=== PATIENT | female | born 1965 | race Caucasian/White ===

== ENCOUNTER 2025-06-08 09:28 | Outpatient (CLI) | payer OTHER, SELFPAY ==
--- OUTSIDE RECORDS SUMMARY | 2025-06-08 10:32 | XMS_ITS | Encounter Summary ---
Author Organization [facility] Address [address] [place] [address] Phone Care Team Providers [employer] Name Role Phone Ga Liang MD Primary Care Provider [phone] Logan Acuna MD Unavailable Mars Marti APRN, CNP Unavailable [phone] Onelia Lagunas DO Primary Care Provider [phone] Jones Christy MD Unavailable [phone] Eliezer Ndiaye MD Unavailable Shamar Rosales MD Unavailable Reason for Visit * Reason Comments Medication Refill Encounter Details Date Type Department Care Team (Late st Contact Info) Description 01/03/2024 Refill [facility] - Family Medicine [facility] [address] [place] [address] Ga Liang MD [address] [place] [address] Medication Refill Social History Tobacco Use Types Packs/Day Years Used Date Smoking Tobacco: Never Smokeless Tobacco: Never Alcohol Use Standard Drinks/Week Comments No 0 (1 standard drink = 0.6 oz pur e alcohol) [facility] Utilities Answer Date Recorded In the past 12 months has [employer], gas, oil, or water company threatened to shut off services in your home? No 12/02/2023 Social Connection and Isolation Panel Answer Date Recorded In a typical week, how many times do you talk on the phone with family, friends, or neighbors? Twice a week 12/02/2023 How often do you get togethe r with friends or relatives? Once a week 12/02/2023 How often do you attend chur ch or baptism services? More than 4 times per year 12/02/2023 Do you belong to any clubs o r organizations such as confucianism groups, unions, fraternal or athletic groups, or school groups? No 12/02/2023 How often do you attend meet ings of the clubs or organizations you belong to? 1 to 4 times per year 12/02/2023 Are you , , di vorced, , never , or living with a partner? 12/02/2023 AUDIT-C Answer Date Recorded Q1: How often do you have a drink containing alcohol? Never 12/02/2023 Q2: How many drinks containi ng alcohol do you have on a typical day when you are drinking? Patient does not drink Q3: How often do you have si x or more drinks on one occasion? Never 12/02/2023 Overall Financial Resource Strain (CARDIA) Answe r Date Recorded How hard is it for you to pa y for the very basics like food, housing, medical care, and heating? Not very hard 12/02/2023 [facility] - Occupational Stress Questionnaire Answer Date Recorded Do you feel stress - tense, restless, nervous, or anxious, or unable to sleep at night because your mind is troubled all the time - these days? Only a little 12/02/2023 Exercise Vital Sign Answer Date Recorde d On average, how many days pe r week do you engage in moderate to strenuous exercise (like a brisk walk)? 4 days 12/02/2023 On average, how many minutes do you engage in exercise at this level? 20 min 12/02/2023 Hunger Vital Sign Answer Date Recorded Within the past 12 months, y ou worried that your food would run out before you got the money to buy more. Never true 12/02/19 24 Within the past 12 months, t he food you bought just didn't last and you didn't have money to get more. Never true 12/02/2023 PRAPARE - Transportation Answer Date Re corded In the past 12 months, has l ack of transportation kept you from medical appointments or from getting medications? No 11/10 In the past 12 months, has l ack of transportation kept you from meetings, work, or from getting things needed for daily living? No 12/02/2023 Housing Stability Vital Sign Answer Jose Martin e Recorded In the last 12 months, was t here a time when you were not able to pay the mortgage or rent on time? No 12/02/2023 In the last 12 months, how many places have you lived? 1 12/02/2023 In the last 12 months, was t here a time when you did not have a steady place to sleep or slept in a senior living (including now)? No 12/02/2023 Sexually Active Control Partners Comments Yes Male Comments No Sex and Gender Information Value Date Recorded Sex Assigned at Female 08/07/2023 10:22 AM FLOOR HELPER Legal Sex Female 12:40 AM CDT Gender Identity Female 08/07/2023 10:22 AM FLOOR HELPER Sexual Orientation Straight 08/07/2023 10 :22 AM FLOOR HELPER documented as of this encounter Miscellaneous Notes * Telephone Encounter - Mily Quiros RN - 01/07/2024 7:36 AM CDT PDMP 10/18/23, 11/14/23, 12/12/23 Medication failed the protocol, provider to review and approve the medication order if appropriate. Requested Prescriptions Pending Prescriptions Disp Refills zolpidem (AMBIEN) 10 MG Tablet [Pharmacy Med Name: Zolpidem Tartrate 10 MG Oral Tablet] 30 Tablet 0 Sig: Take 1 Tablet by mouth nightly as needed for Sleep. Not Delegated - Off Protocol Failed - 01/03/2024 1:30 PM Failed - This refill cannot be delegated Passed - Visit with relevant provider in past 12 months or upcoming 90 days Recent Visits Date Type Provider Dept 12/04/23 Office Visit Ga Liang MD [facility] 11/13/23 Office Visit Ga Liang MD [facility] 09/19/23 Office Visit Ninoska Borden, LICENSED LOAN OFFICER, HEADLIGHT ASSEMBLER [facility] 09/05/23 Office Visit Ninoska Borden, LICENSED LOAN OFFICER, HEADLIGHT ASSEMBLER [facility] 08/06/23 Office Visit Jennifer Chowdary, PAC [facility] 07/18/23 Office Visit Ga Liang MD [facility] Showing recent visits within past 365 days and meeting all other requirements Today's Visits Date Type Provider Dept 01/07/24 Appointment Jennifer Chowdary, PAC [facility] [place] Showing today's visits and meeting all other requirements Future Appointments Date Type Provider Dept 03/09/24 Appointment Onelia Lagunas DO [facility] Showing future appointments within next 90 days and meeting all other requirements * Telephone Encounter - Clarissa Brooks RN - 01/04/2024 3:16 PM CDT PDMP 12-12-23, 30 days Due 01-11-24 documented in this encounter Plan of Treatment Upcoming Encounters Date Type Department Care Team (Late st Contact Info) Description 06/09/2025 9:30 AM CDT Office Visit [facility] - Gastroenterology - [place] [address] [place] [id number] Blaise Dill MD [address] [address] 06/13/2025 10:45 AM FLOOR HELPER Office Visit [facility] - Neurology - [place] [address] [place] [id number] Onelia Lagunas DO [address] [address] Jones Christy MD [address] [place] [address] 07/20/2025 8:15 AM FLOOR HELPER [facility] [place] [address] [place] [address] Onelia Lagunas, DO [address] [address] Henry Bernabe MD [address] [address] 09/05/2025 8:00 AM FLOOR HELPER [facility] [place] [address] [place] [address] Onelia Lagunas, DO [address] [address] 09/28/2025 8:30 AM FLOOR HELPER [facility] [place] [address] [place] [address] Shamar Rosales MD [address] [address] documented as of this encounter Visit Diagnoses Diagnosis Insomnia, unspecified type documented in this encounter Additional Health Concerns Infection Onset Date Last Indicated Resolved Time COVID - 19 04/30/2024 04/30/2024 04/30/2024 11:2 5 AM CDT documented as of this encounter Care Teams [employer] Relationship Specialty Start Date End Date Ga Liang MD [address] [place] [address] PCP - General Family Medicine 07/18/23 03/08/24 Onelia Lagunas DO [address] [facility] [address] [place] [address] PCP - General Family Medicine 03/09/24 Logan Acuna MD [address] [facility] [address] [place] [address] Consulting Physician Colon and Rectal Surgery 10/15/23 Mars Marti, LICENSED LOAN OFFICER, HEADLIGHT ASSEMBLER [address] [place] [address] Nurse Practitioner Advanced Practice Nurse 02/10/24 Jones Christy MD [address] [place] [id number] Consulting Physician Neurology 04/30/24 Eliezer Ndiaye MD [address] [address] Consulting Physician Clinical Cardiac Electrophysiology 09/17/24 03/23/25 Shamar Rosales MD [address] [facility] [address] [address] Consulting Physician Cardiovascular Disease - Cardiology 03/24/25 documented as of this encounter
--- OUTSIDE RECORDS SUMMARY | 2025-06-08 10:32 | XMS_ITS | Clinical Summary ---
Author Organization [facility] Address [address] [place] [address] Phone Care Team Providers Care Brickmason Helper Name Role Phone Logan Acuna MD Unavailable Mars Marti APRN, CNP Unavailable [phone] Onelia Lagunas DO Primary Care Provider [phone] Jones Christy MD Unavailable [phone] Shamar Rosales MD Unavailable Allergies Active Allergy Reactions Criticality Noted Date Comments Levofloxacin Rash 11/05/2007 Lorazepam Hallucinations 04/19/2025 Medications albuterol 108 (90 Base) MCG/ACT Aerosol Solution take 1-2 Puffs by inhalation every 4 hours as needed for Wheezing or Cough. 9 g 4 Active naloxone HCl (Narcan) 4 MG/0.1ML Liquid 1 [place] by Nasal route as needed for Opioid Reversal. Administer in one nostril for symptoms of overdose (severe sleepiness, breathing problems, not responsive). Call 911. May repeat 1 spray in alternate nostril in 2-3 minutes if needed. 2 Each 5 Active butalbital-aceta minophen-caffein e (FIORICET, ESGIC) 50-325-40 MG TabletIndication s:Concussion without loss of consciousness, initial encounter Take 1 Tablet by mouth every 4 hours as needed for Headaches. 10 Tablet 5 Active ondansetron (ZOFRAN) 8 MG Tablet Take 1 Tablet by mouth every 8 hours as needed for Nausea - 1st line for up to 24 doses. 24 Tablet 5 Active baclofen (LIORESAL) 20 MG Tablet Take 1 Tablet by mouth 3 times daily. 90 Tablet 5 Active eszopiclone (LUNESTA) 3 MG TabletIndication s:Insomnia, unspecified type Take 1 Tablet by mouth nightly as needed for Sleep. 30 Tablet 5 Active amitriptyline (ELAVIL) 25 MG Tablet Take 2 Tablets by mouth nightly. 180 Tablet 5 Active NIFEdipine (PROCARDIA-XL) 30 MG TABLET SR 24 HR Take 1 Tablet by mouth daily. 90 Tablet 3 5 Active losartan potassium-hydroc hlorothiazide (HYZAAR) 100-25 MG TabletIndication s:Hypertension, unspecified type Take 1 Tablet by mouth daily. 30 Tablet 5 5 Active Active Problems Problem Noted Date Diagnosed Date Status post lumbar spinal fusion 05/30/2025 Wound infection after surgery 05/30/2025 Lumbar spondylosis 05/30/2025 Cauda equina compression 05/30/2025 Referred otalgia of left ear 05/18/2025 Traumatic complete tear of left rotator cuff Bilateral carotid artery stenosis 01/13/2025 Atrial fibrillation 11/11/2024 Insomnia 07/23/2023 Vitamin B 12 deficiency 07/23/2023 Prediabetes 09/23/2019 07/18/2023 Other sleep apnea 02/12/2018 07/18/2023 Chronic tension headache 05/28/2017 023 Generalized anxiety disorder 05/28/201703/2023 Epidural lipomatosis 08/23/2016 Overview (11/13/2023): Epidural lipomatosis Incontinence 08/16/2016 Personal history of colonic polyps 05/16/2016 07/18/2023 Overview (07/18/2023): Overview: 5 mm left colon polyp removed 05/16/16. Repeat 5 y if adenoma as suspected. 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 07/18/2023 Essential hypertension, benign 10/19/2007 1 09/18/2022 Hyperlipidemia 10/19/2007 07/18/2023 Carpal tunnel syndrome 09/15/2007 Rheumatoid arthritis 09/15/2007 07/18/2023 Osteoarthrosis 11/29/2003 07/18/2023 Hypertension Encounters Date Type Department Care Team Description 06/07/2025 Travel 06/02/2025 Results Follow-Up [facility] [address] [place] [address] Eloisa Beaulieu APRN, QUALITY SYSTEMS MANAGER LIPID PANEL 06/02/2025 Results Follow-Up [facility] [address] [place] [address] Eloisa Beaulieu APRN, QUALITY SYSTEMS MANAGER MRI LEFT SHOULDER WO CONTRAST 05/31/2025 8:00 AM CDT - 05/31/2025 11:59 PM CDT Hospital Encounter [facility] MRI 1 [place] [address] Eloisa Beaulieu APRN, QUALITY SYSTEMS MANAGER Discharge Disposition: Discharged to home or Selfcare 05/30/2025 8:40 AM CDT Office Visit [facility] [address] [place] [address] Eloisa Beaulieu APRN, QUALITY SYSTEMS MANAGER Spinal stenosis of lumbar region with neurogenic claudication (Primary Dx); Hyperlipidemia, unspecified hyperlipidemia type; Rheumatoid arthritis, involving unspecified site, unspecified whether rheumatoid factor present Discharge Disposition: Discharged to home or Selfcare 05/29/[address] [facility] Medical [facility] [address] [place] [address] Onelia Lagunas, DO 05/29/2025 Travel 05/28/2025 Travel 05/26/2025 9:15 AM CDT Physical Therapy [facility] [address], [address] [place] [address] Guanakito Echeverria, Lexus Lemon, PT Discharge Disposition: Discharged to home or Selfcare 05/26/2025 8:30 AM CDT Occupational Therapy [facility] [address], [address] [place] [address] Oe, November N, DIE STORAGE CLERK, [place] Leyva, OT Discharge Disposition: Discharged to home or Selfcare 05/25/2025 Travel 05/24/2025 11:15 AM CDT Occupational Therapy [facility] [address], [address] [place] [address] Oe, November N, DIE STORAGE CLERK, [place] Leyva, OT Discharge Disposition: Discharged to home or Selfcare 05/24/2025 9:30 AM CDT Physical Therapy [facility] [address], [address] [place] [address] Guanakito Echeverria, Lexus Lemon, PT Left shoulder pain, unspecified chronicity (Primary Dx); Chronic bilateral low back pain with right-sided sciatica Discharge Disposition: Discharged to home or Selfcare 05/24/2025 Travel 05/22/2025 Travel 05/20/2025 12:26 PM CDT - 05/20/2025 11:59 PM CDT Hospital Encounter [facility] Ultrasound 1 [facility] [place] [address] Onelia Lagunas, DO Discharge Disposition: Discharged to home or Selfcare 05/20/2025 8:45 AM CDT Occupational Therapy [facility] [address] [place] [address] Oekillian, Radha N, DIE STORAGE CLERK, [place] Leyva, OT Discharge Disposition: Discharged to home or Selfcare 05/20/2025 Results Follow-Up [facility] Medical [facility] [address] [place] [address] Eloisa Beaulieu, NICOLAS, QUALITY SYSTEMS MANAGER US LEFT DUPLEX UPPER EXTREMITY VEINS, US ANKLE/BRACHIAL INDICES 05/19/2025 9:15 AM CDT Physical Therapy [facility] at [address] [place] [address] Guanakito Echeverria MD Middleton, Trisha M, PT Left shoulder pain, unspecified chronicity (Primary Dx); Chronic bilateral low back pain with right-sided sciatica Discharge Disposition: Discharged to home or Selfcare 05/18/2025 12:41 PM CDT - 05/18/2025 11:59 PM CDT Hospital Encounter [facility] Ultrasound 1 [place] [address] Onelia Lagunas, DO Discharge Disposition: Discharged to home or Selfcare 05/18/2025 Travel 05/17/2025 1:00 PM CDT Occupational Therapy [facility] [address] [place] [address] Pita, Radha N, DIE STORAGE CLERK, [place] Leyva, OT Discharge Disposition: Discharged to home or Selfcare 05/17/2025 9:30 AM CDT Physical Therapy [facility] at [place] [address], [address] [place] [address] Guanakito Echeverria, Lexus Lemon, PT Left shoulder pain, unspecified chronicity (Primary Dx); Chronic bilateral low back pain with right-sided sciatica Discharge Disposition: Discharged to home or Selfcare 05/17/2025 Travel 05/16/2025 Travel 05/15/2025 Travel 05/13/2025 9:30 AM CDT Physical Therapy [facility] at [address] [place] [address] Guanakito Echeverria, Lexus Lemon, PT Left shoulder pain, unspecified chronicity (Primary Dx); Chronic bilateral low back pain with right-sided sciatica Discharge Disposition: Discharged to home or Selfcare 05/12/2025 9:15 AM CDT Physical Therapy [facility] at [address] [place] [address] Guanakito Echeverria, Lexus Lemon, PT Left shoulder pain, unspecified chronicity (Primary Dx); Chronic bilateral low back pain with right-sided sciatica Discharge Disposition: Discharged to home or Selfcare 05/12/2025 8:30 AM CDT Occupational Therapy [facility] at [address] [place] [address] Radha Lema N, DIE STORAGE CLERK, QUALITY SYSTEMS MANAGER Embmoisés, Jamaica, OT Discharge Disposition: Discharged to home or Selfcare 05/12/2025 Travel 05/10/2025 10:30 AM CDT Speech Therapy [facility] at [address] [place] [address] Jones Christy, Alivia Sharma, [facility] SPECIALIST Cognitive change (Primary Dx); Cognitive decline Discharge Disposition: Discharged to home or Selfcare 05/10/2025 9:30 AM CDT Physical Therapy [facility] [address], [address] [place] [address] Guanakito Echeverria, Lexus Lemon, PT Left shoulder pain, unspecified chronicity (Primary Dx); Chronic bilateral low back pain with right-sided sciatica Discharge Disposition: Discharged to home or Selfcare 05/10/2025 Travel 05/09/2025 Travel 05/06/2025 8:45 AM CDT Physical Therapy [facility] [address] [place] [address] Guanakito Echeverria, Lexus Lemon, PT Left shoulder pain, unspecified chronicity (Primary Dx); Chronic bilateral low back pain with right-sided sciatica Discharge Disposition: Discharged to home or Selfcare 05/05/2025 9:15 AM CDT Physical Therapy [facility] [address] [place] [address] Guanakito Echeverria, Lexus Lemon, PT Left shoulder pain, unspecified chronicity (Primary Dx) Discharge Disposition: Discharged to home or Selfcare 05/05/2025 Travel 05/03/2025 10:30 AM CDT Speech Therapy [facility] [address] [place] [address] Jones Christy MD Brim, Ashley E, [facility] [employer] [employer] SPECIALIST Cognitive change (Primary Dx); Cognitive decline Discharge Disposition: Discharged to home or Selfcare 05/03/2025 9:30 AM CDT Physical Therapy [facility] [address] [place] [address] Guanakito Echeverria, Lexus Lemon, PT Left shoulder pain, unspecified chronicity (Primary Dx) Discharge Disposition: Discharged to home or Selfcare 05/03/2025 Travel 05/02/2025 8:40 AM CDT Office Visit [facility] [address] [place] [address] Onelia Lagunas, DO Mass of upper inner quadrant of left breast (Primary Dx); Insomnia, unspecified type; Spinal stenosis of lumbar region with neurogenic claudication; Arm paresthesia, left; Nausea and vomiting, unspecified vomiting type; Adrenal insufficiency (HCC) Discharge Disposition: Discharged to home or Selfcare 05/02/2025 MyChart RX Renewal [facility] [address] [place] [address] Onelia Lagunas, DO Medication Renewal Reviewed 05/02/2025 Documentation Only [facility] [place] [address] Onelia Lagunas, DO 05/02/2025 Transcribe Orders [facility] [place] [address] Onelia Lagunas, DO Mass of left breast, unspecified quadrant (Primary Dx) 05/02/2025 Travel 04/30/2025 Travel 04/28/2025 10:45 AM CDT Occupational Therapy [facility] [address] [place] [address] Radha Lema N, DIE STORAGE CLERK, [place] Leyva, BRANDO Discharge Disposition: Discharged to home or Selfcare 04/28/2025 9:15 AM CDT Physical Therapy [facility] [address], [address] [place] [address] Guanakito Echeverria MD Middleton, Trisha M, PT Left shoulder pain, unspecified chronicity (Primary Dx); Chronic bilateral low back pain with right-sided sciatica Discharge Disposition: Discharged to home or Selfcare 04/28/2025 Travel 04/26/2025 9:30 AM CDT Physical Therapy [facility] [address] [place] [address] Guanakito Echeverria, Lexus Lemon, PT Left shoulder pain, unspecified chronicity (Primary Dx); Chronic bilateral low back pain with right-sided sciatica Discharge Disposition: Discharged to home or Selfcare 04/26/2025 Travel 04/21/2025 9:15 AM CDT Physical Therapy [facility] [address] [place] [address] Guanakito Echeverria, Lexus Lemon, PT Left shoulder pain, unspecified chronicity (Primary Dx) Discharge Disposition: Discharged to home or Selfcare 04/19/2025 2:30 PM CDT Physical Therapy [facility] at [place] [address] [place] [address] Guanakito Echeverria, Lexus Lemon, PT Left shoulder pain, unspecified chronicity (Primary Dx) Discharge Disposition: Discharged to home or Selfcare 04/19/2025 Travel 04/18/2025 Travel 04/15/2025 MyChart RX Renewal [facility] [address] [place] [address] Onelia Lagunas, Medication Renewal Reviewed 04/15/2025 MyChart RX Renewal [facility] [address] [place] [address] Onelia Lagunas, Medication Renewal Reviewed 04/15/2025 Results Follow-Up [facility] [address] [place] [address] Radha Lema, DIE STORAGE CLERK, QUALITY SYSTEMS MANAGER US ABDOMEN LIMITED, LEVEL 1 - SINGLE ORGAN OR SOFT TISSUE 04/14/2025 11:15 AM CDT Speech Therapy [facility] at [place] [address], [address] [place] [address] Vern Wilkinson MD Brim, Ashley E, [facility] [employer] SPECIALIST Cognitive change (Primary Dx); Cognitive decline Discharge Disposition: Discharged to home or Selfcare 04/14/2025 9:15 AM CDT Physical Therapy [facility] [address] [place] [address] Guanakito Echeverria MD Middleton, Trisha M, PT Left shoulder pain, unspecified chronicity (Primary Dx); Chronic bilateral low back pain with right-sided sciatica Discharge Disposition: Discharged to home or Selfcare 04/14/2025 6:54 AM CDT - 04/14/2025 11:59 PM CDT Hospital Encounter [facility] [place] [address] Radha Lema, DIE STORAGE CLERK, QUALITY SYSTEMS MANAGER Discharge Disposition: Discharged to home or Selfcare 04/13/2025 Travel 04/13/2025 Plan of Care Documentation [facility] [address] [place] [address] 04/12/2025 3:15 PM CDT Occupational Therapy [facility] [address] [place] [address] Vern Wilkinson MD Embick, Alyssa, OT Concussion without loss of consciousness, initial encounter Discharge Disposition: Discharged to home or Selfcare 04/12/2025 2:30 PM CDT Physical Therapy [facility] [address] [place] [address] Guanakito Echeverria MD Middleton, Trisha M, PT Left shoulder pain, unspecified chronicity (Primary Dx) Discharge Disposition: Discharged to home or Selfcare 04/10/2025 Travel 03/24/2025 1:00 PM CDT Office Visit [facility] [address] [place] [address] Eloisa Beaulieu APRN, CNP Abrasion of left ear canal, subsequent encounter (Primary Dx); Left ear pain; Jaw pain; Acute post-traumatic headache, not intractable Discharge Disposition: Discharged to home or Selfcare 03/23/2025 11:00 AM CDT Office Visit [facility] [address] [place] [address] Shamar Rosales MD Paroxysmal atrial fibrillation (HCC) (Primary Dx) Discharge Disposition: Discharged to home or Selfcare 03/23/2025 Travel 03/23/2025 Results Follow-Up [facility] [address] [place] [address] Onelia Lagunas DO CMP (COMPREHENSIVE METABOLIC PANEL), THYROXINE (T4) FREE, TRIIODOTHYRININE (T3) FREE, Additional followed-up results: 6 03/22/2025 6:50 PM CDT - 03/22/2025 11:59 PM CDT Hospital Encounter [facility] [place] [address] Vern Wilkinson MD Discharge Disposition: Discharged to home or Selfcare 03/22/2025 Travel 03/21/2025 11:42 PM CDT - 03/22/2025 1:55 AM CDT Emergency [facility] [place] [address] Bryson Callaway MD Abrasion of left ear canal Discharge Disposition: Discharged to home or Selfcare 03/21/2025 1:20 PM CDT Office Visit [facility] [address] [place] [address] Onelia Lagunas DO Insomnia, unspecified type (Primary Dx); Hypertension, unspecified type; Hyperlipidemia, unspecified hyperlipidemia type; Prediabetes; Concussion without loss of consciousness, sequela (HCC); Low creatine kinase (CK); Low blood sugar; Left ear pain; Nausea and vomiting, unspecified vomiting type Discharge Disposition: Discharged to home or Selfcare 03/21/2025 9:15 AM CDT Office Visit [facility] [address] [place] [address] Jones Christy MD Concussion without loss of consciousness, initial encounter (Primary Dx); Polyneuropathy; Meralgia paresthetica of left side Discharge Disposition: Discharged to home or Selfcare 03/21/2025 Travel 03/19/2025 Travel 03/18/2025 Transcribe Orders [facility] [place] [address] Vern Wilkinson MD Arthrodesis status (Primary Dx); Spinal stenosis of lumbar region, unspecified whether neurogenic claudication present 03/14/2025 Telephone [facility] [address] [place] [address] Onelia Lagunas DO Prior Authorization 03/11/2025 Transcribe Orders [facility] [place] [address] Vern Wilkinson MD Arthrodesis status (Primary Dx); Spondylosis of lumbar region without myelopathy or radiculopathy 03/09/2025 2:30 PM CDT Physical Therapy [facility] [address], [address] [address] Vern Wilkinson MD Middleton, Trisha M, PT Discharge Disposition: Discharged to home or Selfcare 03/08/2025 Travel from Last 3 Months Immunizations Immunization Administration Dates Next Due Influenza Vaccine 05/29/2019, 8,06/19/2017,2015,06/13/2016,06/30/2015,06/29/2015,1 09/05/2013,04/11/2013 Influenza, Seasonal, Injecta ble, Undefined 06/23/2017,06/20/2014 MMR Vaccine 03/25/2003 Novel [id number], Injectable 07/06/2016 Pneumococcal Vaccine - 13 Valent 12/04/2014 Pneumococcal Vaccine Adult - 23 Valent 09/23/2019,04/08/2014 TDAP Vaccine 11/19/2022,07/14/2012 Tuberculin Skin Test; Purifi ed Protein Derivative Solutiol 08/15/2005 Family History Medical History Relation Name Comments Heart Attack Brother 1 Syed Alcohol Abuse Brother 2 Felipe Huangta alarcon Sudden Cardiac Brother 2 Felipe Huangta alarcon Alcohol Abuse Father Nestor Cancer Father Nestor Hypertension Father Nestor Prostate Cancer Father Nestor No Known Problems Maternal Grandfather No Known Problems Maternal Grandmother Depression Mother Vanessa Diabetes Mother Vanessa Type 1 diabetic diagnosed age 60 High Cholesterol Mother Vanessa Hypertension Mother Vanessa Other-comment Mother Vanessa Carotid artery disease No Known Problems Paternal Grandfather No Known Problems Paternal Grandmother Depression Sister 1 Alejandra Diabetes Sister 1 Alejandra Diagnosed age 6 0. Heart Attack Sister 1 Alejandra Kidney Stones Sister 1 Alejandra No Known Problems Sister 2 Cancer Son 1 testicular canc er Cancer Son 2 testicular canc er Autoimmune Disease Son 3 autoimmun e sensorineural hearing loss Relation Name Status Comments Brother 1 Syed Brother 2 Felipe Zacarias jr Alive Father Nestor Maternal Grandfather Maternal Grandmother Mother Vanessa Alive Paternal Grandfather Paternal Grandmother Sister 1 Alejandra Alive Sister 2 Alive Son 1 Alive Son 2 Alive Son 3 Alive Social History Tobacco Use Types Packs/Day Years Used Date Smoking Tobacco: Never Smokeless Tobacco: Never Tobacco Cessation:Counseling Given: No Alcohol Use Standard Drinks/Week Comments No 0 (1 standard drink = 0.6 oz pur e alcohol) [facility] Utilities Answer Date Recorded In the past 12 months has e electric, gas, oil, or water company threatened to shut off services in your home? No 09/14/2024 Social Connection and Isolation Panel Answer Date Recorded In a typical week, how many times do you talk on the phone with family, friends, or neighbors? Twice a week 09/14/2024 How often do you get togethe r with friends or relatives? Once a week 09/14/2024 How often do you attend chur ch or muslim services? More than 4 times per year 09/14/2024 Do you belong to any clubs o r organizations such as judaism groups, unions, fraternal or athletic groups, or school groups? Yes 09/14/2024 How often do you attend meet ings of the clubs or organizations you belong to? More than 4 times per year 09/14/2024 Are you , , di vorced, , never , or living with a partner? 09/14/2024 AUDIT-C Answer Date Recorded Q1: How often do you have a drink containing alcohol? Never 09/14/2024 Q2: How many drinks containi ng alcohol do you have on a typical day when you are drinking? Patient does not drink Q3: How often do you have si x or more drinks on one occasion? Never 09/14/2024 Overall Financial Resource Strain (CARDIA) Answe r Date Recorded How hard is it for you to pa y for the very basics like food, housing, medical care, and heating? Not hard at all 09/14/2024 PHQ-2 Answer Date Recorded Total Score - Questions 1-9 0 04/12 [facility] - Occupational Stress Questionnaire Answer Date Recorded Do you feel stress - tense, restless, nervous, or anxious, or unable to sleep at night because your mind is troubled all the time - these days? To some extent 09/14/2024 Exercise Vital Sign Answer Date Recorde d On average, how many days pe r week do you engage in moderate to strenuous exercise (like a brisk walk)? 5 days 09/14/2024 On average, how many minutes do you engage in exercise at this level? 60 min 09/14/2024 Hunger Vital Sign Answer Date Recorded Within the past 12 months, y ou worried that your food would run out before you got the money to buy more. Never true 09/14/19 25 Within the past 12 months, t he food you bought just didn't last and you didn't have money to get more. Never true 09/14/2024 PRAPARE - Transportation Answer Date Re corded In the past 12 months, has l ack of transportation kept you from medical appointments or from getting medications? No 11/2024 In the past 12 months, has l ack of transportation kept you from meetings, work, or from getting things needed for daily living? No 09/14/2024 Housing Stability Vital Sign Answer Jose Martin [...] place to sleep or slept in a alf (including now)? No 12/02/2023 Housing Stability Vital Sign Answer Jose Martin e Recorded In the last 12 months, was t here a time when you were not able to pay the mortgage or rent on time? No 09/14/2024 In the past 12 months, how m any times have you moved where you were living? 0 09/14/2024 At any time in the past 12 m [facility], were you homeless or living in a alf (including now)? No 09/14/2024 Sexually Active Control Partners Comments Yes Post-menopausal, Surgical Male Comments No Sex and Gender Information Value Date Recorded Sex Assigned at Female 08/07/2023 10:22 AM CONTENT EDITOR Legal Sex Female 12:40 AM CDT Gender Identity Female 08/07/2023 10:22 AM CONTENT EDITOR Sexual Orientation Straight 08/07/2023 10 :22 AM CONTENT EDITOR Last Filed Vital Signs Vital Sign Reading Time Taken Comments Blood Pressure 128/62 05/30/2025 8:30 AM CDT Pulse 63 05/30/2025 8:30 AM CDT Temperature 36.4 C (97.5 F) 05/30/2025 8:30 AM CDT Respiratory Rate 16 05/30/2025 8:30 AM CDT Oxygen Saturation 97% 05/30/2025 8:30 AM CDT Inhaled Oxygen Concentration - - Weight 80.3 kg (177 lb) 05/30/2025 8:30 AM CDT Height 170.2 cm (5' 7) 05/30/2025 8:30 AM CDT Body Mass Index 27.72 05/30/2025 8:30 AM CDT Plan of Treatment Upcoming Encounters Date Type Department Care Team (Late st Contact Info) Description 06/09/2025 9:30 AM CDT Office Visit [facility] - Gastroenterology - [place] [address] [place] [address] Blaise Dill MD [address] [address] 06/13/2025 10:45 AM CONTENT EDITOR Office Visit [facility] - Neurology - [place] [address] [place] [address] Onelia Lagunas, DO [address] [address] Jones Christy MD #2 [place] [address] 07/20/2025 8:15 AM CONTENT EDITOR Office Visit [facility] - Endocrinology - [place] [address] [place] [address] Onelia Lagunas, DO [address] [address] Henry Bernabe MD #[address] [place] [address] 09/05/2025 8:00 AM CONTENT EDITOR Office Visit [facility] - Family Medicine - [place] [address] [place] [address] Onelia Lagunas, DO 2 [facility] [address] [place] [address] 09/28/2025 8:30 AM CONTENT EDITOR Office Visit [facility] - Cardiology - [place] [address] [place] [address] Shamar Rosales MD [address], [address] [address] Health Maintenance Due Date Last Done Comments Cologuard 01/13/2009 Respiratory Syncytial Virus (RSV) Immunization (Adult) (1 - Risk 50-74 years 1-dose series) 01/13/2014 Immunochemical Fecal Occult Blood 05/13/2017 05/13/2016 Pneumococcal Immunization (50+ years) (3 of 3 - PCV20 or PCV21) 09/23/2024 09/23/2019, 12/04/2014, 04/08/2014 Mammogram 12/16/2025 12/16/2024, 0508/2023, 01/28/2022, Additional history exists Td Immunization Every 10 Years (Adults With 1 Tdap) 11/19/2032 11/19/2022, 07/14/2012 Colonoscopy 12/04/2033 12/05/2023, 12/05/2023 Colorectal Cancer Screening 12/04/2033 Influenza Immunization Discontinued , 06/04/2018, 06/23/2017, Additional history exists Pneumococcal Immunization Combined Discontinued 09/23/2019, 12/04/2014, 04/08/2014 SARS-COV-2 Immunization Discontinued 03/01/2021, 02/08 DTaP/Tdap/Td Immunization Discontinued 11/19/2022, 11/2011 Hepatitis C Virus (HCV) Screening Completed 11/13/2023 Hepatitis B Immunization Discontinued Human Papillomavirus (HPV) Immunization Aged Out No longer eligible based on patient's age to complete this topic Meningococcal Immunization (ACWY) Aged Out No longer eligible based on patient's age to complete this topic Rotavirus Immunization Aged Out No lo nger eligible based on patient's age to complete this topic Zoster Immunization Discontinued Medical Devices Implanted Type Area Environmental Studies Faculty Member Device Identifier Shelf Expiration Date Model / Serial / Lot System Fix 19.1mm 4.75mm [employer] Swivelock [employer]ocomposite Geronimo Preload Strl - [id number] Implanted:Qty: 1 on 02/02/2025 by Guanakito Echeverria MD at [facility] IMPLANT Left: Shoulder [employer] 08/10/2028 [id number] S-4 / [id number] S-4 / [id number] Procedures Procedure Name Priority Date/Time Associated Diagnosis Comments MRI LEFT SHOULDER WO CONTRAST Routine 05/31/2025 8:40 AM CDT Arm paresthesia, left Abnormal ultrasound LIPID PANEL Routine 05/31/2025 7:46 AM CDT Hyperlipidemia, unspecified hyperlipidemia type ORTHOPEDIC SURGERY CONSULT 05/23/2025 12:00 AM CDT US ANKLE/BRACHIAL INDICES Routine 05/20/2025 1:28 PM CDT Spinal stenosis of lumbar region with neurogenic claudication Arm paresthesia, left US LEFT DUPLEX UPPER EXTREMITY VEINS Routine 05/18/2025 2:19 PM CDT Arm paresthesia, left US ABDOMEN LIMITED, LEVEL 1 - SINGLE ORGAN Routine 04/14/2025 7:13 AM CDT Epigastric mass CT LUMBAR SPINE WO CONTRAST Routine 03/22/2025 7:06 PM CDT Arthrodesis status Spondylosis of lumbar region without myelopathy or radiculopathy THYROID SCREEN WITH REFLEX Routine 03/22/2025 7:06 AM CDT Insomnia, unspecified type Hypertension, unspecified type Hyperlipidemia, unspecified hyperlipidemia type Prediabetes CBC WITH AUTO DIFFERENTIAL Routine 03/22/2025 7:06 AM CDT Insomnia, unspecified type Hypertension, unspecified type Hyperlipidemia, unspecified hyperlipidemia type Prediabetes CORTISOL Routine 03/22/2025 7:06 AM CDT Insomnia, unspecified type Prediabetes Low blood sugar CREATINE KINASE (CK) TOTAL Routine 03/22/2025 7:06 AM CDT Low creatine kinase (CK) C-REACTIVE PROTEIN (CRP) QUANT Routine 03/22/2025 7:06 AM CDT Insomnia, unspecified type Hypertension, unspecified type Hyperlipidemia, unspecified hyperlipidemia type Prediabetes Concussion without loss of consciousness, sequela (HCC) ERYTHROCYTE SEDIMENTATION RATE (ESR) Routine 03/22/2025 7:06 AM CDT Insomnia, unspecified type Hypertension, unspecified type Hyperlipidemia, unspecified hyperlipidemia type Prediabetes Concussion without loss of consciousness, sequela (HCC) TRIIODOTHYRININE (T3) FREE Routine 03/22/2025 7:06 AM CDT Insomnia, unspecified type Hypertension, unspecified type Hyperlipidemia, unspecified hyperlipidemia type Prediabetes THYROXINE (T4) FREE Routine 03/22/2025 7 :06 AM CDT Insomnia, unspecified type Hypertension, unspecified type Hyperlipidemia, unspecified hyperlipidemia type Prediabetes THYROID SCREEN WITH REFLEX Routine 03/22/2025 7:06 AM CDT Insomnia, unspecified type Hypertension, unspecified type Hyperlipidemia, unspecified hyperlipidemia type Prediabetes CMP (COMPREHENSIVE METABOLIC PANEL) Routine 03/22/2025 7:06 AM CDT Insomnia, unspecified type Hypertension, unspecified type Hyperlipidemia, unspecified hyperlipidemia type Prediabetes COMPLETE BLOOD COUNT (CBC) WITH DIFF Routine 03/22/2025 7:06 AM CDT Insomnia, unspecified type Hypertension, unspecified type Hyperlipidemia, unspecified hyperlipidemia type Prediabetes NEUROSURGY CONSULT 03/08/2025 12 :00 AM CDT TIANNA SCREENING BILATERAL DIGITAL W CAD W JAKUB Routine 12/16/2024 2:43 PM CDT Encounter for screening mammogram for breast cancer HEPATITIS C ANTIBODY Routine 11/13/2023 10:44 AM CDT Need for hepatitis C screening test from Last 3 Months or Most Recently Relevant to Health Maintenance Results * MRI LEFT SHOULDER WO CONTRAST (05/31/2025 8:40 AM CDT) Anatomical Region Laterality Modality UPPER EXTREMITY, shoulder Left Magnet ic Resonance 05/31/2025 8:07 AM CDT Impressions 05/31/2025 3:45 PM CDT IMPRESSION: 1. Findings of prior rotator cuff repair. There is moderate tendinopathy of the supraspinatus particularly involving the anterior to mid footprint with mild thinning of the anterior footprint suggestive of low-grade retearing. There is severe tendinosis of the subscapularis superior bundle with low to moderate grade intrasubstance re tearing. No full-thickness rotator cuff tear or tendon retraction. Mild fatty infiltration and volume loss of the supraspinatus. 2. Moderate tendinosis and partial tearing of the long head of the biceps. 3. Moderate subacromial/subdeltoid bursitis. 4. Bone loss in the distal clavicle could be postsurgical or distal clavicular osteolysis. Narrative 05/31/2025 3:45 PM CDT MRI LEFT SHOULDER WO CONTRAST EXAM DATE: 05/31/2025 8:15 AM HISTORY: 60 years year old Female. Paresthesia of skin Abnormal findings on diagnostic imaging of other specified body structures TECHNIQUE: Multiplanar, multisequence MR images of the left shoulder were acquired without contrast. COMPARISON: Comparison made with previous examination(s) dated (DX) 07-Mar-2025. FINDINGS: Rotator cuff and long head of the biceps: There are findings of prior rotator cuff repair. There is moderate tendinopathy of the supraspinatus particularly involving the anterior to mid footprint with additional mild thinning of the anterior footprint suggestive of low-grade sprain as well as bursal and articular surface fraying. There is mild to moderate tendinosis of the infraspinatus without infraspinatus tendon tear. The teres minor is intact. There is severe tendinosis of the subscapularis superior bundle at the site of the previous repair with intrasubstance low to moderate grade partial-thickness tearing near its humeral attachment. There is no full-thickness rotator cuff tear, or tendon retraction. There is mild fatty infiltration of the supraspinatus and mild volume loss. The subscapularis and infraspinatus muscle bulk are grossly preserved with grade 1 strain of the deep fibers of the infraspinatus. 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 The long head of the biceps appears thinned, and demonstrates increased signal suggestive of partial tearing and moderate tendinosis. The arm was imaged in internal rotation without evidence of malalignment of the biceps. Glenohumeral joint, fluid and labrum: There is no significant joint effusion. There is no glenohumeral osteoarthritis with areas of low-grade partial-thickness cartilage loss at the central glenoid, and the superior humeral head particularly. Evaluation of the labrum demonstrates degenerative fraying of the superior labrum. There is also degenerative signal within the posterior labrum. Acromioclavicular joint and bursa: There is widening of the acromioclavicular joint with bone loss in the distal clavicle which could be related to postsurgical changes or distal clavicular osteolysis. There is type II acromion with small subacromial spurring. There is scarring at the coracoacromial ligament, likely postsurgical. There is no lateral acromial downsloping. There is moderate subacromial/subdeltoid bursitis. Bones: No acute fracture or dislocation. No worrisome marrow signal abnormality is seen. Other findings: No evidence of acute denervation edema. There is no axillary lymph node enlargement. There is no MRI evidence of adhesive capsulitis. Procedure Note Jaswant Bellamy MD - 05/31/2025 MRI LEFT SHOULDER WO CONTRAST EXAM DATE: 05/31/2025 8:15 AM HISTORY: 60 years year old Female. Paresthesia of skin Abnormal findingson diagnostic imaging of other specified body structures TECHNIQUE: Multiplanar, multisequence MR images of the left shoulder wereacquired without contrast. COMPARISON: Comparison made with previous examination(s) dated (DX)07-Mar-2025. FINDINGS: Rotator cuff and long head of the biceps: There are findings of priorrotator cuff repair. There is moderate tendinopathy of the supraspinatusparticularly involving the anterior to mid footprint with additional mildthinning of the anterior footprint suggestive of low-grade sprain as wellas bursal and articular surface fraying. There is mild to moderatetendinosis of the infraspinatus without infraspinatus tendon tear. Theteres minor is intact. There is severe tendinosis of the subscapularissuperior bundle at the site of the previous repair with intrasubstance lowto moderate grade partial-thickness tearing near its humeral attachment.There is no full-thickness rotator cuff tear, or tendon retraction. Thereis mild fatty infiltration of the supraspinatus and mild volume loss. Thesubscapularis and infraspinatus muscle bulk are grossly preserved withgrade 1 strain of the deep fibers of the infraspinatus. There is moderatefatty infiltration of the teres minor, most likely sequelae ofquadrilateral space syndrome without space-occupying lesion identifiedalong the visualized axillary nerve course. The long head of the bicepsappears thinned, and demonstrates increased signal suggestive of partialtearing and moderate tendinosis. The arm was imaged in internal rotationwithout evidence of malalignment of the biceps. Glenohumeral joint, fluid and labrum: There is no significant jointeffusion. There is no glenohumeral osteoarthritis with areas of xbg-pkbkkkwvvbrs-rfvmcriue cartilage loss at the central glenoid, and the superiorhumeral head particularly. Evaluation of the labrum demonstratesdegenerative fraying of the superior labrum. There is also degenerativesignal within the posterior labrum. Acromioclavicular joint and bursa: There is widening of theacromioclavicular joint with bone loss in the distal clavicle which couldbe related to postsurgical changes or distal clavicular osteolysis. Thereis type II acromion with small subacromial spurring. There is scarring atthe coracoacromial ligament, likely postsurgical. There is no lateralacromial downsloping. There is moderate subacromial/subdeltoid bursitis. Bones: No acute fracture or dislocation. No worrisome marrow signalabnormality is seen. Other findings: No evidence of acute denervation edema. There is noaxillary lymph node enlargement. There is no MRI evidence of adhesivecapsulitis. IMPRESSION: 1. Findings of prior rotator cuff repair. There is moderate tendinopathyof the supraspinatus particularly involving the anterior to mid footprintwith mild thinning of the anterior footprint suggestive of low-graderetearing. There is severe tendinosis of the subscapularis superior bundlewith low to moderate grade intrasubstance re tearing. No full-thicknessrotator cuff tear or tendon retraction. Mild fatty infiltration and volumeloss of the supraspinatus. 2. Moderate tendinosis and partial tearing of the long head of thebiceps. 3. Moderate subacromial/subdeltoid bursitis. 4. Bone loss in the distal clavicle could be postsurgical or distalclavicular osteolysis. Eloisa Beaulieu APRN, QUALITY SYSTEMS MANAGER [facility] MR ORDERABLES Fin al Result * (ABNORMAL) LIPID PANEL (05/31/2025 7:46 AM CDT) CHOLESTEROL 218(H) <200 mg/dL 05/31/2025 8:47 AM CDT [facility] TRIGLYCERIDES 75 <150 mg/dL 05/31/2025 8:47 AM CDT [facility] HDL CHOLESTEROL 52 >40 mg/dL 8:47 AM CDT [facility] LDL 151(H) <130 mg/dL 05/31/2025 8:47 AM CDT [facility] VLDL 15 10 - 50 mg/dL 05/31/2025 8:47 AM CDT [facility] CHOL/HDL RATIO 4.2 0.0 - 4.4 05/31/2025 8:47 AM CDT [facility] NON-HDL CHOLESTEROL 166(H) <130 mg/dL 05/31/2025 8:47 AM CDT [facility] IS THE PATIENT REQUIRED TO BE FASTING? No 05/31/2025 8:47 AM CDT [facility] Blood Venipuncture / Unknown 05/31/2025 7:46 AM CDT 05/31/2025 7:54 AM CDT Narrative [facility] - 05/31/2025 8:47 AM CDT NCEP GUIDELINES FOR LIPID INTERPRETATION TOTAL CHOLESTEROL DESIRABLE <200 BORDERLINE 200-239 HIGH >=240 LDL CHOLESTEROL OPTIMAL <100 NEAR OPTIMAL 100-129 BORDERLINE 130-159 HIGH 160-189 VERY HIGH >=190 Calculated using the Friedewald equation. HDL CHOLESTEROL LOW <40 *HIGH >=60 TRIGLYCERIDES NORMAL <150 BORDERLINE 150-199 HIGH 200-499 VERY HIGH >=500 VLDL calculated using Triglycerides/5. *HDL CHOLESTEROL >=60 mg/dL counts as a negative risk factor; its presence removes one risk factor from the total. Based on guidelines from the National Cholesterol Education Program, desirable levels for non HDL cholesterol are 30 mg/dL above target levels for LDL cholesterol. Eloisa Beaulieu DIE STORAGE CLERK, QUALITY SYSTEMS MANAGER CHEMISTRY ORDERABLES Final Result Performing Organization Address [facility] Co de Phone Number [facility] [address] [place] [address] * ORTHOPEDIC SURGERY CONSULT (05/23/2025 12:00 AM CDT) 05/23/2025 us Provider Scan GENERIC SCAN ORDERS CONSULT Mendy l Result Performing Organization Address [facility] Co de Phone Number SCAN * US ANKLE/BRACHIAL INDICES (05/20/2025 1:28 PM CDT) Anatomical Region Laterality Modality vascular N/A Ultrasound Narrative 05/29/2025 7:29 PM CDT Vascular Lower Arterial Plethysmography Procedure Patient name RADHA PIERCE [place] 1965 Indications for Study:Claudication and Numbness and tingling feet. Type of Study: Extremities Arteries:Lower Arterial Plethysmography, Ankle/Brachial Indices. Conclusions Summary - No hemodynamically significant large vessel peripheral arterial disease of right lower extremity with GARRET of 1.25. - No hemodynamically significant large vessel peripheral arterial disease of left lower extremity with GARRET of 1.29. - Bilateral toe pressures are non occlusive concern for significant bilateral small vessel Peripheral arterial disease. Signature Velocities are measured in cm/s ; Diameters are measured in cm Pressures Right Left + + + + + + + + + + !Location ! !> !Pressure !Ratio ! !> !Pressure !Ratio ! + + + + + + + + + + !Ankle PT ! ! !201 !1.25 ! ! !207 !1.29 ! + + + + + + + + + + !Ankle AT ! ! !194 !1.2 ! ! !189 !1.17 ! + + + + + + + + + + - Brachial Pressure:Right: 160.Left:161. - GARRET:Right: 1.25.Left: 1.29. Right Plethysmographic Results + +------+ +---------+---------+ + !Location !> !Pressure !Ratio !Notch !Amplitude ! + +------+ +---------+---------+ + !Ankle PT ! !201 !1.25 ! ! ! + +------+ +---------+---------+ + !Ankle AT ! !194 !1.2 ! ! ! + +------+ +---------+---------+ + - Right Brachial Pressure:160. - Right GARRET:1.25. Left Plethysmographic Results + +------+ +---------+---------+ + !Location !> !Pressure !Ratio !Notch !Amplitude ! + +------+ +---------+---------+ + !Ankle PT ! !207 !1.29 ! ! ! + +------+ +---------+---------+ + !Ankle AT ! !189 !1.17 ! ! ! + +------+ +---------+---------+ + - Left Brachial Pressure:161. - Left GARRET:1.29. Demographics Age 60 Gender Female Race Height 160.01 lbs. Weight BMI Director Surface Transportation Shira Haney Interpreting Nacho Referring Physician Jaqueline Physician Ordering Physician Procedure Note Jaqueline Griffith MD - 05/29/2025 Vascular Lower Arterial Plethysmography Procedure Patient name RADHA PIERCE [place] 1965 Indications for Study:Claudication and Numbness and tingling feet. Type of Study: Extremities Arteries:Lower Arterial Plethysmography, Ankle/Brachial Indices. Conclusions Summary - No hemodynamically significant large vessel peripheral arterial disease of right lower extremity with GARRET of 1.25. - No hemodynamically significant large vessel peripheral arterial disease of left lower extremity with GARRET of 1.29. - Bilateral toe pressures are non occlusive concern for significant bilateral small vessel Peripheral arterial disease. Signature Velocities are measured in cm/s ; Diameters are measured in cm Pressures RightLeft + ++ +---- ----- + ++ + +-------- ----- ------+ !Location ! !>!Pressure !Ratio ! !> !Pressure!Ratio ! + ++ +---- ----- + ++ + +-------- ----- ------+ !Ankle PT ! !!201 !1.25 ! ! !207!1.29 ! + ++ +---- ----- + ++ + +-------- ----- ------+ !Ankle AT ! !!194 !1.2 ! ! !189!1.17 ! + ++ +---- ----- + ++ + +-------- ----- ------+ - Brachial Pressure:Right: 160.Left:161. - GARRET:Right: 1.25.Left: 1.29. Right Plethysmographic Results + +------+ +---------+---------+ + !Location !> !Pressure !Ratio !Notch !Amplitude ! + +------+ +---------+---------+ + !Ankle PT ! !201 !1.25 ! ! ! + +------+ +---------+---------+ + !Ankle AT ! !194 !1.2 ! ! ! + +------+ +---------+---------+ + - Right Brachial Pressure:160. - Right GARRET:1.25. Left Plethysmographic Results + +------+ +---------+---------+ + !Location !> !Pressure !Ratio !Notch !Amplitude ! + +------+ +---------+---------+ + !Ankle PT ! !207 !1.29 ! ! ! + +------+ +---------+---------+ + !Ankle AT ! !189 !1.17 ! ! ! + +------+ +---------+---------+ + - Left Brachial Pressure:161. - Left GARRET:1.29. Demographics Age 60 Gender Female Race Height 160.01 lbs. Weight BMI Director Surface Transportation Shira Haney Interpreting Griffith Referring Physician Jaqueline Physician Ordering Physician us Onelia Suzette Lagunas DO IMG US ORDERABLES Final Resul t * US LEFT DUPLEX UPPER EXTREMITY VEINS (05/18/2025 2:19 PM CDT) Anatomical Region Laterality Modality vascular Left Ultrasound 05/18/2025 2:19 PM CDT Impressions 05/19/2025 5:11 PM CDT IMPRESSION: 1. No acute DVT in the left upper extremity. 2. Along the anterior margin of the shoulder, there is a multilobulated fluid collection which appears thick walled measuring approximately 3 x 1.7 cm. No peripheral hyperemia. This lesion is otherwise not well evaluated on this study. Differential includes joint effusion versus ganglion cyst or bursitis, amongst others. Abscess is less likely. Recommend MRI shoulder for further evaluation. Narrative 05/19/2025 5:11 PM CDT DICTATING PHYSICIAN: Luca Woodward MD EXAMINATION: US LEFT DUPLEX UPPER EXTREMITY VEINS DATE: 05/18/2025 2:19 PM CLINICAL INDICATION: Paresthesia of skin. Bilateral arm pain for 2 weeks. COMPARISON: No relevant priors are available for comparison. TECHNIQUE: Color and spectral doppler images were obtained. The left upper extremity veins were examined for compressibility where applicable, augmentation, waveforms and echogenic intraluminal material. FINDINGS: Internal Jugular: Unremarkable. Brachiocephalic: Unremarkable. Normal waveform. Subclavian: Unremarkable. Normal waveform. Axillary: Unremarkable. Brachial: Unremarkable. Cephalic and Basilic: Unremarkable. Other: Along the anterior margin of the shoulder, there is a multilobulated fluid collection which appears thick walled measuring approximately 3 x 1.7 cm. Procedure Note Sunil Woodward MD - 05/19/2025 DICTATING PHYSICIAN: Luca Woodward MD EXAMINATION: US LEFT DUPLEX UPPER EXTREMITY VEINS DATE: 05/18/2025 2:19 PM CLINICAL INDICATION: Paresthesia of skin. Bilateral arm pain for 2weeks. COMPARISON: No relevant priors are available for comparison. TECHNIQUE: Color and spectral doppler images were obtained. The left upperextremity veins were examined for compressibility where applicable,augmentation, waveforms and echogenic intraluminal material. FINDINGS: Internal Jugular: Unremarkable. Brachiocephalic: Unremarkable. Normal waveform. Subclavian: Unremarkable. Normal waveform. Axillary: Unremarkable. Brachial: Unremarkable. Cephalic and Basilic: Unremarkable. Other: Along the anterior margin of the shoulder, there is amultilobulated fluid collection which appears thick walled measuringapproximately 3 x 1.7 cm. IMPRESSION: 1. No acute DVT in the left upper extremity. 2. Along the anterior margin of the shoulder, there is a multilobulatedfluid collection which appears thick walled measuring approximately 3 x1.7 cm. No peripheral hyperemia. This lesion is otherwise not wellevaluated on this study. Differential includes joint effusion versusganglion cyst or bursitis, amongst others. Abscess is less likely.Recommend MRI shoulder for further evaluation. us Onelia Lagunas DO IM US ORDERABLES Final Resul t * US ABDOMEN LIMITED, LEVEL 1 - SINGLE ORGAN OR SOFT TISSUE (04/14/2025 7:13 AM CDT) Anatomical Region Laterality Modality Abdomen N/A Ultrasound 04/14/2025 7:13 AM CDT Impressions 04/14/2025 11:41 AM CDT Impression: 1. The palpable epigastric abnormality appears to correspond to the xiphoid process. No mass or hernia is identified. Narrative 04/14/2025 11:41 AM CDT DICTATING PHYSICIAN: Mila Mcrae M.D. - [facility] US ABDOMEN LIMITED, LEVEL 1 - SINGLE ORGAN OR SOFT TISSUE 04/14/2025 7:13 AM Exam: Targeted Ultrasound of epigastric region Indication: 60 year old female with a palpable epigastric lump for several months. Comparison: CT abdomen and pelvis 09/19/2023 Technique: Multiple longitudinal and transverse sonographic images of the midline epigastric region were obtained as directed by the patient. Doppler was applied as indicated. Findings: Targeted sonographic evaluation of epigastric region demonstrates that the palpable lump corresponds to the patient's xiphoid process. No mass or hernia identified. Procedure Note Mila Mcrae MD - 04/14/2025 DICTATING PHYSICIAN: Mila Mcrae M.D. - [facility] US ABDOMEN LIMITED, LEVEL 1 - SINGLE ORGAN OR SOFT TISSUE 04/14/2025 7:13AM Exam: Targeted Ultrasound of epigastric region Indication: 60 year old female with a palpable epigastric lump for severalmonths. Comparison: CT abdomen and pelvis 09/19/2023 Technique: Multiple longitudinal and transverse sonographic images of themidline epigastric region were obtained as directed by the patient.Doppler was applied as indicated. Findings: Targeted sonographic evaluation of epigastric regiondemonstrates that the palpable lump corresponds to the patient's xiphoidprocess. No mass or hernia identified. Impression: 1. The palpable epigastric abnormality appears to correspond to thexiphoid process. No mass or hernia is identified. us Radha N Daytonhl DIE STORAGE CLERK, QUALITY SYSTEMS MANAGER IMG US ORDERABLES Final R esult * CT LUMBAR SPINE WO CONTRAST (03/22/2025 7:06 PM CDT) Anatomical Region Laterality Modality Spine N/A Computed Tomogra phy 03/28/2025 8:22 AM CDT Impressions 03/28/2025 8:24 AM CDT IMPRESSION: CT re-evaluation of the postsurgical lumbar spine as above. Narrative 03/28/2025 8:24 AM CDT EXAM DESCRIPTION: CT LUMBAR SPINE WO CONTRAST REASON FOR STUDY: Chronic low back pain for 8 years. No provided history of radiculopathy. No provided history of trauma or inciting and/or aggravating events. No provided past medical history. History of unspecified multiple surgeries to area. TECHNIQUE: Axial images acquired through the lumbar spine without intravenous contrast. Reconstructed coronal and sagittal MPR images reviewed. All images stored on PACS. Automated exposure control was used as a dose optimization technique for this examination. COMPARISON: Lumbar spine radiograph 03/07/2025 and 08/25/2024.; DEXA scan 11/19/2024: Reported as normal bone mass; MRI lumbar spine without contrast 09/30/2024; relevant portions of CT abdomen pelvis with contrast 09/19/2023. FINDINGS: SEGMENTATION: No lumbosacral transitional anatomy. The lowest fully formed intervertebral disc level is labeled L5-S1. ALIGNMENT: Alignment and curvature unchanged. VERTEBRAE: Diffuse demineralization of the osseous architecture. No acute fracture. Vertebral body heights unchanged. Spondylosis. DISC HEIGHT: The non fused intervertebral disc levels, multilevel variable loss of intervertebral disc height of the lower thoracic through lumbar spine. HARDWARE: Stable appearance of posterior instrumented spinal fusion spanning L2-L5 with multilevel posterior decompressions. Correlate with operative details. INDIVIDUAL DISC LEVELS: No osseous spinal canal stenosis. Multilevel variable osseous neural foraminal stenosis. Please reference September 2024 MRI of the lumbar spine for further evaluation. VISUALIZED RIBS: No acute abnormality. SOFT TISSUES: No acute abnormality. OTHER: No other significant finding. THIS IS AN ELECTRONICALLY VERIFIED FINAL REPORT 03/28/2025 8:22 AM - Electronically signed by Elder Leo M.D. ERICK: ERICK Report ID: [id number] Reading Location: [place] [address] Procedure Note Elder Leo MD - 03/28/2025 EXAM DESCRIPTION: CT LUMBAR SPINE WO CONTRAST REASON FOR STUDY: Chronic low back pain for 8 years. No provided history of radiculopathy. No provided history of trauma or inciting and/or aggravating events. No provided past medical history. History of unspecified multiple surgeries to area. TECHNIQUE: Axial images acquired through the lumbar spine without intravenous contrast. Reconstructed coronal and sagittal MPR images reviewed. All images stored on PACS. Automated exposure control was used as a dose optimization technique for this examination. COMPARISON: Lumbar spine radiograph 03/07/2025 and 08/25/2024.; DEXA scan 11/19/2024: Reported as normal bone mass; MRI lumbar spine without contrast 09/30/2024; relevant portions of CT abdomen pelvis with contrast 09/19/2023. FINDINGS: SEGMENTATION: No lumbosacral transitional anatomy. The lowest fully formed intervertebral disc level is labeled L5-S1. ALIGNMENT: Alignment and curvature unchanged. VERTEBRAE: Diffuse demineralization of the osseous architecture. No acute fracture. Vertebral body heights unchanged. Spondylosis. DISC HEIGHT: The non fused intervertebral disc levels, multilevel variable loss of intervertebral disc height of the lower thoracic through lumbar spine. HARDWARE: Stable appearance of posterior instrumented spinal fusion spanning L2-L5 with multilevel posterior decompressions. Correlate with operative details. INDIVIDUAL DISC LEVELS: No osseous spinal canal stenosis. Multilevel variable osseous neural foraminal stenosis. Please reference September 2024 MRI of the lumbar spine for further evaluation. VISUALIZED RIBS: No acute abnormality. SOFT TISSUES: No acute abnormality. OTHER: No other significant finding. THIS IS AN ELECTRONICALLY VERIFIED FINAL REPORT 03/28/2025 8:22 AM - Electronically signed by Elder Leo M.D. ERICK: ERICK Report ID: [id number] Reading Location: [place] [address] IMPRESSION: CT re-evaluation of the postsurgical lumbar spine as above. Vern Wilkinson MD IMG CT ORDERABLES Final Result * THYROID SCREEN WITH REFLEX (03/22/2025 7:06 AM CDT) TSH 1.973 0.300 - 5.000 mIU/L 03/22/2025 8:19 AM CDT [facility] Blood Venipuncture / Unknown 03/22/2025 7:06 AM CDT 03/22/2025 7:37 AM CDT Onelia Lagunas DO CHEMISTRY ORDERABLES Final Re sult [facility] [address] [place] [address] * (ABNORMAL) CBC WITH AUTO DIFFERENTIAL (03/22/2025 7:06 AM CDT) WBC 4.88 4.00 - 12.00 10(3)/mcL 03/22/2025 7:40 AM CDT [facility] RBC 4.01 3.80 - 5.30 10(6)/mcL 03/22/2025 7:40 AM CDT [facility] HEMOGLOBIN (HGB) 12.3 12.0 - 15.8 g/dL 03/22/2025 7:40 AM CDT [facility] HEMATOCRIT (HCT) 37.5 36.0 - 47.0 % 03/22/2025 7:40 AM CDT [facility] MCV 93.5 82.0 - 96.0 fL 03/22/2025 7:40 AM CDT [facility] MCH 30.7 26.0 - 34.0 pg 03/22/2025 7:40 AM CDT [facility] MCHC 32.8 31.0 - 36.0 g/dL 03/22/2025 7:40 AM CDT [facility] PLATELET COUNT 326 140 - 440 10(3)/mcL 03/22/2025 7:40 AM CDT [facility] RDW 13.3 11.8 - 15.5 % 03/22/2025 7:40 AM CDT [facility] MPV 9.3(L) 9.7 - 12.4 fL 03/22/2025 7:40 AM CDT [facility] NEUTROPHILS 49.7 47.0 - 73.0 % 03/22/2025 7:40 AM CDT [facility] LYMPHOCYTES 37.1 18.0 - 42.0 % 03/22/2025 7:40 AM CDT [facility] MONOCYTES 10.2 4.0 - 12.0 % 03/22/2025 7:40 AM CDT [facility] EOSINOPHILS 2.0 0.0 - 5.0 % 03/22/2025 7:40 AM CDT [facility] BASOPHILS 0.6 0.0 - 1.0 % 03/22/2025 7:40 AM CDT [facility] IMMATURE GRANULOCYTE 0.4 0.0 - 0.4 % 03/22/2025 7:40 AM CDT [facility] Comment:Immature Granulocyte s includes Metamyelocytes, Myelocytes, and Promyelocytes. ABSOLUTE NEUTROPHILS 2.42 1.60 - 7.70 10(3)/mcL 03/22/2025 7:40 AM CDT [facility] ABSOLUTE LYMPHOCYTES 1.81 1.30 - 3.20 10(3)/[facility] 03/22/2025 7:40 AM CDT [facility] ABSOLUTE MONOCYTES 0.50 0.20 - 1.00 10(3)/[facility] 03/22/2025 7:40 AM CDT [facility] ABSOLUTE EOSINOPHIL 0.10 0.00 - 0.40 10(3)/[facility] 03/22/2025 7:40 AM CDT [facility] ABSOLUTE BASOPHILS 0.03 0.00 - 0.10 10(3)/[facility] 03/22/2025 7:40 AM CDT [facility] ABSOLUTE IMMATURE GRANULOCYTE 0.02 0.00 - 0.03 10 (3) mcL. 03/22/2025 7:40 AM CDT [facility] NRBC PER 100 WBC 0 03/22/20 25 7:40 AM CDT [facility] Blood Venipuncture / Unknown 03/22/2025 7:06 AM CDT 03/22/2025 7:37 AM CDT us Onelia Lagunas DO HEMATOLOGY ORDERABLES Final R esult [facility] [address] [place] [address] * THYROXINE (T4) FREE (03/22/2025 7:06 AM CDT) [facility] T4 FREE 1.1 0.7 - 1.9 ng/dL 03/22/2025 8:18 AM CDT [facility] Blood Venipuncture / Unknown 03/22/2025 7:06 AM CDT 03/22/2025 7:37 AM CDT us Onelia L Bebo DO CHEMISTRY ORDERABLES Final Re sult Performing Organization Address City/[facility]/ZIP Co de Phone Number [facility] [address] [place] [address] * TRIIODOTHYRININE (T3) FREE (03/22/2025 7:06 AM CDT) FREE T3 3.0 1.6 - 3.9 pg/mL 03/22/2025 3:21 PM CDT [facility] Blood Venipuncture / Unknown 03/22/2025 7:06 AM CDT 03/22/2025 7:37 AM CDT us Onelia L Bebo DO CHEMISTRY ORDERABLES Final Re sult Performing Organization Address [facility] Co de Phone Number [facility] [address] [place] [address], * (ABNORMAL) ERYTHROCYTE SEDIMENTATION RATE (ESR) (03/22/2025 7:06 AM CDT) ESR (SED RATE, ERYTHROCYTE SEDIMENTATION RATE) 30(H) <30 mm/h 03/22/2025 7:46 AM CDT [facility] Comment: Patients presenting with increased level of fibrinogen, gamma globulins, or abnormally shaped RBCs could affect the results for the erythrocyte sedimentation rate (ESR). Results should be clinically correlated. Blood Venipuncture / Unknown 03/22/2025 7:06 AM CDT 03/22/2025 7:37 AM CDT us Onelia L Bebo DO HEMATOLOGY ORDERABLES Final R esult Performing Organization Address City/[facility]/ZIP Co de Phone Number [facility] [address] [place] [address] * CREATINE KINASE (CK) TOTAL (03/22/2025 7:06 AM CDT) CK (CPK) 30 29 - 168 U/L 03/22/2025 8:02 AM CDT [facility] Blood Venipuncture / Unknown 03/22/2025 7:06 AM CDT 03/22/2025 7:37 AM CDT us Onelia L Bebo DO CHEMISTRY ORDERABLES Final Re sult Performing Organization Address City/[facility]/ZIP Co de Phone Number [facility] [address] [place] [address] * CORTISOL (03/22/2025 7:06 AM CDT) Pathologist [facility] CORTISOL 21.9 mcg/dL 03/22/2025 10:37 AM CDT [facility] Blood Venipuncture / Unknown 03/22/2025 7:06 AM CDT 03/22/2025 7:37 AM CDT Narrative [facility] - 03/22/2025 10:37 AM CDT AM: 4 TO 19 mcg/dL PM: Approx. Half of AM Value us Onelia L Bebo DO CHEMISTRY ORDERABLES Final Re sult [facility] [address] [place] [address] * (ABNORMAL) CMP (COMPREHENSIVE METABOLIC PANEL) (03/22/2025 7:06 AM CDT) SODIUM 137 136 - 145 mmol/L 03/22/2025 8:02 AM CDT [facility] POTASSIUM 4.0 3.5 - 5.1 mmol/L 03/22/2025 8:02 AM CDT [facility] CHLORIDE 101 98 - 107 mmol/L 03/22/2025 8:02 AM [facility] CO2, VENOUS 26 22 - 30 mmol/L 03/22/2025 8:02 AM [facility] ANION GAP 14.0 <18.0 mmol/L 03/22/2025 8:02 AM [facility] GLUCOSE 97 70 - 99 mg/dL 03/22/2025 8:02 AM [facility] BUN 23(H) 10 - 20 mg/dL 03/22/2025 8:02 AM [facility] CREATININE, BLOOD 0.72 0.60 - 1.00 mg/dL 03/22/2025 8:02 AM [facility] BUN/CREATININE RATIO 32(H) 12 - 20 ratio 03/22/2025 8:02 AM [facility] TOTAL PROTEIN 6.9 6.0 - 8.0 g/dL 03/22/2025 8:02 AM [facility] ALBUMIN 4.4 3.5 - 5.0 g/dL 03/22/2025 8:02 AM [facility] A/G RATIO 1.8 1.0 - 2.2 03/22/2025 8:02 AM [facility] CALCIUM 9.8 8.7 - 10.5 mg/dL 03/22/2025 8:02 AM [facility] T BILI 0.4 0.2 - 1.2 mg/dL 03/22/2025 8:02 AM [facility] SGOT (AST) 20 <43 U/L 03/22/2025 8:02 AM [facility] SGPT (ALT) 11 <56 U/L 03/22/2025 8:02 AM [facility] ALKALINE PHOSPHATASE 72 40 - 150 U/L 03/22/2025 8:02 AM [facility] IS THE PATIENT REQUIRED TO BE FASTING? No 03/22/2025 8:02 AM [facility] GFR, ESTIMATED >60 >=60 03/22/2025 8:02 AM CDT [facility] Comment: Creatinine Clearance is the preferred criteria for selecting drug dose adjustments in renally impaired patients. The GFR is provided as additional pertinent clinical information. GFR is reported in mL/min/1.73 sq m. Calculation based on the Chronic Kidney Disease Epidemiology Collaboration (CKD- EPI) equation refit without adjustment for race. GFR, EST. >60 >=60 025 8:02 AM CDT [facility] GFR, EST. NONAFRICAN >60 >=60 03/22/2025 8:02 AM CDT [facility] Blood Venipuncture / Unknown 03/22/2025 7:06 AM CDT 03/22/2025 7:37 AM CDT us Onelia L Bebo DO CHEMISTRY ORDERABLES Final Re sult Performing Organization Address City/[facility]/ZIP Co de Phone Number [facility] [address] [place] [address] * C-REACTIVE PROTEIN (CRP) QUANT (03/22/2025 7:06 AM CDT) C-REACTIVE PROTEIN 0.15 <0.50 mg/dL 03/22/2025 10:26 AM CDT [facility] Blood Venipuncture / Unknown 03/22/2025 7:06 AM CDT 03/22/2025 7:37 AM CDT us Onelia L Bebo DO CHEMISTRY ORDERABLES Final Re sult [facility] [address] [place] [address] * NEUROSURGY CONSULT (03/08/2025 12:00 AM CDT) 03/08/2025 us Provider Scan GENERIC SCAN ORDERS CONSULT Mendy l Result SCAN * TIANNA SCREENING BILATERAL DIGITAL W CAD W JAKUB (12/16/2024 2:43 PM CDT) Anatomical Region Laterality Modality breast Bilateral Mammography 12/16/2024 2:40 PM CDT Narrative 12/17/2024 1:09 PM CDT - TIANNA SCREENING BILATERAL DIGITAL W CAD W JAKUB BILATERAL DIGITAL SCREENING MAMMOGRAM 3D/2D WITH CAD WITH MEDIOLATERAL OBLIQUE CRANIOCAUDAL: 12/16/2024 The study was acquired using digital technology and interpreted from soft copy. Current study was also evaluated with uSampD version 7.2. 2D digital mammographic views, as well as 3D digital tomosynthesis were performed in the CC and MLO projections. CLINICAL: Routine screening. Patient has no complaints. Patient reports 80 pounnd weight loss since last mammogram. No personal history of cancer. No family history of breast cancer. COMPARISONS: Comparison is made to exams dated: 01/26/2022, 10/11/2020 [facility], and [facility]20[facility]. BREAST TISSUE:There are scattered areas of fibroglandular density. FINDINGS: No significant masses, calcifications, or other findings are seen in either breast. There has been no significant interval change. IMPRESSION: NEGATIVE There is no mammographic evidence of malignancy. A 1 year screening mammogram is recommended. A letter will be sent to the patient with these results. The patient will be entered into a reminder system with a target due date of 1 year for her next screening exam. Electronically signed by: Alfonzo timmons/toño:12/17/2024 12:51:32 Automotive Light Mechanic(s): RT Tomasa(R)(M), [facility] letter sent: Normal Exam Reading location: [place] Mammogram BI-RADS: Category 1: Negative Procedure Note Alfonzo Jules MD - 12/17/2024 - TIANNA SCREENING BILATERAL DIGITAL W CAD W JAKUB BILATERAL DIGITAL SCREENING MAMMOGRAM 3D/2D WITH CAD WITH MEDIOLATERAL OBLIQUE CRANIOCAUDAL: 12/16/2024 The study was acquired using digital technology and interpreted from soft copy. Current study was also evaluated with ICAD version 7.2. 2D digital mammographic views, as well as 3D digital tomosynthesis were performed in the CC and MLO projections. CLINICAL: Routine screening. Patient has no complaints. Patient reports 80 pounnd weight loss since last mammogram. No personal history of cancer. No family history of breast cancer. COMPARISONS: Comparison is made to exams dated: 01/26/2022, 10/11/2020 [facility], and 12/10/2023 [facility]. BREAST TISSUE:There are scattered areas of fibroglandular density. FINDINGS: No significant masses, calcifications, or other findings are seen in either breast. There has been no significant interval change. IMPRESSION: NEGATIVE There is no mammographic evidence of malignancy. A 1 year screening mammogram is recommended. A letter will be sent to the patient with these results. The patient will be entered into a reminder system with a target due date of 1 year for her next screening exam. Electronically signed by: Alfonzo timmons/toño:12/17/2024 12:51:32 Automotive Light Mechanic(s): RT Tomasa(R)(M), [facility] letter sent: Normal Exam Reading location: [place] Mammogram BI-RADS: Category 1: Negative us Oneila Lagunas DO IMG MAMMO ORDERABLES Final Re sult * HEPATITIS C ANTIBODY (11/13/2023 10:44 AM CDT) hepatitis C antibody 0.09 <1 S/CO 11/14/2023 12:26 AM CDT [facility] Comment: Signal/Cutoff ratio < 0.79 is Nondetected Signal/Cutoff ratio 0.80-0.99 is Grayzone Signal/Cutoff ratio > 0.99 is Detected Supplemental assays are recommended if signal/cutoff ratio is >/=1.00. Signal/cutoff ratio result >/= 5.00 is 97% predictive of positivity for recombinant immunoblot assay (RIBA) and will be reported to the [place] Department of Public Health as required. Blood Venipuncture / Unknown 11/13/2023 10:44 AM CDT 11/13/2023 11:13 AM CDT us Ga Liang MD CHEMISTRY ORDERABLES Final Resul t [facility] [address] [place] [address], [place] from Last 3 Months or Most Recently Relevant to Health Maintenance Insurance MEDICAID [facility] Advance Directives Documents on File Type Date Recorded Patient Poke In Expl anation Power of Hand Tool Lapper for Health Care 07/14/2024 10:12 AM * Full Code (Latest Code Status on File) Date Activated Date Inactivated Comments 07/28/2024 11:31 AM * Full Code Date Activated Date Inactivated Comments 07/28/2024 9:57 AM 07/28/2024 11:31 AM Care Teams Brickmason Helper Relationship Specialty Start Date End Date Onelia Lagunas DO 2 [facility] [address] [place] [address] PCP - General Family Medicine 03/09/24 Logan Acuna MD [address] [address] [place] [address] Consulting Physician Colon and Rectal Surgery 10/15/23 Mars Marti APRN, QUALITY SYSTEMS MANAGER [address] [place] [address] Nurse Practitioner Advanced Practice Nurse 02/10/24 Jones Christy MD [address] [place] [phone] Consulting Physician Neurology 04/30/24 Shamar Rosales MD [address] [address] Consulting Physician Cardiovascular Disease - Cardiology 03/24/25
--- OUTSIDE RECORDS SUMMARY | 2025-06-08 10:32 | XMS_ITS | Encounter Summary ---
Author Organization [facility] Address [address] [place] [address] Phone Care Team Providers Care Banquet Bartender Name Role Phone Ga Liang MD Primary Care Provider [phone] Logan Acuna MD Unavailable Mars Marti APRN, WATER ATTENDANT Unavailable Oneila Lagunas DO Primary Care Provider Jones Christy MD Unavailable Eliezer Ndiaye MD Unavailable Shamar Rosales MD Unavailable Reason for Visit * Reason Comments Medication Refill Encounter Details Date Type Department Care Team (Late st Contact Info) Description 10/12/2023 Refill [facility] - Family Medicine [facility] [address] [place] [address] Ninoska Borden, RESPIRATORY MEDICINE PHYSICIAN, WATER ATTENDANT [address] [place] [address] Medication Refill Social History Tobacco Use Types Packs/Day Years Used Date Smoking Tobacco: Never Smokeless Tobacco: Never Alcohol Use Standard Drinks/Week Comments No 0 (1 standard drink = 0.6 oz pur e alcohol) Sexually Active Control Partners Comments Yes Male Comments No Sex and Gender Information Value Date Recorded Sex Assigned at Female 08/07/2023 10:22 AM FRONT LINE LEADER Legal Sex Female 12:40 AM CDT Gender Identity Female 08/07/2023 10:22 AM FRONT LINE LEADER Sexual Orientation Straight 08/07/2023 10 :22 AM FRONT LINE LEADER documented as of this encounter Miscellaneous Notes * Telephone Encounter - Mily Quiros RN - 10/13/2023 1:49 PM CST Medication failed the protocol, provider to review and approve the medication order if appropriate. Requested Prescriptions Pending Prescriptions Disp Refills PARoxetine (PAXIL) 10 MG Tablet [Pharmacy Med Name: PARoxetine HCl 10 MG Oral Tablet] 90 Tablet 0 Sig: Take 1 tablet by mouth once daily SSRI (6 Month Refill Only) Protocol Failed - 10/12/2023 9:29 PM Failed - Patient has established therapy with SSRI for at least 6 months Failed - Has an encounter in the past 6 months with a depression, anxiety, adjustment disorder, OCD, or PTSD visit diagnosis Passed - Visit with relevant provider in past 6 months or upcoming 90 days Recent Visits Date Type Provider Dept 09/19/23 Office Visit Ninoska Borden APRN, WATER ATTENDANT [facility] 09/05/23 Office Visit Ninoska Borden RESPIRATORY MEDICINE PHYSICIAN, WATER ATTENDANT [facility] 08/06/23 Office Visit Jennifer Chowdary, [facility] 07/18/23 Office Visit Ga Liang MD [facility] Showing recent visits within past 182 days and meeting all other requirements Future Appointments Date Type Provider Dept 11/13/23 Appointment Ga Liang MD [facility] 12/04/23 Appointment Ga Liang MD [facility] Showing future appointments within next 90 days and meeting all other requirements Refused Prescriptions Disp Refills sulfamethoxazole-trimethoprim DS (BACTRIM DS, SEPTRA DS) 800-160 MG Tablet [Pharmacy Med Name: Sulfamethoxazole-Trimethoprim 800-160 MG Oral Tablet] 10 Tablet 0 Sig: Take 1 tablet by mouth twice daily for 5 days Not Delegated - Off Protocol Failed - 10/12/2023 9:28 PM Failed - This refill cannot be delegated Failed - Active on medication list Passed - Visit with relevant provider in past 12 months or upcoming 90 days Recent Visits Date Type Provider Dept 09/19/23 Office Visit Ninoska Borden, RESPIRATORY MEDICINE PHYSICIAN, WATER ATTENDANT [facility] 09/05/23 Office Visit Ninoska Borden, RESPIRATORY MEDICINE PHYSICIAN, WATER ATTENDANT [facility] 08/06/23 Office Visit Epi Jennifer Dubon, PAC [facility] 07/18/23 Office Visit Ga Liang MD [facility] Showing recent visits within past 365 days and meeting all other requirements Future Appointments Date Type Provider Dept 11/13/23 Appointment Ga Liang MD [facility] 12/04/23 Appointment Ga Liang MD [facility] Showing future appointments within next 90 days and meeting all other requirements T LINE LEADER documented in this encounter Plan of Treatment Upcoming Encounters Date Type Department Care Team (Late st Contact Info) Description 06/09/2025 9:30 AM CDT Office Visit [facility] - Gastroenterology - [place] [address] [place] [address] Blaise Dill MD 2 [facility] [address] [place] [address] 06/13/2025 10:45 AM FRONT LINE LEADER Office Visit [facility] - Neurology - [place] [address] [place] [phone] Onelia Lagunas, DO 2 [facility] [address] [place] [address] Jones Christy MD [address] [place] [address] 07/20/2025 8:15 AM FRONT LINE LEADER Office Visit [facility] - Endocrinology - [place] [address] [place] [address] Onelia Lagunas, DO [address] [address] Henry Bernabe MD #[address] [address] 09/05/2025 8:00 AM FRONT LINE LEADER Office Visit [facility] - Family Medicine [facility] [address] [place] [address] Onelia Lagunas, DO [address] [address] 09/28/2025 8:30 AM FRONT LINE LEADER [facility] [address] [place] [address] Shamar Rosales MD [address] [address] documented as of this encounter Visit Diagnoses Diagnosis Cystitis Cystitis, unspecified Hot flashes Symptomatic menopausal or female climacteric states documented in this encounter Additional Health Concerns Infection Onset Date Last Indicated Resolved Time COVID - 19 04/30/2024 04/30/2024 04/30/2024 11:2 5 AM CDT documented as of this encounter Care Teams Banquet Bartender Relationship Specialty Start Date End Date Ga Liang MD [address] [place] [address] PCP - General Family Medicine 07/18/23 03/08/24 Onelia Lagunas DO [address] [address] PCP - General Family Medicine 03/09/24 Logan Acuna MD [address] [address] Consulting Physician Colon and Rectal Surgery 10/15/23 Mars Marti APRN, WATER ATTENDANT #[address] [facility] [place] [address] Nurse Practitioner Advanced Practice Nurse 02/10/24 Jones Christy MD [address] [place] [address] Consulting Physician Neurology 04/30/24 Eliezer Ndiaye MD #[address] [address] Consulting Physician Clinical Cardiac Electrophysiology 09/17/24 03/23/25 Shamar Rosales MD 2 [facility] [address] [address] Consulting Physician Cardiovascular Disease - Cardiology 03/24/25 documented as of this encounter
--- OUTSIDE RECORDS SUMMARY | 2025-06-08 10:32 | XMS_ITS | Encounter Summary ---
Author Organization [facility] Address [address] [place] [address] Care Team Providers Care Mortar Man Name Role Phone Delroy Aragon MD Primary Care Provider Encounter Details Date Type Department Care Team (Late st Contact Info) Description 01/30/2005 Outpatient Historical [facility] Internal Medicine [address] [phone] Delroy Aragon MD [address] [place] [phone] Social History Tobacco Use Types Packs/Day Years Used Date Smoking Tobacco: Never Assessed Comments Unknown Sex and Gender Information Value Date Recorded Sex Assigned at Not on file Legal Sex Female 5:10 AM AMBULANCE DRIVER Gender Identity Not on file Sexual Orientation Not on file documented as of this encounter Last Filed Vital Signs Vital Sign Reading Time Taken Comments Blood Pressure 130/80 01/30/2005 11:45 AM CDT Pulse - - Temperature - - Respiratory Rate - - Oxygen Saturation - - Inhaled Oxygen Concentration - - Weight - - Height - - Body Mass Index - - documented in this encounter Plan of Treatment Not on file documented as of this encounter Visit Diagnoses Not on filedocumented in this encounter Care Teams Mortar Man Relationship Specialty Start Date End Date Delroy Aragon MD [address] [place] [phone] PCP - General 03/14/05 documented as of this encounter
--- OUTSIDE RECORDS SUMMARY | 2025-06-08 10:32 | XMS_ITS | Encounter Summary ---
Author Organization [facility] Address [address] [place] [address] Care Team Providers Care Account Executive Sales Representative Name Role Phone Delroy Aragon MD Primary Care Provider [phone] Reason for Visit * Reason Onset Date Comments prior auth CT 04/18/2022 Encounter Details Date Type Department Care Team (Late st Contact Info) Description 04/18/2022 Telephone [facility] Primary Care [address] [place] [address] Delroy Aragon MD [address] [place] [address] [address] [place] [address] Social History Tobacco Use Types Packs/Day Years Used Date Smoking Tobacco: Never Smokeless Tobacco: Never Alcohol Use Standard Drinks/Week Comments No 0 (1 standard drink = 0.6 oz pur e alcohol) Comments No Sex and Gender Information Value Date Recorded Sex Assigned at Not on file Legal Sex Female 5:10 AM CLOTH WEAVER Gender Identity Not on file Sexual Orientation Not on file documented as of this encounter Miscellaneous Notes * Telephone Encounter - Mily Franklin - 04/18/2022 4:30 PM CDT Name of PCP Provider or Prescribing Provider: Delroy Aragon MD Next office visit: 05/29/2022 Caller: Amada pre-arrival Message: Patient is scheduled for a CT of the chest abdomen and pelvis and prior auth is needed forC. Please advise. Call back Number: [phone] EX3 documented in this encounter Plan of Treatment Not on file documented as of this encounter Visit Diagnoses Not on filedocumented in this encounter Care Teams Account Executive Sales Representative Relationship Specialty Start Date End Date Delroy Aragon MD [address] [place] [phone] PCP - General 03/14/05 documented as of this encounter
--- OUTSIDE RECORDS SUMMARY | 2025-06-08 10:32 | XMS_ITS | Encounter Summary ---
Author Organization [facility] Address [address] [place] [address] Phone Care Team Providers Care Clamp Operator Name Role Phone Logan Acuna MD Unavailable Mars Marti APRN, PATROL INSPECTOR Unavailable [phone] Onelia Lagunas DO Primary Care Provider [phone] Jones Christy MD Unavailable [phone] Eliezer Ndiaye MD Unavailable Shamar Rosales MD Unavailable Reason for Visit * Reason Comments Medication Refill Encounter Details Date Type Department Care Team (Late st Contact Info) Description 12/18/2024 Refill [facility] - Family [facility] #2 [place] [address] Emma Stiles, NICOLAS, PATROL INSPECTOR #[address] [address] Medication Refill Social History Tobacco Use Types Packs/Day Years Used Date Smoking Tobacco: Never Smokeless Tobacco: Never Alcohol Use Standard Drinks/Week Comments No 0 (1 standard drink = 0.6 oz pur e alcohol) [facility] Utilities Answer Date Recorded In the past [...] often do you attend chur ch or holiness services? More than 4 times per year 09/14/2024 Do you belong to any clubs o r organizations such as zoroastrian groups, unions, fraternal or athletic groups, or [...] Date Recorded Total Score - Questions 1-9 12 02/2025 [facility] - Occupational Stress Questionnaire Answer Date [...] place to sleep or slept in a retirement (including now)? No 12/02/2023 Housing Stability Vital [...] any time in the past 12 m [facility], were you homeless or living in a retirement (including now)? No 09/14/2024 Sexually Active Control Partners Comments Yes Male Comments No Sex and Gender Information Value Date Recorded Sex Assigned at Female 08/07/2023 10:22 AM ACOUSTICAL TILE CARPENTERS SUPERVISOR Legal Sex Female 12:40 AM CDT Gender Identity Female 08/07/2023 10:22 AM ACOUSTICAL TILE CARPENTERS SUPERVISOR Sexual Orientation Straight 08/07/2023 10 :22 AM ACOUSTICAL TILE CARPENTERS SUPERVISOR documented as of this encounter Miscellaneous Notes * Telephone Encounter - Mily Quiros RN - 12/20/2024 12:25 PM CDT duplicate documented in this encounter Plan of Treatment Upcoming Encounters Date Type Department Care Team (Late st Contact Info) Description 06/09/2025 9:30 AM CDT [facility] - [place] #2 [place] [address] Blaise Dill MD [address] [place] [address] 06/13/2025 10:45 AM ACOUSTICAL TILE CARPENTERS SUPERVISOR [facility] [place] [address]2 [place] [phone] Onelia Lagunas, DO 2 [facility] [address] [place] [address] Jones Christy MD #[address] [facility] [address] 07/20/2025 8:15 AM ACOUSTICAL TILE CARPENTERS SUPERVISOR Office Visit [facility] - Endocrinology - [place] [address]2 [place] [phone] Onelia Lagunas, DO 2 [facility] [address] [place] [address] Henry Bernabe MD #[address] [phone] 09/05/2025 8:00 AM ACOUSTICAL TILE CARPENTERS SUPERVISOR Office Visit [facility] - Family Medicine - [place] [address]2 [place] [address] Onelia Lagunas, DO 2 [facility] [address] [place] [address] 09/28/2025 8:30 AM ACOUSTICAL TILE CARPENTERS SUPERVISOR [facility] Visit [facility] - Cardiology - [place] [address]2 [place] [phone] Shamar Ros[address] MD [address] [facility] [facility] [address] [address] documented as of this encounter Visit Diagnoses Diagnosis Insomnia, unspecified type documented in this encounter Additional Health Concerns Assessment Noted Time PHQ-9 Depression Total Score: 12 025 10:06 AM ACOUSTICAL TILE CARPENTERS SUPERVISOR documented as of this encounter Care Teams Clamp Operator Relationship Specialty Start Date End Date Onelia Lagunas DO [address] [facility] [facility] [address] [address] PCP - General Family Medicine 03/09/24 Logan Acuna MD #[address] [address] Consulting Physician Colon and Rectal Surgery 10/15/23 Mars Marti APRN, PATROL INSPECTOR #2 [place] [address] Nurse Practitioner Advanced Practice Nurse 02/10/24 Jones Christy MD #2 [place] [address] Consulting Physician Neurology 04/30/24 Eliezer Ndiaye MD #[address] [address] Consulting Physician Clinical Cardiac Electrophysiology 09/17/24 03/23/25 Shamar Rosales MD [address] [facility] [address] [address] Consulting Physician Cardiovascular Disease - Cardiology 03/24/25 documented as of this encounter
--- OUTSIDE RECORDS SUMMARY | 2025-06-08 10:32 | XMS_ITS | Encounter Summary ---
Author Organization [facility] Address [address] [place] [address] Care Team Providers Care Gyroscope Repairer Name Role Phone Delroy Aragon MD Primary Care Provider [phone] Encounter Details Date Type Department Care Team (Latest Contact Info) Description 03/14/2005 Outpatient Historical [facility] Delroy Aragon MD [address] [place] [address] CHOLELITHIASIS NOS (Primary Dx) Social History Tobacco Use Types Packs/Day Years Used Date Smoking Tobacco: Never Assessed Comments Unknown Sex and Gender Information Value Date Recorded Sex Assigned at Not on file Legal Sex Female 5:10 AM LOCKSTITCH COAT JOINER Gender Identity Not on file Sexual Orientation Not on file documented as of this encounter Plan of Treatment Not on file documented as of this encounter Visit Diagnoses Diagnosis Calculus of gallbladder without mention of cholecystitis or obstruction- Primary documented in this encounter Care Teams Gyroscope Repairer Relationship Specialty Start Date End Date Delroy Aragon MD [address] [address] PCP - General 03/14/05 documented as of this encounter
--- OUTSIDE RECORDS SUMMARY | 2025-06-08 10:32 | XMS_ITS | Encounter Summary ---
Author Organization [facility] Address [address] [place] [address] Phone Care Team Providers Care Sheet Combining Operator Name Role Phone Ga Liang MD Primary Care Provider [phone] Logan Acuna MD Unavailable Mars Marti APRN, CNP Unavailable [phone] Onelia Lagunas DO Primary Care Provider [phone] Jones Christy MD Unavailable [phone] Eliezer Ndiaye MD Unavailable Shamar Rosales MD Unavailable Reason for Visit * Reason Comments Medication Refill Encounter Details Date Type Department Care Team (Late st Contact Info) Description 10/07/2023 Refill [facility] [address]2 [place] [phone] Ga Liang MD [address] [place] [address] Medication Refill Social History Tobacco Use Types Packs/Day Years Used Date Smoking Tobacco: Never Smokeless Tobacco: Never Alcohol Use Standard Drinks/Week Comments No 0 (1 standard drink = 0.6 oz pur e alcohol) Sexually Active Control Partners Comments Yes Male Comments No Sex and Gender Information Value Date Recorded Sex Assigned at Female 08/07/2023 10:22 AM CLINICAL PATHOLOGIST Legal Sex Female 12:40 AM CDT Gender Identity Female 08/07/2023 10:22 AM CLINICAL PATHOLOGIST Sexual Orientation Straight 08/07/2023 10 :22 AM CLINICAL PATHOLOGIST documented as of this encounter Miscellaneous Notes * Telephone Encounter - Mily Quiros RN - 10/07/2023 4:52 PM CST Earliest fill date 10/18/23 ICAL PATHOLOGIST * Telephone Encounter - Mily Quiros RN - 10/07/2023 4:51 PM CST Images from the original note were not included. olpidem Tartrate Dispensed Days Supply Quantity Provider Pharmacy ZOLPIDEM 10MG TAB 09/18/2023 30 30 Each Ga Liang MD [facility] 4695 ... ZOLPIDEM 10MG TAB 08/21/2023 30 30 Each Ga Liang MD [facility] 4695 ... ZOLPIDEM 10MG TAB 07/18/2023 30 30 Each Ga Liang MD [facility] 4695 ... ICAL PATHOLOGIST documented in this encounter Plan of Treatment Upcoming Encounters Date Type Department Care Team (Late st Contact Info) Description 06/09/2025 9:30 AM CDT Office Visit [facility] - Gastroenterology - [place] [address] [place] [phone] Blaise Dill MD 2 [facility] [address] [place] [address] 06/13/2025 10:45 AM CLINICAL PATHOLOGIST Office Visit [facility] - Neurology - [place] [address]2 [place] [phone] Onelia Lagunas, 2 [facility] [address] [place] [address] Jones Christy MD #2 [place] [address] 07/20/2025 8:15 AM CLINICAL PATHOLOGIST [facility] [place] [facility]2 [place] [address] Onelia Lagunas, DO [address] [address] Henry Bernabe MD #[address] [address] 09/05/2025 8:00 AM CLINICAL PATHOLOGIST Office Visit [facility] - Family Medicine - [place] #2 [place] [address] Onelia Lagunas, DO [address] [address] 09/28/2025 8:30 AM CLINICAL PATHOLOGIST [facility] - [place] #2 [place] [address] Shamar Rosales MD [address] [address] documented as of this encounter Visit Diagnoses Diagnosis Insomnia, unspecified type documented in this encounter Additional Health Concerns Infection Onset Date Last Indicated Resolved Time COVID - 19 04/30/2024 04/30/2024 04/30/2024 11:2 5 AM CDT documented as of this encounter Care Teams Sheet Combining Operator Relationship Specialty Start Date End Date Ga Liang MD #1 [place] [address] PCP - General Family Medicine 07/18/23 03/08/24 Onelia Lagunas DO [address] [address] PCP - General Family Medicine 03/09/24 Logan Acuna MD #[address] [address] Consulting Physician Colon and Rectal Surgery 10/15/23 Mars Marti APRN, CERTIFIED PHLEBOTOMIST #2 [place] [address] Nurse Practitioner Advanced Practice Nurse 02/10/24 Jones Christy MD #2 [place] [address] Consulting Physician Neurology 04/30/24 Eliezer Ndiaye MD #[address] [address] Consulting Physician Clinical Cardiac Electrophysiology 09/17/24 03/23/25 Shamar Rosales MD [address] [address] Consulting Physician Cardiovascular Disease - Cardiology 03/24/25 documented as of this encounter
--- OUTSIDE RECORDS SUMMARY | 2025-06-08 10:32 | XMS_ITS | Encounter Summary ---
Author Organization [facility] Address [address] [place] [address] Phone Care Team Providers Care Silk Snapper Name Role Phone Logan Acuna MD Unavailable Mars Marti APRN, MANAGER SKILLED Unavailable [phone] Onelia Lagunas DO Primary Care Provider [phone] Jones Christy MD Unavailable [phone] Shamar Rosales MD Unavailable Reason for Referral * Radiology Services (Routine) - Authorized Specialty Diagnoses / Procedures Referred By Nancy aguirre Referred To Contact Radiology Diagnoses Mass of left breast, unspecified quadrant Procedures TIANNA DIAG LEFT UNILATERAL DIGITAL W CAD W Onelia Byrne DO [address] [address] Phone: tel: fax: Referral ID Status Reason Start Date Expiration Date V isits Requested Visits Authorized [id number] Authorized 05/02/2025 1 1 Encounter Details Date Type Department Care Team (Latest Contact Info) Description 05/02/2025 [facility]cribe [facility] 1 [place] [address] Onelia Lagunas DO 2 [facility] [address] [place] [address] Mass of left breast, unspecified quadrant (Primary Dx) Social History Tobacco Use Types Packs/Day Years Used Date Smoking Tobacco: Never Smokeless Tobacco: Never Alcohol Use Standard Drinks/Week Comments No 0 (1 standard drink = 0.6 oz pur e alcohol) [facility] Utilities Answer Date Recorded In the past 12 months has e [employer], gas, oil, or water [employer] threatened to shut off services in your home? No 09/14/2024 Social Connection and Isolation Panel Answer Date Recorded In a typical week, how many times do you talk on the phone with family, friends, or neighbors? Twice a week 09/14/2024 How often do you get togethe r with friends or relatives? Once a week 09/14/2024 How often do you attend chur ch or presybeterian services? More than 4 times per year 09/14/2024 Do you belong to any clubs o r organizations such as yarsanism groups, unions, fraternal or athletic groups, or [...] Total Score - Questions 1-9 0 04/12 [facility] - Occupational Stress Questionnaire Answer Date Recorded [...] place to sleep or slept in a half-way (including now)? No 12/02/2023 Housing Stability Vital [...] any time in the past 12 m [facility], were you homeless or living in a half-way (including now)? No 09/14/2024 Sexually Active Control Partners Comments Yes Post-menopausal, Surgical Male Comments No Sex and Gender Information Value Date Recorded Sex Assigned at Female 08/07/2023 10:22 AM CNC MAINTENANCE TECHNICIAN Legal Sex Female 12:40 AM CDT Gender Identity Female 08/07/2023 10:22 AM CNC MAINTENANCE TECHNICIAN Sexual Orientation Straight 08/07/2023 10 :22 AM CNC MAINTENANCE TECHNICIAN documented as of this encounter Functional Status * Question Answer Date of Assessment Author Little interest or pleasure in doing things Not at all 05/02/2025 8:56 AM CDT Soumya Lewis CMA Feeling down, depressed, or hopeless Not at all 05/02/2025 8:56 AM CDT Soumya Lewis CMA * Over the past 2 weeks, how often have you been bothered by any of the following problems? Question Answer Date of Assessment Author Patient Health Questionnaire -2 Score 0 05/02/2025 8:56 AM CDT Soumya Lewis CMA documented as of this encounter Plan of Treatment Upcoming Encounters Date Type Department Care Team (Late st Contact Info) Description 06/09/2025 9:30 AM CDT Office [facility] Medical [facility] - Gastroenterology - [place] #2 [place] [address] Blaise Dill MD [address] [address] 06/13/2025 10:45 AM CNC MAINTENANCE TECHNICIAN Office Visit [facility] - Neurology - [place] #2 [facility] [place] [address] Onelia Lagunas, DO [address] [address] Jones Christy MD #2 [place] [address] 07/20/2025 8:15 AM CNC MAINTENANCE TECHNICIAN Office Visit [facility] Endocrinology [facility] #2 [facility] [place] [address] Onelia Lagunas, DO 2 [facility] [address] [place] [address] Henry Bernabe MD #[address] [phone] 09/05/2025 8:00 AM CNC MAINTENANCE TECHNICIAN Office Visit [facility] Family Medicine [facility] #2 [place] [address] Onelia Lagunas DO [address] [address] 09/28/2025 8:30 AM CNC MAINTENANCE TECHNICIAN Office Visit [facility] Cardiology [facility] #2 [place] [phone] Shamar Rosales MD [address] [address] Scheduled Orders Name Type Priority Associated Diagnoses Orde r Schedule TIANNA DIAG LEFT UNILATERAL DIGITAL W CAD W JAKUB Imaging Routine Mass of left breast, unspecified quadrant Expected: 05/16/2025, Expires: 10/30/2025 documented as of this encounter Visit Diagnoses Diagnosis Mass of left breast, unspecified quadrant- Primary documented in this encounter Additional Health Concerns Assessment Noted Time PHQ-9 Depression Total Score: 0 05/02/20 25 8:56 AM CDT documented as of this encounter Care Teams Silk Snapper Relationship Specialty Start Date End Date Onelia Lagunas DO [address] [address] PCP - General Family Medicine 03/09/24 Logan Acuna MD #[address] [address] Consulting Physician Colon and Rectal Surgery 10/15/23 Mars Marti, SLAB OFF MILL TENDER, MANAGER SKILLED #2 [place] [address] Nurse Practitioner Advanced Practice Nurse 02/10/24 Jones Christy MD #2 [place] [address] Consulting Physician Neurology 04/30/24 Shamar Rosales MD [address] [address] Consulting Physician Cardiovascular Disease - Cardiology 03/24/25 documented as of this encounter
--- OUTSIDE RECORDS SUMMARY | 2025-06-08 10:32 | XMS_ITS | Encounter Summary ---
Author Organization [facility] Address [address] [place] [address] Phone Care Team Providers Care Machine Candle Molder Name Role Phone Logan Acuna MD Unavailable Mars Marti APRN, MELISSA Unavailable [phone] Onelia Lagunas DO Primary Care Provider [phone] Jones Christy MD Unavailable [phone] Eliezer Ndiaye MD Unavailable Shamar Rosales MD Unavailable Encounter Details Date Type Department Care Team (Latest Contact Info) Description 08/10/2024 Lab Requisition [facility] [address] [place] [phone] Brenda Mccann MD Severe sepsis with septic shock (CODE) (HCC); Sepsis due to methicillin susceptible Staphylococcus aureus (HCC) Social History Tobacco Use Types Packs/Day Years Used Date Smoking Tobacco: Never Smokeless Tobacco: Never Alcohol Use Standard Drinks/Week Comments No 0 (1 standard drink = 0.6 oz pur e alcohol) [facility] Utilities Answer Date Recorded In the past 12 months has e electric, gas, oil, or water company threatened to shut off services in your home? No 02/14/2024 Social Connection and Isolation Panel Answer Date Recorded In a typical week, how many times do you talk on the phone with family, friends, or neighbors? Twice a week 02/14/2024 How often do you get togethe r with friends or relatives? Once a week 02/14/2024 How often do you attend chur ch or rastafarian services? More than 4 times per year 02/14/2024 Do you belong to any clubs o r organizations such as presybeterian groups, unions, fraternal or athletic groups, or school groups? No 02/14/2024 How often do you attend meet ings of the clubs or organizations you belong to? Never 02/14/2024 Are you , , di vorced, , never , or living with a partner? 02/14/2024 AUDIT-C Answer Date Recorded Q1: How often do you have a drink containing alcohol? Never 02/14/2024 Q2: How many drinks containi ng alcohol do you have on a typical day when you are drinking? Patient does not drink Q3: How often do you have si x or more drinks on one occasion? Never 02/14/2024 Overall Financial Resource Strain (CARDIA) Answe r Date Recorded How hard is it for you to pa y for the very basics like food, housing, medical care, and heating? Not very hard 02/14/2024 PHQ-2 Answer Date Recorded Total Score - Questions 1-9 0 07/12 [facility] - Occupational Stress Questionnaire Answer Date Recorded Do you feel stress - tense, restless, nervous, or anxious, or unable to sleep at night because your mind is troubled all the time - these days? Not at all 02/14/2024 Exercise Vital Sign Answer Date Recorde d On average, how many days pe r week do you engage in moderate to strenuous exercise (like a brisk walk)? 5 days 02/14/2024 On average, how many minutes do you engage in exercise at this level? 60 min 02/14/2024 Hunger Vital Sign Answer Date Recorded Within the past 12 months, y ou worried that your food would run out before you got the money to buy more. Never true 02/14/20 24 Within the past 12 months, t he food you bought just didn't last and you didn't have money to get more. Never true 02/14/2024 PRAPARE - Transportation Answer Date Re corded In the past 12 months, has l ack of transportation kept you from medical appointments or from getting medications? No 01/2024 In the past 12 months, has l ack of transportation kept you from meetings, work, or from getting things needed for daily living? No 02/14/2024 Housing Stability Vital Sign Answer Jose Martin [...] place to sleep or slept in a fci (including now)? No 12/02/2023 Housing Stability Vital Sign Answer Jose Martin e Recorded In the last 12 months, was t here a time when you were not able to pay the mortgage or rent on time? No 02/14/2024 In the past 12 months, how m any times have you moved where you were living? 0 02/14/2024 At any time in the past 12 m [facility], were you homeless or living in a fci (including now)? No 02/14/2024 Sexually Active Control Partners Comments Yes Male Comments No Sex and Gender Information Value Date Recorded Sex Assigned at Female 08/07/2023 10:22 AM DIRECTOR TELEHEALTH Legal Sex Female 12:40 AM CDT Gender Identity Female 08/07/2023 10:22 AM DIRECTOR TELEHEALTH Sexual Orientation Straight 08/07/2023 10 :22 AM DIRECTOR TELEHEALTH documented as of this encounter Plan of Treatment Upcoming Encounters Date Type Department Care Team (Late st Contact Info) Description 06/09/2025 9:30 AM CDT Office Visit [facility] - [facility] - [place] [address] [facility] [place] [phone] Blaise Dill MD [address] [address] 06/13/2025 10:45 AM DIRECTOR TELEHEALTH [facility] [place] [address] [place] [address] Onelia Lagunas, DO 2 [facility] [address] [place] [address] Jones Christy MD #2 [facility] [place] [place] [address] 07/20/2025 8:15 AM DIRECTOR TELEHEALTH [facility] [place] [address]2 [facility] [place] [address] Onelia Lagunas, DO 2 [facility] [address] [place] [address] Henry Bernabe MD #[address] [place] [phone] 09/05/2025 8:00 AM DIRECTOR TELEHEALTH [facility] - Family Medicine - [place] #2 [facility] [place] [address] Onelia Lagunas, DO 2 [facility] [address] [place] [address] 09/28/2025 8:30 AM DIRECTOR TELEHEALTH [facility] Cardiology - [place] #2 [facility] [place] [address] Shamar Rosales MD [address] [id number] documented as of this encounter Procedures Procedure Name Priority Date/Time Associated Diagnosis Comments CBC WITH AUTO DIFFERENTIAL Routine 08/10/2024 10:45 AM DIRECTOR TELEHEALTH Severe sepsis with septic shock (CODE) (HCC) Sepsis due to methicillin susceptible Staphylococcus aureus (HCC) COMPLETE BLOOD COUNT (CBC) WITH DIFF Routine 08/10/2024 10:45 AM DIRECTOR TELEHEALTH Severe sepsis with septic shock (CODE) (HCC) Sepsis due to methicillin susceptible Staphylococcus aureus (HCC) C-REACTIVE PROTEIN (CRP) HIGH SENSITIVE Routine 08/10/2024 10:45 AM DIRECTOR TELEHEALTH Severe sepsis with septic shock (CODE) (HCC) Sepsis due to methicillin susceptible Staphylococcus aureus (HCC) documented in this encounter Results * (ABNORMAL) C-REACTIVE PROTEIN (CRP) HIGH SENSITIVE (08/10/2024 10:45 AM DIRECTOR TELEHEALTH) [facility] CRP ULTRAQUANT 6.40(H) <5.00 mg/L 08/10/2024 10:19 PM DIRECTOR TELEHEALTH [facility] Blood No Phlebotomy Charged / Unknown 08/10/2024 10:45 AM DIRECTOR TELEHEALTH 08/10/2024 11:46 AM DIRECTOR TELEHEALTH us Brenda Anand MD CHEMISTRY ORDERABLE S Final Result [facility] [address] [place] [address], * (ABNORMAL) CBC WITH AUTO DIFFERENTIAL (08/10/2024 10:45 AM DIRECTOR TELEHEALTH) [facility] WBC 4.83 4.00 - 12.00 10(3)/mcL 08/10/2024 11:49 AM DIRECTOR TELEHEALTH [facility] RBC 3.63(L) 3.80 - 5.30 10(6)/mcL 08/10/2024 11:49 AM DIRECTOR TELEHEALTH [facility] HEMOGLOBIN (HGB) 11.0(L) 12.0 - 15.8 g/dL 08/10/2024 11:49 AM DIRECTOR TELEHEALTH [facility] HEMATOCRIT (HCT) 34.4(L) 36.0 - 47.0 % 08/10/2024 11:49 AM DIRECTOR TELEHEALTH [facility] MCV 94.8 82.0 - 96.0 fL 08/10/2024 11:49 AM DIRECTOR TELEHEALTH [facility] MCH 30.3 26.0 - 34.0 pg 08/10/2024 11:49 AM [facility] MCHC 32.0 31.0 - 36.0 g/dL 08/10/2024 11:49 AM [facility] PLATELET COUNT 213 140 - 440 10(3)/[facility] 08/10/2024 11:49 AM [facility] RDW 13.2 11.8 - 15.5 % 08/10/2024 11:49 AM [facility] MPV 10.5 9.7 - 12.4 fL 08/10/2024 11:49 AM [facility] NEUTROPHILS 55.9 47.0 - 73.0 % 08/10/2024 11:49 AM [facility] LYMPHOCYTES 29.6 18.0 - 42.0 % 08/10/2024 11:49 AM [facility] MONOCYTES 11.0 4.0 - 12.0 % 08/10/2024 11:49 AM [facility] EOSINOPHILS 2.7 0.0 - 5.0 % 08/10/2024 11:49 AM [facility] BASOPHILS 0.8 0.0 - 1.0 % 08/10/2024 11:49 AM [facility] ABSOLUTE NEUTROPHILS 2.70 1.60 - 7.70 10(3)/[facility] 08/10/2024 11:49 AM [facility] ABSOLUTE LYMPHOCYTES 1.43 1.30 - 3.20 10(3)/[facility] 08/10/2024 11:49 AM [facility] ABSOLUTE MONOCYTES 0.53 0.20 - 1.00 10(3)/[facility] 08/10/2024 11:49 AM [facility] ABSOLUTE EOSINOPHIL 0.13 0.00 - 0.40 10(3)/[facility] 08/10/2024 11:49 AM [facility] ABSOLUTE BASOPHILS 0.04 0.00 - 0.10 10(3)/[facility] 08/10/2024 11:49 AM [facility] NRBC PER 100 WBC 0 08/10/20 11:49 AM DIRECTOR TELEHEALTH [facility] Blood No Phlebotomy Charged / Unknown 08/10/2024 10:45 AM DIRECTOR TELEHEALTH 08/10/2024 11:46 AM DIRECTOR TELEHEALTH us Brenda Anand MD HEMATOLOGY ORDERABL ES Final Result [facility] [address] [place] [address] documented in this encounter Visit Diagnoses Diagnosis Severe sepsis with septic shock (CODE) Sepsis due to methicillin susceptible Staphylococcus aureus Methicillin susceptible staphylococcus aureus septicemia documented in this encounter Additional Health Concerns Assessment Noted Time PHQ-9 Depression Total Score: 0 07/30/20 9:30 AM DIRECTOR TELEHEALTH documented as of this encounter Care Teams Machine Candle Molder Relationship Specialty Start Date End Date Onelia Lagunas DO [address] [address] PCP - General Family Medicine 03/09/24 Logan Acuna MD #[address] [address] Consulting Physician Colon and Rectal Surgery 10/15/23 Mars Marti, PAVING CONTRACTOR, RECTIFYING ATTENDANT #2 [place] [address] Nurse Practitioner Advanced Practice Nurse 02/10/24 Jones Christy MD #2 [place] [phone] Consulting Physician Neurology 04/30/24 Eliezer Ndiaye MD #[address] [address] Consulting Physician Clinical Cardiac Electrophysiology 09/17/24 03/23/25 Shamar Rosales MD [address] [address] Consulting Physician Cardiovascular Disease - Cardiology 03/24/25 documented as of this encounter
--- OUTSIDE RECORDS SUMMARY | 2025-06-08 10:32 | XMS_ITS | Encounter Summary ---
Author Organization [facility] Address [address] [place] [address] Phone Care Team Providers Care Sound Truck Operator Name Role Phone Ga Liang MD Primary Care Provider [phone] Logan Acuna MD Unavailable Mars Marti APRN, CNP Unavailable [phone] Onelia Lagunas DO Primary Care Provider [phone] Jones Christy MD Unavailable [phone] Eliezer Ndiaye MD Unavailable Shamar Rosales MD Unavailable Reason for Visit * Reason Comments Medication Refill Encounter Details Date Type Department Care Team (Late st Contact Info) Description 01/12/2024 Refill [facility] - Family Medicine [facility] #2 [place] [address] Ga Liang MD #1 [place] [address] Medication Refill Social History Tobacco Use Types Packs/Day Years Used Date Smoking Tobacco: Never Smokeless Tobacco: Never Alcohol Use Standard Drinks/Week Comments No 0 (1 standard drink = 0.6 oz pur e alcohol) [facility] Utilities Answer Date Recorded In the past 12 months has [employer], gas, oil, or water company threatened to [...] often do you attend chur ch or pentecostalism services? More than 4 times per year 12/02/2023 Do you belong to any clubs o r organizations such as gnosticist groups, unions, fraternal or athletic groups, or [...] care, and heating? Not very hard 12/02/2023 [facility] - Occupational Stress Questionnaire Answer Date [...] Sex Assigned at Female 08/07/2023 10:22 AM SPORTS MARKETING SPECIALIST Legal Sex Female 12:40 AM CDT Gender Identity Female 08/07/2023 10:22 AM SPORTS MARKETING SPECIALIST Sexual Orientation Straight 08/07/2023 10 :22 AM SPORTS MARKETING SPECIALIST documented as of this encounter Miscellaneous Notes * Telephone Encounter - Mily Quiros RN - 01/12/2024 2:07 PM CDT Signed 5 days ago (01/07/2024): zolpidem (AMBIEN) 10 MG Tablet Sig: Take 1 Tablet by mouth nightly as needed for Sleep. Disp: 30 Tablet Refills: 0 Signed by: Robert Gray MD [facility] [place] documented in this encounter Plan of Treatment Upcoming Encounters Date Type Department Care Team (Late st Contact Info) Description 06/09/2025 9:30 AM CDT Office Visit [facility] - Gastroenterology - [place] [address] [place] [address] Blaise Dill MD [address] [address] 06/13/2025 10:45 AM SPORTS MARKETING SPECIALIST [facility] - [place] #2 [facility] [phone] Onelia Lagunas, DO [address] [address] Jones Christy MD #2 [facility] [place] [phone] 07/20/2025 8:15 AM SPORTS MARKETING SPECIALIST [facility] [place] #2 [facility] [phone] Onelia Lagunas, DO [address] [address] Henry Bernabe MD #[address] [address] 09/05/2025 8:00 AM SPORTS MARKETING SPECIALIST [facility] [place] #[address] [facility] [place] [address] Onelia Lagunas, DO [address] [address] 09/28/2025 8:30 AM SPORTS MARKETING SPECIALIST [facility] [place] #2 [facility] [phone] Shamar Rosales MD [address] [address] documented as of this encounter Visit Diagnoses Diagnosis Insomnia, unspecified type documented in this encounter Additional Health Concerns Infection Onset Date Last Indicated Resolved Time COVID - 19 04/30/2024 04/30/2024 04/30/2024 11:2 5 AM CDT documented as of this encounter Care Teams Sound Truck Operator Relationship Specialty Start Date End Date Ga Liang MD #1 [place] [address] PCP - General Family Medicine 07/18/23 03/08/24 Onelia Lagunas DO 2 [facility] [address] [place] [address] PCP - General Family Medicine 03/09/24 Logan Acuna MD #[address] [address] Consulting Physician Colon and Rectal Surgery 10/15/23 Mars Marti, PROCESSES CHEMICAL DESIGN ENGINEER, TRUCK DOCK MATERIAL MOVER #2 [place] [address] Nurse Practitioner Advanced Practice Nurse 02/10/24 Jones Christy MD #2 [place] [phone] Consulting Physician Neurology 04/30/24 Eliezer Ndiaye MD #[address] [address] Consulting Physician Clinical Cardiac Electrophysiology 09/17/24 03/23/25 Shamar Rosales MD [address] [address] Consulting Physician Cardiovascular Disease - Cardiology 03/24/25 documented as of this encounter
--- OUTSIDE RECORDS SUMMARY | 2025-06-08 10:32 | XMS_ITS | Encounter Summary ---
Author Organization [facility] Address [address] [place] [address] Phone Care Team Providers Care Sharepoint Solutions Developer Name Role Phone Ga Liang MD Primary Care Provider [phone] Logan Acuna MD Unavailable Mars Marti APRN, SUPERVISOR VARNISH Unavailable [phone] Onelia Lagunas DO Primary Care Provider [phone] Jones Christy MD Unavailable [phone] Eliezer Ndiaye MD Unavailable Shamar Rosales MD Unavailable Reason for Visit * Reason Comments Medication Refill Encounter Details Date Type Department Care Team (Late st Contact Info) Description 11/09/2023 [facility]ill [facility] [address]2 [place] [address] Ninoska Borden, MANAGER RELOCATION, SUPERVISOR VARNISH [address] [place] [address] Medication Refill Social History Tobacco Use Types Packs/Day Years Used Date Smoking Tobacco: Never Smokeless Tobacco: Never Alcohol Use Standard Drinks/Week Comments No 0 (1 standard drink = 0.6 oz pur e alcohol) [facility] Utilities Answer Date Recorded In the past 12 months has [employer], [employer], or [employer] threatened to shut off services in your home? No 11/11/2023 Social Connection and Isolation Panel Answer Date Recorded In a typical week, how many times do you talk on the phone with family, friends, or neighbors? Once a week 11/11/2023 How often do you get togethe r with friends or relatives? Once a week 11/11/2023 How often do you attend chur ch or amish services? More than 4 times per year 11/11/2023 Do you belong to any clubs o r organizations such as yazdanism groups, unions, fraternal or athletic groups, or school groups? No 11/11/2023 How often do you attend meet ings of the clubs or organizations you belong to? Never 11/11/2023 Are you , , di vorced, , never , or living with a partner? 11/11/2023 AUDIT-C Answer Date Recorded Q1: How often do you have a drink containing alcohol? Never 11/11/2023 Q2: How many drinks containi ng alcohol do you have on a typical day when you are drinking? Patient does not drink Q3: How often do you have si x or more drinks on one occasion? Never 11/11/2023 Overall Financial Resource Strain (CARDIA) Answe r Date Recorded How hard is it for you to pa y for the very basics like food, housing, medical care, and heating? Patient declined 11/11/2023 [facility] - Occupational Stress Questionnaire Answer Date Recorded Do you feel stress - tense, restless, nervous, or anxious, or unable to sleep at night because your mind is troubled all the time - these days? Only a little 11/11/2023 Exercise Vital Sign Answer Date Recorde d On average, how many days pe r week do you engage in moderate to strenuous exercise (like a brisk walk)? 4 days 11/11/2023 On average, how many minutes do you engage in exercise at this level? 20 min 11/11/2023 Hunger Vital Sign Answer Date Recorded Within the past 12 months, y ou worried that your food would run out before you got the money to buy more. Never true 11/11/19 24 Within the past 12 months, t he food you bought just didn't last and you didn't have money to get more. Never true 11/11/2023 PRAPARE - Transportation Answer Date Re corded In the past 12 months, has l ack of transportation kept you from medical appointments or from getting medications? No 09/2023 In the past 12 months, has l ack of transportation kept you from meetings, work, or from getting things needed for daily living? No 11/11/2023 Housing Stability Vital Sign Answer Jose Martin e Recorded In the last 12 months, was t here a time when you were not able to pay the mortgage or rent on time? No 11/11/2023 Number of Places Lived in the Last Year Not on f ile 11/11/2023 In the last 12 months, was t here a time when you did not have a steady place to sleep or slept in a fdc (including now)? No 11/11/2023 Sexually Active Control Partners Comments Yes Male Comments No Sex and Gender Information Value Date Recorded Sex Assigned at Female 08/07/2023 10:22 AM QA SOFTWARE TEST ENGINEER Legal Sex Female 12:40 AM CDT Gender Identity Female 08/07/2023 10:22 AM QA SOFTWARE TEST ENGINEER Sexual Orientation Straight 08/07/2023 10 :22 AM QA SOFTWARE TEST ENGINEER documented as of this encounter Functional Status * AUDIT-C Score Answer Date of Assessment Author 0 11/11/2023 11:27 AM CDT [employer] Background * Q1: How often do you have a drink containing alcohol? Answer Date of Assessment Author Never 11/11/2023 11:27 AM CDT [employer] Background * Q2: How many drinks containing alcohol do you have on a typical day when you are drinking? Answer Date of Assessment Author Patient does not drink 11/11/2023 11:27 AM CDT [employer], [employer] Background * Q3: How often do you have six or more drinks on one occasion? Answer Date of Assessment Author Never 11/11/2023 11:27 AM CDT [employer] Background documented as of this encounter Miscellaneous Notes * Telephone Encounter - Samanta Mcrae, RN - 11/10/2023 9:49 AM CDT Medication failed the protocol, provider to review and approve the medication order if appropriate.No refill on file, last filled on 10/15/23 Samanta SANCHEZ Requested Prescriptions Pending Prescriptions Disp Refills polyethylene glycol (GLYCOLAX) 17 GM/SCOOP Powder [Pharmacy Med Name: Polyethylene Glycol 3350 17 GM/SCOOP Oral Powder] 119 g 0 Sig: DISSOLVE 17 GRAMS (1 SCOOP) IN 4-8 OZ OF WATER OR OTHER LIQUID AND DRINK DAILY Laxatives Protocol Failed - 11/09/2023 2:29 PM Failed - Up to date with colon cancer screening Health Maintenance Passed - Visit with relevant provider in past 12 months or upcoming 90 days Recent Visits Date Type Provider Dept 09/19/23 Office Visit Ninoska Borden APRN, SUPERVISOR VARNISH [facility] 09/05/23 Office Visit Ninoska Borden APRN, SUPERVISOR VARNISH [facility] 08/06/23 Office Visit Jennifer Chowdary, [facility] [place] 07/18/23 [facility] Show[facility] recent visits within past 365 days and meeting all other requirements Future Appointments Date Type Provider Dept 11/13/23 Appointment Ga Liang MD [facility] 12/04/23 Appointment [facility] Showing future appointments within next 90 days and meeting all other requirements documented in this encounter Plan of Treatment Upcoming Encounters Date Type Department Care Team (Late st Contact Info) Description 06/09/2025 9:30 AM CDT Office Visit [facility] Medical [facility] - Gastroenterology - Section [address] [place] [phone] Blaise Dill MD 2 [facility] [address] [place] [address] 06/13/2025 10:45 AM QA SOFTWARE TEST ENGINEER Office Visit [facility] Medical [facility] - Neurology - Section [address] [place] [phone] Onelia Lagunas, 2 [facility] [address] [place] [address] Jones Christy MD [address] [place] [address] 07/20/2025 8:15 AM QA SOFTWARE TEST ENGINEER [facility] - Section [address] [place] [address] Onelia Lagunas, DO [address] [address] Henry Bernabe MD #[address] [address] 09/05/2025 8:00 AM QA SOFTWARE TEST ENGINEER [facility] - Section [address] [place] [address] Onelia Lagunas, DO [address] [address] 09/28/2025 8:30 AM QA SOFTWARE TEST ENGINEER Office Visit [facility] Cardiology - Section [address] [place] [address] Shamar Rosales MD [address] [address] documented as of this encounter Visit Diagnoses Diagnosis Constipation, unspecified constipation type documented in this encounter Additional Health Concerns Infection Onset Date Last Indicated Resolved Time COVID - 19 04/30/2024 04/30/2024 04/30/2024 11:2 5 AM CDT documented as of this encounter Care Teams Sharepoint Solutions Developer Relationship Specialty Start Date End Date Ga Liang MD [address] [place] [address] PCP - General Family Medicine 07/18/23 03/08/24 Onelia Lagunas DO 2 [facility] [place] [address] [address] PCP - General Family Medicine 03/09/24 Logan Acuna MD #[address] [address] Consulting Physician Colon and Rectal Surgery 10/15/23 Mars Marti APRN, SUPERVISOR VARNISH [address] [place] [address] Nurse Practitioner Advanced Practice Nurse 02/10/24 Jones Christy MD #[address] [place] [address] Consulting Physician Neurology 04/30/24 Eliezer Ndiaye MD [address] [address] Consulting Physician Clinical Cardiac Electrophysiology 09/17/24 03/23/25 Shamar Rosales MD 2 [facility] [place] [address] [address] Consulting Physician Cardiovascular Disease - Cardiology 03/24/25 documented as of this encounter
--- OUTSIDE RECORDS SUMMARY | 2025-06-08 10:32 | XMS_ITS | Encounter Summary ---
Author Organization [facility] Address [address] [place] [address] Phone Care Team Providers Care Shipwright Helper Name Role Phone Ga Liang MD Primary Care Provider [phone] Logan Acuna MD Unavailable Mars Marti APRN, CNP Unavailable [phone] Onelia Lagunas DO Primary Care Provider [phone] Jones Christy MD Unavailable [phone] Eliezer Ndiaye MD Unavailable Shamar Rosales MD Unavailable Reason for Visit * Reason Comments Medication Refill Encounter Details Date Type Department Care Team (Late st Contact Info) Description 12/09/2023 Refill [facility] Medical Group - Family Medicine [facility] [address] [place] [address] Ga Liang MD [address] [place] [address] Medication Refill Social History Tobacco Use Types Packs/Day Years Used Date Smoking Tobacco: Never Smokeless Tobacco: Never Alcohol Use Standard Drinks/Week Comments No 0 (1 standard drink = 0.6 oz pur e alcohol) [facility] Utilities Answer Date Recorded In the past 12 months has [employer], gas, oil, or water company threatened to [...] often do you attend chur ch or jewish services? More than 4 times per year 12/02/2023 Do you belong to any clubs o r organizations such as cheondoism groups, unions, fraternal or athletic groups, or [...] care, and heating? Not very hard 12/02/2023 [facility]at [facility] - Occupational Stress Questionnaire Answer Date Recorded [...] place to sleep or slept in a care home (including now)? No 12/02/2023 Sexually Active Control Partners Comments Yes Male Comments No Sex and Gender Information Value Date Recorded Sex Assigned at Female 08/07/2023 10:22 AM FILES SUPERVISOR Legal Sex Female 12:40 AM CDT Gender Identity Female 08/07/2023 10:22 AM FILES SUPERVISOR Sexual Orientation Straight 08/07/2023 10 :22 AM FILES SUPERVISOR documented as of this encounter Plan of Treatment Upcoming Encounters Date Type Department Care Team (Late st Contact Info) Description 06/09/2025 9:30 AM CDT Office Visit [facility] Medical Group - Gastroenterology [facility] [address] [place] [address] Blaise Dill MD 2 [facility] [address] [place] [address] 06/13/2025 10:45 AM FILES SUPERVISOR Office Visit [facility] Medical [facility] - Neurology [facility] [address] [place] [phone] Onelia Lagunas, 2 [facility] [address] [place] [address] Jones Christy MD [address] [place] [address] 07/20/2025 8:15 AM FILES SUPERVISOR [facility] - [place] [address] [place] [address] Onelia Lagunas, DO 2 [facility] [place] [address] [address] Henry Bernabe MD #[address] [address] 09/05/2025 8:00 AM FILES SUPERVISOR [facility] Family [facility] - [place] [address] [place] [address] Onelia Lagunas, DO 2 [facility] [address] [address] 09/28/2025 8:30 AM FILES SUPERVISOR [facility] - [place] [address] [place] [address] Shamar Rosales MD [address] [address] documented as of this encounter Visit Diagnoses Diagnosis Vaginal irritation Unspecified noninflammatory disorder of vagina Urinary hesitancy documented in this encounter Additional Health Concerns Infection Onset Date Last Indicated Resolved Time COVID - 19 04/30/2024 04/30/2024 04/30/2024 11:2 5 AM CDT documented as of this encounter Care Teams Shipwright Helper Relationship Specialty Start Date End Date Ga Liang MD #1 [place] [address] PCP - General Family Medicine 07/18/23 03/08/24 Onelia Lagunas DO 2 [facility] [address] [place] [address] PCP - General Family Medicine 03/09/24 Logan Acuna MD #2 [facility] [address] [place] [address] Consulting Physician Colon and Rectal Surgery 10/15/23 Mars Marti, OUTREACH ANALYST, SYRUP BLENDER [address] [place] [address] Nurse Practitioner Advanced Practice Nurse 02/10/24 Jones Christy MD [address] [place] [address] Consulting Physician Neurology 04/30/24 Eliezer Ndiaye MD #[address] [address] Consulting Physician Clinical Cardiac Electrophysiology 09/17/24 03/23/25 Shamar Rosales MD [address] [facility] [address] Consulting Physician Cardiovascular Disease - Cardiology 03/24/25 documented as of this encounter
--- OUTSIDE RECORDS SUMMARY | 2025-06-08 10:32 | XMS_ITS | Encounter Summary ---
Author Organization [facility] Address [address] [place] [address] Care Team Providers Care Hot Air Furnace Installer And Repairer Name Role Phone Delroy Aragon MD Primary Care Provider Encounter Details Date Type Department Care Team (Late st Contact Info) Description 09/12/2004 Outpatient Historical [facility] Internal Medicine [address] [phone] Delroy Aragon MD [address] [place] [address] Social History Tobacco Use Types Packs/Day Years Used Date Smoking Tobacco: Never Assessed Comments Unknown Sex and Gender Information Value Date Recorded Sex Assigned at Not on file Legal Sex Female 5:10 AM CAUSTIC LIQUOR MAKER Gender Identity Not on file Sexual Orientation Not on file documented as of this encounter Last Filed Vital Signs Vital Sign Reading Time Taken Comments Blood Pressure 120/70 09/12/2004 2:15 PM CAUSTIC LIQUOR MAKER Pulse - - Temperature - - Respiratory Rate - - Oxygen Saturation - - Inhaled Oxygen Concentration - - Weight - - Height - - Body Mass Index - - documented in this encounter Plan of Treatment Not on file documented as of this encounter Visit Diagnoses Not on filedocumented in this encounter Care Teams Hot Air Furnace Installer And Repairer Relationship Specialty Start Date End Date Delroy Aragon MD [address] [place] [phone] PCP - General 03/14/05 documented as of this encounter
--- OUTSIDE RECORDS SUMMARY | 2025-06-08 10:32 | XMS_ITS | Encounter Summary ---
Author Organization [facility] Address [address] [place] [address] Phone Care Team Providers Care Judicial Registrar Name Role Phone Ga Liang MD Primary Care Provider [phone] Logan Acuna MD Unavailable Mars Marti APRN, DAIRY HUSBANDRY TEACHER Unavailable [phone] Onelia Lagunas DO Primary Care Provider [phone] Jones Christy MD Unavailable [phone] Eliezer Ndiaye MD Unavailable Shamar Rosales MD Unavailable Reason for Visit * Reason Comments Medication Refill Encounter Details Date Type Department Care Team (Late st Contact Info) Description 12/06/2023 Refill [facility] - Family Medicine [facility] [address] [place] [address] Ninoska Borden, AGRICULTURAL PILOT, DAIRY HUSBANDRY TEACHER [address] [place] [address] Medication Refill Social History Tobacco Use Types Packs/Day Years Used Date Smoking Tobacco: Never Smokeless Tobacco: Never Alcohol Use Standard Drinks/Week Comments No 0 (1 standard drink = 0.6 oz pur e alcohol) [facility] Utilities Answer Date Recorded In the past 12 months has [employer], [employer], or [employer] threatened to shut off services in your home? No 12/02/2023 Social Connection and Isolation Panel Answer Date Recorded In a typical week, how many times do you talk on the phone with family, friends, or neighbors? Twice a week 12/02/2023 How often do you get togethe r with friends or relatives? Once a week 12/02/2023 How often do you attend chur ch or advent services? More than 4 times per year 12/02/2023 Do you belong to any clubs o r organizations such as latter-day groups, unions, fraternal or athletic groups, or [...] and heating? Not very hard 12/02/2023 [facility] of Occupat ional Health - Occupational Stress [...] in a fci (including now)? No 12/02/2023 Sexually Active Control Partners Comments Yes Male Comments No Sex and Gender Information Value Date Recorded Sex Assigned at Female 08/07/2023 10:22 AM BLADDER TIER Legal Sex Female 12:40 AM CDT Gender Identity Female 08/07/2023 10:22 AM BLADDER TIER Sexual Orientation Straight 08/07/2023 10 :22 AM BLADDER TIER documented as of this encounter Miscellaneous Notes * Telephone Encounter - Mily Quiros RN - 12/08/2023 8:26 AM CDT Medication(s) refilled and signed per [facility] Chronic Medication Refill Standing Order for Pediatricand Adult Patients. Requested Prescriptions Pending Prescriptions Disp Refills polyethylene glycol (GLYCOLAX) 17 GM/SCOOP Powder [Pharmacy Med Name: Polyethylene Glycol 3350 17 GM/SCOOP Oral Powder] 119 g 2 Sig: DISSOLVE 17 GRAMS IN 4-8 OZ OF WATER OR OTHER LIQUID AND DRINK DAILY Laxatives Protocol Passed - 12/06/2023 12:01 AM Passed - Visit with relevant provider in past 12 months or upcoming 90 days Recent Visits Date Type Provider Dept 12/04/23 Office Visit Ga Liang MD [facility] 11/13/23 Office Visit Ga Liang MD [facility] 09/19/23 Office Visit Ninoska Borden, AGRICULTURAL PILOT, DAIRY HUSBANDRY TEACHER [facility] 09/05/23 Office Visit Michi Ninoska M, AGRICULTURAL PILOT, DAIRY HUSBANDRY TEACHER [facility] Office Visit Jennifer Chowdary PAC [facility] 07/18/23 Office Visit Ga Liang MD [facility] Showing recent visits within past 365 days and meeting all other requirements Future Appointments No visits were found meeting these conditions. Showing future appointments within next 90 days and meeting all other requirements Passed - Up to date with colon cancer screening Health Maintenance documented in this encounter Plan of Treatment Upcoming Encounters Date Type Department Care Team (Late st Contact Info) Description 06/09/2025 9:30 AM CDT Office Visit [facility] - Gastroenterology - [place] [address]2 [place] [address] Blaise Dill MD [address] [address] 06/13/2025 10:45 AM BLADDER TIER Office Visit [facility] - Neurology - [place] [address]2 [place] [phone] Onelia Lagunas, DO [address] [address] Jones Christy MD #2 [place] [address] 07/20/2025 8:15 AM BLADDER TIER Office Visit [facility] - Endocrinology - [place] [address] [place] [address] Onelia Lagunas, DO [address] [address] Henry Bernabe MD #[address] [address] 09/05/2025 8:00 AM BLADDER TIER [facility] - [place] #[address] [place] [address] Onelia Lagunas DO [address] [address] 09/28/2025 8:30 AM BLADDER TIER [facility] [place] [address] [place] [address] Shamar Rosales MD [address] [address] documented as of this encounter Visit Diagnoses Diagnosis Constipation, unspecified constipation type documented in this encounter Additional Health Concerns Infection Onset Date Last Indicated Resolved Time COVID - 19 04/30/2024 04/30/2024 04/30/2024 11:2 5 AM CDT documented as of this encounter Care Teams Judicial Registrar Relationship Specialty Start Date End Date Ga Liang MD #1 [place] [address] PCP - General Family Medicine 07/18/23 03/08/24 Onelia Lagnuas DO [address] [address] PCP - General Family Medicine 03/09/24 Logan Acuna MD #[address] [address] Consulting Physician Colon and Rectal Surgery 10/15/23 Mars Marti, AGRICULTURAL PILOT, DAIRY HUSBANDRY TEACHER #2 [place] [address] Nurse Practitioner Advanced Practice Nurse 02/10/24 Jones Christy MD #2 [place] [address] Consulting Physician Neurology 04/30/24 Eliezer Ndiaye MD #[address] [address] Consulting Physician Clinical Cardiac Electrophysiology 09/17/24 03/23/25 Shamar Rosales MD [address] [address] Consulting Physician Cardiovascular Disease - Cardiology 03/24/25 documented as of this encounter
--- OUTSIDE RECORDS SUMMARY | 2025-06-08 10:32 | XMS_ITS | Encounter Summary ---
Author Organization [facility] Address [address] [place] [address] Phone Care Team Providers Care Natural Resources Manager Name Role Phone Ga Liang MD Primary Care Provider [phone] Logan Acuna MD Unavailable Mars Marti APRN, HARDWARE TECHNICIAN Unavailable [phone] Onelia Lagunas DO Primary Care Provider [phone] Jones Christy MD Unavailable [phone] Eliezer Ndiaye MD Unavailable Shamar Rosales MD Unavailable Reason for Visit * Reason Comments Medication Refill Encounter Details Date Type Department Care Team (Late st Contact Info) Description 10/12/2023 Refill [facility] - Family Medicine [facility] [address] [place] [address] Jennifer Chowdary PAC [address] [place] [address] Medication Refill Social History Tobacco Use Types Packs/Day Years Used Date Smoking Tobacco: Never Smokeless Tobacco: Never Alcohol Use Standard Drinks/Week Comments No 0 (1 standard drink = 0.6 oz pur e alcohol) Sexually Active Control Partners Comments Yes Male Comments No Sex and Gender Information Value Date Recorded Sex Assigned at Female 08/07/2023 10:22 AM STACK CLERK Legal Sex Female 12:40 AM CDT Gender Identity Female 08/07/2023 10:22 AM STACK CLERK Sexual Orientation Straight 08/07/2023 10 :22 AM STACK CLERK documented as of this encounter Miscellaneous Notes * Telephone Encounter - Mily Quiros RN - 10/13/2023 1:50 PM CST PRN medication requires review from provider Per nursing clinical judgement, provider to review and approve the medication(s) order(s) if appropriate. Requested Prescriptions Pending Prescriptions Disp Refills albuterol 108 (90 Base) MCG/ACT Aerosol Solution [Pharmacy Med Name: Albuterol Sulfate HFA 108 (90 Base) MCG/ACT Inhalation Aerosol Solution] 9 g 0 Sig: INHALE 2 PUFFS BY MOUTH EVERY 4 TO 6 HOURS NEEDED FOR SHORTNESS OF BREATH OR COUGH Short Acting Inhaled Beta-Agonists Protocol Passed - 10/12/2023 9:29 PM Passed - Visit with relevant provider in past 12 months or upcoming 90 days Recent Visits Date Type Provider Dept 09/19/23 Office Visit Ninoska Borden APRN, HARDWARE TECHNICIAN [facility] [place] 09/05/23 Office Visit Ninoska Borden APRN, HARDWARE TECHNICIAN [facility] [place] 08[facility]06/23 Office Visit Jennifer Chowdary, [facility] [place] 07/18/23 Office Visit Ga Liang MD [facility] [place] Showing recent visits within past 365 days and meeting all other requirements Future Appointments Date Type Provider Dept 11/13/23 Appointment Ga Liang MD [facility] 12/04/23 Appointment Ga Liang MD [facility] [place] Showing future appointments within next 90 days and meeting all other requirements K CLERK documented in this encounter Plan of Treatment Upcoming Encounters Date Type Department Care Team (Late st Contact Info) Description 06/09/2025 9:30 AM CDT Office Visit [facility] - Gastroenterology - [place] [address] [place] [address] Blaise Dill MD 2 [facility] [address] [place] [address] 06/13/2025 10:45 AM STACK CLERK Office Visit [facility]rology - [place] [address]2 [facility] [place] [phone] Onelia Lagunas, DO 2 [facility] [address] [place] [address] Jones Christy MD #2 [facility] [phone] 07/20/2025 8:15 AM STACK CLERK Office Visit [facility] - Endocrinology - [place] [address] [facility] [place] [phone] Onelia Lagunas, DO [address] [address] Henry Bernabe MD #[address] [phone] 09/05/2025 8:00 AM STACK CLERK Office Visit [facility] - Family Medicine - [place] #[address] [place] [phone] Onelia Lagunas, DO 2 [facility] [address] [place] [address] 09/28/2025 8:30 AM STACK CLERK Office Visit [facility] - Cardiology - [place] [address] [facility] [place] [phone] Shamar Rosales MD [address] [id number] documented as of this encounter Visit Diagnoses Not on filedocumented in this encounter Additional Health Concerns Infection Onset Date Last Indicated Resolved Time COVID - 19 04/30/2024 04/30/2024 04/30/2024 11:2 5 AM CDT documented as of this encounter Care Teams Natural Resources Manager Relationship Specialty Start Date End Date Ga Liang MD [address] [place] [address] PCP - General Family Medicine 07/18/23 03/08/24 Onelia Lagunas DO [address] [address] PCP - General Family Medicine 03/09/24 Logan Acuna MD #[address] [address] Consulting Physician Colon and Rectal Surgery 10/15/23 Mars Marti APRN, HARDWARE TECHNICIAN [address] [place] [address] Nurse Practitioner Advanced Practice Nurse 02/10/24 Jones Christy MD [address] [place] [phone] Consulting Physician Neurology 04/30/24 Eliezer Ndiaye MD #[address] [address] Consulting Physician Clinical Cardiac Electrophysiology 09/17/24 03/23/25 Shamar Rosales MD [address] [address] Consulting Physician Cardiovascular Disease - Cardiology 03/24/25 documented as of this encounter
--- OUTSIDE RECORDS SUMMARY | 2025-06-08 10:32 | XMS_ITS | Clinical Summary ---
Author Organization [facility] Address [address] [place] [address] Care Team Providers Care Supervisor Pastry Name Role Phone Delroy Aragon MD Primary Care Provider Source Comments [facility],non-owned Affiliates and Associated Physician Practices is amultiple site organization consisting of ambulatory clinics and hospital sitesin [place], [place], [place] and [place]. This disclosure is being madepursuant to the Care Everywhere program and may not contain all information available regarding this patient. Last updated 18.[facility] Allergies No known active allergies Medications * Be aware that medications may not be up to date on this document. Alwaysverify current medications with the patient. zolpidem (Ambien) 10 MG tablet Take 1 (one) tablet by mouth nightly as needed for Insomnia Active baclofen (Lioresal) 10 MG tablet Take 1 (one) tablet by mouth 3 times daily May cause drowsiness. Active losartan (Cozaar) 25 MG tablet Take 1 (one) tablet by mouth once daily Active losartan-hydroC HLOROthiazide (Hyzaar) 100-25 MG tablet Take 1 (one) tablet by mouth once daily 05/25/2024 Active Active Problems Problem Noted Date Diagnosed Date Atrial fibrillation 11/11/2024 Social History Tobacco Use Types Packs/Day Years Used Date Smoking Tobacco: Never Assessed AUDIT-C Answer Date Recorded Q1: How often do you have a drink containing alcohol? Never 01/18/2025 Q2: How many drinks containi ng alcohol do you have on a typical day when you are drinking? Patient does not drink Q3: How often do you have si x or more drinks on one occasion? Never 01/18/2025 Comments No Sex and Gender Information Value Date Recorded Sex Assigned at Not on file Legal Sex Female 10:00 AM CDT Gender Identity Not on file Sexual Orientation Not on file Last Filed Vital Signs Vital Sign Reading Time Taken Comments Blood Pressure 139/70 01/18/2025 8:50 AM CDT Pulse 90 01/18/2025 8:50 AM CDT Temperature 36.9 C (98.4 F) 01/18/2025 8:39 AM CDT Respiratory Rate 14 01/18/2025 8:50 AM CDT Oxygen Saturation 90% 01/18/2025 8:50 AM CDT Inhaled Oxygen Concentration - - Weight 89.2 kg (196 lb 11.2 oz) 01/18/2025 6:51 AM CDT Height 170.2 cm (5' 7) 01/18/2025 6:51 AM CDT Body Mass Index 30.81 01/18/2025 6:51 AM CDT Plan of Treatment Upcoming Encounters Date Type Department Care Team (Late st Contact Info) Description 06/16/2025 1:00 AM DRAWING OPERATOR Clinical Support [facility] - Cardiology [address] [phone] 07/21/2025 1:00 AM DRAWING OPERATOR Clinical Support [facility] - Cardiology [address] [facility], [address] [address] Health Maintenance Due Date Last Done Comments COLOGUARD (AGES 45-75) - COLON CA SCREENING 1964 COLON MONITORING 1964 COLONOSCOPY - COLON CA SCREENING 1964 CT COLONOGRAPHY - COLON CA SCREENING 1964 Colorectal Cancer Screening 1964 FIT - COLON CA SCREENING 1964 FLEX SIG - COLON CA SCREENING 1964 LIPID TESTING 1964 HIV SCREENING 01/13/1979 DTAP/TDAP/TD VACCINES (1 - Tdap) 01/13/1983 PNEUMOCOCCAL VACCINE 50+ (1 of 2 - PCV) 01/13/1983 ZOSTER VACCINE (1 of 2) 01/13/2014 DEPRESSION SCREENING 08/11/2024 SCREENING FOR DIABETES 03/15/2025 COVID-19 VACCINE (3 - season) 2025 03/01/2021, 02/08/2021 INFLUENZA VACCINE (#1) 2025 , 06/04/2018, 06/23/2017, Additional history exists PAP SMEAR 11/12/2026 11/13/2023, 0 04/2018, 11/17/2017 MAMMOGRAM 12/16/2026 12/16/2024, 03/2025, 12/10/2023, Additional history exists Respiratory Syncytial Virus (RSV) Vaccine Pt: or over 60 yrs (1 - 1-dose 75+ series) 01/13/2039 HEPATITIS C SCREENING Completed 11/13/2023 HEPATITIS B VACCINE Aged Out No longe r eligible based on patient's age to complete this topic HIB VACCINE Aged Out No longer eligi ble based on patient's age to complete this topic HPV VACCINE Aged Out No longer eligi ble based on patient's age to complete this topic MENINGOCOCCAL (Group B) VACCINE SHARED DECISION-MAKING Aged Out No longer eligible based on patient's age to complete this topic MENINGOCOCCAL GROUPS A/C/Y/W VACCINE Aged Out No longer eligible based on patient's age to complete this topic Medical Devices Implanted Type Area Hiv Cts Specialist Device Identifier Shelf Expiration Date Model / Serial / Lot Lux- Dx Ii + Tm Implanted:Qty: 1 on 01/18/2025 by Eliezer Ndiaye MD at [facility] Loop Recorder [employer] 06/11/2026 [id number] / [id number] / [id number] Procedures Procedure Name Priority Date/Time Associated Diagnosis Comments CARDIAC PROCEDURE ORDER 05/20/2025 [place] ILR DEVICE INTERROGAT REMOTE Routine 03/28/2025 10:27 PM CDT Atrial fibrillation, unspecified type (HCC) Status post placement of implantable loop recorder CARDIAC PROCEDURE ORDER 03/15/2025 from Last 3 Months Results * CARDIAC PROCEDURE ORDER (05/20/2025) Only the most recent of2 resultswithin the time period is included. Narrative 05/20/2025 Ordered by an unspecified provider. us Scanned Document CARDIAC SERVICES ORDERABLES Fin al Result * IA ILR DEVICE INTERROGAT REMOTE (03/28/2025 10:27 PM CDT) Narrative Shamar Rosales MD - 03/28/2025 10:27 PM CDT Shamar Rosales MD 03/28/2025 10:29 PM Remote Interrogation: Pertinent Findings: Device function within normal limits. No significant events. Shamar Rosales MD Cardiac Electrophysiology us Shamar Rosales MD PROCEDURE/MINOR SURGICAL ORDERAB LES Final Result from Last 3 Months Insurance [facility] Care Teams Supervisor Pastry Relationship Specialty Start Date End Date Delroy Aragon MD PCP - General 11/24/17
--- OUTSIDE RECORDS SUMMARY | 2025-06-08 10:32 | XMS_ITS | Clinical Summary ---
Author Organization [facility] Address [address] [place] [address] Care Team Providers Care Community Advocate Name Role Phone Delroy Aragon MD Primary Care Provider [phone] Allergies Active Allergy Reactions Criticality Noted Date Comments Levofloxacin Rash Low 11/05/2007 Medications cholecalciferol , vitamin D3, 1,000 unit Take 1,000 Units by mouth daily. Active omeprazole (PriLOSEC) 40 mg Capsule, Delayed Release(E.C.) Take 1 Capsule (40 mg) by mouth daily. Ok 90 day 90 Capsule 3 2 Active Additional Information Patient not taking.Reported on 09/07/2024 tirzepatide (Mounjaro) 2.5 mg/0.5 mL Pen Injector Lot: [id number] Ex: 05/14/23 Qty: 1 BOX 0.5 mL 2 Active Additional Information Patient not taking.Reported on 09/07/2024 sucralfate (CARAFATE) 1 gram tablet Take 1 Tablet (1 Gram) by mouth 3 times daily before meals. 90 Tablet 1 2 Active Additional Information Patient not taking.Reported on 09/07/2024 benzonatate (TESSALON) 200 mg capsule Take 1 Capsule (200 mg) by mouth 3 times daily. 30 Capsule 2 2 Active methylPREDNISol one (MEDROL DOSPACK) 4 mg Tablets, Dose Pack As directed 21 Tablet 2 Active metFORMIN (GLUCOPHAGE) 500 mg tablet Take 1 Tablet (500 mg) by mouth daily. 90 Tablet 3 3 Active Additional Information Patient not taking.Reported on 09/07/2024 zolpidem (Ambien) 10 mg tabletIndicatio ns:Other insomnia Take 1 Tablet (10 mg) by mouth nightly as needed for Insomnia. 90 Tablet 3 3 Active baclofen (LIORESAL) 10 mg tablet Take 1 Tablet (10 mg) by mouth 2 times daily. 180 Tablet 3 3 Active rosuvastatin (Crestor) 5 mg tablet Take 1 Tablet (5 mg) by mouth daily. 90 Tablet 3 3 Active zolpidem (AMBIEN) 5 mg tabletIndicatio ns:Other insomnia TAKE 1 TABLET BY MOUTH NIGHTLY NEEDED FOR INSOMNIA. 30 Tablet 3 3 Active Additional Information Patient not taking.Reported on 09/07/2024 losartan-hydroC HLOROthiazide (HYZAAR) 50-12.5 mg tablet Take 1 Tablet by mouth daily. 90 Tablet 2 3 Active Additional Information Patient not taking.Reported on 09/07/2024 losartan-hydroC HLOROthiazide (HYZAAR) 100-12.5 mg tablet Take 1 Tablet by mouth daily. 90 Tablet 3 3 Active nebivoloL (BYSTOLIC) 10 mg Tablet Take 1 Tablet (10 mg) by mouth daily. 30 Tablet 3 3 Active oxyCODONE (ROXICODONE) 5 mg tablet Take 5 mg by mouth every 4 hours as needed for Pain. Active Active Problems Patient Care Coordination No te Formatting of this note migh t be different from the original. Prev visit 02/26/22 Problem Noted Date Diagnosed Date Prediabetes 09/23/2019 Tachycardia 02/13/2018 Other sleep apnea 02/12/2018 Tension headache 11/27/2017 Memory loss 11/27/2017 Post concussive syndrome 05/28/2017 Generalized anxiety disorder 05/28/2017 Chronic tension headache 05/28/2017 Constipation 03/12/2017 Panic disorder without agoraphobia 01/13/2017 Overview (07/31/2017): R/o PTSD Personal history of colonic polyp 05/16/2016 Overview (05/16/2016): 5 mm left colon polyp removed 05/16/16. Repeat 5 y if adenoma as suspected. 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 Essential hypertension, benign 10/19/2007 Hyperlipidemia 10/19/2007 Carpal tunnel syndrome 09/15/2007 Osteoarthritis 11/29/2003 Myalgia and myositis, unspecified 11/29/2003 Resolved Problems Problem Noted Date Diagnosed Date Resolved Date Hepatic steatosis 05/30/2014 05/30/2014 Unspecified urinary incontinence 10/19/2007 08/31/2009 Other symptoms involving res piratory system and chest 10/19/2007 08/31/2009 Rheumatoid arthritis 09/15/2007 025 Elevated blood pressure read ing without diagnosis of hypertension 09/15/2007 08/31/2009 Acute sinusitis, unspecified 09/15/2007 08/31/2009 Hemorrhage of rectum and anus 03/31/2006 08/31/2009 Blood in stool 03/31/2006 08/31/2009 Diarrhea 12/24/2005 08/31/2009 Routine general medical exam ination at a health care facility 08/15/2005 08/31/2009 Screening examination for pu lmonary tuberculosis 08/15/2005 08/31/2009 OBESITY NOS 05/20/2005 04/19/2015 Abdominal pain, generalized 03/13/2005 08/31/2009 Chest pain, unspecified 01/30/200508/12 Breast screening, unspecified 01/30/2005 08/31/2009 Acute bronchitis 12/10/2004 08/31/2009 Palpitations 05/10/2004 08/31/2009 Symptomatic states associate d with artificial menopause 03/30/2004 08/31/2009 Insomnia, unspecified 03/30/20042009 Respiratory abnormality, unspecified 03/30/2004 08/31/2009 Depressive disorder, not elsewhere classified 11/29/19 04 08/31/2009 Undiagnosed cardiac murmurs 11/29/2003 08/31/2009 Encounters Date Type Department Care Team Description 04/19/2025 External Device Data [facility] ABSTRACTION Provider, Abstract 03/15/2025 External Device Data [facility] ABSTRACTION Provider, Abstract from Last 3 Months Immunizations Immunization Administration Dates Next Due (ADACEL/BOOSTRIX)(10 YR UP) TDAP VACCINE, 0.5ML, IM 11/19/2022,07/14/2012 (PFIZER)(12 YR UP) COVID-19 VACCINE - EMERGENCY USE AUTHORIZATION, MRNA, [id number](PF) 30 MCG/0.3 ML IM SUSP 03/01/2021,02/08/2021 (PNEUMOVAX 23)(50 YRS UP) PN EUMOCOCCAL POLYSACCHARIDE (PPV23) 0.5 ML, IM 09/23/2019,04/08/2014 (PREVNAR 13)(6 WKS UP) PNEUM OCOCCAL CONJUGATE (PCV13) 0.5 ML, IM 12/04/2014 Influenza A (H1N1) Vaccine IM 07/06/2016 Influenza Seasonal Unspecifi ed Formulation IM 05/29/2019,06/04/2018,06/23/2017,06/14,06/30/2015,07/06/2014,04/11/2013 Skin Test TB 08/15/2005 Family History Medical History Relation Name Comments Healthy Father Felipe Zacarias Lung Cancer Father Felipe Zacarias Diabetes Mother Vanessa zacarias Type 1 diabeti c diagnosed age 60 Diabetes Sister Alejandra tsang Type 1 diab etic diagnosed age 60 High Cholesterol Son Asthma Neg Hx Breast Cancer Neg Hx Bronchitis Neg Hx Colon Cancer Neg Hx Emphysema Neg Hx Heart Failure Neg Hx Hypertension Neg Hx Mesothelioma Neg Hx Ovarian Cancer Neg Hx Relation Name Status Comments Father Felipe Zacarias Alive Mother Vanessa zacarias Alive Sister Alejandra tsang Son Social History Tobacco Use Types Packs/Day Years Used Date Smoking Tobacco: Never Passive Smoke Exposure: Never Smokeless Tobacco: Never Tobacco Cessation:Counseling Given: No Alcohol Use Standard Drinks/Week Comments Never 0 (1 standard drink = 0.6 oz pur e alcohol) Comments No Sex and Gender Information Value Date Recorded Sex Assigned at Not on file Legal Sex Female 5:10 AM WAREHOUSE SHIPPING ASSOCIATE Gender Identity Not on file Sexual Orientation Not on file Last Filed Vital Signs Vital Sign Reading Time Taken Comments Blood Pressure 134/70 09/07/2024 3:41 PM WAREHOUSE SHIPPING ASSOCIATE Pulse 73 09/07/2024 3:41 PM WAREHOUSE SHIPPING ASSOCIATE Temperature 35.8 C (96.4 F) 09/17/2023 2:40 PM WAREHOUSE SHIPPING ASSOCIATE Respiratory Rate 18 11/19/2022 10:16 AM CDT Oxygen Saturation 96% 09/07/2024 3:41 PM WAREHOUSE SHIPPING ASSOCIATE Inhaled Oxygen Concentration - - Weight 94.8 kg (209 lb) 09/07/2024 3:41 PM WAREHOUSE SHIPPING ASSOCIATE Height 167.6 cm (5' 6) 09/07/2024 3:41 PM WAREHOUSE SHIPPING ASSOCIATE Body Mass Index 33.73 09/07/2024 3:41 PM WAREHOUSE SHIPPING ASSOCIATE Plan of Treatment Health Maintenance Due Date Last Done Comments FIT-DNA Q 3 years 01/13/2009 Flex Sig/CT Colonography Q 5 years 01/13/2009 RSV VACCINE (60+ or ) (1 - Risk 50-74 years 1-dose series) 01/13/2014 ZOSTER VACCINE (1 of 2) 01/13/2014 FIT/FOBT Q 1 year 05/13/2017 05/13/2016 COLORECTAL SCREENING 05/16/2021 05/16/2016, 05/16/20 16 Colorectal Cancer Screening 05/16/2021 HPV/Cotest (21-29) 11/17/2022 11/17/2017 HPV/Cotest (30-65) 11/17/2022 11/17/2017 CERVICAL CANCER SCREENING 11/12/2024 PAP SMEAR 11/12/2024 11/13/2023, 04/0 04/2018, 11/17/2017 BREAST CANCER SCREENING 12/09/2024 12/10/19 24, 12/10/2023, 01/28/2022, Additional history exists INFLUENZA VACCINE (#1) 2025 9, 06/04/2018, 06/23/2017, Additional history exists COVID-19 Vaccine (3 - 2024-2 6 season) 2025 03/01/2021, 02/08/2021 Pre-Diabetes and Diabetes Screening 11/15/2025 11/15/2022, 05/18/2022, 02/28/2022, Additional history exists DTAP/TDAP/TD VACCINES (3 - T d or Tdap) 11/19/2032 11/19/2022, 07/14/2012 Procedures Procedure Name Priority Date/Time Associated Diagnosis Comments HEMOGLOBIN A1C Routine 11/15/2022 10:35 AM CDT Prediabetes MAMMO SCREEN BILAT W OR WO CAD Routine 01/28/2022 HPV W/REFLEX GENOTYPES 16, 18/45 Routine 11/17/2017 7:57 AM CDT Pap smear for cervical cancer screening Screening for HPV (human papillomavirus) CERV/VAG CYTO SCREEN PAP W/O HPV Routine 11/17/2017 7:57 AM CDT Pap smear for cervical cancer screening Screening for HPV (human papillomavirus) POC OCCULT BLOOD 1 CARD Routine 05/13/2016 11:00 AM CDT BRBPR (bright red blood per rectum) from Last 3 Months or Most Recently Relevant to Health Maintenance Results * (ABNORMAL) HEMOGLOBIN A1C (11/15/2022 10:35 AM CDT) HEMOGLOBIN A1C 5.7(H) <5.7 % of total Hgb [facility] Comment: For someone without known diabetes, a hemoglobin A1c value between 5.7% and 6.4% is consistent with prediabetes and should be confirmed with a follow-up test. For someone with known diabetes, a value <7% indicates that their diabetes is well controlled. A1c targets should be individualized based on duration of diabetes, age, comorbid conditions, and other considerations. This assay result is consistent with an increased risk of diabetes. Currently, no consensus exists regarding use of hemoglobin A1c for diagnosis of diabetes for children. ESTIMATED AVERAGE GLUCOSE (MG/DL) 117 mg/dL [facility] ESTIMATED AVERAGE GLUCOSE (MMOL/L) 6.5 mmol/L [facility] Comment: FASTING:YES FASTING: YES Test Performed at: [facility] [address] [place] [address] Oscar Casillas Blood 11/15/2022 10:3 5 AM CDT 11/15/2022 10:36 AM CDT us Delroy Aragon MD CHEMISTRY ORDERABLES Final Re sult [facility] [phone] [facility] [address] [place] [address] * MAMMO SCREEN BILAT W OR WO CAD (01/28/2022) Anatomical Region Laterality Modality Breast Bilateral Mammography Delroy Aragon MD MAMMO ORDERABLES Final Result * CERV/VAG CYTOPATH, THIN PREP SIGN MAINTENANCE (11/17/2017 7:57 AM CDT) CLINICAL INFORMATION SEE COMMENT 11/22/2017 7:03 PM CDT [facility] Comment:Hysterectomy, total LAST MENSTRUAL PERIOD HYST 11/22/2017 7:03 PM CDT [facility] PREV PAP: SEE COMMENT 11/22/2017 7:03 PM CDT [facility] Comment:Information not prov ided PREV BX: SEE COMMENT 11/22/2017 7:03 PM CDT [facility] Comment:Information not prov ided SOURCE Vagina 11/22/2017 7:03 PM CDT [facility] ADEQUACY: SEE COMMENT 11/22/2017 7:03 PM CDT [facility] Comment:SATISFACTORY FOR JAVIER LUATION PAP INTERP SEE COMMENT 11/22/2017 7:03 PM CDT [facility] Comment:Negative for intraep ithelial lesion or malignancy. COMMENT SEE COMMENT 11/22/2017 7:03 PM CDT [facility] Comment: This Pap test has been evaluated with computer assisted technology. TERMITE HELPER: SEE COMMENT 2017 7:03 PM CDT [facility] Comment: AMW, CT(ASCP) CT screening location: [place] [address] [address] [address] EXPLANATORY NOTE SEE COMMENT 018 7:03 PM CDT [facility] Comment: EXPLANATORY NOTE: The Pap is a screening test for cervical cancer. It is not a diagnostic test and is subject to false negative and false positive results. It is most reliable when a satisfactory sample, regularly obtained, is submitted with relevant clinical findings and history, and when the Pap result is evaluated along with historic and current clinical information. Genital SPECIMEN FROM VAGINA / Unknown Collection / Unknown 11/17/2017 7:57 AM CDT 11/17/2017 1:02 PM CDT Narrative [facility] - 11/22/2017 7:03 PM CDT Performing Organization Information: Site ID: Name: [facility] Address: [facility] [address] [address] Director: Oscar Casillas MD Nahomi Garcia MD PATHOLOGY/CYTOLOGY ORDLeigh Ann ESPINOSA Final Result Performing Organization Address City/[facility]/ZIP Co de Phone Number [facility] * HPV W/REFLEX GENOTYPES 16, 18/45 (11/17/2017 7:57 AM CDT) HPV HIGH RISK DNA DETECTION NOT DETECTED 11/22/2017 7:03 PM CDT [facility] Comment: Tested for High Risk types 16, 18, 31, 33, 35, 39, 45, 51, 52, 56, 58, 59, 68. REFERENCE RANGE: HPV DNA HIGH RISK: NOT DETECTED Methodology: aWhere Hybrid Capture II The analytical performance characteristics of this assay have been determined by [facility]. The modifications have not been cleared or approved by the FDA. This assay has been validated pursuant to the CLIA regulations and is used for clinical purposes. Genital SPECIMEN FROM VAGINA / Unknown Collection / Unknown 11/17/2017 7:57 AM CDT 11/17/2017 1:02 PM CDT Narrative [facility] - 11/22/2017 7:03 PM CDT Performing Organization Information: Site ID: [id number] Name: [facility] Address: [address] [place] [address] Director: Jeff Meredith MD Nahomi Garcia MD PATHOLOGY/CYTOLOGY CELY ESPINOSA Final Result Performing Organization Address [facility] Co de Phone Number [facility] * POC OCCULT BLOOD 1 CARD (05/13/2016 11:00 AM CDT) OCCULT BLOOD 1 CARD POC Negative Negative [facility] INTERNAL KIT QC Pass Pass [facility] CARD LOT NUMBER POC [id number] [facility] CARD EXPIRATION DATE POC 03/10/2018 [facility] DEVELOPER LOT NUMBER POC [id number] [facility] DEVELOPER EXPIRATION DATE POC 03/10/2018 [facility] Stool specimen (specimen) STOOL SPECIMEN / Unknown 05/13/2016 11:00 AM CDT Treva Bradford [place] IT SECURITY CONSULTING DIRECTOR POINT OF CARE TESTING Final Res ult [facility] [id number] [facility], [address] [address] from Last 3 Months or Most Recently Relevant to Health Maintenance Advance Directives For more information, please contact: [phone] * Full Code (Latest Code Status on File) Date Activated Date Inactivated Comments 12/23/2017 6:42 AM 12/23/2017 10:12 AM * Full Code Date Activated Date Inactivated Comments 05/16/2016 7:31 AM 05/16/2016 4:25 PM Care Teams Community Advocate Relationship Specialty Start Date End Date Delroy Aragon MD [address] [place] [id number] PCP - General 03/14/05
--- OUTSIDE RECORDS SUMMARY | 2025-06-08 10:32 | XMS_ITS | Encounter Summary ---
Author Organization [facility] Address [address] [address] Phone Care Team Providers Care Admissions Director Name Role Phone Logan Acuna MD Unavailable Mars Marti APRN, TAX DIRECTOR Unavailable [phone] Onelia Lagunas DO Primary Care Provider [phone] Jones Christy MD Unavailable [phone] Eliezer Ndiaye MD Unavailable Shamar Rosales MD Unavailable Reason for Visit * Reason Comments Medication Refill Encounter Details Date Type Department Care Team (Late st Contact Info) Description 06/05/2024 Refill [facility] - Family Medicine [facility] [address] [place] [address] Jennifer Chowdary, [facility] [address] [place] [address] Medication Refill Social History Tobacco Use Types Packs/Day Years Used Date Smoking Tobacco: Never Smokeless Tobacco: Never Alcohol Use Standard Drinks/Week Comments No 0 (1 standard drink = 0.6 oz pur e alcohol) [facility] Utilities Answer Date Recorded In the past 12 months has [employer] electric, gas, oil, or water company threatened [...] 02/14/2024 How often do you attend chur or buddhist services? More than 4 times per year 02/14/2024 Do you belong to any clubs o r organizations such as islam groups, unions, fraternal or athletic groups, or [...] Recorded Total Score - Questions 1-9 0 03/2024 [facility] - Occupational [...] place to sleep or slept in a usp (including now)? No 12/02/2023 Housing Stability Vital [...] any time in the past 12 [facility], were you homeless or living in a usp (including now)? No 02/14/2024 Sexually Active Control Partners Comments Yes Male Comments No Sex and Gender Information Value Date Recorded Sex Assigned at Female 08/07/2023 10:22 AM LITHOGRAPHER APPRENTICE Legal Sex Female 12:40 AM CDT Gender Identity Female 08/07/2023 10:22 AM LITHOGRAPHER APPRENTICE Sexual Orientation Straight 08/07/2023 10 :22 AM LITHOGRAPHER APPRENTICE documented as of this encounter Miscellaneous Notes * Telephone Encounter - Clarissa Brooks RN - 06/06/2024 12:36 PM CDT Name from pharmacy: Metoprolol Succinate ER 50 MG Oral Tablet Extended Release 24 Hour Will file in chart as: metoprolol Succinate (TOPROL-XL) 50 MG TABLET SR 24 HR The original prescription was discontinued on 08/26/2023 by Ga Liang MD for the following reason: Med List Clean Up documented in this encounter Plan of Treatment Upcoming Encounters Date Type Department Care Team (Late st Contact Info) Description 06/09/2025 9:30 AM CDT Office Visit [facility] - Gastroenterology - [place] [address] [facility] [place] [phone] Blaise Dill MD 2 [facility] [address] [place] [address] 06/13/2025 10:45 AM LITHOGRAPHER APPRENTICE Office Visit [facility] - Neurology - [place] [address] [facility] [place] [phone] Onelia Lagunas, DO 2 [facility] [address] [place] [address] Jones Christy MD [address] [facility] [place] [address] 07/20/2025 8:15 AM LITHOGRAPHER APPRENTICE Office Visit [facility] - Endocrinology - [place] [address] [facility] [place] [phone] Onelia Lagunas, DO 2 [facility] [address] [place] [address] Henry Bernabe MD [address] [place] [phone] 09/05/2025 8:00 AM LITHOGRAPHER APPRENTICE Office Visit [facility] Family Medicine - [place] [address] [facility] [place] [phone] Onelia Lagunas, DO 2 [facility] [address] [place] [address] 09/28/2025 8:30 AM LITHOGRAPHER APPRENTICE Office Visit [facility] - Cardiology [facility] [address] [place] [address] Shamar Rosales MD 2 [facility] [address] [address] documented as of this encounter Visit Diagnoses Diagnosis Hypertension, unspecified type documented in this encounter Additional Health Concerns Assessment Noted Time PHQ-9 Depression Total Score: 0 02/16/20 9:00 AM CDT documented as of this encounter Care Teams Admissions Director Relationship Specialty Start Date End Date Onelia Lagunas DO [address] [address] PCP - General Family Medicine 03/09/24 Logan Acuna MD [address] [address] Consulting Physician Colon and Rectal Surgery 10/15/23 Mars Marti APRN, TAX DIRECTOR [address] [place] [address] Nurse Practitioner Advanced Practice Nurse 02/10/24 Jones Christy MD [address] [place] [id number] Consulting Physician Neurology 04/30/24 Eliezer Ndiaye MD #[address] [address] Consulting Physician Clinical Cardiac Electrophysiology 09/17/24 03/23/25 Shamar Rosales MD [address] [address] Consulting Physician Cardiovascular Disease - Cardiology 03/24/25 documented as of this encounter
--- OUTSIDE RECORDS SUMMARY | 2025-06-08 10:32 | XMS_ITS | Encounter Summary ---
Author Organization [facility] Address [address] [place] [address] Phone Care Team Providers Care Policyholder Information Clerk Name Role Phone Ga Liang MD Primary Care Provider [phone] Logan Acuna MD Unavailable Mars Marti APRN, CNP Unavailable [phone] Onelia Lagunas DO Primary Care Provider [phone] Jones Christy MD Unavailable [phone] Eliezer Ndiaye MD Unavailable Shamar Rosales MD Unavailable Reason for Visit * Reason Comments Medication Refill Encounter Details Date Type Department Care Team (Late st Contact Info) Description 02/08/2024 Refill [facility] - Family Medicine [facility] #[address] [place] [phone] Robert Gray MD #[address] [address] Medication Refill Social History Tobacco Use Types Packs/Day Years Used Date Smoking Tobacco: Never Smokeless Tobacco: Never Alcohol Use Standard Drinks/Week Comments No 0 (1 standard drink = 0.6 oz pur e alcohol) [facility] Utilities Answer Date Recorded In the past 12 months has [employer], gas, oil, or water [employer] threatened to shut off services in your home? No 12/02/2023 Social Connection and Isolation Panel Answer Date Recorded In a typical week, how many times do you talk on the phone with family, friends, or neighbors? Twice a week 12/02/2023 How often do you get togethe r with friends or relatives? Once a week 12/02/2023 How often do you attend chur ch or congregation services? More than 4 times per year 12/02/2023 Do you belong to any clubs o r organizations such as sabianist groups, unions, fraternal or athletic groups, or [...] care, and heating? Not very hard 12/02/2023 [facility] - [...] place to sleep or slept in a skilled nursing (including now)? No 12/02/2023 Sexually Active Control Partners Comments Yes Male Comments No Sex and Gender Information Value Date Recorded Sex Assigned at Female 08/07/2023 10:22 AM CIRCUIT MANAGER Legal Sex Female 12:40 AM CDT Gender Identity Female 08/07/2023 10:22 AM CIRCUIT MANAGER Sexual Orientation Straight 08/07/2023 10 :22 AM CIRCUIT MANAGER documented as of this encounter Miscellaneous Notes * Telephone Encounter - Estrellita Verma RN - 02/11/2024 9:42 AM CDT The original prescription was reordered on 02/10/2024 by Ga Liang MD. Renewing this prescriptionmay not be appropriate. * Telephone Encounter - Clarissa Brooks RN - 02/09/2024 9:28 AM CDT duplicate documented in this encounter Plan of Treatment Upcoming Encounters Date Type Department Care Team (Late st Contact Info) Description 06/09/2025 9:30 AM CDT [facility] - [facility] #2 [place] [phone] Blaise Dill MD 2 [facility] [address] [place] [address] 06/13/2025 10:45 AM CIRCUIT MANAGER Office [facility] - Neurology - [place] #2 [place] [address] Onelia Lagunas, DO 2 [facility] [address] [place] [address] Jones Christy MD #2 [place] [address] 07/20/2025 8:15 AM CIRCUIT MANAGER Office Visit [facility] - Endocrinology - [place] #2 [place] [address] Onelia Lagunas, DO 2 [facility] [address] [place] [address] Henry Bernabe MD #[address] [phone] 09/05/2025 8:00 AM CIRCUIT MANAGER Office Visit [facility] Medical [facility] - Family Medicine - [place] #2 [place] [address] Onelia Lagunas, DO 2 [facility] [address] [place] [address] 09/28/2025 8:30 AM CIRCUIT MANAGER Office Visit [facility] - Cardiology - [place] #2 [place] [address] Shamar Rosales MD [address] [address] documented as of this encounter Visit Diagnoses Diagnosis Insomnia, unspecified type documented in this encounter Additional Health Concerns Infection Onset Date Last Indicated Resolved Time COVID - 19 04/30/2024 04/30/2024 04/30/2024 11:2 5 AM CDT documented as of this encounter Care Teams Policyholder Information Clerk Relationship Specialty Start Date End Date Ga Liang MD #1 [place] [address] PCP - General Family Medicine 07/18/23 03/08/24 Onelia Lagunas DO [address] [address] PCP - General Family Medicine 03/09/24 Logan Acuna MD #[address] [address] Consulting Physician Colon and Rectal Surgery 10/15/23 Mars Marti APRN, MELISSA #2 [place] [address] Nurse Practitioner Advanced Practice Nurse 02/10/24 Jones Christy MD #2 [place] [address] Consulting Physician Neurology 04/30/24 Eliezer Ndiaye MD #[address] [address] Consulting Physician Clinical Cardiac Electrophysiology 09/17/24 03/23/25 [address] [facility], [address] [address] Consulting Physician Cardiovascular Disease - Cardiology 03/24/25 documented as of this encounter
--- OUTSIDE RECORDS SUMMARY | 2025-06-08 10:32 | XMS_ITS | Encounter Summary ---
Author Organization [facility] Address [address] [place] [address] Phone Care Team Providers Care Slitting Machine Feeder Name Role Phone Ga Liang MD Primary Care Provider [phone] Logan Acuna MD Unavailable Mars Marti APRN, CNP Unavailable [phone] Onelia Lagunas DO Primary Care Provider [phone] Jones Christy MD Unavailable [phone] Eliezer Ndiaye MD Unavailable Shamar Rosales MD Unavailable Reason for Visit * Reason Comments Medication Refill Encounter Details Date Type Department Care Team (Late st Contact Info) Description 01/29/2024 Refill [facility] - Family Medicine [facility] #2 [place] [address] Jennifer Chowdary PAC #2 [place] [address] Medication Refill Social History Tobacco Use Types Packs/Day Years Used Date Smoking Tobacco: Never Smokeless Tobacco: Never Alcohol Use Standard Drinks/Week Comments No 0 (1 standard drink = 0.6 oz pur e alcohol) [facility] Utilities Answer Date Recorded In the past 12 months has [employer], [employer], or [employer] threatened to shut off services in your home? No 12/02/2023 Social Connection and Isolation Panel Answer Date Recorded In a typical week, how many times do you talk on the phone with family, friends, or neighbors? Twice a week 12/02/2023 How often do you get togethe r with friends or relatives? Once a week 12/02/2023 How often do you attend chur ch or jew services? More than 4 times per year 12/02/2023 Do you belong to any clubs o r organizations such as holiness groups, unions, fraternal or athletic groups, or [...] care, and heating? Not very hard 12/02/2023 [facility] - Occupational Stress [...] place to sleep or slept in a detention (including now)? No 12/02/2023 Sexually Active Control Partners Comments Yes Male Comments No Sex and Gender Information Value Date Recorded Sex Assigned at Female 08/07/2023 10:22 AM HOG HANDLER Legal Sex Female 12:40 AM CDT Gender Identity Female 08/07/2023 10:22 AM HOG HANDLER Sexual Orientation Straight 08/07/2023 10 :22 AM HOG HANDLER documented as of this encounter Plan of Treatment Upcoming Encounters Date Type Department Care Team (Late st Contact Info) Description 06/09/2025 9:30 AM CDT Office Visit [facility] - Gastroenterology [facility] #2 [place] [phone] Blaise Dill MD 2 [facility] [address] [place] [address] 06/13/2025 10:45 AM HOG HANDLER Office Visit [facility] Medical [facility] - Neurology [facility] #2 [place] [phone] Onelia Lagunas, 2 [facility] [address] [place] [address] Jones Christy MD #2 [place] [address] 07/20/2025 8:15 AM HOG HANDLER [facility] #2 [place] [address] Onelia Lagunas, DO 2 [facility] [address] [address] Henry Bernabe MD #[address] [address] 09/05/2025 8:00 AM HOG HANDLER [facility] #2 [facility] [place] [address] Onelia Lagunas, DO 2 [facility] [address] [address] 09/28/2025 8:30 AM HOG HANDLER [facility] #2 [place] [address] Shamar Rosales MD [address] [address] documented as of this encounter Visit Diagnoses Not on filedocumented in this encounter Additional Health Concerns Infection Onset Date Last Indicated Resolved Time COVID - 19 04/30/2024 04/30/2024 04/30/2024 11:2 5 AM CDT documented as of this encounter Care Teams Slitting Machine Feeder Relationship Specialty Start Date End Date Ga Liang MD #1 [facility] [place] [address] PCP - General Family Medicine 07/18/23 03/08/24 Onelia Lagunas DO [address] [facility] [address] [place] [address] PCP - General Family Medicine 03/09/24 Logan Acuna MD #2 [facility] [address] [place] [address] Consulting Physician Colon and Rectal Surgery 10/15/23 Mars Marti, SENIOR PHARMACY TECHNICIAN, PATIENT SERVICE REPRESENTATIVE #2 [place] [address] Nurse Practitioner Advanced Practice Nurse 02/10/24 Jones Christy MD #2 [place] [place] [phone] Consulting Physician Neurology 04/30/24 Eliezer Ndiaye MD #[address] [address] [address] Consulting Physician Clinical Cardiac Electrophysiology 09/17/24 03/23/25 Shamar Rosales MD [address] [address] Consulting Physician Cardiovascular Disease - Cardiology 03/24/25 documented as of this encounter
--- OUTSIDE RECORDS SUMMARY | 2025-06-08 10:32 | XMS_ITS | Encounter Summary ---
Author Organization [facility] Address [address] [place] [address] Phone Care Team Providers Care Epic Director Name Role Phone Ga Liang MD Primary Care Provider [phone] Logan Acuna MD Unavailable Mars Marti APRN, CNP Unavailable [phone] Onelia Lagunas DO Primary Care Provider [phone] oJnes Christy MD Unavailable [phone] Eliezer Ndiaye MD Unavailable Shamar Rosales MD Unavailable Reason for Visit * Reason Comments Medication Refill Encounter Details Date Type Department Care Team (Late st Contact Info) Description 10/12/2023 [facility]ill [facility] #2 [place] [phone] Ga Liang MD #1 [place] [address] Medication Refill Social History Tobacco Use Types Packs/Day Years Used Date Smoking Tobacco: Never Smokeless Tobacco: Never Alcohol Use Standard Drinks/Week Comments No 0 (1 standard drink = 0.6 oz pur e alcohol) Sexually Active Control Partners Comments Yes Male Comments No Sex and Gender Information Value Date Recorded Sex Assigned at Female 08/07/2023 10:22 AM NANOTECHNOLOGY ENGINEERING TECHNICIAN Legal Sex Female 12:40 AM CDT Gender Identity Female 08/07/2023 10:22 AM NANOTECHNOLOGY ENGINEERING TECHNICIAN Sexual Orientation Straight 08/07/2023 10 :22 AM NANOTECHNOLOGY ENGINEERING TECHNICIAN documented as of this encounter Miscellaneous Notes * Telephone Encounter - Mily Quiros RN - 10/16/2023 7:55 AM CST Name from pharmacy: Zolpidem Tartrate 10 MG Oral Tablet Will file in chart as: zolpidem (AMBIEN) 10 MG Tablet The original prescription was reordered on 10/15/2023 by Ga Liang MD. TECHNOLOGY ENGINEERING TECHNICIAN * Telephone Encounter - Mily Quiros RN - 10/13/2023 1:49 PM CST duplicate TECHNOLOGY ENGINEERING TECHNICIAN documented in this encounter Plan of Treatment Upcoming Encounters Date Type Department Care Team (Late st Contact Info) Description 06/09/2025 9:30 AM CDT Office Visit [facility] Medical [facility] - Gastroenterology - [place] #2 [place] [address] Blaise Dill MD 2 [facility] [address] [place] [address] 06/13/2025 10:45 AM NANOTECHNOLOGY ENGINEERING TECHNICIAN [facility] - [place] #2 [place] [address] Onelia Lagunas, 2 [facility] [address] [place] [address] Jones Christy MD #2 [place] [address] 07/20/2025 8:15 AM NANOTECHNOLOGY ENGINEERING TECHNICIAN [facility] [place] [facility]2 [place] [address] Onelia Lagunas, 2 [address] [address] Henry Bernabe MD #[address] [address] 09/05/2025 8:00 AM NANOTECHNOLOGY ENGINEERING TECHNICIAN [facility] [place] #2 [place] [address] Onelia Lagunas, DO 2 [facility] [address] [address] 09/28/2025 8:30 AM NANOTECHNOLOGY ENGINEERING TECHNICIAN Office Visit [facility] Cardiology - [place] #2 [place] [address] Shamar Rosales MD [address] [address] documented as of this encounter Visit Diagnoses Diagnosis Insomnia, unspecified type documented in this encounter Additional Health Concerns Infection Onset Date Last Indicated Resolved Time COVID - 19 04/30/2024 04/30/2024 04/30/2024 11:2 5 AM CDT documented as of this encounter Care Teams Epic Director Relationship Specialty Start Date End Date Ga Liang MD #1 [facility] [place] [address] PCP - General Family Medicine 07/18/23 03/08/24 Onelia Lagunas DO 2 [facility] [address] [address] PCP - General Family Medicine 03/09/24 Logan Acuna MD #2 [facility] [address] [address] Consulting Physician Colon and Rectal Surgery 10/15/23 Mars Marti APRN, HISTOLOGIC AIDE #2 [place] [address] Nurse Practitioner Advanced Practice Nurse 02/10/24 Jones Christy MD #2 [place] [address] Consulting Physician Neurology 04/30/24 Eliezer Ndiaye MD #2 [facility] [address] Consulting Physician Clinical Cardiac Electrophysiology 09/17/24 03/23/25 Shamar Rosales MD [address] [address] Consulting Physician Cardiovascular Disease - Cardiology 03/24/25 documented as of this encounter
--- OUTSIDE RECORDS SUMMARY | 2025-06-08 10:32 | XMS_ITS | Encounter Summary ---
Author Organization [facility] Address [address] [address] Phone Care Team Providers Care Powder Guard Name Role Phone Logan Acuna MD Unavailable Mars Marti APRN, MELISSA Unavailable [phone] Onelia Lagunas DO Primary Care Provider [phone] Jones Christy MD Unavailable [phone] Eliezer Ndiaye MD Unavailable Shamar Rosales MD Unavailable Encounter Details Date Type Department Care Team (Latest Contact Info) Description 08/03/2024 Lab Requisition [facility] [address] [place] [phone] Brenda Mccann MD Severe sepsis with septic shock (CODE) (HCC); Sepsis due to methicillin susceptible Staphylococcus aureus (HCC) Social History Tobacco Use Types Packs/Day Years Used Date Smoking Tobacco: Never Smokeless Tobacco: Never Alcohol Use Standard Drinks/Week Comments No 0 (1 standard drink = 0.6 oz pur e alcohol) [facility] Utilities Answer Date Recorded In the past [...] often do you attend chur ch or zoroastrian services? More than 4 times per year 02/14/2024 Do you belong to any clubs o r organizations such as restorationist groups, unions, fraternal or athletic groups, or [...] Total Score - Questions 1-9 0 07/12 [facility] - [...] place to sleep or slept in a residential (including now)? No 12/02/2023 Housing Stability Vital [...] any time in the past 12 m [facility], were you homeless or living in a residential (including now)? No 02/14/2024 Sexually Active Control Partners Comments Yes Male Comments No Sex and Gender Information Value Date Recorded Sex Assigned at Female 08/07/2023 10:22 AM COMPUTER ENGINEER Legal Sex Female 12:40 AM CDT Gender Identity Female 08/07/2023 10:22 AM COMPUTER ENGINEER Sexual Orientation Straight 08/07/2023 10 :22 AM COMPUTER ENGINEER documented as of this encounter Plan of Treatment Upcoming Encounters Date Type Department Care Team (Late st Contact Info) Description 06/09/2025 9:30 AM CDT Office Visit [facility] - [facility]astroenterology - [place] [address] [facility] [place] [phone] Blaise Dill MD 2 [address] [address] 06/13/2025 10:45 AM COMPUTER ENGINEER [facility] - [place] [address] [place] [address] Onelia Lagunas, DO 2 [facility] [address] [place] [address] Jones Christy MD #2 [place] [address] 07/20/2025 8:15 AM COMPUTER ENGINEER [facility] [place] [address]2 [facility] [place] [address] Onelia Lagunas, DO 2 [facility] [address] [place] [address] Henry Bernabe MD #[address] [place] [phone] 09/05/2025 8:00 AM COMPUTER ENGINEER [facility] - [place] [address]2 [facility] [address] Onelia Lagunas, DO 2 [facility] [address] [place] [address] 09/28/2025 8:30 AM COMPUTER ENGINEER [facility] [place] [address]2 [facility] [place] [phone] Shamar Rosales MD [address], [place] [phone] documented as of this encounter Procedures Procedure Name Priority Date/Time Associated Diagnosis Comments CBC WITH AUTO DIFFERENTIAL Routine 08/03/2024 10:00 AM COMPUTER ENGINEER Severe sepsis with septic shock (CODE) (HCC) Sepsis due to methicillin susceptible Staphylococcus aureus (HCC) CMP (COMPREHENSIVE METABOLIC PANEL) Routine 08/03/2024 10:00 AM COMPUTER ENGINEER Severe sepsis with septic shock (CODE) (HCC) Sepsis due to methicillin susceptible Staphylococcus aureus (HCC) COMPLETE BLOOD COUNT (CBC) WITH DIFF Routine 08/03/2024 10:00 AM COMPUTER ENGINEER Severe sepsis with septic shock (CODE) (HCC) Sepsis due to methicillin susceptible Staphylococcus aureus (HCC) C-REACTIVE PROTEIN (CRP) QUANT Routine 08/03/2024 10:00 AM COMPUTER ENGINEER Severe sepsis with septic shock (CODE) (HCC) Sepsis due to methicillin susceptible Staphylococcus aureus (HCC) documented in this encounter Results * (ABNORMAL) CBC WITH AUTO DIFFERENTIAL (08/03/2024 10:00 AM [facility]) WBC 4.21 4.00 - 12.00 10(3)/mcL 08/03/2024 10:52 AM [facility] RBC 3.30(L) 3.80 - 5.30 10(6)/mcL 08/03/2024 10:52 AM [facility] HEMOGLOBIN (HGB) 10.0(L) 12.0 - 15.8 g/dL 08/03/2024 10:52 AM [facility] HEMATOCRIT (HCT) 31.5(L) 36.0 - 47.0 % 08/03/2024 10:52 AM [facility] MCV 95.5 82.0 - 96.0 fL 08/03/2024 10:52 AM [facility] MCH 30.3 26.0 - 34.0 pg 08/03/2024 10:52 AM [facility] MCHC 31.7 31.0 - 36.0 g/dL 08/03/2024 10:52 AM [facility] PLATELET COUNT 261 140 - 440 10(3)/mcL 08/03/2024 10:52 AM [facility] RDW 13.0 11.8 - 15.5 % 08/03/2024 10:52 AM [facility] MPV 10.4 9.7 - 12.4 fL 08/03/2024 10:52 AM [facility] NEUTROPHILS 46.3(L) 47.0 - 73.0 % 08/03/2024 10:52 AM [facility] LYMPHOCYTES 38.7 18.0 - 42.0 % 08/03/2024 10:52 AM [facility] MONOCYTES 11.9 4.0 - 12.0 % 08/03/2024 10:52 AM COMPUTER ENGINEER [facility] EOSINOPHILS 2.4 0.0 - 5.0 % 08/03/2024 10:52 AM [facility] BASOPHILS 0.7 0.0 - 1.0 % 08/03/2024 10:52 AM [facility] ABSOLUTE NEUTROPHILS 1.95 1.60 - 7.70 10(3)/[facility] 08/03/2024 10:52 AM [facility] ABSOLUTE LYMPHOCYTES 1.63 1.30 - 3.20 10(3)/[facility] 08/03/2024 10:52 AM [facility] ABSOLUTE MONOCYTES 0.50 0.20 - 1.00 10(3)/[facility] 08/03/2024 10:52 AM [facility] ABSOLUTE EOSINOPHIL 0.10 0.00 - 0.40 10(3)/[facility] 08/03/2024 10:52 AM [facility] ABSOLUTE BASOPHILS 0.03 0.00 - 0.10 10(3)/[facility] 08/03/2024 10:52 AM [facility] NRBC PER 100 WBC 0 08/03/20 10:52 AM [facility] Blood No Phlebotomy Charged / Unknown 08/03/2024 10:00 AM [facility] 08/03/2024 10:49 AM [facility] us Brenda Anand MD HEMATOLOGY ORDERABL ES Final Result [facility] #1 [place] [address] * (ABNORMAL) CMP (COMPREHENSIVE METABOLIC PANEL) (08/03/2024 10:00 AM [facility]) SODIUM 141 136 - 145 mmol/L 08/03/2024 11:10 AM [facility] POTASSIUM 4.0 3.5 - 5.1 mmol/L 08/03/2024 11:10 AM [facility] CHLORIDE 106 98 - 107 mmol/L 08/03/2024 11:10 AM [facility] CO2, VENOUS 27 22 - 30 mmol/L 08/03/2024 11:10 AM [facility] ANION GAP 12.0 <18.0 mmol/L 08/03/2024 11:10 AM [facility] GLUCOSE 99 70 - 99 mg/dL 08/03/2024 11:10 AM [facility] BUN 23(H) 10 - 20 mg/dL 08/03/2024 11:10 AM [facility] CREATININE, BLOOD 0.69 0.60 - 1.00 mg/dL 08/03/2024 11:10 AM [facility] BUN/CREATININE RATIO 33(H) 12 - 20 ratio 08/03/2024 11:10 AM [facility] TOTAL PROTEIN 6.1(L) 6.3 - 8.2 g/dL 08/03/2024 11:10 AM [facility] ALBUMIN 3.3(L) 3.5 - 5.0 g/dL 08/03/2024 11:10 AM [facility] A/G RATIO 1.2 1.0 - 2.2 08/03/2024 11:10 AM [facility] CALCIUM 9.3 8.7 - 10.5 mg/dL 08/03/2024 11:10 AM [facility] T BILI 0.2 0.2 - 1.2 mg/dL 08/03/2024 11:10 AM [facility] SGOT (AST) 14 5 - 34 U/L 08/03/2024 11:10 AM COMPUTER ENGINEER [facility] SGPT (ALT) <5 0 - 55 U/L 08/03/2024 11:10 AM COMPUTER ENGINEER [facility] ALKALINE PHOSPHATASE 90 40 - 150 U/L 08/03/2024 11:10 AM COMPUTER ENGINEER [facility] GFR, ESTIMATED >60 >=60 08/03/2024 11:10 AM COMPUTER ENGINEER [facility] Comment: Creatinine Clearance is the preferred criteria for selecting drug dose adjustments in renally impaired patients. The GFR is provided as additional pertinent clinical information. GFR is reported in mL/min/1.73 sq m. Calculation based on the Chronic Kidney Disease Epidemiology Collaboration (CKD- EPI) equation refit without adjustment for race. GFR, EST. >60 >=60 024 11:10 AM COMPUTER ENGINEER [facility] GFR, EST. NONAFRICAN >60 >=60 08/03/2024 11:10 AM COMPUTER ENGINEER [facility] Blood No Phlebotomy Charged / Unknown 08/03/2024 10:00 AM COMPUTER ENGINEER 08/03/2024 10:49 AM COMPUTER ENGINEER us Brenda Anand MD CHEMISTRY ORDERABLE S Final Result Performing Organization Address City/[facility]/ZIP Co de Phone Number [facility] [address] [place] [address] * (ABNORMAL) C-REACTIVE PROTEIN (CRP) QUANT (08/03/2024 10:00 AM COMPUTER ENGINEER) C-REACTIVE PROTEIN 0.95(H) <0.50 mg/dL 08/03/2024 11:10 AM COMPUTER ENGINEER [facility] Blood No Phlebotomy Charged / Unknown 08/03/2024 10:00 AM COMPUTER ENGINEER 08/03/2024 10:49 AM COMPUTER ENGINEER us Brenda Anand MD CHEMISTRY ORDERABLE S Final Result [facility] [address] [place] [address] documented in this encounter Visit Diagnoses Diagnosis Severe sepsis with septic shock (CODE) Sepsis due to methicillin susceptible Staphylococcus aureus Methicillin susceptible staphylococcus aureus septicemia documented in this encounter Additional Health Concerns Assessment Noted Time PHQ-9 Depression Total Score: 0 07/30/20 9:30 AM COMPUTER ENGINEER documented as of this encounter Care Teams Powder Guard Relationship Specialty Start Date End Date Onelia Lagunas DO 2 [facility] [address] [address] PCP - General Family Medicine 03/09/24 Logan Acuna MD #[address] [address] Consulting Physician Colon and Rectal Surgery 10/15/23 Mars Marti, ARMATURE WINDER REPAIR HELPER, SUPERVISOR SANDBLASTER [address]2 [place] [address] Nurse Practitioner Advanced Practice Nurse 02/10/24 Jones Christy MD #2 [place] [phone] Consulting Physician Neurology 04/30/24 Eliezer Ndiaye MD #[address] [address] Consulting Physician Clinical Cardiac Electrophysiology 09/17/24 03/23/25 hSamar Rosales MD [address] [address] Consulting Physician Cardiovascular Disease - Cardiology 03/24/25 documented as of this encounter
--- OUTSIDE RECORDS SUMMARY | 2025-06-08 10:32 | XMS_ITS | Encounter Summary ---
Author Organization [facility] Address [address] [place] [address] Phone Care Team Providers Care Tombstone Setter Name Role Phone Ga Liang MD Primary Care Provider [phone] Logan Acuna MD Unavailable Mars Marti APRN, CNP Unavailable [phone] Onelia Lagunas DO Primary Care Provider [phone] Jones Christy MD Unavailable [phone] Eliezer Ndiaye MD Unavailable Shamar Rosales MD Unavailable Reason for Visit * Reason Comments Medication Refill Encounter Details Date Type Department Care Team (Late st Contact Info) Description 11/09/2023 Refill [facility] - Family Medicine [facility] #2 [place] [address] Ga Liang MD [address]1 [place] [address] Medication Refill Social History Tobacco Use Types Packs/Day Years Used Date Smoking Tobacco: Never Smokeless Tobacco: Never Alcohol Use Standard Drinks/Week Comments No 0 (1 standard drink = 0.6 oz pur e alcohol) [facility] Utilities Answer Date Recorded In the past 12 months has [employer], gas, oil, or water company threatened to [...] often do you attend chur ch or scientology services? More than 4 times per year 11/11/2023 Do you belong to any clubs o r organizations such as mandaen groups, unions, fraternal or athletic groups, or [...] medical care, and heating? Patient declined 11/11/2023 [facility] Occupat ional Health - Occupational Stress [...] slept in a usp (including now)? No 11/11/2023 Sexually Active Control Partners Comments Yes Male Comments No Sex and Gender Information Value Date Recorded Sex Assigned at Female 08/07/2023 10:22 AM OUTSIDE RESIDENTIAL SALES PROFESSIONAL Legal Sex Female 12:40 AM CDT Gender Identity Female 08/07/2023 10:22 AM OUTSIDE RESIDENTIAL SALES PROFESSIONAL Sexual Orientation Straight 08/07/2023 10 :22 AM OUTSIDE RESIDENTIAL SALES PROFESSIONAL documented as of this encounter Functional Status * AUDIT-C Score Answer Date of Assessment Author 0 11/11/2023 11:27 AM CDT [employer], System Background * Q1: How often do you have a drink containing alcohol? Answer Date of Assessment Author Never 11/11/2023 11:27 AM CDT [employer] [employer] Background * Q2: How many drinks containing alcohol do you have on a typical day when you are drinking? Answer Date of Assessment Author Patient does not drink 11/11/2023 11:27 AM CDT [employer], [employer] Background * Q3: How often do you have six or more drinks on one occasion? Answer Date of Assessment Author Never 11/11/2023 11:27 AM CDT [employer] [employer] Background documented as of this encounter Miscellaneous Notes * Telephone Encounter - Mily Quiros RN - 11/11/2023 10:10 AM CDT PRN medication requires review from provider Per [...] Short Acting Inhaled Beta-Agonists Protocol Passed - 11/09/2023 2:40 PM Passed - Visit with relevant provider in past 12 months or upcoming 90 days Recent Visits Date Type Provider Dept 09/19/23 Office Visit Ninoska Borden APRN, RECRUITMENT AND OUTREACH ASSISTANT [facility] 09/05/23 Office Visit Ninoska Borden APRN, RECRUITMENT AND OUTREACH ASSISTANT [facility] 08/06/23 Office Visit Jennifer Chowdary, [facility] [place] 07/18/23 Office Visit Ga Liang MD [facility] Showing recent visits within past 365 days and meeting all other requirements Future Appointments Date Type Provider Dept 11/13/23 Appointment Ga Liang MD [facility] 12/04/23 Appointment Ga Liang MD [facility] Showing future appointments within next 90 days and meeting all other requirements ergocalciferol (VITAMIN D) 82330 UNIT Capsule [Pharmacy Med Name: Vitamin D (Ergocalciferol) 1.25 MG (84379 UT) Oral Capsule] 4 Capsule 3 Sig: Take 1 capsule by mouth once a week Vitamin Supplements (Adult) Protocol Passed - 11/09/2023 2:40 PM Passed - Visit with relevant provider in past 12 months or upcoming 90 days Recent Visits Date Type Provider Dept 09/19/23 Office Visit Ninoska Borden APRN, RECRUITMENT AND OUTREACH ASSISTANT [facility] 09/05/23 Office Visit Ninoska Borden APRN, RECRUITMENT AND OUTREACH ASSISTANT [facility] 08/06/23 Office Visit Jennifer Chowdary, [facility] [place] 07/18/23 Office Visit Ga Liang MD [facility] Showing recent visits within past 365 days and meeting all other requirements Future Appointments Date Type Provider Dept 11/13/23 Appointment Ga Liang MD [facility] 12/04/23 Appointment Ga Liang MD [facility] Showing future appointments within next 90 days and meeting all other requirements Passed - Vitamin D dose not greater than 1.25mg documented in this encounter Plan of Treatment Upcoming Encounters Date Type Department Care Team (Late st Contact Info) Description 06/09/2025 9:30 AM CDT Office Visit [facility] - Gastroenterology - [place] #2 [facility] [place] [address] Blaise Dill MD [address] [address] 06/13/2025 10:45 AM OUTSIDE RESIDENTIAL SALES PROFESSIONAL Office Visit [facility] - Neurology - [place] #2 [facility] [place] [phone] Onelia Lagunas, DO 2 [facility] [address] [place] [address] Jones Christy MD #2 [facility] [place] [phone] 07/20/2025 8:15 AM OUTSIDE RESIDENTIAL SALES PROFESSIONAL Office Visit [facility] - Endocrinology - [place] #2 [facility] [place] [phone] Onelia Lagunas, DO 2 [facility] [address] [place] [address] Henry Bernabe MD #[address] [place] [phone] 09/05/2025 8:00 AM OUTSIDE RESIDENTIAL SALES PROFESSIONAL Office Visit [facility] Family Medicine - [place] #2 [place] [phone] Onelia Lagunas DO 2 [address] [address] 09/28/2025 8:30 AM OUTSIDE RESIDENTIAL SALES PROFESSIONAL Office Visit [facility] - Cardiology [facility] #2 [place] [address] Shamar Rosales MD 2 [facility] [address] [address] documented as of this encounter Visit Diagnoses Diagnosis Vitamin D deficiency Unspecified vitamin D deficiency documented in this encounter Additional Health Concerns Infection Onset Date Last Indicated Resolved Time COVID - 19 04/30/2024 04/30/2024 04/30/2024 11:2 5 AM CDT documented as of this encounter Care Teams Tombstone Setter Relationship Specialty Start Date End Date Ga Liang MD #1 [place] [address] PCP - General Family Medicine 07/18/23 03/08/24 Onelia Lagunas DO [address] [address] PCP - General Family Medicine 03/09/24 Logan Acuna MD #[address] [address] Consulting Physician Colon and Rectal Surgery 10/15/23 Mars Marti, POSTAL INSPECTOR, RECRUITMENT AND OUTREACH ASSISTANT #2 [place] [address] Nurse Practitioner Advanced Practice Nurse 02/10/24 Jones Christy MD #2 [place] [address] Consulting Physician Neurology 04/30/24 Eliezer Ndiaye MD #[address] [address] Consulting Physician Clinical Cardiac Electrophysiology 09/17/24 03/23/25 Shamar Rosales MD [address] [address] Consulting Physician Cardiovascular Disease - Cardiology 03/24/25 documented as of this encounter
--- OUTSIDE RECORDS SUMMARY | 2025-06-08 10:32 | XMS_ITS | Encounter Summary ---
Author Organization [facility] Address [address] [place] [address] Care Team Providers Care Apparel Manager Name Role Phone Delroy Aragon MD Primary Care Provider [phone] Encounter Details Date Type Department Care Team (Late Contact Info) Description 11/23/2024 Telephone [facility] - Centralized Scheduling [address] [place] [phone] Eliezer Ndiaye MD [address] [address] Social History Tobacco Use Types Packs/Day Years Used Date Smoking Tobacco: Never Assessed Comments Unknown Sex and Gender Information Value Date Recorded Sex Assigned at Not on file Legal Sex Female 10:00 AM CDT Gender Identity Not on file Sexual Orientation Not on file documented as of this encounter Plan of Treatment Upcoming Encounters Date Type Department Care Team (Late Contact Info) Description 06/16/2025 1:00 AM CEMENT AND CONCRETE PLANT WORKER Clinical Support [facility] - Cardiology [address] [facility], [address] [address] 07/21/2025 1:00 AM CEMENT AND CONCRETE PLANT WORKER Clinical Support [facility] - Cardiology [address] [facility], [address] [address] documented as of this encounter Visit Diagnoses Not on filedocumented in this encounter Care Teams Apparel Manager Relationship Specialty Start Date End Date Delroy Aragon MD PCP - General 11/24/17 documented as of this encounter
--- OUTSIDE RECORDS SUMMARY | 2025-06-08 10:32 | XMS_ITS | Encounter Summary ---
Author Organization [facility] Address [address] [place] [address] Phone Care Team Providers Care Fish Hatchery Manager Name Role Phone Logan Acuna MD Unavailable Mars Marti APRN, MELISSA Unavailable [phone] Onelia Lagunas DO Primary Care Provider [phone] Jones Christy MD Unavailable [phone] Eliezer Ndiaye MD Unavailable Shamar Rosales MD Unavailable Encounter Details Date Type Department Care Team (Latest Contact Info) Description 07/19/[address] [facility] Laboratory Services [address] [place] [phone] Brenda Mccann MD Provider, Unknown UNKNOWN Severe sepsis with septic shock (CODE) (HCC); Sepsis due to methicillin susceptible Staphylococcus aureus (HCC) Social History Tobacco Use Types Packs/Day Years Used Date Smoking Tobacco: Never Smokeless Tobacco: Never Alcohol Use Standard Drinks/Week Comments No 0 (1 standard drink = 0.6 oz pur e alcohol) [facility] Utilities Answer Date Recorded In the [...] often do you attend chur ch or sikh services? More than 4 times per year 02/14/2024 Do you belong to any clubs o r organizations such as anabaptist groups, unions, fraternal or athletic groups, or [...] Total Score - Questions 1-9 0 03/2024 [facility] - Occupational [...] any time in the past 12 m [facility], were you homeless or living in a residential (including now)? No 02/14/2024 Sexually Active Control Partners Comments Yes Male Comments No Sex and Gender Information Value Date Recorded Sex Assigned at Female 08/07/2023 10:22 AM ARTERIAL EMBALMER Legal Sex Female 12:40 AM CDT Gender Identity Female 08/07/2023 10:22 AM ARTERIAL EMBALMER Sexual Orientation Straight 08/07/2023 10 :22 AM ARTERIAL EMBALMER documented as of this encounter Plan of Treatment Upcoming Encounters Date Type Department Care Team (Late st Contact Info) Description 06/09/2025 9:30 AM CDT Office Visit [facility] - Gastroenterology - [place] [address] [place] [phone] Blaise Dill MD 2 [address] [address] 06/13/2025 10:45 AM ARTERIAL EMBALMER [facility] [place] [address] [place] [address] Onelia Lagunas, DO 2 [facility] [address] [place] [address] Jones Christy MD #2 [place] [address] 07/20/2025 8:15 AM ARTERIAL EMBALMER [facility] [place] [facility]2 [facility] [place] [address] Onelia Lagunas, DO 2 [facility] [address] [place] [address] Henry Bernabe MD #[address] [place] [phone] 09/05/2025 8:00 AM ARTERIAL EMBALMER [facility] [place] #2 [facility] [place] [address] Onelia Lagunas, DO 2 [facility] [address] [place] [address] 09/28/2025 8:30 AM ARTERIAL EMBALMER [facility] [place] #2 [facility] [place] [phone] Shamar Rosales MD [address] [id number] documented as of this encounter Procedures Procedure Name Priority Date/Time Associated Diagnosis Comments CBC WITH AUTO DIFFERENTIAL Routine 07/19/2024 12:00 PM ARTERIAL EMBALMER Severe sepsis with septic shock (CODE) (HCC) Sepsis due to methicillin susceptible Staphylococcus aureus (HCC) CMP (COMPREHENSIVE METABOLIC PANEL) Routine 07/19/2024 12:00 PM ARTERIAL EMBALMER Severe sepsis with septic shock (CODE) (HCC) Sepsis due to methicillin susceptible Staphylococcus aureus (HCC) COMPLETE BLOOD COUNT (CBC) WITH DIFF Routine 07/19/2024 12:00 PM ARTERIAL EMBALMER Severe sepsis with septic shock (CODE) (HCC) Sepsis due to methicillin susceptible Staphylococcus aureus (HCC) C-REACTIVE PROTEIN (CRP) QUANT Routine 07/19/2024 12:00 PM ARTERIAL EMBALMER Severe sepsis with septic shock (CODE) (HCC) Sepsis due to methicillin susceptible Staphylococcus aureus (HCC) documented in this encounter Results * (ABNORMAL) CBC WITH AUTO DIFFERENTIAL (07/19/2024 12:00 PM ARTERIAL EMBALMER) WBC 6.07 4.00 - 12.00 10(3)/mcL 07/19/2024 1:30 PM [facility] RBC 3.19(L) 3.80 - 5.30 10(6)/mcL 07/19/2024 1:30 PM [facility] HEMOGLOBIN (HGB) 10.0(L) 12.0 - 15.8 g/dL 07/19/2024 1:30 PM [facility] HEMATOCRIT (HCT) 31.1(L) 36.0 - 47.0 % 07/19/2024 1:30 PM [facility] MCV 97.5(H) 82.0 - 96.0 fL 07/19/2024 1:30 PM ARTERIAL EMBALMER [facility] MCH 31.3 26.0 - 34.0 pg 07/19/2024 1:30 PM [facility] MCHC 32.2 31.0 - 36.0 g/dL 07/19/2024 1:30 PM [facility] PLATELET COUNT 349 140 - 440 10(3)/mcL 07/19/2024 1:30 PM [facility] RDW 13.0 11.8 - 15.5 % 07/19/2024 1:30 PM ARTERIAL EMBALMER [facility] MPV 10.3 9.7 - 12.4 fL 07/19/2024 1:30 PM ARTERIAL EMBALMER [facility] NEUTROPHILS 64.1 47.0 - 73.0 % 07/19/2024 1:30 PM ARTERIAL EMBALMER [facility] LYMPHOCYTES 23.7 18.0 - 42.0 % 07/19/2024 1:30 PM ARTERIAL EMBALMER [facility] MONOCYTES 8.2 4.0 - 12.0 % 07/19/2024 1:30 PM ARTERIAL EMBALMER [facility] EOSINOPHILS 3.5 0.0 - 5.0 % 07/19/2024 1:30 PM ARTERIAL EMBALMER [facility] BASOPHILS 0.5 0.0 - 1.0 % 07/19/2024 1:30 PM ARTERIAL EMBALMER [facility] ABSOLUTE NEUTROPHILS 3.89 1.60 - 7.70 10(3)/mcL 07/19/2024 1:30 PM [facility] ABSOLUTE LYMPHOCYTES 1.44 1.30 - 3.20 10(3)/[facility] 07/19/2024 1:30 PM ARTERIAL EMBALMER [facility] ABSOLUTE MONOCYTES 0.50 0.20 - 1.00 10(3)/[facility] 07/19/2024 1:30 PM ARTERIAL EMBALMER [facility] ABSOLUTE EOSINOPHIL 0.21 0.00 - 0.40 10(3)/[facility] 07/19/2024 1:30 PM [facility] ABSOLUTE BASOPHILS 0.03 0.00 - 0.10 10(3)/[facility] 07/19/2024 1:30 PM [facility] NRBC PER 100 WBC 0 07/19/20 24 1:30 PM [facility] Blood No Phlebotomy Charged / Unknown 07/19/2024 12:00 PM ARTERIAL EMBALMER 07/19/2024 1:20 PM ARTERIAL EMBALMER us Unknown Provider HEMATOLOGY ORDERABLES Final Res ult [facility] [address] [place] [address] * (ABNORMAL) C-REACTIVE PROTEIN (CRP) QUANT (07/19/2024 12:00 PM ARTERIAL EMBALMER) Pathologist [facility] C-REACTIVE PROTEIN 2.84(H) <0.50 mg/dL 07/19/2024 1:54 PM ARTERIAL EMBALMER [facility] Blood No Phlebotomy Charged / Unknown 07/19/2024 12:00 PM ARTERIAL EMBALMER 07/19/2024 1:20 PM ARTERIAL EMBALMER us Unknown Provider CHEMISTRY ORDERABLES Final Resu lt [facility] [address] [place] [address] * (ABNORMAL) CMP (COMPREHENSIVE METABOLIC PANEL) (07/19/2024 12:00 PM ARTERIAL EMBALMER) [facility] SODIUM 141 136 - 145 mmol/L 07/19/2024 1:54 PM [facility] POTASSIUM 3.8 3.5 - 5.1 mmol/L 07/19/2024 1:54 PM [facility] CHLORIDE 107 98 - 107 mmol/L 07/19/2024 1:54 PM [facility] CO2, VENOUS 28 22 - 30 mmol/L 07/19/2024 1:54 PM [facility] ANION GAP 9.8 <18.0 mmol/L 07/19/2024 1:54 PM [facility] GLUCOSE 108(H) 70 - 99 mg/dL 07/19/2024 1:54 PM [facility] BUN 15 10 - 20 mg/dL 07/19/2024 1:54 PM [facility] CREATININE, BLOOD 0.76 0.60 - 1.00 mg/dL 07/19/2024 1:54 PM [facility] BUN/CREATININE RATIO 20 12 - 20 ratio 07/19/2024 1:54 PM [facility] TOTAL PROTEIN 6.0(L) 6.3 - 8.2 g/dL 07/19/2024 1:54 PM ARTERIAL EMBALMER [facility] ALBUMIN 3.1(L) 3.5 - 5.0 g/dL 07/19/2024 1:54 PM [facility] A/G RATIO 1.1 1.0 - 2.2 07/19/2024 1:54 PM [facility] CALCIUM 9.0 8.7 - 10.5 mg/dL 07/19/2024 1:54 PM ARTERIAL EMBALMER [facility] T BILI 0.2 0.2 - 1.2 mg/dL 07/19/2024 1:54 PM ARTERIAL EMBALMER [facility] SGOT (AST) 20 5 - 34 U/L 07/19/2024 1:54 PM ARTERIAL EMBALMER [facility] SGPT (ALT) 8 0 - 55 U/L 07/19/2024 1:54 PM [facility] ALKALINE PHOSPHATASE 299(H) 40 - 150 U/L 07/19/2024 1:54 PM ARTERIAL EMBALMER [facility] GFR, ESTIMATED >60 >=60 07/19/2024 1:54 PM ARTERIAL EMBALMER [facility] Comment: Creatinine Clearance is the preferred criteria for selecting drug dose adjustments in renally impaired patients. The GFR is provided as additional pertinent clinical information. GFR is reported in mL/min/1.73 sq m. Calculation based on the Chronic Kidney Disease Epidemiology Collaboration (CKD- EPI) equation refit without adjustment for race. GFR, EST. >60 >=60 024 1:54 PM ARTERIAL EMBALMER [facility] GFR, EST. NONAFRICAN >60 >=60 07/19/2024 1:54 PM [facility] Blood No Phlebotomy Charged / Unknown 07/19/2024 12:00 PM ARTERIAL EMBALMER 07/19/2024 1:20 PM ARTERIAL EMBALMER us Unknown Provider CHEMISTRY ORDERABLES Final Resu lt [facility] #[address] [place] [address] documented in this encounter Visit Diagnoses Diagnosis Severe sepsis with septic shock (CODE) Sepsis due to methicillin susceptible Staphylococcus aureus Methicillin susceptible staphylococcus aureus septicemia documented in this encounter Additional Health Concerns Assessment Noted Time PHQ-9 Depression Total Score: 0 02/16/20 9:00 AM CDT documented as of this encounter Care Teams Fish Hatchery Manager Relationship Specialty Start Date End Date Onelia Lagunas DO 2 [address] [facility] [address] [place] [address] PCP - General Family Medicine 03/09/24 Logan Acuna MD #[address] [address] Consulting Physician Colon and Rectal Surgery 10/15/23 Mars Marti APRN, BARIATRIC COORDINATOR #2 [place] [address] Nurse Practitioner Advanced Practice Nurse 02/10/24 Jones Christy MD #2 [place] [address] Consulting Physician Neurology 04/30/24 Eliezer Ndiaye MD #[address] [address] Consulting Physician Clinical Cardiac Electrophysiology 09/17/24 03/23/25 Shamar Rosales MD [address] [address] Consulting Physician Cardiovascular Disease - Cardiology 03/24/25 documented as of this encounter
--- OUTSIDE RECORDS SUMMARY | 2025-06-08 10:32 | XMS_ITS | Encounter Summary ---
Author Organization [facility] Address [address] [place] [address] Phone Care Team Providers Care Wolf Hunter Name Role Phone Logan Acuna MD Unavailable Mars Marti APRN, CNP Unavailable [phone] Onelia Lagunas DO Primary Care Provider [phone] Jones Christy MD Unavailable [phone] Eliezer Ndiaye MD Unavailable Shamar Rosales MD Unavailable Reason for Visit * Reason Comments Medication Refill Encounter Details Date Type Department Care Team (Late st Contact Info) Description 05/14/2024 Refill [facility] - Family [facility] #2 [place] [phone] Ga Liang MD #1 [place] [address] Medication Refill Social History Tobacco Use Types Packs/Day Years Used Date Smoking Tobacco: Never Smokeless Tobacco: Never Alcohol Use Standard Drinks/Week Comments No 0 (1 standard drink = 0.6 oz pur e alcohol) [facility] Utilities Answer Date Recorded In the past 12 months has emids electric, gas, oil, or water company threatened [...] often do you attend chur ch or caodaism services? More than 4 times per year 02/14/2024 Do you belong to any clubs o r organizations such as bahai groups, unions, fraternal or athletic groups, or [...] Total Score - Questions 1-9 0 03/2024 [facility] Occupat ional Health - [...] place to sleep or slept in a prison (including now)? No 12/02/2023 Housing Stability Vital [...] any time in the past 12 m [facility], were you homeless or living in a prison (including now)? No 02/14/2024 Sexually Active Control Partners Comments Yes Male Comments No Sex and Gender Information Value Date Recorded Sex Assigned at Female 08/07/2023 10:22 AM WATER AND SEWER SYSTEMS SUPERVISOR Legal Sex Female 12:40 AM CDT Gender Identity Female 08/07/2023 10:22 AM WATER AND SEWER SYSTEMS SUPERVISOR Sexual Orientation Straight 08/07/2023 10 :22 AM WATER AND SEWER SYSTEMS SUPERVISOR documented as of this encounter Miscellaneous Notes * Telephone Encounter - Mily Quiros RN - 05/14/2024 2:25 PM CDT Name from pharmacy: VITAMIN D2 (ERGO) 1.25MG CAP Will file in chart as: ergocalciferol (VITAMIN D) 21771 UNIT Capsule The original prescription was discontinued on 11/12/2023 by Ga Liang MD documented in this encounter Plan of Treatment Upcoming Encounters Date Type Department Care Team (Late st Contact Info) Description 06/09/2025 9:30 AM CDT Office Visit [facility] - Gastroenterology - [place] #2 [place] [phone] Blaise Dill MD [address] [address] 06/13/2025 10:45 AM WATER AND SEWER SYSTEMS SUPERVISOR [facility] [place] [facility]2 [place] [address] Onelia Lagunas, DO 2 [facility] [address] [place] [address] Jones Christy MD #2 [place] [address] 07/20/2025 8:15 AM WATER AND SEWER SYSTEMS SUPERVISOR Office Visit [facility] - Endocrinology - [place] #2 [place] [phone] Onelia Lagunas, DO 2 [facility] [address] [place] [address] Henry Bernabe MD #[address] [phone] 09/05/2025 8:00 AM WATER AND SEWER SYSTEMS SUPERVISOR Office Visit [facility] Family Medicine - [place] #2 [place] [phone] Onelia Lagunas, DO 2 [facility] [address] [place] [address] 09/28/2025 8:30 AM WATER AND SEWER SYSTEMS SUPERVISOR Office Visit [facility] - Cardiology [facility] #2 [place] [address] Shamar Rosales MD [address] [address] [address] documented as of this encounter Visit Diagnoses Diagnosis Vitamin D deficiency Unspecified vitamin D deficiency documented in this encounter Additional Health Concerns Assessment Noted Time PHQ-9 Depression Total Score: 0 02/16/20 24 9:00 AM CDT documented as of this encounter Care Teams Wolf Hunter Relationship Specialty Start Date End Date Onelia Lagunas DO 2 [facility] [place] [address] [address] PCP - General Family Medicine 03/09/24 Logan Acuna MD #[address] [address] Consulting Physician Colon and Rectal Surgery 10/15/23 Mars Marti APRN, LPN RN HOSPICE #2 [place] [address] Nurse Practitioner Advanced Practice Nurse 02/10/24 Jones Christy MD #2 [place] [phone] Consulting Physician Neurology 04/30/24 Eliezer Ndiaye MD #[address] [address] Consulting Physician Clinical Cardiac Electrophysiology 09/17/24 03/23/25 Shamar Rosales MD 2 [facility] [address] [address] Consulting Physician Cardiovascular Disease - Cardiology 03/24/25 documented as of this encounter
--- OUTSIDE RECORDS SUMMARY | 2025-06-08 10:32 | XMS_ITS | Encounter Summary ---
Author Organization [facility] Address [address] [place] [address] Care Team Providers Care Coating Machine Helper Name Role Phone Delroy Aragon MD Primary Care Provider [phone] Encounter Details Date Type Department Care Team (Late st Contact Info) Description 12/10/2004 Outpatient Historical [facility] Internal Medicine [address] [address] Delroy Aragon MD [address] [place] [phone] Social History Tobacco Use Types Packs/Day Years Used Date Smoking Tobacco: Never Assessed Comments Unknown Sex and Gender Information Value Date Recorded Sex Assigned at Not on file Legal Sex Female 5:10 AM SUPERVISOR TUBING Gender Identity Not on file Sexual Orientation Not on file documented as of this encounter Last Filed Vital Signs Vital Sign Reading Time Taken Comments Blood Pressure 120/70 12/10/2004 4:00 PM CDT Pulse - - Temperature 36.4 C (97.5 F) 12/10/2004 4:00 PM CDT Respiratory Rate - - Oxygen Saturation - - Inhaled Oxygen Concentration - - Weight - - Height - - Body Mass Index - - documented in this encounter Plan of Treatment Not on file documented as of this encounter Visit Diagnoses Not on filedocumented in this encounter Care Teams Coating Machine Helper Relationship Specialty Start Date End Date Delroy Aragon MD [address] [place] [phone] PCP - General 03/14/05 documented as of this encounter
--- OUTSIDE RECORDS SUMMARY | 2025-06-08 10:32 | XMS_ITS | Encounter Summary ---
Author Organization [facility] Address [address] [place] [address] Phone Care Team Providers Care School Manager Name Role Phone Logan Acuna MD Unavailable Mars Marti APRN, MELISSA Unavailable [phone] Onelia Lagunas DO Primary Care Provider [phone] Jones Christy MD Unavailable [phone] Eliezer Ndiaye MD Unavailable Shamar Rosales MD Unavailable Encounter Details Date Type Department Care Team (Latest Contact Info) Description 08/17/2024 Lab Requisition [facility] Laboratory Services [address] [place] [phone] Brenda Mccann MD Severe sepsis with septic shock (CODE) (HCC); Sepsis due to methicillin susceptible Staphylococcus aureus (HCC) Social History Tobacco Use Types Packs/Day Years Used Date Smoking Tobacco: Never Smokeless Tobacco: Never Alcohol Use Standard Drinks/Week Comments No 0 (1 standard drink = 0.6 oz pur e alcohol) [facility] Utilities Answer Date Recorded In [...] often do you attend chur ch or catholic services? More than 4 times per year 02/14/2024 Do you belong to any clubs o r organizations such as nondenominational groups, unions, fraternal or athletic groups, or [...] Total Score - Questions 1-9 0 07/12 [facility] Occupat ional Health - Occupational [...] any time in the past 12 m [facility], were you homeless or living in a half-way (including now)? No 02/14/2024 Sexually Active Control Partners Comments Yes Male Comments No Sex and Gender Information Value Date Recorded Sex Assigned at Female 08/07/2023 10:22 AM INVESTIGATION LIEUTENANT Legal Sex Female 12:40 AM CDT Gender Identity Female 08/07/2023 10:22 AM INVESTIGATION LIEUTENANT Sexual Orientation Straight 08/07/2023 10 :22 AM INVESTIGATION LIEUTENANT documented as of this encounter Plan of Treatment Upcoming Encounters Date Type Department Care Team (Late st Contact Info) Description 06/09/2025 9:30 AM CDT [facility] - [facility] - [place] #[address] [facility] [place] [phone] Blaise Dill MD [address] [address] 06/13/2025 10:45 AM INVESTIGATION LIEUTENANT [facility] [place] #[address] [place] [address] Onelia Lagunas, DO 2 [facility] [address] [place] [address] Jones Christy MD #2 [place] [address] 07/20/2025 8:15 AM INVESTIGATION LIEUTENANT [facility] [place] #2 [facility] [address] Onelia Lagunas, DO 2 [facility] [address] [place] [address] Henry Bernabe MD #[address] [place] [phone] 09/05/2025 8:00 AM INVESTIGATION LIEUTENANT [facility] [place] #2 [facility] [place] [address] Onleia Lagunas, DO 2 [facility] [address] [place] [address] 09/28/2025 8:30 AM INVESTIGATION LIEUTENANT [facility] [place] [facility]2 [facility] [phone] Shamar Rosales MD [address], [place] [phone] documented as of this encounter Procedures Procedure Name Priority Date/Time Associated Diagnosis Comments CBC WITH AUTO DIFFERENTIAL Routine 08/17/2024 11:00 AM INVESTIGATION LIEUTENANT Severe sepsis with septic shock (CODE) (HCC) Sepsis due to methicillin susceptible Staphylococcus aureus (HCC) CMP (COMPREHENSIVE METABOLIC PANEL) Routine 08/17/2024 11:00 AM INVESTIGATION LIEUTENANT Severe sepsis with septic shock (CODE) (HCC) Sepsis due to methicillin susceptible Staphylococcus aureus (HCC) COMPLETE BLOOD COUNT (CBC) WITH DIFF Routine 08/17/2024 11:00 AM INVESTIGATION LIEUTENANT Severe sepsis with septic shock (CODE) (HCC) Sepsis due to methicillin susceptible Staphylococcus aureus (HCC) C-REACTIVE PROTEIN (CRP) QUANT Routine 08/17/2024 11:00 AM INVESTIGATION LIEUTENANT Severe sepsis with septic shock (CODE) (HCC) Sepsis due to methicillin susceptible Staphylococcus aureus (HCC) documented in this encounter Results * (ABNORMAL) CBC WITH AUTO DIFFERENTIAL (08/17/2024 11:00 AM INVESTIGATION LIEUTENANT) WBC 4.68 4.00 - 12.00 10(3)/mcL 08/17/2024 11:55 AM [facility] RBC 3.76(L) 3.80 - 5.30 10(6)/mcL 08/17/2024 11:55 AM [facility] HEMOGLOBIN (HGB) 11.3(L) 12.0 - 15.8 g/dL 08/17/2024 11:55 AM [facility] HEMATOCRIT (HCT) 35.5(L) 36.0 - 47.0 % 08/17/2024 11:55 AM [facility] MCV 94.4 82.0 - 96.0 fL 08/17/2024 11:55 AM [facility] MCH 30.1 26.0 - 34.0 pg 08/17/2024 11:55 AM [facility] MCHC 31.8 31.0 - 36.0 g/dL 08/17/2024 11:55 AM [facility] PLATELET COUNT 260 140 - 440 10(3)/mcL 08/17/2024 11:55 AM [facility] RDW 13.2 11.8 - 15.5 % 08/17/2024 11:55 AM [facility] MPV 10.4 9.7 - 12.4 fL 08/17/2024 11:55 AM INVESTIGATION LIEUTENANT [facility] NEUTROPHILS 49.3 47.0 - 73.0 % 08/17/2024 11:55 AM INVESTIGATION LIEUTENANT [facility] LYMPHOCYTES 38.0 18.0 - 42.0 % 08/17/2024 11:55 AM INVESTIGATION LIEUTENANT [facility] MONOCYTES 8.8 4.0 - 12.0 % 08/17/2024 11:55 AM INVESTIGATION LIEUTENANT [facility] EOSINOPHILS 3.0 0.0 - 5.0 % 08/17/2024 11:55 AM [facility] BASOPHILS 0.9 0.0 - 1.0 % 08/17/2024 11:55 AM [facility] ABSOLUTE NEUTROPHILS 2.31 1.60 - 7.70 10(3)/[facility] 08/17/2024 11:55 AM [facility] ABSOLUTE LYMPHOCYTES 1.78 1.30 - 3.20 10(3)/[facility] 08/17/2024 11:55 AM INVESTIGATION LIEUTENANT [facility] ABSOLUTE MONOCYTES 0.41 0.20 - 1.00 10(3)/[facility] 08/17/2024 11:55 AM INVESTIGATION LIEUTENANT [facility] ABSOLUTE EOSINOPHIL 0.14 0.00 - 0.40 10(3)/[facility] 08/17/2024 11:55 AM [facility] ABSOLUTE BASOPHILS 0.04 0.00 - 0.10 10(3)/[facility] 08/17/2024 11:55 AM [facility] NRBC PER 100 WBC 0 08/17/19 11:55 AM [facility] Blood Venipuncture / Unknown 08/17/2024 11:00 AM [facility] 08/17/2024 11:43 AM INVESTIGATION LIEUTENANT us Brenda Anand MD HEMATOLOGY ORDERABL ES Final Result [facility] #1 [place] [address] * (ABNORMAL) C-REACTIVE PROTEIN (CRP) QUANT (08/17/2024 11:00 AM INVESTIGATION LIEUTENANT) [facility] C-REACTIVE PROTEIN 0.57(H) <0.50 mg/dL 08/17/2024 12:15 PM INVESTIGATION LIEUTENANT [facility] Blood Venipuncture / Unknown 08/17/2024 11:00 AM INVESTIGATION [employer]ENANT 08/17/2024 11:43 AM INVESTIGATION LIEUTENANT us Brenda Anand MD CHEMISTRY ORDERABLE S Final Result [facility] #1 [place] [address] * (ABNORMAL) CMP (COMPREHENSIVE METABOLIC PANEL) (08/17/2024 11:00 AM INVESTIGATION LIEUTENANT) [facility] SODIUM 137 136 - 145 mmol/L 08/17/2024 12:15 PM [facility] POTASSIUM 4.2 3.5 - 5.1 mmol/L 08/17/2024 12:15 PM [facility] CHLORIDE 104 98 - 107 mmol/L 08/17/2024 12:15 PM [facility] CO2, VENOUS 25 22 - 30 mmol/L 08/17/2024 12:15 PM [facility] ANION GAP 12.2 <18.0 mmol/L 08/17/2024 12:15 PM [facility] GLUCOSE 84 70 - 99 mg/dL 08/17/2024 12:15 PM [facility] BUN 20 10 - 20 mg/dL 08/17/2024 12:15 PM [facility] CREATININE, BLOOD 0.71 0.60 - 1.00 mg/dL 08/17/2024 12:15 PM [facility] BUN/CREATININE RATIO 28(H) 12 - 20 ratio 08/17/2024 12:15 PM [facility] TOTAL PROTEIN 6.8 6.3 - 8.2 g/dL 08/17/2024 12:15 PM [facility] ALBUMIN 3.9 3.5 - 5.0 g/dL 08/17/2024 12:15 PM [facility] A/G RATIO 1.3 1.0 - 2.2 08/17/2024 12:15 PM [facility] CALCIUM 9.3 8.7 - 10.5 mg/dL 08/17/2024 12:15 PM [facility] T BILI 0.3 0.2 - 1.2 mg/dL 08/17/2024 12:15 PM [facility] SGOT (AST) 16 5 - 34 U/L 08/17/2024 12:15 PM [facility] SGPT (ALT) <5 0 - 55 U/L 08/17/2024 12:15 PM [facility] ALKALINE PHOSPHATASE 78 40 - 150 U/L 08/17/2024 12:15 PM [facility] GFR, ESTIMATED >60 >=60 08/17/2024 12:15 PM [facility] Comment: Creatinine Clearance is the preferred criteria for selecting drug dose adjustments in renally impaired patients. The GFR is provided as additional pertinent clinical information. GFR is reported in mL/min/1.73 sq m. Calculation based on the Chronic Kidney Disease Epidemiology Collaboration (CKD- EPI) equation refit without adjustment for race. GFR, EST. >60 >=60 025 12:15 PM [facility] GFR, EST. NONAFRICAN >60 >=60 08/17/2024 12:15 PM [facility] Blood Venipuncture / Unknown 08/17/2024 11:00 AM INVESTIGATION [employer]ENANT 08/17/2024 11:43 AM INVESTIGATION LIEUTENANT us Brenda Anand MD CHEMISTRY ORDERABLE S Final Result [facility] #1 [facility] [place] [address] documented in this encounter Visit Diagnoses Diagnosis Severe sepsis with septic shock (CODE) Sepsis due to methicillin susceptible Staphylococcus aureus Methicillin susceptible staphylococcus aureus septicemia documented in this encounter Additional Health Concerns Assessment Noted Time PHQ-9 Depression Total Score: 0 07/30/20 9:30 AM INVESTIGATION LIEUTENANT documented as of this encounter Care Teams School Manager Relationship Specialty Start Date End Date Onelia Lagunas DO [address] [address] PCP - General Family Medicine 03/09/24 Logan Acuna MD #[address] [address] Consulting Physician Colon and Rectal Surgery 10/15/23 Mars Marti APRN, SALES PROJECT ENGINEER #2 [place] [address] Nurse Practitioner Advanced Practice Nurse 02/10/24 Jones Christy MD #2 [place] [phone] Consulting Physician Neurology 04/30/24 Eliezer Ndiaye MD #[address] [address] Consulting Physician Clinical Cardiac Electrophysiology 09/17/24 03/23/25 Shamar Rosales MD [address] [address] Consulting Physician Cardiovascular Disease - Cardiology 03/24/25 documented as of this encounter
--- OUTSIDE RECORDS SUMMARY | 2025-06-08 10:32 | XMS_ITS | Encounter Summary ---
Author Organization [facility] Address [address] [place] [address] Phone Care Team Providers Care Eligibility Consultant Name Role Phone Logan Acuna MD Unavailable Mars Marti APRN, MELISSA Unavailable [phone] Onelia Lagunas DO Primary Care Provider [phone] Jones Christy MD Unavailable [phone] Eliezer Ndiaye MD Unavailable Shamar Rosales MD Unavailable Encounter Details Date Type Department Care Team (Latest Contact Info) Description 07/26/2024 Lab Requisition [facility] Laboratory Services [address] [place] [phone] Brenda Mccann MD Severe sepsis with septic shock (CODE) (HCC); Sepsis due to methicillin susceptible Staphylococcus aureus (HCC) Social History Tobacco Use Types Packs/Day Years Used Date Smoking Tobacco: Never Smokeless Tobacco: Never Alcohol Use Standard Drinks/Week Comments No 0 (1 standard drink = 0.6 oz pur e alcohol) [facility] Utilities Answer Date Recorded In the [...] often do you attend chur ch or congregational services? More than 4 times per year [...] Total Score - Questions 1-9 0 07/12 [facility] of Occupat ional Health - Occupational Stress [...] place to sleep or slept in a fpc (including now)? No 12/02/2023 Housing Stability Vital [...] any time in the past 12 m [facility], were you homeless or living in a fpc (including now)? No 02/14/2024 Sexually Active Control Partners Comments Yes Male Comments No Sex and Gender Information Value Date Recorded Sex Assigned at Female 08/07/2023 10:22 AM MEDICAL BILLING MANAGER Legal Sex Female 12:40 AM CDT Gender Identity Female 08/07/2023 10:22 AM MEDICAL BILLING MANAGER Sexual Orientation Straight 08/07/2023 10 :22 AM MEDICAL BILLING MANAGER documented as of this encounter Plan of Treatment Upcoming Encounters Date Type Department Care Team (Late st Contact Info) Description 06/09/2025 9:30 AM CDT Office Visit [facility] - [place] #2 [facility] [place] [phone] Blaise Dill MD [address] [address] 06/13/2025 10:45 AM MEDICAL BILLING MANAGER [facility] [place] #2 [address] [place] [address] Onelia Lagunas, DO 2 [facility] [address] [place] [address] Jones Christy MD #2 [place] [address] 07/20/2025 8:15 AM MEDICAL BILLING MANAGER [facility] [place] #2 [facility] [place] [place] [address] Onelia Lagunas, DO 2 [facility] [address] [place] [address] Henry Bernabe MD #[address] [place] [phone] 09/05/2025 8:00 AM MEDICAL BILLING MANAGER [facility] [place] #2 [facility] [place] [address] Onelia Lagunas, DO 2 [facility] [address] [place] [address] 09/28/2025 8:30 AM MEDICAL BILLING MANAGER [facility] [place] #2 [facility] [place] [place] [address] Shamar Rosales MD [address] [id number] documented as of this encounter Procedures Procedure Name Priority Date/Time Associated Diagnosis Comments CBC WITH AUTO DIFFERENTIAL Routine 07/26/2024 12:20 PM MEDICAL BILLING MANAGER Severe sepsis with septic shock (CODE) (HCC) Sepsis due to methicillin susceptible Staphylococcus aureus (HCC) CREATINE KINASE (CK) TOTAL Routine 07/26/2024 12:20 PM MEDICAL BILLING MANAGER Severe sepsis with septic shock (CODE) (HCC) Sepsis due to methicillin susceptible Staphylococcus aureus (HCC) CMP (COMPREHENSIVE METABOLIC PANEL) Routine 07/26/2024 12:20 PM MEDICAL BILLING MANAGER Severe sepsis with septic shock (CODE) (HCC) Sepsis due to methicillin susceptible Staphylococcus aureus (HCC) COMPLETE BLOOD COUNT (CBC) WITH DIFF Routine 07/26/2024 12:20 PM MEDICAL BILLING MANAGER Severe sepsis with septic shock (CODE) (HCC) Sepsis due to methicillin susceptible Staphylococcus aureus (HCC) documented in this encounter Results * (ABNORMAL) CBC WITH AUTO DIFFERENTIAL (07/26/2024 12:20 PM MEDICAL BILLING MANAGER) WBC 6.22 4.00 - 12.00 10(3)/mcL 07/26/2024 1:04 PM [facility] RBC 3.41(L) 3.80 - 5.30 10(6)/mcL 07/26/2024 1:04 PM [facility] HEMOGLOBIN (HGB) 10.4(L) 12.0 - 15.8 g/dL 07/26/2024 1:04 PM [facility] HEMATOCRIT (HCT) 32.9(L) 36.0 - 47.0 % 07/26/2024 1:04 PM [facility] MCV 96.5(H) 82.0 - 96.0 fL 07/26/2024 1:04 PM [facility] MCH 30.5 26.0 - 34.0 pg 07/26/2024 1:04 PM [facility] MCHC 31.6 31.0 - 36.0 g/dL 07/26/2024 1:04 PM [facility] PLATELET COUNT 546(H) 140 - 440 10(3)/mcL 07/26/2024 1:04 PM [facility] RDW 13.4 11.8 - 15.5 % 07/26/2024 1:04 PM [facility] MPV 10.3 9.7 - 12.4 fL 07/26/2024 1:04 PM [facility] NEUTROPHILS 55.9 47.0 - 73.0 % 07/26/2024 1:04 PM [facility] LYMPHOCYTES 31.4 18.0 - 42.0 % 07/26/2024 1:04 PM [facility] MONOCYTES 10.0 4.0 - 12.0 % 07/26/2024 1:04 PM [facility] EOSINOPHILS 2.1 0.0 - 5.0 % 07/26/2024 1:04 PM [facility] BASOPHILS 0.6 0.0 - 1.0 % 07/26/2024 1:04 PM [facility] ABSOLUTE NEUTROPHILS 3.48 1.60 - 7.70 10(3)/[facility] 07/26/2024 1:04 PM [facility] ABSOLUTE LYMPHOCYTES 1.95 1.30 - 3.20 10(3)/[facility] 07/26/2024 1:04 PM [facility] ABSOLUTE MONOCYTES 0.62 0.20 - 1.00 10(3)/[facility] 07/26/2024 1:04 PM [facility] ABSOLUTE EOSINOPHIL 0.13 0.00 - 0.40 10(3)/[facility] 07/26/2024 1:04 PM [facility] ABSOLUTE BASOPHILS 0.04 0.00 - 0.10 10(3)/[facility] 07/26/2024 1:04 PM [facility] NRBC PER 100 WBC 0 07/26/20 24 1:04 PM [facility] Blood No Phlebotomy Charged / Unknown 07/26/2024 12:20 PM [facility] 07/26/2024 12:58 PM MEDICAL BILLING MANAGER us Brenda Anand MD HEMATOLOGY ORDERABL ES Final Result [facility] #1 [place] [address] * (ABNORMAL) CREATINE KINASE (CK) TOTAL (07/26/2024 12:20 PM MEDICAL BILLING MANAGER) Pathologist [facility] CK (CPK) 16(L) 29 - 168 U/L 07/26/2024 3:02 PM MEDICAL BILLING MANAGER [facility] Blood No Phlebotomy Charged / Unknown 07/26/2024 12:20 PM MEDICAL BILLING MANAGER 07/26/2024 12:58 PM MEDICAL BILLING MANAGER us Brenda Anand MD CHEMISTRY ORDERABLE S Final Result [facility] #1 [place] [address] * (ABNORMAL) CMP (COMPREHENSIVE METABOLIC PANEL) (07/26/2024 12:20 PM MEDICAL BILLING MANAGER) [facility] SODIUM 141 136 - 145 mmol/L 07/26/2024 1:35 PM MEDICAL BILLING MANAGER [facility] POTASSIUM 4.5 3.5 - 5.1 mmol/L 07/26/2024 1:35 PM [facility] CHLORIDE 106 98 - 107 mmol/L 07/26/2024 1:35 PM [facility] CO2, VENOUS 25 22 - 30 mmol/L 07/26/2024 1:35 PM MEDICAL BILLING MANAGER [facility] ANION GAP 14.5 <18.0 mmol/L 07/26/2024 1:35 PM MEDICAL BILLING MANAGER [facility] GLUCOSE 101(H) 70 - 99 mg/dL 07/26/2024 1:35 PM MEDICAL BILLING MANAGER [facility] BUN 21(H) 10 - 20 mg/dL 07/26/2024 1:35 PM [facility] CREATININE, BLOOD 0.79 0.60 - 1.00 mg/dL 07/26/2024 1:35 PM [facility] BUN/CREATININE RATIO 27(H) 12 - 20 ratio 07/26/2024 1:35 PM MEDICAL BILLING MANAGER [facility] TOTAL PROTEIN 6.2(L) 6.3 - 8.2 g/dL 07/26/2024 1:35 PM MEDICAL BILLING MANAGER [facility] ALBUMIN 3.7 3.5 - 5.0 g/dL 07/26/2024 1:35 PM MEDICAL BILLING MANAGER [facility] A/G RATIO 1.5 1.0 - 2.2 07/26/2024 1:35 PM MEDICAL BILLING MANAGER [facility] CALCIUM 9.7 8.7 - 10.5 mg/dL 07/26/2024 1:35 PM MEDICAL BILLING MANAGER [facility] T BILI 0.2 0.2 - 1.2 mg/dL 07/26/2024 1:35 PM MEDICAL BILLING MANAGER [facility] SGOT (AST) 16 5 - 34 U/L 07/26/2024 1:35 PM MEDICAL BILLING MANAGER [facility] SGPT (ALT) <5 0 - 55 U/L 07/26/2024 1:35 PM [facility] ALKALINE PHOSPHATASE 159(H) 40 - 150 U/L 07/26/2024 1:35 PM MEDICAL BILLING MANAGER [facility] GFR, ESTIMATED >60 >=60 07/26/2024 1:35 PM [facility] Comment: Creatinine Clearance is the preferred criteria for selecting drug dose adjustments in renally impaired patients. The GFR is provided as additional pertinent clinical information. GFR is reported in mL/min/1.73 sq m. Calculation based on the Chronic Kidney Disease Epidemiology Collaboration (CKD- EPI) equation refit without adjustment for race. GFR, EST. >60 >=60 024 1:35 PM MEDICAL BILLING MANAGER [facility] GFR, EST. NONAFRICAN >60 >=60 07/26/2024 1:35 PM [facility] Blood No Phlebotomy Charged / Unknown 07/26/2024 12:20 PM MEDICAL BILLING MANAGER 07/26/2024 12:58 PM MEDICAL BILLING MANAGER us Brenda Anand MD CHEMISTRY ORDERABLE S Final Result [facility] #1 [place] [address] documented in this encounter Visit Diagnoses Diagnosis Severe sepsis with septic shock (CODE) Sepsis due to methicillin susceptible Staphylococcus aureus Methicillin susceptible staphylococcus aureus septicemia documented in this encounter Additional Health Concerns Assessment Noted Time PHQ-9 Depression Total Score: 0 02/16/20 24 9:00 AM CDT documented as of this encounter Care Teams Eligibility Consultant Relationship Specialty Start Date End Date Onelia Lagunas DO 2 [facility] [address] [address] PCP - General Family Medicine 03/09/24 Logan Acuna MD #[address] [address] Consulting Physician Colon and Rectal Surgery 10/15/23 Mars Marti, GENERAL PRACTICE, WHEEL MILL OPERATOR #[address] [place] [address] Nurse Practitioner Advanced Practice Nurse 02/10/24 Jones Christy MD #2 [place] [phone] Consulting Physician Neurology 04/30/24 Eliezer Ndiaye MD #[address] [address] Consulting Physician Clinical Cardiac Electrophysiology 09/17/24 03/23/25 Shamar Rosales MD [address] [address] Consulting Physician Cardiovascular Disease - Cardiology 03/24/25 documented as of this encounter
--- OUTSIDE RECORDS SUMMARY | 2025-06-08 10:32 | XMS_ITS | Encounter Summary ---
Author Organization [facility] Address [address] [place] [address] Phone Care Team Providers Care Cordwainer Name Role Phone Ga Liang MD Primary Care Provider [phone] Logan Acuna MD Unavailable Mars Marti APRN, CNP Unavailable [phone] Onelia Lagunas DO Primary Care Provider [phone] Jones Christy MD Unavailable [phone] Eliezer Ndiaye MD Unavailable Shamar Rosales MD Unavailable Reason for Visit * Reason Comments Medication Refill Encounter Details Date Type Department Care Team (Late st Contact Info) Description 12/06/2023 Refill [facility] Medical Group - Family [facility] #2 [place] [address] Ga Liang MD #1 [place] [address] Medication Refill Social History Tobacco Use Types Packs/Day Years Used Date Smoking Tobacco: Never Smokeless Tobacco: Never Alcohol Use Standard Drinks/Week Comments No 0 (1 standard drink = 0.6 oz pur e alcohol) [facility] Utilities Answer Date Recorded In the past 12 months has [employer], gas, oil, or water company threatened to [...] care, and heating? Not very hard 12/02/2023 [facility] of Occupat ional [facility] - Occupational Stress Questionnaire Answer Date [...] in a residential (including now)? No 12/02/2023 Sexually Active Control Partners Comments Yes Male Comments No Sex and Gender Information Value Date Recorded Sex Assigned at Female 08/07/2023 10:22 AM ASSISTANT AUDITOR Legal Sex Female 12:40 AM CDT Gender Identity Female 08/07/2023 10:22 AM ASSISTANT AUDITOR Sexual Orientation Straight 08/07/2023 10 :22 AM ASSISTANT AUDITOR documented as of this encounter Miscellaneous Notes * Telephone Encounter - Mily Quiros RN - 12/08/2023 8:26 AM CDT PRN medication requires review from provider Per nursing clinical judgement, provider to review and approve the medication(s) order(s) if appropriate. Requested Prescriptions Pending Prescriptions Disp Refills albuterol 108 (90 Base) MCG/ACT Aerosol Solution [Pharmacy Med Name: Albuterol Sulfate HFA 108 (90 Base) MCG/ACT Inhalation Aerosol Solution] 9 g 2 Sig: INHALE 2 PUFFS BY MOUTH EVERY 4 TO 6 HOURS NEEDED FOR SHORTNESS OF BREATH OR COUGH Short Acting Inhaled Beta-Agonists Protocol Passed - 12/06/2023 12:01 AM Passed - Visit with relevant provider in past 12 months or upcoming 90 days Recent Visits Date Type Provider Dept 12/04/23 Office Visit Ga Liang MD [facility] 11/13/23 Office Visit Ga Liang MD [facility] 09/19/23 Office Visit Ninoska Borden APRN, CLAIMS COORDINATOR [facility] 09/05/23 Office Visit Ninoska Borden APRN, CLAIMS COORDINATOR [facility] 08/06/23 Office Visit Jennifer Chowdary, ROSE [facility] 07/18/23 Office Visit Ga Liang MD [facility] Showing recent visits within past 365 days and meeting all other requirements Future Appointments No visits were found meeting these conditions. Showing future appointments within next 90 days and meeting all other requirements documented in this encounter Plan of Treatment Upcoming Encounters Date Type Department Care Team (Late st Contact Info) Description 06/09/2025 9:30 AM CDT Office Visit [facility] Medical [facility] - Gastroenterology - [place] [address]2 [place] [address] Blaise Dill MD [address] [address] 06/13/2025 10:45 AM ASSISTANT AUDITOR Office Visit [facility] Medical [facility] - Neurology - [place] [address]2 [place] [address] Onelia Lagunas, DO [address] [address] Jones Christy MD #2 [place] [address] 07/20/2025 8:15 AM ASSISTANT AUDITOR Office Visit [facility] Endocrinology - [place] [address]2 [place] [address] Onelia Lagunas, DO [address] [address] Henry Bernabe MD #[address] [address] 09/05/2025 8:00 AM ASSISTANT AUDITOR Office Visit [facility] Medical [facility] - Family Medicine [facility] #2 [place] [address] Onelia Lagunas DO [address] [address] 09/28/2025 8:30 AM ASSISTANT AUDITOR [facility] - [place] [address]2 [place] [address] Shamar Rosales MD [address] [address] documented as of this encounter Visit Diagnoses Not on filedocumented in this encounter Additional Health Concerns Infection Onset Date Last Indicated Resolved Time COVID - 19 04/30/2024 04/30/2024 04/30/2024 11:2 5 AM CDT documented as of this encounter Care Teams Cordwainer Relationship Specialty Start Date End Date Ga Liang MD #1 [place] [address] PCP - General Family Medicine 07/18/23 03/08/24 Onelia Lagunas DO [address] [address] PCP - General Family Medicine 03/09/24 Logan Acuna MD #[address] [address] Consulting Physician Colon and Rectal Surgery 10/15/23 MartiMars archibald APRN, CLAIMS COORDINATOR #2 [place] [address] Nurse Practitioner Advanced Practice Nurse 02/10/24 Jones Christy MD #2 [place] [address] Consulting Physician Neurology 04/30/24 Eliezer Ndiaye MD #[address] [address] [address] Consulting Physician Clinical Cardiac Electrophysiology 09/17/24 03/23/25 Shamar Rosales MD 2 [facility] [address] [address] Consulting Physician Cardiovascular Disease - Cardiology 03/24/25 documented as of this encounter
--- OUTSIDE RECORDS SUMMARY | 2025-06-08 10:32 | XMS_ITS | Encounter Summary ---
Author Organization [facility] Address [address] [place] [address] Phone Care Team Providers Care Factory Manager Name Role Phone Ga Liang MD Primary Care Provider [phone] Logan Acuna MD Unavailable Mars Marti APRN, CNP Unavailable [phone] Onelia Lagunas DO Primary Care Provider [phone] Jones Christy MD Unavailable [phone] Eliezer Ndiaye MD Unavailable Shamar Rosales MD Unavailable Reason for Visit * Reason Comments Medication Refill Encounter Details Date Type Department Care Team (Late st Contact Info) Description 10/06/2023 [facility]ill [facility] [address]2 [place] [phone] Ga Liang MD [address] [place] [address] Medication Refill Social History Tobacco Use Types Packs/Day Years Used Date Smoking Tobacco: Never Smokeless Tobacco: Never Alcohol Use Standard Drinks/Week Comments No 0 (1 standard drink = 0.6 oz pur e alcohol) Sexually Active Control Partners Comments Yes Male Comments No Sex and Gender Information Value Date Recorded Sex Assigned at Female 08/07/2023 10:22 AM [employer] Legal Sex Female 12:40 AM CDT Gender Identity Female 08/07/2023 10:22 AM [employer] Sexual Orientation Straight 08/07/2023 10 :22 AM [employer] documented as of this encounter Miscellaneous Notes * Telephone Encounter - Mily Quiros RN - 10/07/2023 9:02 AM CST Medication(s) [facility] and [facility] Chronic Medication Refill Standing Order for Pediatricand Adult Patients. Requested Prescriptions Pending Prescriptions Disp Refills atenolol (TENORMIN) 50 MG Tablet [Pharmacy Med Name: Atenolol 50 MG Oral Tablet] 30 Tablet 5 Sig: Take 1 tablet by mouth once daily Atenolol Protocol Passed - 10/06/2023 11:54 AM Passed - BP on record in the past year Clinician-entered: BP Readings from Last 3 Encounters: 09/19/23 130/70 09/05/23 128/68 08/06/23 (!) 182/102 Patient-entered: No data recorded Passed - Visit with relevant provider in past 12 months or upcoming 90 days Recent Visits Date Type Provider Dept 09/19/23 Office Visit Ninoska Borden APRN, RN TELEPHONE TRIAGE [facility] [place] 09/05/23 Office Visit Ninoska Borden APRN, RN TELEPHONE TRIAGE [facility] [place] 08/06/23 Office Visit Jennifer Chowdary, [facility] [place] 07/18/23 Office Visit Ga Liang MD [facility] [place] Showing recent visits within past 365 days and meeting all other requirements Future Appointments Date Type Provider Dept 11/13/23 Appointment Ga Liang MD [facility] 12/04/23 Appointment Ga Liang MD [facility] [place] Showing future appointments within next 90 days and meeting all other requirements [employer] documented in this encounter Plan of Treatment Upcoming Encounters Date Type Department Care Team (Late st Contact Info) Description 06/09/2025 9:30 AM CDT Office Visit [facility] Medical Group - Gastroenterology - [place] [address]2 [place] [address] Blaise Dill MD 2 [facility] [address] [place] [address] 06/13/2025 10:45 AM [employer] Office Visit [facility] - Neurology - [place] [address]2 [place] [address] Onelia Lagunas, DO 2 [facility] [address] [place] [address] Jones Christy MD #2 [place] [address] 07/20/2025 8:15 AM [employer] Office Visit [facility] - Endocrinology - [place] [address]2 [place] [address] Onelia Lagunas, DO 2 [facility] [address] [place] [address] Henry Bernabe MD #2 [facility] [address] [place] [address] 09/05/2025 8:00 AM [employer] Office Visit [facility] - Family Medicine - [place] #2 [facility] [place] [address] Onelia Lagunas, DO 2 [facility] [address] [place] [address] 09/28/2025 8:30 AM [employer] Office Visit [facility] Cardiology - [place] [address]2 [place] [address] Shamar Rosales MD 2 [facility] [address] [place] [address] documented as of this encounter Visit Diagnoses Not on filedocumented in this encounter Additional Health Concerns Infection Onset Date Last Indicated Resolved Time COVID - 19 04/30/2024 04/30/2024 04/30/2024 11:2 5 AM CDT documented as of this encounter Care Teams Factory Manager Relationship Specialty Start Date End Date Ga Liang MD #1 [place] [address] PCP - General Family Medicine 07/18/23 03/08/24 Onelia Lagunas DO [address] [address] PCP - General Family Medicine 03/09/24 Logan Acuna MD #[address] [address] Consulting Physician Colon and Rectal Surgery 10/15/23 Mars Marti APRN, MELISSA #2 [place] [address] Nurse Practitioner Advanced Practice Nurse 02/10/24 Jones Christy MD #2 [place] [address] Consulting Physician Neurology 04/30/24 Eliezer Ndiaye MD #[address] [address] Consulting Physician Clinical Cardiac Electrophysiology 09/17/24 03/23/25 Shamar Rosales MD [address] [place] [address] Consulting Physician Cardiovascular Disease - Cardiology 03/24/25 documented as of this encounter
--- OUTSIDE RECORDS SUMMARY | 2025-06-08 10:32 | XMS_ITS | Encounter Summary ---
Author Organization [facility] Address [address] [place] [address] Phone Care Team Providers Care Curber Name Role Phone Ga Liang MD Primary Care Provider [phone] Logan Acuna MD Unavailable Mars Marti APRN, CNP Unavailable [phone] Onelia Lagunas DO Primary Care Provider [phone] Jones Christy MD Unavailable [phone] Eliezer Ndiaye MD Unavailable Shamar Rosales MD Unavailable Reason for Visit * Reason Comments Medication Refill Encounter Details Date Type Department Care Team (Late st Contact Info) Description 03/05/2024 Refill [facility] Medical Group - Family Medicine [facility] #2 [place] [address] Ga Liang MD [address]1 [place] [address] Medication Refill Social History Tobacco Use Types Packs/Day Years Used Date Smoking Tobacco: Never Smokeless Tobacco: Never Alcohol Use Standard Drinks/Week Comments No 0 (1 standard drink = 0.6 oz pur e alcohol) [facility] Utilities Answer Date Recorded In the past 12 months has [employer], gas, oil, or water company threatened to [...] Recorded Total Score - Questions 1-9 0 07/0 03/2024 [facility] - Occupational Stress Questionnaire Answer Date [...] place to sleep or slept in a mcfp (including now)? No 12/02/2023 Housing Stability Vital [...] were you homeless or living in a mcfp (including now)? No 02/14/2024 Sexually Active Control Partners Comments Yes Male Comments No Sex and Gender Information Value Date Recorded Sex Assigned at Female 08/07/2023 10:22 AM ENTERTAINMENT & MEDIA CORRESPONDENT Legal Sex Female 12:40 AM CDT Gender Identity Female 08/07/2023 10:22 AM ENTERTAINMENT & MEDIA CORRESPONDENT Sexual Orientation Straight 08/07/2023 10 :22 AM ENTERTAINMENT & MEDIA CORRESPONDENT documented as of this encounter Miscellaneous Notes * Telephone Encounter - Mily Quiros RN - 03/05/2024 2:26 PM CDT Images from the original note were not included. PARoxetine HCl Dispensed Days Supply Quantity Provider Pharmacy PAROXETINE 10MG TAB 02/26/2024 90 90 Each Ga Liang MD [facility] 4695 ... PAROXETINE 10MG TAB 12/02/2023 90 90 Each Ga Liang MD [facility]695 ... documented in this encounter Plan of Treatment Upcoming Encounters Date Type Department Care Team (Late st Contact Info) Description 06/09/2025 9:30 AM CDT Office Visit [facility] - Gastroenterology - [place] #2 [place] [address] Blaise Dill MD 2 [facility] [address] [place] [address] 06/13/2025 10:45 AM ENTERTAINMENT & MEDIA CORRESPONDENT Office Visit [facility] - Neurology - [place] [address]2 [place] [address] Onelia Lagunas, DO 2 [facility] [address] [place] [address] Jones Christy MD #2 [facility] [address] 07/20/2025 8:15 AM ENTERTAINMENT & MEDIA CORRESPONDENT Office Visit [facility] - Endocrinology - [place] #2 [place] [address] Onelia Lagunas, DO 2 [facility] [address] [place] [address] Henry Bernabe MD #[address] [place] [address] 09/05/2025 8:00 AM ENTERTAINMENT & MEDIA CORRESPONDENT Office Visit [facility] Family Medicine - [place] #2 [place] [address] Onelia Lagunas, DO [address] [facility] [address] [address] 09/28/2025 8:30 AM ENTERTAINMENT & MEDIA CORRESPONDENT Office Visit [facility] - Cardiology [facility] #2 [place] [address] Shamar Rosales MD [address] [address] documented as of this encounter Visit Diagnoses Diagnosis Hot flashes Symptomatic menopausal or female climacteric states documented in this encounter Additional Health Concerns Infection Onset Date Last Indicated Resolved Time COVID - 19 04/30/2024 04/30/2024 04/30/2024 11:2 5 AM CDT Assessment Noted Time PHQ-9 Depression Total Score: 0 02/16/20 9:00 AM CDT documented as of this encounter Care Teams Curber Relationship Specialty Start Date End Date Ga Liang MD #1 [place] [address] PCP - General Family Medicine 07/18/23 03/08/24 Onelia Lagunas DO 2 [facility] [address] [address] PCP - General Family Medicine 03/09/24 Logan Acuna MD #[address] [address] Consulting Physician Colon and Rectal Surgery 10/15/23 Mars Marti APRN, LABORATORY MACHINIST #2 [place] [address] Nurse Practitioner Advanced Practice Nurse 02/10/24 Jones Christy MD #2 [facility] [place] [address] Consulting Physician Neurology 04/30/24 Eliezer Ndiaye MD #2 [facility] [address] [address] Consulting Physician Clinical Cardiac Electrophysiology 09/17/24 03/23/25 Shamar Rosales MD 2 [facility] [address] [address] [address] Consulting Physician Cardiovascular Disease - Cardiology 03/24/25 documented as of this encounter
--- OUTSIDE RECORDS SUMMARY | 2025-06-08 10:33 | XMS_ITS | Encounter Summary ---
Author Organization [facility] Care Team Providers Care Mat Cutter Name Role Phone Logan Acuna MD Unavailable Mars Marti APRN, CNP Unavailable [phone] Onelia Lagunas DO Primary Care Provider [phone] Jones Christy MD Unavailable [phone] Shamar Rosales MD Unavailable Encounter Details Date Type Department Care Team (Latest Contact Info) Description 06/07/2025 Travel Social History Tobacco Use Types Packs/Day Years Used Date Smoking Tobacco: Never Smokeless Tobacco: Never Alcohol Use Standard Drinks/Week Comments No 0 (1 standard drink = 0.6 oz pur e alcohol) [facility] Utilities Answer Date Recorded In the past 12 months has [employer], gas, oil, or water company threatened [...] any clubs o r organizations such as orthodoxy groups, unions, fraternal or athletic groups, or [...] Total Score - Questions 1-9 0 04/12 [facility] of Occupat ional [facility] - Occupational Stress Questionnaire Answer Date [...] place to sleep or slept in a halfway (including now)? No 12/02/2023 Housing Stability Vital [...] any time in the past 12 m ont, were you homeless or living in a halfway (including now)? No 09/14/2024 Sexually Active Control Partners Comments Yes Post-menopausal, Surgical Male Comments No Sex and Gender Information Value Date Recorded Sex Assigned at Female 08/07/2023 10:22 AM SOCIAL SERVICE AGENCY DIRECTOR Legal Sex Female 12:40 AM CDT Gender Identity Female 08/07/2023 10:22 AM SOCIAL SERVICE AGENCY DIRECTOR Sexual Orientation Straight 08/07/2023 10 :22 AM SOCIAL SERVICE AGENCY DIRECTOR documented as of this encounter Plan of Treatment Upcoming Encounters Date Type Department Care Team (Late st Contact Info) Description 06/09/2025 9:30 AM CDT Office Visit [facility] Medical Group - Gastroenterology [facility] #2 [place] [address] Blaise Dill MD 2 [facility] [address] [place] [address] 06/13/2025 10:45 AM SOCIAL SERVICE AGENCY DIRECTOR Office Visit [facility] Medical [facility] - Neurology [facility] #2 [place] [address] Onelia Lagunas, 2 [facility] [address] [place] [address] Jones Christy MD #2 [place] [address] 07/20/2025 8:15 AM SOCIAL SERVICE AGENCY DIRECTOR [facility] [place] #2 [place] [address] Onelia Lagunas DO [address] [address] Henry Bernabe MD #[address] [address] 09/05/2025 8:00 AM SOCIAL SERVICE AGENCY DIRECTOR [facility] [place] #2 [place] [address] Onelia Lagunas DO [address] [address] 09/28/2025 8:30 AM SOCIAL SERVICE AGENCY DIRECTOR [facility] - [place] #2 [place] [address] Shamar Rosales MD [address] [address] documented as of this encounter Visit Diagnoses Not on filedocumented in this encounter Additional Health Concerns Assessment Noted Time PHQ-9 Depression Total Score: 0 05/02/20 25 8:56 AM CDT documented as of this encounter Care Teams Mat Cutter Relationship Specialty Start Date End Date Onelia Lagunas DO [address] [address] PCP - General Family Medicine 03/09/24 Logan Acuna MD #[address] [address] Consulting Physician Colon and Rectal Surgery 10/15/23 Mars Marti APRN, NEWS VIDEOGRAPHER #2 [place] [address] Nurse Practitioner Advanced Practice Nurse 02/10/24 Jones Christy MD #2 [place] [address] Consulting Physician Neurology 04/30/24 Shamar Rosales MD [address] [address] Consulting Physician Cardiovascular Disease - Cardiology 03/24/25 documented as of this encounter
--- OUTSIDE RECORDS SUMMARY | 2025-06-08 10:33 | XMS_ITS | Encounter Summary ---
Author Organization [facility] Address [address] [place] [address] Care Team Providers Care Market Analysis Director Name Role Phone Delroy Aragon MD Primary Care Provider [phone] Encounter Details Date Type Department Care Team (Late st Contact Info) Description 11/29/2003 Outpatient Historical [facility] Internal Medicine [address] [phone] Delroy Aragon MD [address] [place] [phone] Social History Tobacco Use Types Packs/Day Years Used Date Smoking Tobacco: Never Assessed Comments Unknown Sex and Gender Information Value Date Recorded Sex Assigned at Not on file 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 Gender Identity Not on file Sexual Orientation Not on file documented as of this encounter Last Filed Vital Signs Vital Sign Reading Time Taken Comments Blood Pressure 114/80 11/29/2003 10:15 AM CDT Pulse - - Temperature - - Respiratory Rate - - Oxygen Saturation - - Inhaled Oxygen Concentration - - Weight - - Height - - Body Mass Index - - documented in this encounter Plan of Treatment Not on file documented as of this encounter Visit Diagnoses Not on filedocumented in this encounter Care Teams Market Analysis Director Relationship Specialty Start Date End Date Delroy Aragon MD [address] [place] [phone] PCP - General 03/14/05 documented as of this encounter
--- OUTSIDE RECORDS SUMMARY | 2025-06-08 10:33 | XMS_ITS | Encounter Summary ---
Author Organization [facility] Address [address] [place] [address] Care Team Providers Care Supervisor Blasting Name Role Phone Delroy Aragon MD Primary Care Provider [phone] Encounter Details Date Type Department Care Team (Late st Contact Info) Description 03/31/2006 Outpatient Historical [facility] Internal Medicine [address] [phone] Delroy Aragon MD [address] [place] [phone] Social History Tobacco Use Types Packs/Day Years Used Date Smoking Tobacco: Never Assessed Comments Unknown Sex and Gender Information Value Date Recorded Sex Assigned at Not on file 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 Gender Identity Not on file Sexual Orientation Not on file documented as of this encounter Last Filed Vital Signs Vital Sign Reading Time Taken Comments Blood Pressure 130/80 03/31/2006 10:45 AM CDT Pulse - - Temperature - - Respiratory Rate - - Oxygen Saturation - - Inhaled Oxygen Concentration - - Weight - - Height - - Body Mass Index - - documented in this encounter Plan of Treatment Not on file documented as of this encounter Visit Diagnoses Not on filedocumented in this encounter Care Teams Supervisor Blasting Relationship Specialty Start Date End Date Delroy Aragon MD [address] [place] [phone] PCP - General 03/14/05 documented as of this encounter
--- OUTSIDE RECORDS SUMMARY | 2025-06-08 10:33 | XMS_ITS | Encounter Summary ---
Author Organization [facility] Address [address] [place] [address] Care Team Providers Care Malted Milk Mixer Name Role Phone Delroy Aragon MD Primary Care Provider [phone] Encounter Details Date Type Department Care Team (Late st Contact Info) Description 08/15/2005 Outpatient Historical [facility] Internal Medicine [address] [phone] Delroy Aragon MD 7 [facility] [address] [place] [phone] Social History Tobacco Use Types Packs/Day Years Used Date Smoking Tobacco: Never Assessed Comments Unknown Sex and Gender Information Value Date Recorded Sex Assigned at Not on file 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
--- OUTSIDE RECORDS SUMMARY | 2025-06-08 10:33 | XMS_ITS | Encounter Summary ---
Author Organization [facility] Address 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 Gender Identity Not on file Sexual Orientation Not on file documented as of this encounter Last Filed Vital Signs Vital Sign Reading Time Taken Comments Blood Pressure 130/80 01/03/2004 10:45 AM CDT Pulse - - Temperature - - Respiratory Rate - - Oxygen Saturation - - Inhaled Oxygen Concentration - - Weight - - Height - - Body Mass Index - - documented in this encounter Plan of Treatment Not on file documented as of this encounter Visit Diagnoses Not on filedocumented in this encounter Care Teams Sales And Marketing Agent Relationship Specialty Start Date End Date Delroy Aragon MD [address] [place] [phone] PCP - General 03/14/05 documented as of this encounter
--- OUTSIDE RECORDS SUMMARY | 2025-06-08 10:33 | XMS_ITS | Encounter Summary ---
Author Organization [facility] Address 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
--- OUTSIDE RECORDS SUMMARY | 2025-06-08 10:33 | XMS_ITS | Clinical Summary ---
Author Organization [facility] Address [address] [place] [address] Care Team Providers Care Congressional District Aide Name Role Phone Vern Wilkinson MD Unavailable [phone] Brenda Anand MD Unavailable Onelia Lagunas DO Primary Care Provider [phone] Allergies No known active allergies Medications albuterol HFA (PROVENTIL HFA,VENTOLIN HFA,PROAIR HFA) 90 mcg/actuation inhaler Inhale 2 puffs every 6 (six) hours as needed for wheezing Active atenoloL (TENORMIN) 50 mg tablet Take 1 tablet (50 mg total) by mouth daily Active baclofen (LIORESAL) 10 mg tablet Take 1 tablet (10 mg total) by mouth 2 (two) times a day Active docusate sodium (COLACE) 100 mg capsuleIndications :constipation Take 1 capsule (100 mg total) by mouth 2 (two) times a day as needed for constipation Active losartan-hydrochlo rothiazide (HYZAAR) 100-25 mg per tablet Take 1 tablet by mouth daily Active PARoxetine (PAXIL) 10 mg tablet Take 1 tablet (10 mg total) by mouth every morning Active zolpidem (AMBIEN) 10 mg tabletIndications: Sleep-Onset Insomnia Take 1 tablet (10 mg total) by mouth nightly as needed for sleep Active ondansetron ODT (ZOFRAN-ODT) 4 mg disintegrating tabletIndications: Nausea Take 1 tablet (4 mg total) by mouth every 8 (eight) hours as needed for nausea or vomiting 30 tablet 1 07/15/20 24 Active polyethylene glycol (MIRALAX) 17 gram/dose bulk powderIndications: constipation Take 17 g by mouth daily 07/16/20 24 Active miconazole 2 % powder Apply topically 2 (two) times a day 07/16/20 24 Active lactulose solution 10 gram/15mL Take 30 mL (20 g total) by mouth daily 473 mL 07/17/20 24 Active ALPRAZolam (XANAX) 0.25 mg tablet Take 1 tablet (0.25 mg total) by mouth 3 (three) times a day as needed for anxiety 30 tablet 07/16/20 24 Active oxyCODONE (ROXICODONE) 20 mg tabletIndications: Pain Take 1 tablet (20 mg total) by mouth every 4 (four) hours as needed for pain 40 tablet 07/15/20 24 025 Discontin ued(Patie nt Reported) oxyCODONE ER (OxyCONTIN) 20 mg 12 hr abuse-deterrent tablet Take 1 tablet (20 mg total) by mouth 2 (two) times a day 30 tablet 07/15/20 24 025 Discontin ued(Patie nt Reported) Active Problems Problem Noted Date Diagnosed Date Epistaxis 05/18/2025 Assessment & Plan (05/18/2025 9:52 AM CDT): Nasal saline spray (Simply saline, Little Remedies, [place], [place]) 2 second sprays or 2 squeezes into each nostril while looking down over the sink, do not need to sniff in 3 times daily for one month Followed Aquaphor apply pea-size amount into each nostril with a cotton tipped applicator, being carefully just to tuck it into each nostril, then massage soft portion of the outer nose to massage the ointment around inside the nose three times daily for at least one month, then if nose bleeds improved, decrease to twice daily and so forth Have Dental evaluation Referred otalgia of left ear 05/18/2025 Assessment & Plan (05/18/2025 9:52 AM CDT): Nasal saline spray (Simply saline, [employer] Remedies, [place], [place]) 2 second sprays or 2 squeezes into each nostril while looking down over the sink, do not need to sniff in 3 times daily for one month Followed Aquaphor apply pea-size amount into each nostril with a cotton tipped applicator, being carefully just to tuck it into each nostril, then massage soft portion of the outer nose to massage the ointment around inside the nose three times daily for at least one month, then if nose bleeds improved, decrease to twice daily and so forth Have Dental evaluation Impacted cerumen of left ear 05/18/2025 Assessment & Plan (05/18/2025 9:53 AM CDT): Avoid ear cleaning techniques Primary hypertension 01/13/2025 Assessment & Plan (01/13/2025 12:26 PM CDT): Stable continue losartan hydrochlorothiazide Bilateral carotid artery stenosis 01/13/2025 Assessment & Plan (01/13/2025 12:26 PM CDT): Asymptomatic bilateral moderate ICA stenosis. Discussed findings with the patient and her friend, we discussed management of carotid stenosis with recommendation for maximal medical management including 81 mg ASA statin therapy and good blood pressure control, we discussed surgical intervention if this progresses to 80% stenosis or if she becomes symptomatic. We will repeat her carotid duplex in 1 year. Septic shock 07/11/2024 Observation after surgery 06/18/2024 Spinal stenosis of lumbar re gion, unspecified whether neurogenic claudication present 06/15/2024 Epidural lipomatosis 08/23/2016 Overview (11/14/2016): Epidural lipomatosis Spinal stenosis of lumbar region 04/18/2016 Overview (11/14/2016): Spinal stenosis of lumbar region Arthropathy of spinal facet joint 04/18/2016 Overview (11/14/2016): Arthropathy of spinal facet joint Encounters Date Type Department Care Team Description 05/18/2025 9:15 AM CDT Office Visit [facility] [address] [facility] [address] [place] [address] Cindy Ann, DO Epistaxis (Primary Dx); Referred otalgia of left ear; Impacted cerumen of left ear from Last 3 Months Surgical History Surgery Date Site/Laterality Comments LUMBAR SPINE SURGERY Surgery, lumbar spine AUGMENTATION MAMMAPLASTY Left implant has been removed at age 24 TOTAL ABDOMINAL HYSTERECTOMY 08/11/2003 - 08/10/2004 Hysterectomy, total OOPHORECTOMY 08/11/2003 - 08/10/2004 Medical History Medical History Date Comments Hx Other Medical Gall bladder; C omments: [facility] 04/07/2014 - Hx Other Medical Knee repair; Co mments: [facility] 04/07/2014 - PONV (postoperative nausea and vomiting) Anxiety Insomnia Family History Medical History Relation Name Comments Other Other Family history of Diabetes mellitus type 1; Relation Name Status Comments Other Social History Tobacco Use Types Packs/Day Years Used Date Smoking Tobacco: Never Smokeless Tobacco: Never Tobacco Cessation:Counseling Given: Not Answered Alcohol Use Standard Drinks/Week Comments No 0 (1 standard drink = 0.6 oz pur e alcohol) [facility] Utilities Answer Date Recorded In the past 12 months has [employer] electric, gas, oil, or water company threatened to shut off services in your home? No 07/12/2024 Social Connection and Isolation Panel Answer Date Recorded In a typical week, how many times do you talk on the phone with family, friends, or neighbors? More than three times a week 07/12/2024 How often do you get togethe r with friends or relatives? More than three times a week 07/12/2024 How often do you attend [facility] or sabianism services? 1 to 4 times per year 07/12/2024 Do you belong to any clubs o r organizations such as baptist groups, unions, fraternal or athletic groups, or school groups? Yes 07/12/2024 How often do you attend meet ings of the clubs or organizations you belong to? Never 07/12/2024 Are you , , di vorced, , never , or living with a partner? 07/12/2024 AUDIT-C Answer Date Recorded Q1: How often do you have a drink containing alcohol? Never 07/12/2024 Q2: How many drinks containi ng alcohol do you have on a typical day when you are drinking? Patient does not drink Q3: How often do you have si x or more drinks on one occasion? Never 07/12/2024 Overall Financial Resource Strain (CARDIA) Answe r Date Recorded How hard is it for you to pa y for the very basics like food, housing, medical care, and heating? Not hard at all 07/12/2024 Hunger Vital Sign Answer Date Recorded Within the past 12 months, y ou worried that your food would run out before you got the money to buy more. Never true 07/12/20 24 Within the past 12 months, t he food you bought just didn't last and you didn't have money to get more. Never true 07/12/2024 PRAPARE - Transportation Answer Date Re corded In the past 12 months, has l ack of transportation kept you from medical appointments or from getting medications? No 09/2023 In the past 12 months, has l ack of transportation kept you from meetings, work, or from getting things needed for daily living? No 07/12/2024 Housing Stability Vital Sign Answer Jose Martin e Recorded In the last 12 months, was t here a time when you were not able to pay the mortgage or rent on time? No 07/12/2024 In the past 12 months, how m any times have you moved where you were living? 1 07/12/2024 At any time in the past 12 m [facility], were you homeless or living in a senior living (including now)? No 07/12/2024 Personal Safety Answer Date Recorded Have you ever been in or are you currently in a harmful physical or emotional relationship or is someone making you feel afraid or unsafe? 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 Gender Identity Not on file Sexual Orientation Not on file Obstetrics History Para Term AB IAB SAB Ectopic Multiple Livin g Live Births 3 3 3 Date Outcome GA Total Labor Labor/2nd/3rd Weight Sex Type Anes PTL Brabara A1 A5 Name Clin Term Term Term Last Filed Vital Signs Vital Sign Reading Time Taken Comments Blood Pressure 119/79 01/12/2025 9:03 AM CDT Pulse 92 01/12/2025 9:03 AM CDT Temperature 36.6 C (97.9 F) 07/16/2024 9:22 AM GAS ENGINE MECHANIC Respiratory Rate 18 07/16/2024 9:22 AM GAS ENGINE MECHANIC Oxygen Saturation 98% 01/12/2025 9:03 AM CDT Inhaled Oxygen Concentration - - Weight 82.1 kg (181 lb) 01/12/2025 9:03 AM CDT Height 170.2 cm (5' 7) 01/12/2025 9:03 AM CDT Body Mass Index 28.35 01/12/2025 9:03 AM CDT Plan of Treatment Health Maintenance Due Date Last Done Comments Colon Cancer Screening-Colonoscopy 1965 Depression Screening 1965 Hepatitis C Screening 1965 Hepatitis B Screening 01/13/1982 Regular Well Visit/Exam 18-64 01/13/1982 Zoster Vaccine (1 of 2) 01/13/2014 Influenza Vaccine (#1) 2025 9, 06/04/2018, 06/23/2017, Additional history exists Breast Cancer Screening-Mammogram 12/16/2025 12/16/2024, 12/16/2024, 12/10/2023, Additional history exists DTaP/Tdap/Td Vaccine (3 - Td or Tdap) 11/19/2032 11/19/2022, 07/14/2012 Pneumococcal vaccine <65 Aged Out 020, 12/04/2014, 04/08/2014 No longer eligible based on patient's age to complete this topic Medical Devices Implanted Type Area Process Expert Device Identifier Shelf Expiration Date Model / Serial / Lot Integra Lifesciences Jeanmarie Duragen Plus 3x1in Patch Resorbable Suturable Cranial Dura Graft Dp-1013 - [id number] Implanted:Qty: 1 on 06/18/2024 by Vern Wilkinson MD at [facility] N/A: Spine Lumbar Integra Lifesciences Jeanmarie 01/08/2027 [id number] / / [id number] Orthofix Spinal Implants Cage Spinal Lumbar 0 Degree Plif Forza [id number] Titanium 38-2111sp - [id number] Implanted:Qty: 1 on 06/18/2024 by Vern Wilkinson MD at [facility] N/A: Spine Lumbar Orthofix Spinal Implants [id number] 03/22/2026 [id number] / / [id number] Surgalign Spine Technologies Screw Spinal Pedicle Cannulated Streamline Titanium -Setscrew - [id number] Implanted:Qty: 8 on 06/18/2024 by Vern Wiklinson MD at [facility] N/A: Spine Lumbar SURGALIGN SPINE TECHNOLOGIES -SETSCR EW / / Surgalign Spine Technologies Screw Spinal Pedicle Polyaxial Self Tapping Full Thread Solid Streamline 6.5x50mm Titanium -50 - [id number] Implanted:Qty: 2 on 06/18/2024 by Vern Wilkinson MD at [facility] N/A: Spine Lumbar SURGALIGN SPINE TECHNOLOGIES 50 / / Surgalign Spine Technologies Dayo Spinal Thoracolumbar Prebent Quantum [id number] Titanium 97-77-Sr-110 - [id number] Implanted:Qty: 1 on 06/18/2024 by Vern Wilkinson MD at [facility] N/A: Spine Lumbar SURGALIGN SPINE TECHNOLOGIES -DE- 110 / / Surgalign Spine Technologies Dayo Spinal Thoracolumbar Prebent Quantum 5.2s209vk Titanium 91-37-Rc-100 - [id number] Implanted:Qty: 1 on 06/18/2024 by Vern Wilkinson MD at [facility] N/A: Spine Lumbar SURGALIGN SPINE TECHNOLOGIES DE- 100 / / Biocomposites Stimulan Rapid Cure Kit Paste Cosmetic Manager 5cc 12.5cc Bone Void 620-005 - [id number] Implanted:Qty: 1 on 06/18/2024 by Vern Wilkinson MD at [facility] N/A: Spine Lumbar Biocomposites [id number] 03/10/2026 620-005 / / [id number] DDS Jeanmarie Duragen Plus 3x1in Patch Resorbable Suturable Cranial Dura Graft Dp-1013 - [id number] Implanted:Qty: 1 on 06/28/2024 by Robert Ervin MD at [facility] Planet DDS Jeanmarie 12/08/2026 [id number] / / [id number] Procedures Procedure Name Priority Date/Time Associated Diagnosis Comments DE REMOVAL IMPACTED CERUMEN INSTRUMENTATION UNILAT Routine 05/18/2025 9:15 AM CDT Impacted cerumen of left ear SCREENING MAMMOGRAM BILATERAL W DARNELL Schedule Routine, Read Routine (OP Routine) 01/26/2022 12:56 PM CDT Screening mammogram, encounter for from Last 3 Months or Most Recently Relevant to Health Maintenance Results * DE REMOVAL IMPACTED CERUMEN INSTRUMENTATION UNILAT (05/18/2025 9:15 AM CDT) Narrative Cindy Ann DO - 05/18/2025 9:15 AM CDT Cindy Ann DO 05/18/2025 4:12 PM Ear Cerumen Removal Performed by: Cindy Ann DO Authorized by: Cindy Ann DO Consent Given by: Patient Timeout: prior to procedure the correct patient, procedure, and site was verified Verbal consent obtained: Yes Written consent obtained: No Risks, alternatives, and patient questions discussed: Yes Preparation: Patient was prepped using a clean technique Location: L ear L ear cerumen impacted?: Yes L ear method of removal: Instrumentation and magnification L ear instrumentation: Curette L ear magnification: Operating microscope Inspection: TM intact Hearing quality: Improved Patient tolerance: Patient tolerated the procedure well with no immediate complications Cindy Ann DO IN CLINIC/BEDSIDE ORDERABLES Final Result * Screening Mammogram Bilateral W Darnell (01/26/2022 12:56 PM CDT) Anatomical Region Laterality Modality Breast Bilateral Mammography 01/28/2022 10:4 0 AM CDT Impressions 01/28/2022 10:40 AM CDT There is no mammographic evidence of malignancy. A 1 year screening mammogram is recommended. BI-RADS: 1 - Negative. The patient has been or will be contacted. The patient will be entered into a reminder system with a target due date of 1 year for her next mammogram. Electronically signed by: Jese Borden M.D. Narrative 01/28/2022 10:40 AM CDT EXAMINATION: SCREENING MAMMOGRAM BILATERAL W DARNELL ORDERING HEALTHCARE PROVIDER: SELF SCREENING MAMMOGRAM HISTORY: Routine screening mammography. COMPARISON: 10/11/2020, 02/19/2019, 09/01/2017, 03/26/2016 TECHNIQUE: Cleavage, CC and MLO views of the bilateral breasts were obtained with digital technique using breast tomosynthesis with C view. Computer aided detection was utilized. FINDINGS: DENSITY: The tissue of the bilateral breasts is almost entirely fatty. BREASTS: There are no suspicious masses, suspicious calcifications, or other suspicious findings in either breast. There has been no suspicious interval change. us Self Screening Mammogram IMG MAMMO PROCEDURES Fi nal Result from Last 3 Months or Most Recently Relevant to Health Maintenance Insurance [facility] Advance Directives For more information, please contact: [phone] Documents on File Type Date Recorded Patient Digital Marketing Consultant Expl anation ADVANCE DIRECTIVE 07/19/2024 12:49 PM GISELL R OF [employer] ADVANCE DIRECTIVE 07/15/2024 2:04 PM POWER OF [employer] * LIMITED - No CPR (Latest Code Status on File) Date Activated Date Inactivated Comments 07/14/2024 2:43 PM 07/16/2024 8:11 PM Question Answer Comments Provide aggressive medical m anagement before a full cardiopulmonary arrest occurs. Use antibiotics, IV Fluids, and medical treatment unless specifically selected below: No intubation * Full Code Date Activated Date Inactivated Comments 07/12/2024 1:48 AM 07/14/2024 2:43 PM * Full Code Date Activated Date Inactivated Comments 06/28/2024 6:02 PM 07/03/2024 9:03 PM * Full Code Date Activated Date Inactivated Comments 06/18/2024 2:29 PM 06/28/2024 6:02 PM Care Teams Congressional District Aide Relationship Specialty Start Date End Date Onelia Lagunas DO [address] [address] PCP - General Family Medicine 05/18/25 Vern Wilkinson MD Consulting Physician Neurosurgery 07/03/24 [place] [address] [address] [place] [address] [address] Consulting Physician Infectious Diseases 07/16/24
--- OUTSIDE RECORDS SUMMARY | 2025-06-08 10:33 | XMS_ITS | Encounter Summary ---
Author Organization [facility] Address [address] [place] [address] Care Team Providers Care Web Application Tester Name Role Phone Delroy Aragon MD Primary Care Provider [phone] Encounter Details Date Type Department Care Team (Late st Contact Info) Description 05/10/2004 Outpatient Historical [facility] Internal Medicine [address] [phone] Delroy Aragon MD [address] [place] [phone] Social History Tobacco Use Types Packs/Day Years Used Date Smoking Tobacco: Never Assessed Comments Unknown Sex and Gender Information Value Date Recorded Sex Assigned at Not on file 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 Gender Identity Not on file Sexual Orientation Not on file documented as of this encounter Last Filed Vital Signs Vital Sign Reading Time Taken Comments Blood Pressure 150/80 05/10/2004 1:00 PM CDT Pulse - - Temperature - - Respiratory Rate - - Oxygen Saturation - - Inhaled Oxygen Concentration - - Weight - - Height - - Body Mass Index - - documented in this encounter Plan of Treatment Not on file documented as of this encounter Visit Diagnoses Not on filedocumented in this encounter Care Teams Web Application Tester Relationship Specialty Start Date End Date Delroy Aragon MD [address] [place] [phone] PCP - General 03/14/05 documented as of this encounter
--- OUTSIDE RECORDS SUMMARY | 2025-06-08 10:33 | XMS_ITS | Encounter Summary ---
Author Organization [facility] Address [address] [place] [address] Care Team Providers Care Efficiency Miner Blasting Name Role Phone Delroy Aragon MD Primary Care Provider [phone] Encounter Details Date Type Department Care Team (Late st Contact Info) Description 03/30/2004 Outpatient Historical [facility] Internal Medicine [address] [phone] Delroy Aragon MD [address] [place] [phone] Social History Tobacco Use Types Packs/Day Years Used Date Smoking Tobacco: Never Assessed Comments Unknown Sex and Gender Information Value Date Recorded Sex Assigned at Not on file 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 Gender Identity Not on file Sexual Orientation Not on file documented as of this encounter Last Filed Vital Signs Vital Sign Reading Time Taken Comments Blood Pressure 124/70 03/30/2004 9:00 AM CDT Pulse - - Temperature - - Respiratory Rate - - Oxygen Saturation - - Inhaled Oxygen Concentration - - Weight - - Height - - Body Mass Index - - documented in this encounter Plan of Treatment Not on file documented as of this encounter Visit Diagnoses Not on filedocumented in this encounter Care Teams Efficiency Miner Blasting Relationship Specialty Start Date End Date Delroy Aragon MD [address] [place] [phone] PCP - General 03/14/05 documented as of this encounter
--- OUTSIDE RECORDS SUMMARY | 2025-06-08 10:33 | XMS_ITS | Encounter Summary ---
Author Organization [employer] Address [address] [place] [address] Care Team Providers Care Alternative Financing Specialist Name Role Phone Delroy Aragon MD Primary Care Provider [phone] Encounter Details Date Type Department Care Team (Late st Contact Info) Description 03/29/2005 Outpatient Historical [facility] Bessie Claire MD 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 Gender Identity Not on file Sexual Orientation Not on file documented as of this encounter Plan of Treatment Not on file documented as of this encounter Procedures Procedure Name Priority Date/Time Associated Diagnosis Comments HEMOGLOBIN AND HEMATOCRIT Routine 03/29/2005 9:48 AM CDT COMPREHENSIVE METABOLIC PANEL Routine 03/29/2005 9:48 AM CDT documented in this encounter Results * (ABNORMAL) COMPREHENSIVE METABOLIC PANEL (03/29/2005 9:48 AM CDT) GLUCOSE 97 65 - 109 mg/dL INTERFACE SYSTEM CREATININE 0.7 0.4 - 1.2 mg/dL INTERFACE SYSTEM CALCIUM 9.3 8.6 - 10.2 mg/dL INTERFACE SYSTEM AST 23 12 - 32 U/L INTERFACE SYSTEM ALKALINE PHOSPHATASE 85 35 - 104 U/L INTERFACE SYSTEM BUN 15 6 - 20 mg/dL INTERFACE SYSTEM BILIRUBIN TOTAL 0.4 0.2 - 1.0 mg/dL INTERFACE SYSTEM ALBUMIN 4.2 3.4 - 4.8 g/dL INTERFACE SYSTEM TOTAL PROTEIN 7.1 6.3 - 8.6 g/dL INTERFACE SYSTEM ALT 36(H) 0 - 31 U/L INTERFACE SYSTEM SODIUM 143 135 - 145 mmol/L INTERFACE SYSTEM POTASSIUM 4.6 3.5 - 4.9 mmol/L INTERFACE SYSTEM CHLORIDE 106 96 - 108 mmol/L INTERFACE SYSTEM CO2 31(H) 22 - 30 mmol/L INTERFACE SYSTEM 03/29/2005 9:48 AM CDT us Bessie Claire MD CHEMISTRY ORDERABLES Final R esult Performing Organization Address City/[facility] Co de Phone Number INTERFACE SYSTEM Refer to clinic/hospital department * HEMOGLOBIN AND HEMATOCRIT (03/29/2005 9:48 AM CDT) HEMOGLOBIN 14.5 11.8 - 14.8 g/dL INTERFACE SYSTEM HEMATOCRIT 42.7 35.5 - 44.0 % INTERFACE SYSTEM 03/29/2005 9:48 AM CDT us Bessie Claire MD HEMATOLOGY ORDERABLES Final Result Performing Organization Address City/[facility] Co de Phone Number INTERFACE SYSTEM Refer to clinic/hospital department documented in this encounter Visit Diagnoses Diagnosis Calculus of gallbladder with other cholecystitis, without mention of obstruction- Primary documented in this encounter Care Teams Alternative Financing Specialist Relationship Specialty Start Date End Date Delroy Aragon MD [address] [place] [address] PCP - General 03/14/05 documented as of this encounter
--- OUTSIDE RECORDS SUMMARY | 2025-06-08 10:33 | XMS_ITS | Encounter Summary ---
Author Organization [facility] Address [address] [place] [address] Care Team Providers Care Supervisor Assembly Department Name Role Phone Delroy Aragon MD Primary Care Provider [phone] Encounter Details Date Type Department Care Team (Late st Contact Info) Description 04/02/2006 Outpatient Historical [facility] Izaiah Doss MD [address] [facility] [address] [place] [address] Unspecified Hemorrhoids without Mention of Complication (Primary Dx) Social History Tobacco Use Types Packs/Day Years Used Date Smoking Tobacco: Never Assessed Comments Unknown Sex and Gender Information Value Date Recorded Sex Assigned at Not on file 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
--- OUTSIDE RECORDS SUMMARY | 2025-06-08 10:33 | XMS_ITS | Encounter Summary ---
Author Organization [facility] Address [address] [place] [address] Care Team Providers Care Fisher Line Name Role Phone Delroy Aragon MD Primary Care Provider Encounter Details Date Type Department Care Team (Late st Contact Info) Description 12/24/2005 Orders Only [facility] Internal Medicine [address] [address] Delroy Aragon MD [address] [place] [address] Social History Tobacco Use Types Packs/Day Years Used Date Smoking Tobacco: Never Assessed Comments Unknown Sex and Gender Information Value Date Recorded Sex Assigned at Not on file Legal Sex Female 5:10 AM HIDE TANNER Gender Identity Not on file Sexual Orientation Not on file documented as of this encounter Progress Notes * Delroy Aragon MD - 05/20/2008 4:34 AM CDT BLOOD PRESSURE: 120/70 Right Arm Sitting NURSE NAME: Candace Saloni, R CHIEF COMPLAINT c/o diarrhea HISTORY: diarrhea since gb out HISTORY: 729.1-FIBROMYALGIA The patient's myalgia remains stable. PHYSICAL EXAMINATION: CONSTITUTIONAL: GENERAL APPEARANCE: Healthy appearing patient in no distress. NECK/THYROID: Trachea midline. No thyroid enlargement, tenderness, or mass. No supraclavicular or cervical adenopathy. RESPIRATORY: Clear to auscultation and percussion. Normal respiratory effort. CARDIOVASCULAR: CARDIAC: Regular rhythm. No murmurs, rubs, or gallops. ARTERIAL: Aortic pulses of normal amplitude with no bruits. EDEMA/VARICOSITIES OF EXTREMITIES: No edema or varicosities. GASTROINTESTINAL: ABDOMEN: Soft, non-tender, without masses. Bowel sounds active. LIVER/SPLEEN/KIDNEY: No hepatosplenomegaly, tenderness or nodularity. Kidneys not palpable. ASSESSMENT/PLAN: 729.1-FIBROMYALGIA stable 787.91-DIARRHEA try rx, reassess MEDICATIONS: AMITRIPTYLINE HCL ORAL TABLET 10 MG, 1 Every Day At Bedtime, 30 Dispensed, status: NEW PRESCRIPTION, 12/24/2005. LEVSIN/SL SUBLINGUAL TABLET SUBLINGUAL 0.125 MG, 1 Every Six Hours, As Needed, 40 Dispensed, 2 Fills, status: NEW PRESCRIPTION, 12/24/2005. RETURN VISIT : Instructed to call if not improving. Electronically Signed by: Delroy Aragon MD on Saturday, December 24, 2005 documented in this encounter Plan of Treatment Not on file documented as of this encounter Visit Diagnoses Not on filedocumented in this encounter Care Teams Fisher Line Relationship Specialty Start Date End Date Delroy Aragon MD [address] [place] [address] PCP - General 03/14/05 documented as of this encounter
--- OUTSIDE RECORDS SUMMARY | 2025-06-08 10:33 | XMS_ITS | Encounter Summary ---
Author Organization [facility] Address [address] [place] [address] Care Team Providers Care Elementary School Art Teacher Name Role Phone Delroy Aragon MD Primary Care Provider [phone] Encounter Details Date Type Department Care Team (Late st Contact Info) Description 11/02/2007 Orders Only [facility] Internal Medicine [address] [place] [address] [address] Delroy Aragon MD [address] [place] [address] Social History Tobacco Use Types Packs/Day Years Used Date Smoking Tobacco: Never Assessed Comments Unknown Sex and Gender Information Value Date Recorded Sex Assigned at Not on file Legal Sex Female 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 HISTORY: 4-5 d inc cough stephon wheeze, sinus drainage, fatigue PHYSICAL EXAMINATION: EARS, NOSE, MOUTH AND THROAT: EARS: EFFUSION PRESENT BILATERALLY, TYMPANIC MEMBRANES INFLAMED BILATERALLY. ORAL: OROPHARYNX ERYTHEMATOUS. NECK/THYROID: Trachea midline. No thyroid enlargement, tenderness, or mass. No supraclavicular or cervical adenopathy. RESPIRATORY: EXPIRATORY WHEEZE BILATERALLY. CARDIOVASCULAR: CARDIAC: Regular rhythm. No murmurs, rubs, or gallops. EDEMA/VARICOSITIES OF EXTREMITIES: No edema or varicosities. ASSESSMENT/PLAN: 278.00-OBESITY UNSPECIFIED discussed, ptlooking into procedure 461.9-SINUSITIS UNSPECIFIED rx 466.0-BRONCHITIS ACUTE rx, rec pnvx at fu , yrly flu vaccine MEDICATIONS: MEDROL (TAWANNA) ORAL TABLET 4 MG, DIRECTED, 1 Dispensed, status: NEW PRESCRIPTION, 11/02/2007. LEVAQUIN ORAL TABLET 500 MG, 1 Every Morning, 10 Dispensed, status: NEW PRESCRIPTION, 11/02/2007. ADVAIR DISKUS INHALATION MISCELLANEOUS 100-50 MCG/DOSE, 1 Two Times A Day, 1 Dispensed, status: NEWPRESCRIPTION, 11/02/2007. [facility]ING [facility] Education: Risks, benefits, and possible side effects of medication(s) were reviewed with the patient. The patient was allowed to ask questions to stated satisfaction. RETURN VISIT : Instructed to call if not improving. Electronically Signed by: Delroy Aragon MD on Friday, November 02, 2007 documented in this encounter Plan of Treatment Not on file documented as of this encounter Visit Diagnoses Not on filedocumented in this encounter Care Teams Elementary [employer] Art Teacher Relationship Specialty Start Date End Date Delroy Aragon MD [address] [place] [address] PCP - General 03/14/05 documented as of this encounter
--- OUTSIDE RECORDS SUMMARY | 2025-06-08 10:33 | XMS_ITS | Encounter Summary ---
Author Organization [facility] Address [address] [place] [address] Care Team Providers Care Assembly Supervisor Name Role Phone Delroy Aragon MD Primary Care Provider [phone] Encounter Details Date Type Department Care Team (Late st Contact Info) Description 11/02/2007 Outpatient Historical [facility] Internal Medicine [address] [address] Delroy Aragon MD [address] 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
--- OUTSIDE RECORDS SUMMARY | 2025-06-08 10:33 | XMS_ITS | Encounter Summary ---
Author Organization [facility] Address [address] [place] [address] Phone Care Team Providers Care Curtain Fitter Name Role Phone Logan Acuna MD Unavailable Mars Marti APRN, RESPIRATORY CARE FACULTY Unavailable [phone] Onelia Lagunas DO Primary Care Provider [phone] Jones Christy MD Unavailable [phone] Shamar Rosales MD Unavailable Encounter Details Date Type Department Care Team (Late st Contact Info) Description 06/02/2025 Results Follow-Up [facility] - Family Medicine [facility] [address] [place] [phone] Eloisa Beaulieu, ASSURANCE AUDITOR, RESPIRATORY CARE FACULTY [address] [place] [address] LIPID PANEL Social History Tobacco Use Types Packs/Day Years Used Date Smoking Tobacco: Never Smokeless Tobacco: Never Alcohol Use Standard Drinks/Week Comments No 0 (1 standard drink = 0.6 oz pur e alcohol) [facility] Utilities Answer Date Recorded In the past [...] often do you attend chur ch or alevism services? More than 4 times per year 09/14/2024 Do you belong to any clubs o r organizations such as mosque groups, unions, fraternal or athletic groups, or [...] Total Score - Questions 1-9 0 04/12 [facility] - [...] any time in the past 12 [facility], were you homeless or living in a residential (including now)? No 09/14/2024 Sexually Active Control Partners Comments Yes Post-menopausal, Surgical Male Comments No Sex and Gender Information Value Date Recorded Sex Assigned at Female 08/07/2023 10:22 AM CUFF PRESSER Legal Sex Female 12:40 AM CDT Gender Identity Female 08/07/2023 10:22 AM CUFF PRESSER Sexual Orientation Straight 08/07/2023 10 :22 AM CUFF PRESSER documented as of this encounter Plan of Treatment Upcoming Encounters Date Type Department Care Team (Late st Contact Info) Description 06/09/2025 9:30 AM CDT Office Visit [facility] - Gastroenterology [facility] [address] [place] [address] Blaise Dill MD 2 [facility] [address] [address] 06/13/2025 10:45 AM CUFF PRESSER [facility] [address] [address] Onelia Lagunas, DO 2 [facility] [address] [place] [address] Jones Christy MD #2 [facility] [place] [address] 07/20/2025 8:15 AM CUFF PRESSER Office Visit [facility] - Endocrinology - [place] #[facility] [place] [address] Onelia Lagunas, DO 2 [facility] [address] [place] [address] Henry Bernabe MD #2 [facility] [phone] 09/05/2025 8:00 AM CUFF PRESSER Office Visit [facility] - Family Medicine - [place] [address] [facility] [place] [address] Onelia Lagunas, DO 2 [facility] [place] [address] [address] 09/28/2025 8:30 AM CUFF PRESSER Office Visit [facility] - Cardiology - [place] #2 [facility] [address] Shamar Rosales MD [address] [id number] documented as of this encounter Visit Diagnoses Not on filedocumented in this encounter Additional Health Concerns Assessment Noted Time PHQ-9 Depression Total Score: 0 05/02/20 25 8:56 AM CDT documented as of this encounter Care Teams Curtain Fitter Relationship Specialty Start Date End Date Onelia LagunasDO 2 [facility] [address] [place] [address] PCP - General Family Medicine 03/09/24 Logan Acuna MD #[address] [address] Consulting Physician Colon and Rectal Surgery 10/15/23 Mars Marti, ASSURANCE AUDITOR, RESPIRATORY CARE FACULTY #2 [place] [address] Nurse Practitioner Advanced Practice Nurse 02/10/24 Jones Christy MD #2 [place] [phone] Consulting Physician Neurology 04/30/24 Shamar Rosales MD [address] [address] Consulting Physician Cardiovascular Disease - Cardiology 03/24/25 documented as of this encounter
--- OUTSIDE RECORDS SUMMARY | 2025-06-08 10:33 | XMS_ITS | Encounter Summary ---
Author Organization [facility] Address [address] [place] [address] Care Team Providers Care Forest Fire Warden Name Role Phone Delroy Aragon MD Primary Care Provider [phone] Encounter Details Date Type Department Care Team (Late st Contact Info) Description 09/15/2007 Outpatient Historical [facility] Internal Medicine [address] [address] Delroy Aragon MD 7 [facility][1] [address] [place] [address] Social History Tobacco Use Types Packs/Day Years Used Date Smoking Tobacco: Never Assessed Comments Unknown Sex and Gender Information Value Date Recorded Sex Assigned at Not on file Legal Sex Female 5:10 AM REPORTS ANALYSIS MANAGER Gender Identity Not on file Sexual Orientation Not on file documented as of this encounter Plan of Treatment Not on file documented as of this encounter Visit Diagnoses Not on filedocumented in this encounter Care Teams Forest Fire Warden Relationship Specialty Start Date End Date Delroy Aragon MD [address] [place] [address] [address] [place] [address] PCP - General 03/14/05 documented as of this encounter
--- OUTSIDE RECORDS SUMMARY | 2025-06-08 10:33 | XMS_ITS | Encounter Summary ---
Author Organization [facility] Address [address] [place] [address] Care Team Providers Care Deicer Repairer Electric Name Role Phone Delroy Aragon MD Primary Care Provider [phone] Encounter Details Date Type Department Care Team (Late st Contact Info) Description 05/20/2005 Outpatient Historical [facility] Internal Medicine [address] [address] Delroy Aragon MD [address] [place] [address] Social History Tobacco Use Types Packs/Day Years Used Date Smoking Tobacco: Never Assessed Comments Unknown Sex and Gender Information Value Date Recorded Sex Assigned at Not on file Legal Sex Female 5:10 AM DIRECTOR OF OCCUPATIONAL THERAPY Gender Identity Not on file Sexual Orientation Not on file documented as of this encounter Last Filed Vital Signs Vital Sign Reading Time Taken Comments Blood Pressure 112/70 05/20/2005 4:30 PM CDT Pulse - - Temperature - - Respiratory Rate - - Oxygen Saturation - - Inhaled Oxygen Concentration - - Weight 115.7 kg (255 lb) 05/20/2005 4:30 PM CDT Height - - Body Mass Index - - documented in this encounter Plan of Treatment Not on file documented as of this encounter Visit Diagnoses Not on filedocumented in this encounter Care Teams Deicer Repairer Electric Relationship Specialty Start Date End Date Delroy Aragon MD [address] [place] [address] [address] [place] [address] PCP - General 03/14/05 documented as of this encounter
--- OUTSIDE RECORDS SUMMARY | 2025-06-08 10:33 | XMS_ITS | Encounter Summary ---
Author Organization [facility] Address [address] [place] [address] Care Team Providers Care Offset Pressman Name Role Phone Delroy Aragon MD Primary Care Provider [phone] Encounter Details Date Type Department Care Team (Late st Contact Info) Description 10/19/2007 Outpatient Historical [facility] Internal Medicine [address] [address] Delroy Aragon MD [address] [place] [address] Social History Tobacco Use Types Packs/Day Years Used Date Smoking Tobacco: Never Assessed Comments Unknown Sex and Gender Information Value Date Recorded Sex Assigned at Not on file Legal Sex Female 5:10 AM GEOLOGICAL MANAGER Gender Identity Not on file Sexual Orientation Not on file documented as of this encounter Last Filed Vital Signs Vital Sign Reading Time Taken Comments Blood Pressure 140/80 10/19/2007 4:15 PM CDT Pulse - - Temperature - - Respiratory Rate - - Oxygen Saturation - - Inhaled Oxygen Concentration - - Weight 130.6 kg (288 lb) 10/19/2007 4:15 PM CDT Height - - Body Mass Index - - documented in this encounter Plan of Treatment Not on file documented as of this encounter Visit Diagnoses Not on filedocumented in this encounter Care Teams Offset Pressman Relationship Specialty Start Date End Date Delroy Aragon MD [address] [place] [address] PCP - General 03/14/05 documented as of this encounter
--- OUTSIDE RECORDS SUMMARY | 2025-06-08 10:33 | XMS_ITS | Encounter Summary ---
Author Organization [facility] Address [address] [place] [address] Care Team Providers Care Preservationist Name Role Phone Delroy Aragon MD Primary Care Provider [phone] Encounter Details Date Type Department Care Team (Late st Contact Info) Description 09/15/2007 Outpatient Historical [facility] Internal Medicine [address] [address] Delroy Aragon MD 7 [facility] [address] [place] [address] Social History Tobacco Use Types Packs/Day Years Used Date Smoking Tobacco: Never Assessed Comments Unknown Sex and Gender Information Value Date Recorded Sex Assigned at Not on file Legal Sex Female 5:10 AM COLLABORATING SUPERVISING PHYSICIAN Gender Identity Not on file Sexual Orientation Not on file documented as of this encounter Plan of Treatment Not on file documented as of this encounter Visit Diagnoses Not on filedocumented in this encounter Care Teams Preservationist Relationship Specialty Start Date End Date Delroy Aragon MD [address] [place] [address] [address] [place] [address] PCP - General 03/14/05 documented as of this encounter
--- OUTSIDE RECORDS SUMMARY | 2025-06-08 10:33 | XMS_ITS | Encounter Summary ---
Author Organization [facility] Address [address] [place] [address] Care Team Providers Care Equity Manager Name Role Phone Delroy Aragon MD Primary Care Provider [phone] Encounter Details Date Type Department Care Team (Late st Contact Info) Description 12/24/2005 Outpatient Historical [facility] Internal Medicine [address] [phone] Delroy Aragon MD [address] [place] [phone] Social History Tobacco Use Types Packs/Day Years Used Date Smoking Tobacco: Never Assessed Comments Unknown Sex and Gender Information Value Date Recorded Sex Assigned at Not on file Legal Sex Female 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 Gender Identity Not on file Sexual Orientation Not on file documented as of this encounter Last Filed Vital Signs Vital Sign Reading Time Taken Comments Blood Pressure 120/70 12/24/2005 4:30 PM CDT Pulse - - Temperature - - Respiratory Rate - - Oxygen Saturation - - Inhaled Oxygen Concentration - - Weight - - Height - - Body Mass Index - - documented in this encounter Plan of Treatment Not on file documented as of this encounter Visit Diagnoses Not on filedocumented in this encounter Care Teams Equity Manager Relationship Specialty Start Date End Date Delroy Aragon MD [address] [place] [phone] PCP - General 03/14/05 documented as of this encounter
--- OUTSIDE RECORDS SUMMARY | 2025-06-08 10:33 | XMS_ITS | Encounter Summary ---
Author Organization [facility] Address [address] [place] [address] Care Team Providers Care Jute Bag Sewer Name Role Phone Delroy Aragon MD Primary Care Provider [phone] Encounter Details Date Type Department Care Team (Late st Contact Info) Description 09/21/2007 Orders Only [facility] Internal Medicine [address] [address] Delroy Aragon MD [address] [place] [address] Social History Tobacco Use Types Packs/Day Years Used Date Smoking Tobacco: Never Assessed Comments Unknown Sex and Gender Information Value Date Recorded Sex Assigned at Not on file Legal Sex Female 5:10 AM HOME DEMONSTRATION AGENT Gender Identity Not on file Sexual Orientation Not on file documented as of this encounter Progress Notes * Delroy Aragon MD - 12/23/2007 12:19 PM CDT WHO TOOK THE CALL: Delroy Aragon M TIME:12:24 pm madelyn 09/21/07 12:24 pm ADDITIONAL TEST REQUESTS/ORDERS: . 466.0-BRONCHITIS ACUTE LAB ORDERS: Order number: [id number] Test Ordered: XRAY CHEST (2 VIEWS) lucijraj 09/21/07 03:49 pm STAFF FOLLOW UP: . patient given order- had xray done at [facility] Electronically Signed by: June Carter on Friday, September 21, 2007 documented in this encounter Plan of Treatment Not on file documented as of this encounter Visit Diagnoses Not on filedocumented in this encounter Care Teams Jute Bag Sewer Relationship Specialty Start Date End Date Delroy Aragon MD [address] [place] [address] PCP - General 03/14/05 documented as of this encounter
--- OUTSIDE RECORDS SUMMARY | 2025-06-08 10:33 | XMS_ITS | Encounter Summary ---
Author Organization [facility] Address [address] [place] [address] Care Team Providers Care Shearer Helper Name Role Phone Juan Diego Miramontes MD Primary Care Provider [phone] Encounter Details Date Type Department Care Team (Late st Contact Info) Description 09/15/2007 Orders Only [facility] Internal Medicine [address] [address] Juan Diego Miramontes MD [address] [place] [phone] Social History Tobacco Use Types Packs/Day Years Used Date Smoking Tobacco: Never Assessed Comments Unknown Sex and Gender Information Value Date Recorded Sex Assigned at Not on file Legal Sex Female 5:10 AM LIFE SCIENTIST Gender Identity Not on file Sexual Orientation Not on file documented as of this encounter Progress Notes * Juan Diego Miramontes MD - 12/23/2007 10:39 AM CDT CENTRAL TEST SCHEDULING DATE: SEP 15, 2007 Note created by: Ela Sommer L 10:31 a Patient Name : KARI LEÓN Address: [address] [place] [address]. [address] D.O.B: 1965 SSN: [id number] Parent/Guardian if applicable: Patient Insurance: ID#: Group#: ORDER(S) #: [id number] Upper extremity Right [id number] Upper extremity Left BEST TO CALL [phone] BEST TIME TO CALL: ANYTIME. MAY WE LEAVE MESSAGE AT THAT NUMBER: YES, LEAVE MESSAGE. PLEASE SCHEDULE THE APPOINTMENT AT THE FOLLOWING LOCATION: TEST SCHEDULE OTHER [facility] [phone]. TEST PRIORITY: 2 - 7 DAYS. SPECIAL SCHEDULING INSTRUCTIONS: needs prep ORDERING PHYSICIAN: JUAN DIEGO MIRAMONTES MD OFFICE GAMING COMMISSIONER & PHONE: Ela Sommer L ORDER PRINTED BY: SEP 21, 2007 Sandeep Almeida L 08:39 a FOR SCHEDULING USE ONLY: FIRST ATTEMPT Date:SEP 21, 2007 Sandeep Almeida L 09:10 a SEP 21, 2007 Sandeep Almeida L 09:10 a [facility] [phone]. APPOINTMENT DATE : 09/23/2007 ( 9AM) The appointment was scheduled by Sandeep Almeida L at [phone] *.[facility] Follow up completed. * Juan Diego Miramontes MD - 12/23/2007 10:39 AM CDT CENTRAL TEST SCHEDULING DATE: SEP 15, 2007 Note created by: Ela Sommer L 10:28 a Patient Name : KARI LEÓN Address: [address] [place] [address] D.O.B: 1965 N: [id number] Parent/Guardian if applicable: Patient Insurance: ID#: Group#: * Juan Diego Miramontes MD - 12/23/2007 10:39 AM CDT BLOOD PRESSURE: 130/88 Right Arm Sitting TEMPERATURE: 36.83??c Oral NURSE NAME: Saloni Maria R TOBACCO USE Patient does not currently use tobacco. CHIEF COMPLAINT Patient complains of congestion, cough, fever. HISTORY: HISTORY: 311-DEPRESSION The depression remains stable. Currently the patient is off all medication. 354.0-CARPAL TUNNEL SYNDROME few months hands with pain tingling 796.2-BLOOD PRESSURE ELEVATED W/O DX OF HTN The patient denies chest pain, shortness of breath, dyspnea on exertion, pedal edema, or headache. Currently the patient is off all medication. 714.0-RHEUMATOID ARTHRITIS occ pain off med, non comp with fu 461.9-SINUSITIS UNSPECIFIED 4-5 days sinus stephon drainage cough ROS: ENDOCRINE: No heat or cold intolerance, no excessive thirst. CARDIAC: No chest pain, palpitations, orthopnea, dyspnea on exertion, or paroxysmal nocturnal dyspnea. RESPIRATORY: HAS A COUGH. : No frequency, urgency, hematuria or dysuria. GI: No abdominal pain, nausea, vomiting, diarrhea, constipation, melena, or hematochezia. PAST MEDICAL HISTORY: reviewed SOCIAL HISTORY: TOBACCO USE: Has no significant smoking history. DISCUSSED SMOKING: neg. PHYSICAL EXAMINATION: CONSTITUTIONAL: GENERAL APPEARANCE: Healthy appearing patient in no distress. EARS, NOSE, MOUTH AND THROAT: EARS: EFFUSION PRESENT BILATERALLY, TYMPANIC MEMBRANES INFLAMED BILATERALLY. ORAL: OROPHARYNX ERYTHEMATOUS. NECK/THYROID: Trachea midline. No thyroid enlargement, tenderness, or mass. No supraclavicular or cervical adenopathy. RESPIRATORY: Clear to auscultation and percussion. Normal respiratory effort. CARDIOVASCULAR: CARDIAC: Regular rhythm. No murmurs, rubs, or gallops. ARTERIAL: No aortic bruits. EDEMA/VARICOSITIES OF EXTREMITIES: No edema or varicosities. GASTROINTESTINAL: ABDOMEN: Soft, non-tender, without masses. Bowel sounds active. LIVER/SPLEEN/KIDNEY: No hepatosplenomegaly, tenderness or nodularity. Kidneys not palpable. MUSCULOSKELETAL EXAM: tinel pos no m wastinf SKIN: SKIN: Warm, dry, no diaphoresis, no significant lesions, irritation, rashes or ulcers. No induration, obvious subcutaneous nodules or tightening. ASSESSMENT/PLAN: 714.0-RHEUMATOID ARTHRITIS recheck lab, enc fu with rheum LAB ORDERS: Order number: [id number] Test Ordered: CBC W/ DIFFERENTIAL 3150 Order number: [id number] Test Ordered: COMPREHENSIVE METABOLIC PANEL & GFR 1112 Order number: [id number] Test Ordered: LIPID PANEL 1078 Order number: [id number] Test Ordered: TSH 1720 Order number: [id number] Test Ordered: VITAMIN B12 LEVEL 1719 796.2-BLOOD PRESSURE ELEVATED W/O DX OF HTN enc diet ex home monitor reassess 354.0-CARPAL TUNNEL SYNDROME LAB ORDERS: Albino Order number: [id number] Test Ordered: NCV/EMG UPPER EXTREMITY RIGHT Order number: [id number] Test Ordered: NCV/EMG UPPER EXTREMITY LEFT 461.9-SINUSITIS UNSPECIFIED MEDICATIONS: ZITHROMAX Z-TAWANNA ORAL TABLET 250 MG, DIRECTED, 1 Dispensed, 1 Fills, status: NEW PRESCRIPTION, 09/15/2007. CHERATUSSIN AC ORAL SYRUP 100-10 MG/5ML, DIRECTED, 7 Duration/Days Supply, status: NEW PRESCRIPTION, 09/15/2007, Comment: 5 cc qid prn. Patient Education: Risks, benefits, and possible side effects of medication(s) were reviewed with the patient. The patient was allowed to ask questions to stated satisfaction, as well as the spouse. RETURN VISIT : Patient instructed to return in 1 month.note off work Fri- Electronically Signed by: Juan Diego Miramontes MD on Saturday, September 15, 2007 documented in this encounter Plan of Treatment Not on file documented as of this encounter Visit Diagnoses Not on filedocumented in this encounter Care Teams Shearer Helper Relationship Specialty Start Date End Date Juan Diego Miramontes MD [address] [place] [phone] PCP - General 03/14/05 documented as of this encounter
--- OUTSIDE RECORDS SUMMARY | 2025-06-08 10:33 | XMS_ITS | Encounter Summary ---
Author Organization [facility] Address [address] [place] [address] Care Team Providers Care Assistant Baseball Coach Name Role Phone Delroy Aragon MD Primary Care Provider [phone] Encounter Details Date Type Department Care Team (Late st Contact Info) Description 09/15/2007 Outpatient Historical 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
--- OUTSIDE RECORDS SUMMARY | 2025-06-08 10:33 | XMS_ITS | Encounter Summary ---
Author Organization [facility] Address [address] [place] [address] Care Team Providers Care Social Media Manager Name Role Phone Delroy Aragon MD Primary Care Provider [phone] Encounter Details Date Type Department Care Team (Late st Contact Info) Description 10/19/2007 Orders Only [facility] Internal Medicine [address] [address] Delroy Aragon MD [address] [place] [phone] Social History Tobacco Use Types Packs/Day Years Used Date Smoking Tobacco: Never Assessed Comments Unknown Sex and Gender Information Value Date Recorded Sex Assigned at Not on file Legal Sex Female 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 CHIEF COMPLAINT Here for follow up evaluation of a prior diagnosis. HISTORY: HISTORY: 278.00-OBESITY UNSPECIFIED difficulty losing wt--failed wt watchers, atkins, slim fast, home gym program, Curves--exercise difficulty due to jt aching and foot pain 354.0-CARPAL TUNNEL SYNDROME reviewed tests, planning rx 715.90-OSTEOARTHROSIS UNSPECIFIED chronic pain worse le 729.1-FIBROMYALGIA chronic pain sx 401.1-HYPERTENSION ESSENTIAL BENIGN still high , running high 788.30-URINARY INCONTINENCE UNSPEC. wears pads, incontinence worse with coug 786.9-SNORING/BREATH HOLDING with fatigue, qu of sleep apnea ROS: GENERAL: FEELS FATIGUED. ENDOCRINE: No heat or cold intolerance, no excessive thirst. CARDIAC: No chest pain, palpitations, orthopnea, dyspnea on exertion, or paroxysmal nocturnal dyspnea. RESPIRATORY: No dyspnea, cough, hemoptysis or wheezing. : HAS STRESS INCONTINENCE. GI: No abdominal pain, nausea, vomiting, diarrhea, constipation, melena, or hematochezia. PAST MEDICAL HISTORY: as above plus rheumatoid arthritis, prev depn--resolved FAMILY HISTORY: father htn, mother dm SOCIAL HISTORY: TOBACCO USE: Has no significant smoking history. DISCUSSED SMOKING: neg. ALCOHOL: Does not give any significant history of alcohol usage. DISCUSSED ALCOHOL: neg. PHYSICAL EXAMINATION: CONSTITUTIONAL: GENERAL APPEARANCE: Healthy appearing patient in no distress. EARS, NOSE, MOUTH AND THROAT: ORAL: Inspection of gums, lips, palate, and teeth normal. No scars, lesions, or masses. Oral mucosaunremarkable with non-inflamed posterior pharynx. NECK/THYROID: Trachea midline. No thyroid enlargement, tenderness, [...] Kidneys not palpable. MUSCULOSKELETAL EXAM: tinel pos rand left no m wasting EXTREMITIES: SKIN: SKIN: Warm, dry, no diaphoresis, no significant lesions, irritation, rashes or ulcers. No induration, obvious subcutaneous nodules or tightening. ASSESSMENT/PLAN: 278.00-OBESITY UNSPECIFIED discussed pros and cons of surgery today. Pt with ongoing increase in wtdespite diet attempts, has been limited in exercise due to jt aching. Feels she is at point of no return with diet and exercise and is considering surgery.At this point risks of obesity outweigh riskof surgery , support her choice to pursue surgical options. 354.0-CARPAL TUNNEL SYNDROME planning rx 401.1-HYPERTENSION ESSENTIAL BENIGN add med MEDICATIONS: DYAZIDE ORAL CAPSULE CONVENTIONAL 37.5-25 MG, 1 Every Day, 30 Dispensed, 4 Fills, status: NEW PRESCRIPTION, 10/19/2007. 788.30-URINARY INCONTINENCE UNSPEC. hold on rx , post hyst 786.9-SNORING/BREATH HOLDING discussed sleep study consider if sx persist 272.4-HYPERLIPIDEMIA MEDICATIONS: PRAVACHOL ORAL TABLET 10 MG, 1 Every Day, 30 Dispensed, 4 Fills, status: NEW PRESCRIPTION, 10/19/2007. LAB ORDERS: 3 mo Order number: [id number] Test Ordered: COMPREHENSIVE METABOLIC PANEL & GFR 1112 Order number: [id number] Test Ordered: LIPID PANEL 1078 RETURN VISIT : Patient instructed to return in 3 months. Electronically Signed by: Delroy Aragon MD on Friday, October 19, 2007 documented in this encounter Plan of Treatment Not on file documented as of this encounter Visit Diagnoses Not on filedocumented in this encounter Care Teams Social Media Manager Relationship Specialty Start Date End Date Delroy Aragon MD [address] [place] [phone] PCP - General 03/14/05 documented as of this encounter
--- OUTSIDE RECORDS SUMMARY | 2025-06-08 10:33 | XMS_ITS | Encounter Summary ---
Author Organization [facility] Address [address] [place] [address] Care Team Providers Care Track Repairer Helper Name Role Phone Delroy Aragon MD Primary Care Provider [phone] Encounter Details Date Type Department Care Team (Late st Contact Info) Description 11/02/2007 Outpatient Historical [facility] Internal Medicine [address] [address] Delroy Aragon MD [address] [facility] [address] [place] [phone] Social History Tobacco Use Types Packs/Day Years Used Date Smoking Tobacco: Never Assessed Comments Unknown Sex and Gender Information Value Date Recorded Sex Assigned at Not on file 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
--- OUTSIDE RECORDS SUMMARY | 2025-06-08 10:33 | XMS_ITS | Encounter Summary ---
Author Organization [facility] Address [address] [place] [address] Care Team Providers Care Associate Professor Of Psychology Name Role Phone Delroy Aragon MD Primary Care Provider [phone] Encounter Details Date Type Department Care Team (Late st Contact Info) Description 06/18/2004 Outpatient Historical [facility] Internal Medicine [address] [phone] Delroy Aragon MD [address] [place] [phone] Social History Tobacco Use Types Packs/Day Years Used Date Smoking Tobacco: Never Assessed Comments Unknown Sex and Gender Information Value Date Recorded Sex Assigned at Not on file Legal Sex Female 5:10 AM SUPERINTENDENT PIER Gender Identity Not on file Sexual Orientation Not on file documented as of this encounter Last Filed Vital Signs Vital Sign Reading Time Taken Comments Blood Pressure 140/80 06/18/2004 4:15 PM SUPERINTENDENT PIER Pulse - - Temperature - - Respiratory Rate - - Oxygen Saturation - - Inhaled Oxygen Concentration - - Weight - - Height - - Body Mass Index - - documented in this encounter Plan of Treatment Not on file documented as of this encounter Visit Diagnoses Not on filedocumented in this encounter Care Teams Associate Professor Of Psychology Relationship Specialty Start Date End Date Delroy Aragon MD [address] [place] [phone] PCP - General 03/14/05 documented as of this encounter
--- OUTSIDE RECORDS SUMMARY | 2025-06-08 10:33 | XMS_ITS | Encounter Summary ---
Author Organization [facility] Address [address] [place] [address] Care Team Providers Care Sales Support Consultant Name Role Phone Delroy Aragon MD Primary Care Provider [phone] Encounter Details Date Type Department Care Team (Late st Contact Info) Description 08/15/2005 Outpatient Historical [facility] Internal Medicine [address] [address] Delroy Aragon MD 7 [facility] [address] [place] [phone] Social History Tobacco Use Types Packs/Day Years Used Date Smoking Tobacco: Never Assessed Comments Unknown Sex and Gender Information Value Date Recorded Sex Assigned at Not on file 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
--- NOTE | 2025-06-08 10:37 | ECG_ITS ---
Test Date: 2025-06-08 11:06:55 Measurements Intervals [place] Rate: 56 P: -4 DE: 158 QRS: 29 QRSD: 82 T: 21 QT: 397 QTc: 386 Interpretive Statements SINUS BRADYCARDIA BASELINE ARTIFACT- I, II, III, AVR, AVL, AVF, V1-V6 BORDERLINE ECG No previous ECG available for comparison Electronically Signed On 06-08-2025 11:27:31 CDT by Braden Calle D.O.
[2025-06-08 11:29] LABS: Hematocrit 39.9 % (37.0-47.0); Hemoglobin 12.9 g/dL (12.0-15.0); Mean Corpuscular HGB Conc 32.3 g/dl (32-36); Mean Corpuscular Hemoglobin 29.9 pg (26-34); Mean Corpuscular Volume 92.6 fl (80-100); Platelet Count Result 233 k/mm3 (150-375); Red Blood Count 4.31 M/mm3 (4.2-5.4); White Blood Count 5.0 K/mm3 (4.5-10.0)
[2025-06-08 11:35] LABS: Add Urine Microscopic? YES; Appearance Urine Turbid (Clear); Glucose Urine UA Negative (Negative); Leukocyte Esterase Ur Negative LEU/UL (Negative); Nitrate Urine Negative (Negative); Non Pathogenic Casts 0-2; Specific Grav Ur 1.016 (1.001-1.035)
[2025-06-08 11:47] LABS: INR 1.1; Prothrombin Time 14.5 Seconds (11.1-14.7)
[2025-06-08 11:49] LABS: Partial Thromboplastin Time 27.6 Seconds (22.3-36.8)
[2025-06-08 11:57] LABS: Anion Gap 6 mmol/L (4-12); Blood Urea Nitrogen 22 mg/dL (7-17); Calcium 10.2 mg/dL (8.4-10.2); Carbon Dioxide 33 mmol/L (22-30); Chloride 97 mmol/L (98-107); Estimated Glomerular Filt Rate > 60; Glucose 86 mg/dL (65-110); Potassium 4.2 mmol/L (3.4-5.0); Sodium 136 mmol/L (137-145)
== END 2025-06-08 09:29 | disposition home or self-care (01) ==
PROVIDERS: PCP Physician Assistant; Visit Provider Neurological Surgery
DX: M48.07 Spinal stenosis, lumbosacral region (principal); Z01.818 Encounter for other preprocedural examination; R94.31 Abnormal electrocardiogram [ECG] [EKG]
CPT/HCPCS: 36415; 80048; 81001; 85027; 85610; 85730; 86850; 86900; 86901; 93005

== ENCOUNTER 2025-07-01 16:01 | Outpatient (CLI) | payer OTHER, SELFPAY ==
--- NOTE | ~2025-07-01 | CT_ITS ---
EXAMINATION: CT lumbar spine wo con COMPARISON: None HISTORY: Z98.1 - Arthrodesis status TECHNIQUE: Axial images were obtained through the spine without IV contrast. Coronal, sagittal reconstruction images were obtained from the axial views. CT scan performed using dose optimization techniques including the following automated exposure control; adjustment of mA and/or kV; use of iterative reconstruction technique. Automatic exposure control was used to reduce radiation dose. Permanent radiation dose record is archived to PACS. FINDINGS: The vertebral heights are intact. No fracture or subluxation. Posterior laminectomy defect noted at L2, L3, L4 and L5. There are bilateral pedicle screws and rods fixating L5, L4, L3 and L2 with lucency noted around the screws in L2, there are disc prostheses at L2-3, L3-4 and L4-5, the remaining hardware is intact. There is moderate loss of disc height at L1-2 and L5-S1 with moderate canal and foraminal stenosis. Soft tissues unremarkable. Impression: Postsurgical changes detailed above Reviewed, dictated and finalized at location [facility] Impression: Postsurgical changes detailed above
--- OUTSIDE RECORDS SUMMARY | 2025-07-01 16:06 | XMS_ITS | Encounter Summary ---
Author Organization [facility] Address 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
--- OUTSIDE RECORDS SUMMARY | 2025-07-01 16:06 | XMS_ITS | Encounter Summary ---
Author Organization [facility] Address [address] [place] [address] Care Team Providers Care Sound Truck Operator Name Role Phone Delroy Aragon MD Primary Care Provider [phone] Encounter Details Date Type Department Care Team (Late st Contact Info) Description 09/12/2004 Outpatient [facility] Internal Medicine [address] [phone] Delroy Aragon MD [address] [place] [phone] Social History Tobacco Use Types Packs/Day Years Used Date Smoking Tobacco: Never Assessed Comments Unknown Sex and Gender Information Value Date Recorded Sex Assigned at Not on file Legal Sex Female 5:10 AM TYPESETTER PERFORATOR OPERATOR Gender Identity Not on file Sexual Orientation Not on file documented as of this encounter Last Filed Vital Signs Vital Sign Reading Time Taken Comments Blood Pressure 120/70 09/12/2004 2:15 PM TYPESETTER PERFORATOR OPERATOR Pulse - - Temperature - - Respiratory Rate - - Oxygen Saturation - - Inhaled Oxygen Concentration - - Weight - - Height - - Body Mass Index - - documented in this encounter Plan of Treatment Not on file documented as of this encounter Visit Diagnoses Not on filedocumented in this encounter Care Teams Sound Truck Operator Relationship Specialty Start Date End Date Delroy Aragon MD [address] [place] [phone] PCP - General 03/14/05 documented as of this encounter
--- OUTSIDE RECORDS SUMMARY | 2025-07-01 16:06 | XMS_ITS | Encounter Summary ---
Author Organization [facility] Address [address] [place] [address] Care Team Providers Care Nuclear Chemistry Technician Name Role Phone Delroy rAagon MD Primary Care Provider [phone] Encounter Details Date Type Department Care Team (Late st Contact Info) Description 03/29/2005 Outpatient Historical [facility] Bessie Claire MD [address] [facility] [address] [address] CHOLELITH W CHOLECYS NEC (Primary Dx) Social History Tobacco Use Types Packs/Day Years Used Date Smoking Tobacco: Never Assessed Comments Unknown Sex and Gender Information Value Date Recorded Sex Assigned at Not on file Legal Sex Female 5:10 AM 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 Gender Identity Not on file Sexual [...] mmol/L INTERFACE SYSTEM 03/29/2005 9:48 AM CDT Bessie Claire MD CHEMISTRY ORDERABLES Final R esult Performing Organization Address City/[facility] de Phone Number INTERFACE SYSTEM Refer to clinic/hospital department * HEMOGLOBIN AND HEMATOCRIT (03/29/2005 9:48 AM CDT) HEMOGLOBIN 14.5 11.8 - 14.8 g/dL INTERFACE SYSTEM HEMATOCRIT 42.7 35.5 - 44.0 % INTERFACE SYSTEM 03/29/2005 9:48 AM CDT us Bessie Claire MD HEMATOLOGY ORDERABLES Final Result Performing Organization Address [facility] Phone Number INTERFACE SYSTEM Refer to clinic/hospital department documented in this encounter Visit Diagnoses Diagnosis Calculus of gallbladder with other cholecystitis, without mention of obstruction- Primary documented in this encounter Care Teams Nuclear Chemistry Technician Relationship Specialty Start Date End Date Delroy Aragon MD [address] [place] [phone] PCP - General 03/14/05 documented as of this encounter
--- OUTSIDE RECORDS SUMMARY | 2025-07-01 16:06 | XMS_ITS | Encounter Summary ---
Author Organization [facility] Address [address] [place] [address] Phone Care Team Providers Care Pecan Mallow Dipper Name Role Phone Logan Acuna MD Unavailable Mars Marti APRN, CNP Unavailable [phone] Onelia Lagunas DO Primary Care Provider [phone] Jones Christy MD Unavailable [phone] Eliezer Ndiaye MD Unavailable Shamar Rosales MD Unavailable Reason for Visit * Reason Comments Medication Refill Encounter Details Date Type Department Care Team (Late st Contact Info) Description 05/14/2024 Refill [facility] #2 [place] [id number] Ga Liang MD #1 [place] [address] Medication Refill Social History Tobacco Use Types Packs/Day Years Used Date Smoking Tobacco: Never Smokeless Tobacco: Never Alcohol Use Standard Drinks/Week Comments No 0 (1 standard drink = 0.6 oz pur e alcohol) [facility] Utilities Answer Date Recorded In the past 12 months has [employer], gas, oil, or water company threatened [...] How often do you attend chur or synagogue services? More than 4 times per year 02/14/2024 Do you belong to any clubs o r organizations such as jehovah's witness groups, unions, fraternal or athletic groups, or [...] Recorded Total Score - Questions 1-9 0 0 03/2024 [facility] - [...] a care home (including now)? No 12/02/2023 Housing Stability Vital [...] any time in the past [address] [facility], were you homeless or living in a care home (including now)? No 02/14/2024 Sexually Active Control Partners Comments Yes Male Comments No Sex and Gender Information Value Date Recorded Sex Assigned at Female 08/07/2023 10:22 AM BROTH MIXER Legal Sex Female 12:40 AM CDT Gender Identity Female 08/07/2023 10:22 AM BROTH MIXER Sexual Orientation Straight 08/07/2023 10 :22 AM BROTH MIXER documented as of this encounter Miscellaneous Notes * Telephone Encounter - Mily Quiros RN - 05/14/2024 2:25 PM CDT Name from pharmacy: VITAMIN D2 (ERGO) 1.25MG CAP Will file in chart as: ergocalciferol (VITAMIN D) 88844 UNIT Capsule The original prescription was discontinued on 11/12/2023 by Ga Liang MD documented in this encounter Plan of Treatment Upcoming Encounters Date Type Department Care Team (Late st Contact Info) Description 09/05/2025 8:00 AM BROTH MIXER Office Visit [facility] - Family Medicine - [place] #2 [place] [phone] Onelia Lagunas DO 2 [facility] [address] [place] [address] 09/08/2025 3:00 PM BROTH MIXER [facility] - [place] #2 [facility] [phone] Onelia Lagunas DO 2 [facility] [address] [place] [address] Henry Bernabe MD #[address] [phone] 09/28/2025 8:30 AM BROTH MIXER Office Visit [facility] - Cardiology - [place] #2 [facility] [phone] Shamar Rosales MD [address] [address] 12/12/2025 9:30 AM CDT [facility] - [place] #2 [facility] [address] Jones Christy MD #2 [place] [address] documented as of this encounter Visit Diagnoses Diagnosis Vitamin D deficiency Unspecified vitamin D deficiency documented in this encounter Additional Health Concerns Assessment Noted Time PHQ-9 Depression Total Score: 0 02/16/20 24 9:00 AM CDT documented as of this encounter Care Teams Pecan Mallow Dipper Relationship Specialty Start Date End Date Onelia Lagunas DO 2 [facility] [address] [place] [address] PCP - General Family Medicine 03/09/24 Logan Acuna MD #2 [facility] [facility] [address] [place] [address] Consulting Physician Colon and Rectal Surgery 10/15/23 Mars Marti, SHEAR GRINDER OPERATOR HELPER, COURT MAGISTRATE #2 [place] [address] Nurse Practitioner Advanced Practice Nurse 02/10/24 Jones Christy MD #2 [place] [address] Consulting Physician Neurology 04/30/24 Eliezer Ndiaye MD #[address] [address] Consulting Physician Clinical Cardiac Electrophysiology 09/17/24 03/23/25 Shamar Rosales MD 2 Danny SOLARES [address] [address] Consulting Physician Cardiovascular Disease - Cardiology 03/24/25 documented as of this encounter
--- OUTSIDE RECORDS SUMMARY | 2025-07-01 16:06 | XMS_ITS | Encounter Summary ---
Author Organization [facility] Address [address] [place] [address] Care Team Providers Care Director Clinical Research Name Role Phone Delroy Aragon MD Primary Care Provider [phone] Encounter Details Date Type Department Care Team (Late st Contact Info) Description 03/13/2006 Orders Only [facility] [address] [address] Delroy Aragon MD [address] [place] [phone] Social History Tobacco Use Types Packs/Day Years Used Date Smoking Tobacco: Never Assessed Comments Unknown Sex and Gender Information Value Date Recorded Sex Assigned at Not on file Legal Sex Female 5:10 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
--- OUTSIDE RECORDS SUMMARY | 2025-07-01 16:06 | XMS_ITS | Encounter Summary ---
Author Organization [facility] Address [address] [place] [address] Care Team Providers Care Road Gang Supervisor Name Role Phone Delroy Aragon MD Primary Care Provider [phone] Encounter Details Date Type Department Care Team (Late st Contact Info) Description 04/02/2006 Outpatient Historical [facility] Izaiah Doss MD [address] [place] [address] [place] [address] Unspecified Hemorrhoids without Mention of Complication (Primary Dx) Social History Tobacco Use Types Packs/Day Years Used Date Smoking Tobacco: Never Assessed Comments Unknown Sex and Gender Information Value Date Recorded Sex Assigned at Not on file Legal Sex Female 5:10 AM WICKER MOLDED CANDLES Gender Identity Not on file Sexual Orientation Not on file documented as of this encounter Plan of Treatment Not on file documented as of this encounter Visit Diagnoses Diagnosis Unspecified hemorrhoids without mention of complication- Primary documented in this encounter Care Teams Road Gang Supervisor Relationship Specialty Start Date End Date Delroy Aragon MD [address] [place] [address] [address] [place] [phone] PCP - General 03/14/05 documented as of this encounter
--- OUTSIDE RECORDS SUMMARY | 2025-07-01 16:06 | XMS_ITS | Encounter Summary ---
Author Organization [facility] Address [address] [place] [address] Phone Care Team Providers Care Sewage Disposal Worker Name Role Phone Ga Liang MD Primary Care Provider [phone] Logan Acuna MD Unavailable Mars Marti APRN, CNP Unavailable [phone] Onelia Lagunas DO Primary Care Provider [phone] Jones Christy MD Unavailable [phone] Eliezer Ndiaye MD Unavailable Shamar Rosales MD Unavailable Reason for Visit * Reason Comments Medication Refill Encounter Details Date Type Department Care Team (Late st Contact Info) Description 10/12/2023 [facility]ill [facility] #2 [place] [address] Ga Liang MD #1 [place] [address] Medication Refill Social History Tobacco Use Types Packs/Day Years Used Date Smoking Tobacco: Never Smokeless Tobacco: Never Alcohol Use Standard Drinks/Week Comments No 0 (1 standard drink = 0.6 oz pur e alcohol) Sexually Active Control Partners Comments Yes Male Comments No Sex and Gender Information Value Date Recorded Sex Assigned at Female 08/07/2023 10:22 AM LINING SEWER Legal Sex Female 12:40 AM CDT Gender Identity Female 08/07/2023 10:22 AM LINING SEWER Sexual Orientation Straight 08/07/2023 10 :22 AM LINING SEWER documented as of this encounter Miscellaneous Notes * Telephone Encounter - Mily Quiros RN - 10/16/2023 7:55 AM CST Name from pharmacy: Zolpidem Tartrate 10 MG Oral Tablet Will file in chart as: zolpidem (AMBIEN) 10 MG Tablet The original prescription was reordered on 10/15/2023 by Ga Liang MD. NG SEWER * Telephone Encounter - Mily Quiros RN - 10/13/2023 1:49 PM CST duplicate NG SEWER documented in this encounter Plan of Treatment Upcoming Encounters Date Type Department Care Team (Late st Contact Info) Description 09/05/2025 8:00 AM LINING SEWER Office Visit [facility] - Family Medicine - [place] [address] [place] [address] Onelia Lagunas, DO 2 [facility] [address] [place] [address] 09/08/2025 3:00 PM LINING SEWER [facility] - Endocrinology - [place] #2 [facility] [place] [address] Onelia Lagunas, DO 2 [facility] [address] [place] [address] Henry Bernabe MD #[address] [address] 09/28/2025 8:30 AM LINING SEWER Office Visit [facility] - Cardiology - [place] [address] [place] [phone] Shamar Rosales MD [address] [facility] [facility] [address] [place] [address] 12/12/2025 9:30 AM CDT [facility] - [place] [address]2 [place] [phone] Jones Christy MD #2 [place] [address] documented as of this encounter Visit Diagnoses Diagnosis Insomnia, unspecified type documented in this encounter Additional Health Concerns Infection Onset Date Last Indicated Resolved Time COVID - 19 04/30/2024 04/30/2024 04/30/2024 11:2 5 AM CDT documented as of this encounter Care Teams Sewage Disposal Worker Relationship Specialty Start Date End Date Ga Liang MD #1 [place] [address] PCP - General Family Medicine 07/18/23 03/08/24 Onelia Lagunas DO [address] [facility] [place] [facility] [address] [place] [address] PCP - General Family Medicine 03/09/24 Logan Acuna MD #2 [facility] [address] [place] [address] Consulting Physician Colon and Rectal Surgery 10/15/23 Mars Marti, PRESCHOOL SPECIAL EDUCATION TEACHER, FIRMWARE DEVELOPER #[address] [place] [address] Nurse Practitioner Advanced Practice Nurse 02/10/24 Jones Christy MD #2 [place] [address] Consulting Physician Neurology 04/30/24 Eliezer Ndiaye MD #2 [facility] [address] [address] Consulting Physician Clinical Cardiac Electrophysiology 09/17/24 03/23/25 Shamar Rosales MD [address] [address] Consulting Physician Cardiovascular Disease - Cardiology 03/24/25 documented as of this encounter
--- OUTSIDE RECORDS SUMMARY | 2025-07-01 16:06 | XMS_ITS | Encounter Summary ---
Author Organization [facility] Address [address] [place] [address] Care Team Providers Care Account Executive Key Accounts Name Role Phone Delroy Aragon MD Primary Care Provider [phone] Reason for Visit * Reason Onset Date Comments prior auth CT 04/18/2022 Encounter Details Date Type Department Care Team (Late st Contact Info) Description 04/18/2022 Telephone [facility] Primary Care [address] [place] [address] Delroy Aragon MD 637 [facility] [address] [place] [address] Social History Tobacco Use Types Packs/Day Years Used Date Smoking Tobacco: Never Smokeless Tobacco: Never Alcohol Use Standard Drinks/Week Comments No 0 (1 standard drink = 0.6 oz pur e alcohol) Comments No Sex and Gender Information Value Date Recorded Sex Assigned at Not on file Legal Sex Female 5:10 AM QUALITY ASSURANCE ASSESSOR Gender Identity Not on file Sexual Orientation Not on file documented as of this encounter Miscellaneous Notes * Telephone Encounter - Mily Franklin - 04/18/2022 4:30 PM CDT Name of PCP Provider or Prescribing Provider: Delroy Aragon MD Next office visit: 05/29/2022 Caller: Amada pre-arrival Message: Patient is scheduled for a CT of the chest abdomen and pelvis and [facility] Please advise. Call back Number: [phone] EX3 documented in this encounter Plan of Treatment Not on file documented as of this encounter Visit Diagnoses Not on filedocumented in this encounter Care Teams Account Executive Key Accounts Relationship Specialty Start Date End Date Delroy Aragon MD [address] [place] [address] PCP - General 03/14/05 documented as of this encounter
--- OUTSIDE RECORDS SUMMARY | 2025-07-01 16:06 | XMS_ITS | Encounter Summary ---
Author Organization [facility] Address [address] [place] [address] Phone Care Team Providers Care Machine Overhauler Name Role Phone Ga Liang MD Primary Care Provider [phone] Logan Acuna MD Unavailable Mars Marti APRN, CNP Unavailable [phone] Onelia Lagunas DO Primary Care Provider [phone] Jones Christy MD Unavailable [phone] Eliezer Ndiaye MD Unavailable Shamar Rosales MD Unavailable Reason for Visit * Reason Comments Medication Refill Encounter Details Date Type Department Care Team (Late st Contact Info) Description 12/06/2023 Refill [facility] - Family Medicine [facility] #2 [place] [address] Ga Liang MD #1 [place] [address] Medication Refill Social History Tobacco Use Types Packs/Day Years Used Date Smoking Tobacco: Never Smokeless Tobacco: Never Alcohol Use Standard Drinks/Week Comments No 0 (1 standard drink = 0.6 oz pur e alcohol) [facility] Utilities Answer Date Recorded In the past 12 months has [employer], gas, oil, or water company threatened to [...] often do you attend chur ch or hoahaoism services? More than 4 times per year 12/02/2023 Do you belong to any clubs o r organizations such as restorationism groups, unions, fraternal or athletic groups, or [...] and heating? Not very hard 12/02/2023 [facility] - [...] in a half-way (including now)? No 12/02/2023 Sexually Active Control Partners Comments Yes Male Comments No Sex and Gender Information Value Date Recorded Sex Assigned at Female 08/07/2023 10:22 AM ROLLER PRINTER Legal Sex Female 12:40 AM CDT Gender Identity Female 08/07/2023 10:22 AM ROLLER PRINTER Sexual Orientation Straight 08/07/2023 10 :22 AM ROLLER PRINTER documented as of this encounter Miscellaneous Notes [...] [facility] 09/19/23 Office Visit Ninoska Borden, CENTRAL STERILE SUPPLY TECHNICIAN, CHAIN CARRIER [facility] Office Visit Ninoska Borden, CENTRAL STERILE SUPPLY TECHNICIAN, CHAIN CARRIER [facility] 08/06/23 Office Visit Jennifer Chowdary, PAC [facility] [address] 07/18/23 Office Visit Ga Liang MD [facility] [address] Showing recent visits within past 365 days and meeting all other requirements Future Appointments No visits were found meeting these conditions. Showing future appointments within next 90 days and meeting all other requirements documented in this encounter Plan of Treatment Upcoming Encounters Date Type Department Care Team (Late st Contact Info) Description 09/05/2025 8:00 AM ROLLER PRINTER Office Visit [facility] - Family Medicine - [place] #2 [facility] [place] [address] Onelia Lagunas, DO [address] [address] 09/08/2025 3:00 PM ROLLER PRINTER Office Visit [facility] - Endocrinology - [place] #2 [place] [address] Onelia Lagunas, DO [address] [address] Henry Bernabe MD #[address] [place] [address] 09/28/2025 8:30 AM ROLLER PRINTER Office Visit [facility] Cardiology - [place] #2 [place] [address] Shamar Rosales MD [address] [address] 12/12/2025 9:30 AM CDT Office Visit [facility] - Neurology - [place] #2 [place] [address] Jones Christy MD #2 [place] [address] documented as of this encounter Visit Diagnoses Not on filedocumented in this encounter Additional Health Concerns Infection Onset Date Last Indicated Resolved Time COVID - 19 04/30/2024 04/30/2024 04/30/2024 11:2 5 AM CDT documented as of this encounter Care Teams Machine Overhauler Relationship Specialty Start Date End Date Ga Liang MD #1 [place] [address] PCP - General Family Medicine 07/18/23 03/08/24 Onelia Lagunas DO [address] [address] PCP - General Family Medicine 03/09/24 Logan Acuna MD #[address] [address] Consulting Physician Colon and Rectal Surgery 10/15/23 Mars Marti APRN, CHAIN CARRIER #2 [place] [address] Nurse Practitioner Advanced Practice Nurse 02/10/24 Jones Christy MD #2 [place] [address] Consulting Physician Neurology 04/30/24 Eliezer Ndiaye MD #[address] [place] [address] Consulting Physician Clinical Cardiac Electrophysiology 09/17/24 03/23/25 Shamar Rosales MD 2 [facility] BEC[facility], [address] [address] Consulting Physician Cardiovascular Disease - Cardiology 03/24/25 documented as of this encounter
--- OUTSIDE RECORDS SUMMARY | 2025-07-01 16:06 | XMS_ITS | Encounter Summary ---
Author Organization [facility] Address [address] [place] [address] Phone Care Team Providers Care Customer Solutions Teammate Name Role Phone Logan Acuna MD Unavailable Mars Marti APRN, METAL PRECISION MACHINE ASSEMBLER Unavailable [phone] Onelia Lagunas DO Primary Care Provider [phone] Jones Christy MD Unavailable [phone] Eliezer Ndiaye MD Unavailable Shamar Rosales MD Unavailable Reason for Visit * Reason Comments Medication Refill Encounter Details Date Type Department Care Team (Late st Contact Info) Description 12/18/2024 Refill [facility] - [facility] #2 [place] [address] Emma Stiles, NICOLAS, METAL PRECISION MACHINE ASSEMBLER #[address] [address] Medication Refill Social History Tobacco Use Types Packs/Day Years Used Date Smoking Tobacco: Never Smokeless Tobacco: Never Alcohol Use Standard Drinks/Week Comments No 0 (1 standard drink = 0.6 oz pur e alcohol) [facility] Utilities Answer Date Recorded In the [...] often do you attend chur ch or worship services? More than 4 times per year 09/14/2024 Do you belong to any clubs o r organizations such as rastafarian groups, unions, fraternal or athletic groups, or [...] Total Score - Questions 1-9 12 02/2025 [facility] - [facility]ational Stress Questionnaire Answer Date [...] place to sleep or slept in a long term (including now)? No 12/02/2023 Housing Stability Vital [...] any time in the past 12 [facility], were you homeless or living in a long term (including now)? No 09/14/2024 Sexually Active Control Partners Comments Yes Male Comments No Sex and Gender Information Value Date Recorded Sex Assigned at Female 08/07/2023 10:22 AM DIRECTOR SUPPLIER QUALITY Legal Sex Female 12:40 AM CDT Gender Identity Female 08/07/2023 10:22 AM DIRECTOR SUPPLIER QUALITY Sexual Orientation Straight 08/07/2023 10 :22 AM DIRECTOR SUPPLIER QUALITY documented as of this encounter Miscellaneous Notes * Telephone Encounter - Mily Qurios RN - 12/20/2024 12:25 PM CDT duplicate documented in this encounter Plan of Treatment Upcoming Encounters Date Type Department Care Team (Late st Contact Info) Description 09/05/2025 8:00 AM DIRECTOR SUPPLIER QUALITY [facility] - Family Medicine - [place] #2 [place] [address] Onelia Lagunas, DO 2 [facility] [place] [address] [address] 09/08/2025 3:00 PM DIRECTOR SUPPLIER QUALITY Office Visit [facility] - Endocrinology - [place] #2 [place] [address] Onelia Lagunas, DO 2 [facility] [place] [address] [address] Henry Bernabe MD #[address] [address] 09/28/2025 8:30 AM DIRECTOR SUPPLIER QUALITY Office Visit [facility] - Cardiology - [place] #2 [place] [address] Shamar Rosales MD [address] [address] 12/12/2025 9:30 AM CDT [facility] - Neurology - [place] #2 [place] [address] Jones Christy MD #2 [place] [address] documented as of this encounter Visit Diagnoses Diagnosis Insomnia, unspecified type documented in this encounter Additional Health Concerns Assessment Noted Time PHQ-9 Depression Total Score: 12 025 10:06 AM DIRECTOR SUPPLIER QUALITY documented as of this encounter Care Teams Customer Solutions Teammate Relationship Specialty Start Date End Date Onelia Lagunas DO 2 [facility] [place] [address] [address] PCP - General Family Medicine 03/09/24 Logan Acuna MD #2 [facility] [address] [address] Consulting Physician Colon and Rectal Surgery 10/15/23 Mars Marti APRN, METAL PRECISION MACHINE ASSEMBLER #2 [place] [address] Nurse Practitioner Advanced Practice Nurse 02/10/24 Jones Christy MD #2 [place] [address] Consulting Physician Neurology 04/30/24 Eliezer Ndiaye MD #[facility] [address] Consulting Physician Clinical Cardiac Electrophysiology 09/17/24 03/23/25 Shamar Rosales MD [address] [address] Consulting Physician Cardiovascular Disease - Cardiology 03/24/25 documented as of this encounter
--- OUTSIDE RECORDS SUMMARY | 2025-07-01 16:06 | XMS_ITS | Encounter Summary ---
Author Organization [facility] Address [address] [place] [address] Phone Care Team Providers Care Director Broadcast Name Role Phone Ga Liang MD Primary Care Provider [phone] Logan Acuna MD Unavailable Mars Marti APRN, CNP Unavailable [phone] Onelia Lagunas DO Primary Care Provider [phone] Jones Christy MD Unavailable [phone] Eliezer Ndiaye MD Unavailable Shamar Rosales MD Unavailable Reason for Visit * Reason Comments Medication Refill Encounter Details Date Type Department Care Team (Late st Contact Info) Description 01/03/2024 Refill [facility] - Family Medicine [facility] [address] [place] [address] Ga Liang MD [address] [place] [address] Medication Refill Social History Tobacco Use Types Packs/Day Years Used Date Smoking Tobacco: Never Smokeless Tobacco: Never Alcohol Use Standard Drinks/Week Comments No 0 (1 standard drink = 0.6 oz pur e alcohol) [facility] Utilities Answer Date Recorded In the past 12 months has [employer], gas, oil, or water company threatened to [...] often do you attend chur ch or latter-day services? More than 4 times per year 12/02/2023 Do you belong to any clubs o r organizations such as quaker groups, unions, fraternal or athletic groups, or [...] care, and heating? Not very hard 12/02/2023 [facility] - Occupational [...] in a fpc (including now)? No 12/02/2023 Sexually Active Control Partners Comments Yes Male Comments No Sex and Gender Information Value Date Recorded Sex Assigned at Female 08/07/2023 10:22 AM CLINICAL NURSING INSTRUCTOR Legal Sex Female 12:40 AM CDT Gender Identity Female 08/07/2023 10:22 AM CLINICAL NURSING INSTRUCTOR Sexual Orientation Straight 08/07/2023 10 :22 AM CLINICAL NURSING INSTRUCTOR documented as of this encounter Miscellaneous Notes [...] [facility] 09/19/23 Office Visit Ninoska Borden, ITALIAN TUTOR, GAS MAIN AND LINE FITTER [facility] 09/05/23 Office Visit Ninoska Borden, ITALIAN TUTOR, GAS MAIN AND LINE FITTER [facility] 08/06/23 Office Visit Jennifer Chowdary, PAC [facility] 07/18/23 Office Visit Ga Liang [facility] Showing recent visits within past 365 days and meeting all other requirements Today's Visits Date Type Provider Dept 01/07/24 Appointment Jennifer Chowdary, PAC [facility] Showing today's visits and meeting all other requirements Future Appointments Date Type Provider Dept 03/09/24 Appointment Onelia Lagunas, DO [facility] Showing future appointments within next 90 days and meeting all other requirements * Telephone Encounter - Clarissa Brooks RN - 01/04/2024 3:16 PM CDT PDMP 5--24, 30 days Due 01-11-24 documented in this encounter Plan of Treatment Upcoming Encounters Date Type Department Care Team (Late st Contact Info) Description 09/05/2025 8:00 AM CLINICAL NURSING INSTRUCTOR Office Visit [facility] Family Medicine [facility] [address] [place] [address] Onelia Lagunas, DO 2 [facility] [address] [address] 09/08/2025 3:00 PM CLINICAL NURSING INSTRUCTOR Office Visit [facility] Endocrinology - [place] [address]2 [place] [address] Onelia Lagunas, DO 2 [facility] [address] [place] [address] Henry Bernabe MD #[address] [phone] 09/28/2025 8:30 AM CLINICAL NURSING INSTRUCTOR Office Visit [facility] - Cardiology - [place] [address] [place] [phone] Shamar Rosales MD [address] [id number] 12/12/2025 9:30 AM CDT Office Visit [facility] - Neurology - [place] [address] [place] [address] Jones Christy MD [address] [place] [phone] documented as of this encounter Visit Diagnoses Diagnosis Insomnia, unspecified type documented in this encounter Additional Health Concerns Infection Onset Date Last Indicated Resolved Time COVID - 19 04/30/2024 04/30/2024 04/30/2024 11:2 5 AM CDT documented as of this encounter Care Teams Director Broadcast Relationship Specialty Start Date End Date Ga Liang MD [address] [place] [address] PCP - General Family Medicine 07/18/23 03/08/24 Onelia Lagunas DO [address] [address] PCP - General Family Medicine 03/09/24 Logan Acuna MD #[address] [address] Consulting Physician Colon and Rectal Surgery 10/15/23 Mars Marti, ITALIAN TUTOR, GAS MAIN AND LINE FITTER [address] [place] [address] Nurse Practitioner Advanced Practice Nurse 02/10/24 Jones Christy MD [address] [place] [address] Consulting Physician Neurology 04/30/24 Eliezer Ndiaye MD #[address] [address] Consulting Physician Clinical Cardiac Electrophysiology 09/17/24 03/23/25 Shamar Rosales MD [address] [address] Consulting Physician Cardiovascular Disease - Cardiology 03/24/25 documented as of this encounter
--- OUTSIDE RECORDS SUMMARY | 2025-07-01 16:06 | XMS_ITS | Encounter Summary ---
Author Organization [facility] Address [address] [place] [address] Phone Care Team Providers Care Photo Machine Operator Name Role Phone Logan Acuna MD Unavailable Mars Marti APRN, MELISSA Unavailable [phone] Onelia Lagunas DO Primary Care Provider [phone] Jones Christy MD Unavailable [phone] Eliezer Ndiaye MD Unavailable Shamar Rosales MD Unavailable Encounter Details Date Type Department Care Team (Latest Contact Info) Description 07/26/2024 Lab Requisition [facility] [address] [place] [address] Brenda Mccann MD Severe sepsis with septic shock (CODE) (HCC); Sepsis due to methicillin susceptible Staphylococcus aureus (HCC) Social History Tobacco Use Types Packs/Day Years Used Date Smoking Tobacco: Never Smokeless Tobacco: Never Alcohol Use Standard Drinks/Week Comments No 0 (1 standard drink = 0.6 oz pur e alcohol) [facility] Utilities Answer Date Recorded In [...] How often do you attend chur or church services? More than 4 times per year 02/14/2024 Do you belong to any clubs o r organizations such as sikhism groups, unions, fraternal or athletic groups, or [...] Total Score - Questions 1-9 0 07/12 [facility] - Occupational [...] any time in the past 12 m [facility], were you homeless or living in a prison (including now)? No 02/14/2024 Sexually Active Control Partners Comments Yes Male Comments No Sex and Gender Information Value Date Recorded Sex Assigned at Female 08/07/2023 10:22 AM PERSONNEL TRAINING OFFICER Legal Sex Female 12:40 AM CDT Gender Identity Female 08/07/2023 10:22 AM PERSONNEL TRAINING OFFICER Sexual Orientation Straight 08/07/2023 10 :22 AM PERSONNEL TRAINING OFFICER documented as of this encounter Functional Status * BP Answer Date of Assessment Author 98/64 07/28/2024 12:30 PM PERSONNEL TRAINING OFFICER Gera Verdugo * Temp Answer Date of Assessment Author 97 07/28/2024 12:30 PM PERSONNEL TRAINING OFFICER Gera Verdugo * Pulse Answer Date of Assessment Author 60 07/28/2024 12:30 PM PERSONNEL TRAINING OFFICER Gera Verdugo * Resp Answer Date of Assessment Author 20 07/28/2024 12:30 PM PERSONNEL TRAINING OFFICER Gera Verdugo * SpO2 Answer Date of Assessment Author 97 07/28/2024 12:30 PM PERSONNEL TRAINING OFFICER Gera Verdugo documented as of this encounter Mental Status * BP Answer Entry Date Author 98/64 07/28/2024 12:30 PM PERSONNEL TRAINING OFFICER Gera Verdugo * Temp Answer Entry Date Author 97 07/28/2024 12:30 PM PERSONNEL TRAINING OFFICER Gera Verdugo * Pulse Answer Entry Date Author 60 07/28/2024 12:30 PM PERSONNEL TRAINING OFFICER Gera Verdugo * SpO2 Answer Entry Date Author 97 07/28/2024 12:30 PM PERSONNEL TRAINING OFFICER Gera Verdugo documented in this encounter Plan of Treatment Upcoming Encounters Date Type Department Care Team (Late st Contact Info) Description 09/05/2025 8:00 AM PERSONNEL TRAINING OFFICER Office Visit [facility] Family Medicine - [place] [address]2 [place] [address] Onelia Lagunas, DO 2 [facility] [address] [place] [address] 09/08/2025 3:00 PM PERSONNEL TRAINING OFFICER Office Visit [facility] Endocrinology - [place] [address]2 [facility] [place] [address] Onelia Lagunas, DO 2 [facility] [address] [place] [address] Henry Bernabe MD #[address] [place] [phone] 09/28/2025 8:30 AM PERSONNEL TRAINING OFFICER Office Visit [facility] Cardiology - [place] [address]2 [facility] [place] [address] Shamar Rosales MD [address] [address] 12/12/2025 9:30 AM CDT Office Visit [facility] - Neurology - [place] [address]2 [facility] [place] [phone] Jones Christy MD [address] [place] [phone] documented as of this encounter Procedures Procedure Name Priority Date/Time Associated Diagnosis Comments CBC WITH AUTO DIFFERENTIAL Routine 07/26/2024 12:20 PM PERSONNEL TRAINING OFFICER Severe sepsis with septic shock (CODE) (HCC) Sepsis due to methicillin susceptible Staphylococcus aureus (HCC) CREATINE KINASE (CK) TOTAL Routine 07/26/2024 12:20 PM PERSONNEL TRAINING OFFICER Severe sepsis with septic shock (CODE) (HCC) Sepsis due to methicillin susceptible Staphylococcus aureus (HCC) CMP (COMPREHENSIVE METABOLIC PANEL) Routine 07/26/2024 12:20 PM PERSONNEL TRAINING OFFICER Severe sepsis with septic shock (CODE) (HCC) Sepsis due to methicillin susceptible Staphylococcus aureus (HCC) COMPLETE BLOOD COUNT (CBC) WITH DIFF Routine 07/26/2024 12:20 PM PERSONNEL TRAINING OFFICER Severe sepsis with septic shock (CODE) (HCC) Sepsis due to methicillin susceptible Staphylococcus aureus (HCC) documented in this encounter Results * (ABNORMAL) CBC WITH AUTO DIFFERENTIAL (07/26/2024 12:20 PM PERSONNEL TRAINING OFFICER) WBC 6.22 4.00 - 12.00 10(3)/mcL 07/26/2024 1:04 PM PERSONNEL TRAINING OFFICER [facility] RBC 3.41(L) 3.80 - 5.30 10(6)/mcL 07/26/2024 1:04 PM PERSONNEL TRAINING OFFICER [facility] HEMOGLOBIN (HGB) 10.4(L) 12.0 - 15.8 g/dL 07/26/2024 1:04 PM PERSONNEL TRAINING OFFICER [facility] HEMATOCRIT (HCT) 32.9(L) 36.0 - 47.0 % 07/26/2024 1:04 PM PERSONNEL TRAINING OFFICER [facility] MCV 96.5(H) 82.0 - 96.0 fL 07/26/2024 1:04 PM PERSONNEL TRAINING OFFICER [facility] MCH 30.5 26.0 - 34.0 pg 07/26/2024 1:04 PM PERSONNEL TRAINING OFFICER [facility] MCHC 31.6 31.0 - 36.0 g/dL 07/26/2024 1:04 PM [facility] PLATELET COUNT 546(H) 140 - 440 10(3)/[facility] 07/26/2024 1:04 PM [facility] RDW 13.4 11.8 - 15.5 % 07/26/2024 1:04 PM [facility] MPV 10.3 9.7 - 12.4 fL 07/26/2024 1:04 PM [facility] NEUTROPHILS 55.9 47.0 - 73.0 % 07/26/2024 1:04 PM [facility] LYMPHOCYTES 31.4 18.0 - 42.0 % 07/26/2024 1:04 PM [facility] MONOCYTES 10.0 4.0 - 12.0 % 07/26/2024 1:04 PM [facility] EOSINOPHILS 2.1 0.0 - 5.0 % 07/26/2024 1:04 PM [facility] BASOPHILS 0.6 0.0 - 1.0 % 07/26/2024 1:04 PM [facility] ABSOLUTE NEUTROPHILS 3.48 1.60 - 7.70 10(3)/[facility] 07/26/2024 1:04 PM [facility] ABSOLUTE LYMPHOCYTES 1.95 1.30 - 3.20 10(3)/[facility] 07/26/2024 1:04 PM [facility] ABSOLUTE MONOCYTES 0.62 0.20 - 1.00 10(3)/[facility] 07/26/2024 1:04 PM [facility] ABSOLUTE EOSINOPHIL 0.13 0.00 - 0.40 10(3)/[facility] 07/26/2024 1:04 PM [facility] ABSOLUTE BASOPHILS 0.04 0.00 - 0.10 10(3)/[facility] 07/26/2024 1:04 PM [facility] NRBC PER 100 WBC 0 07/26/20 1:04 PM [facility] Blood No Phlebotomy Charged / Unknown 07/26/2024 12:20 PM PERSONNEL TRAINING OFFICER 07/26/2024 12:58 PM PERSONNEL TRAINING OFFICER Brenda Anand MD HEMATOLOGY ORDERABL ES Final Result [facility] #1 [place] [address] * (ABNORMAL) CREATINE KINASE (CK) TOTAL (07/26/2024 12:20 PM PERSONNEL TRAINING OFFICER) CK (CPK) 16(L) 29 - 168 U/L 07/26/2024 3:02 PM PERSONNEL TRAINING OFFICER [facility] Blood No Phlebotomy Charged / Unknown 07/26/2024 12:20 PM PERSONNEL TRAINING OFFICER 07/26/2024 12:58 PM PERSONNEL TRAINING OFFICER Brenda Anadn MD CHEMISTRY ORDERABLE S Final Result Performing Organization Address City/[facility]/ZIP Co de Phone Number [facility] [address] [place] [address] * (ABNORMAL) CMP (COMPREHENSIVE METABOLIC PANEL) (07/26/2024 12:20 PM PERSONNEL TRAINING OFFICER) Pathologist [facility] SODIUM 141 136 - 145 mmol/L 07/26/2024 1:35 PM PERSONNEL TRAINING OFFICER [facility] POTASSIUM 4.5 3.5 - 5.1 mmol/L 07/26/2024 1:35 PM PERSONNEL TRAINING OFFICER [facility] CHLORIDE 106 98 - 107 mmol/L 07/26/2024 1:35 PM PERSONNEL TRAINING OFFICER [facility] CO2, VENOUS 25 22 - 30 mmol/L 07/26/2024 1:35 PM PERSONNEL TRAINING OFFICER [facility] ANION GAP 14.5 <18.0 mmol/L 07/26/2024 1:35 PM PERSONNEL TRAINING OFFICER [facility] GLUCOSE 101(H) 70 - 99 mg/dL 07/26/2024 1:35 PM PERSONNEL TRAINING OFFICER [facility] BUN 21(H) 10 - 20 mg/dL 07/26/2024 1:35 PM [facility] CREATININE, BLOOD 0.79 0.60 - 1.00 mg/dL 07/26/2024 1:35 PM [facility] BUN/CREATININE RATIO 27(H) 12 - 20 ratio 07/26/2024 1:35 PM [facility] TOTAL PROTEIN 6.2(L) 6.3 - 8.2 g/dL 07/26/2024 1:35 PM [facility] ALBUMIN 3.7 3.5 - 5.0 g/dL 07/26/2024 1:35 PM [facility] A/G RATIO 1.5 1.0 - 2.2 07/26/2024 1:35 PM [facility] CALCIUM 9.7 8.7 - 10.5 mg/dL 07/26/2024 1:35 PM [facility] T BILI 0.2 0.2 - 1.2 mg/dL 07/26/2024 1:35 PM [facility] SGOT (AST) 16 5 - 34 U/L 07/26/2024 1:35 PM [facility] SGPT (ALT) <5 0 - 55 U/L 07/26/2024 1:35 PM [facility] ALKALINE PHOSPHATASE 159(H) 40 - 150 U/L 07/26/2024 1:35 PM [facility] GFR, ESTIMATED >60 >=60 07/26/2024 1:35 PM [facility] Comment: Creatinine Clearance is the preferred criteria for selecting drug dose adjustments in renally impaired patients. The GFR is provided as additional pertinent clinical information. GFR is reported in mL/min/1.73 sq m. Calculation based on the Chronic Kidney Disease Epidemiology Collaboration (CKD- EPI) equation refit without adjustment for race. GFR, EST. >60 >=60 024 1:35 PM [facility] GFR, EST. NONAFRICAN >60 >=60 07/26/2024 1:35 PM PERSONNEL TRAINING OFFICER [facility] Blood No Phlebotomy Charged / Unknown 07/26/2024 12:20 PM PERSONNEL TRAINING OFFICER 07/26/2024 12:58 PM PERSONNEL TRAINING OFFICER us Brenda Anand MD CHEMISTRY ORDERABLE S Final Result [facility] [address] [place] [address] documented in this encounter Visit Diagnoses Diagnosis Severe sepsis with septic shock (CODE) Sepsis due to methicillin susceptible Staphylococcus aureus Methicillin susceptible staphylococcus aureus septicemia documented in this encounter Additional Health Concerns Assessment Noted Time PHQ-9 Depression Total Score: 0 02/16/20 9:00 AM CDT documented as of this encounter Care Teams Photo Machine Operator Relationship Specialty Start Date End Date Onelia Lagunas DO 2 [facility] [address] [address] PCP - General Family Medicine 03/09/24 Logan Acuna MD #[address] [address] Consulting Physician Colon and Rectal Surgery 10/15/23 Mars Marti APRN, POULTRY FEED SUPERVISOR #2 [place] [address] Nurse Practitioner Advanced Practice Nurse 02/10/24 Jones Christy MD #2 [place] [phone] Consulting Physician Neurology 04/30/24 Eliezer Ndiaye MD #[address] [address] Consulting Physician Clinical Cardiac Electrophysiology 09/17/24 03/23/25 Shamar Rosales MD 2 [place] [address] Consulting Physician Cardiovascular Disease - Cardiology 03/24/25 documented as of this encounter
--- OUTSIDE RECORDS SUMMARY | 2025-07-01 16:06 | XMS_ITS | Encounter Summary ---
Author Organization [facility] Address [address] [place] [address] Care Team Providers Care Fireworks Assembler Name Role Phone Delroy Aragon MD Primary Care Provider [phone] Encounter Details Date Type Department Care Team (Late st Contact Info) Description 08/15/2005 Outpatient [facility] Internal Medicine [address] [address] Delroy Aragon MD [address] [place] [phone] Social History Tobacco Use Types Packs/Day Years Used Date Smoking Tobacco: Never Assessed Comments Unknown Sex and Gender Information Value Date Recorded Sex Assigned at Not on file Legal Sex Female 5:10 AM PUBLIC HEALTH INFORMATICIAN Gender Identity Not on file Sexual Orientation Not on file documented as of this encounter Plan of Treatment Not on file documented as of this encounter Visit Diagnoses Not on filedocumented in this encounter Care Teams Fireworks Assembler Relationship Specialty Start Date End Date Delroy Aragon MD [address] [place] [address] [address] [place] [address] PCP - General 03/14/05 documented as of this encounter
--- OUTSIDE RECORDS SUMMARY | 2025-07-01 16:06 | XMS_ITS | Encounter Summary ---
Author Organization [facility] Address [address] [place] [address] Care Team Providers Care Jai Alai Player Name Role Phone Delroy Aragon MD Primary Care Provider [phone] Encounter Details Date Type Department Care Team (Late st Contact Info) Description 09/21/2007 Orders Only [facility] Internal Medicine [address] [address] Delroy Aragon MD [address] [place] [phone] Social History Tobacco Use Types Packs/Day Years Used Date Smoking Tobacco: Never Assessed Comments Unknown Sex and Gender Information Value Date Recorded Sex Assigned at Not on file Legal Sex Female 5:10 AM SCREW MACHINE REPAIRER Gender Identity Not on file Sexual Orientation Not on file documented as of this encounter Progress Notes * Delroy Aragon MD - 12/23/2007 12:19 PM CDT WHO TOOK THE CALL: Delroy Aragon M TIME:12:24 pm madelyn 09/21/07 12:24 pm ADDITIONAL TEST REQUESTS/ORDERS: . [facility] ORDERS: Order number: [id number] Test Ordered: XRAY CHEST (2 VIEWS) farrjr 09/21/07 03:49 pm STAFF FOLLOW UP: . patient given order- had xray done at [facility] Electronically Signed by: June Carter on Friday, September 21, 2007 documented in this encounter Plan of Treatment Not on file documented as of this encounter Visit Diagnoses Not on filedocumented in this encounter Care Teams Jai Alai Player Relationship Specialty Start Date End Date Delroy Aragon MD [address] [place] [phone] PCP - General 03/14/05 documented as of this encounter
--- OUTSIDE RECORDS SUMMARY | 2025-07-01 16:06 | XMS_ITS | Encounter Summary ---
Author Organization [facility] Address [address] [place] [phone] Care Team Providers Care Custom Miller Name Role Phone Delroy Aragon MD Primary Care Provider [phone] Encounter Details Date Type Department Care Team (Late st Contact Info) Description 11/02/2007 Orders Only [facility] Internal Medicine [address] [address] Delroy Aragon MD [address] [place] [phone] Social History Tobacco Use Types Packs/Day Years Used Date Smoking Tobacco: Never Assessed Comments Unknown Sex and Gender Information Value Date Recorded Sex Assigned at Not on file Legal Sex Female 5:10 AM MEDICAL INSTRUMENT CABLE FABRICATOR Gender Identity Not on file Sexual Orientation Not on file documented as of this encounter Progress Notes * Delroy Aragon MD - 2008 7:39 PM CDT TEMPERATURE: 98.7??f Oral WEIGHT: 231lbs BLOOD PRESSURE: 128/74 Right Arm Sitting NURSE NAME: Cecelia Smith J CHIEF COMPLAINT Patient complains of chest congestion, [...] 11/02/2007. [facility] Education: Risks, benefits, and possible side [...] on filedocumented in this encounter Care Teams Custom Miller Relationship Specialty Start Date End Date Delroy Aragon MD [address] [place] [phone] PCP - General 03/14/05 documented as of this encounter
--- OUTSIDE RECORDS SUMMARY | 2025-07-01 16:06 | XMS_ITS | Encounter Summary ---
Author Organization [facility] Address [address] [place] [address] Phone Care Team Providers Care Binder Selector Name Role Phone Ga Liang MD Primary Care Provider [phone] Logan Acuna MD Unavailable Mars Marti APRN, CNP Unavailable [phone] Onelia Lagunas DO Primary Care Provider [phone] Jones Christy MD Unavailable [phone] Eliezer Ndiaye MD Unavailable Shamar Rosales MD Unavailable Reason for Visit * Reason Comments Medication Refill Encounter Details Date Type Department Care Team (Late st Contact Info) Description 02/08/2024 [facility]ill [facility] - [facility] [address] [place] [phone] Robert Gray MD #[address] [address] Medication Refill Social History Tobacco Use Types Packs/Day Years Used Date Smoking Tobacco: Never Smokeless Tobacco: Never Alcohol Use Standard Drinks/Week Comments No 0 (1 standard drink = 0.6 oz pur e alcohol) [facility] Utilities Answer Date Recorded In the past 12 months has [employer], gas, oil, or water company threatened to [...] often do you attend chur ch or moravian services? More than 4 times per year 12/02/2023 Do you belong to any clubs o r organizations such as synagogue groups, unions, fraternal or athletic groups, or [...] care, and heating? Not very hard 12/02/2023 [facility] of Occupat ional Health - Occupational Stress [...] place to sleep or slept in a penitentiary (including now)? No 12/02/2023 Sexually Active Control Partners Comments Yes Male Comments No Sex and Gender Information Value Date Recorded Sex Assigned at Female 08/07/2023 10:22 AM CEMENT CONTRACTOR Legal Sex Female 12:40 AM CDT Gender Identity Female 08/07/2023 10:22 AM CEMENT CONTRACTOR Sexual Orientation Straight 08/07/2023 10 :22 AM CEMENT CONTRACTOR documented as of this encounter Functional Status documented as of this encounter Mental Status * Question Answer Entry Date Author BP 126/78 02/10/2024 1:03 PM CDT Omer Cleveland, RMA Temp 97.2 02/10/2024 1:03 PM CDT Omer [place], RMA Pulse 86 02/10/2024 1:03 PM CDT Omer Cleveland, RMA SpO2 98 02/10/2024 1:03 PM CDT Omer Cleveland, RMA documented in this encounter Miscellaneous Notes * Telephone Encounter [...] st Contact Info) Description 09/05/2025 8:00 AM CEMENT CONTRACTOR Office Visit [facility] - Family Medicine - [place] #2 [facility] [place] [address] Onelia Lagunas, DO 2 [facility] [address] [place] [address] 09/08/2025 3:00 PM CEMENT CONTRACTOR Office Visit [facility] - Endocrinology - [place] #2 [facility] [place] [address] Onelia Lagunas, DO 2 [facility] [address] [place] [address] Henry Bernabe MD #[address] [phone] 09/28/2025 8:30 AM CEMENT CONTRACTOR Office Visit [facility] - Cardiology - [place] #2 [facility] [place] [address] Shamar Rosales MD [address] [address] 12/12/2025 9:30 AM CDT Office Visit [facility] - Neurology - [place] [address]2 [facility] [place] [address] Jones Christy MD #[address] [facility] [place] [address] documented as of this encounter Visit Diagnoses Diagnosis Insomnia, unspecified type documented in this encounter Additional Health Concerns Infection Onset Date Last Indicated Resolved Time COVID - 19 04/30/2024 04/30/2024 04/30/2024 11:2 5 AM CDT documented as of this encounter Care Teams Binder Selector Relationship Specialty Start Date End Date Ga Liang MD #1 [place] [address] PCP - General Family Medicine 07/18/23 03/08/24 Onelia Lagunas DO [address] [address] PCP - General Family Medicine 03/09/24 Logan Acuna MD #[address] [address] Consulting Physician Colon and Rectal Surgery 10/15/23 Mars Marti, SKEIN TIER, AUDIO VISUAL COORDINATOR #2 [place] [address] Nurse Practitioner Advanced Practice Nurse 02/10/24 Jones Christy MD #2 [place] [phone] Consulting Physician Neurology 04/30/24 Eliezer Ndiaye MD #[address] [address] Consulting Physician Clinical Cardiac Electrophysiology 09/17/24 03/23/25 Shamar Rosales MD [address] [address] Consulting Physician Cardiovascular Disease - Cardiology 03/24/25 documented as of this encounter
--- OUTSIDE RECORDS SUMMARY | 2025-07-01 16:06 | XMS_ITS | Encounter Summary ---
Author Organization [facility] Address [address] [place] [address] Care Team Providers Care Salon Supervisor Name Role Phone Delroy Aragon MD Primary Care Provider [phone] Encounter Details Date Type Department Care Team (Late st Contact Info) Description 01/03/2004 Outpatient [facility] Internal Medicine [address] [address] Delroy Aragon MD [address] [place] [address] Social History Tobacco Use Types Packs/Day Years Used Date Smoking Tobacco: Never Assessed Comments Unknown Sex and Gender Information Value Date Recorded Sex Assigned at Not on file Legal Sex Female 5:10 AM INSULATING MACHINE OPERATOR Gender Identity Not on file [...] on filedocumented in this encounter Care Teams Salon Supervisor Relationship Specialty Start Date End Date Delroy Aragon MD [address] [place] [phone] PCP - General 03/14/05 documented as of this encounter
--- OUTSIDE RECORDS SUMMARY | 2025-07-01 16:06 | XMS_ITS | Encounter Summary ---
Author Organization [facility] Address [address] [place] [address] Phone Care Team Providers Care Technical Assistant Name Role Phone Ga Liang MD Primary Care Provider [phone] Logan Acuna MD Unavailable Mars Marti APRN, ORE SMELTER Unavailable [phone] Onelia Lagunas DO Primary Care Provider [phone] Jones Christy MD Unavailable [phone] Eliezer Ndiaye MD Unavailable Shamar Rosales MD Unavailable Reason for Visit * Reason Comments Medication Refill Encounter Details Date Type Department Care Team (Late st Contact Info) Description 11/09/2023 Refill [facility] - Family Medicine [facility] [address] [place] [phone] Ninoska Borden, FOOD TRAY ASSEMBLER, ORE SMELTER [address] [place] [address] Medication Refill Social History Tobacco Use Types Packs/Day Years Used Date Smoking Tobacco: Never Smokeless Tobacco: Never Alcohol Use Standard Drinks/Week Comments No 0 (1 standard drink = 0.6 oz pur e alcohol) [facility] Utilities Answer Date Recorded In the past 12 months has [employer], gas, oil, or water [employer] threatened to shut off services in your home? No 11/11/2023 Social Connection and Isolation Panel Answer Date Recorded In a typical week, how many times do you talk on the phone with family, friends, or neighbors? Once a week 11/11/2023 How often do you get togethe r with friends or relatives? Once a week 11/11/2023 How often do you attend chur ch or temple services? More than 4 times per year 11/11/2023 Do you belong to any clubs o r organizations such as alevism groups, unions, fraternal or athletic groups, or [...] medical care, and heating? Patient declined 11/11/2023 [facility] of Occupat ional Health - Occupational [...] slept in a penitentiary (including now)? No 11/11/2023 Sexually Active Control Partners Comments Yes Male Comments No Sex and Gender Information Value Date Recorded Sex Assigned at Female 08/07/2023 10:22 AM SYSTEM CONTROLLER Legal Sex Female 12:40 AM CDT Gender Identity Female 08/07/2023 10:22 AM SYSTEM CONTROLLER Sexual Orientation Straight 08/07/2023 10 :22 AM SYSTEM CONTROLLER documented as of this encounter Functional Status * In the past 12 months has the electric, gas, oil, or water company threatened to shut off services in your home? Answer Date of Assessment Author No 11/11/2023 11:27 AM CDT [employer], System Background * In the last 12 months, was there a time when you were not able to pay the mortgage or rent on time? Answer Date of Assessment Author No 11/11/2023 11:27 AM CDT [employer], System Background * AUDIT-C Score Answer Date of Assessment Author 0 11/11/2023 11:27 AM CDT [employer], System Background * How hard is it for you to pay for the very basics like food, housing, medical care, and heating? Answer Date of Assessment Author Patient declined 11/11/2023 11:27 AM CDT [employer] , System Background * In the past 12 months, has lack of transportation kept you from medical appointments or from getting medications? Answer Date of Assessment Author No 11/11/2023 11:27 AM CDT [employer], System Background * In the past 12 months, has lack of transportation kept you from meetings, work, or from getting things needed for daily living? Answer Date of Assessment Author No 11/11/2023 11:27 AM CDAimee Trujillo, System Background * Within the past 12 months, you worried that your food would run out before you got the money to buymore. Answer Date of Assessment Author Never true 11/11/2023 11:27 AM CDT [employer], System Background * Within the past 12 months, the food you bought just didn't last and you didn't have money to get more. Answer Date of Assessment Author Never true 11/11/2023 11:27 AM CDT [employer], System Background * Do you feel stress - tense, restless, nervous, or anxious, or unable to sleep at night because yourmind is troubled all the time - these days? Answer Date of Assessment Author Only a little 11/11/2023 11:27 AM CDT [employer], System Background * Q1: How often do you have a drink containing alcohol? Answer Date of Assessment Author Never 11/11/2023 11:27 AM CDT [employer], System Background * Q2: How many drinks containing alcohol do you have on a typical day when you are drinking? Answer Date of Assessment Author Patient does not drink 11/11/2023 11:27 AM CDAimee gunter, System Background * Q3: How often do you have six or more drinks on one occasion? Answer Date of Assessment Author Never 11/11/2023 11:27 AM CDAimee Berryt, System Background * In the past 12 months has the [employer], [employer], oil, or water [employer] threatened to shut off services in your home? Answer Date of Assessment Author No 11/11/2023 11:27 AM CDT [employer], System Background * In the last 12 months, was there a time when you were not able to pay the mortgage or rent on time? Answer Date of Assessment Author No 11/11/2023 11:27 AM CDT [employer], System Background * AUDIT-C Score Answer Date of Assessment Author 0 11/11/2023 11:27 AM CDT [employer], System Background * How hard is it for you to pay for the very basics like food, housing, medical care, and heating? Answer Date of Assessment Author Patient declined 11/11/2023 11:27 AM CDT [employer] , System Background * In the past 12 months, has lack of transportation kept you from medical appointments or from getting medications? Answer Date of Assessment Author No 11/11/2023 11:27 AM CDT [employer], System Background * In the past 12 months, has lack of transportation kept you from meetings, work, or from getting things needed for daily living? Answer Date of Assessment Author No 11/11/2023 11:27 AM CDT [employer], System Background * Within the past 12 months, you worried that your food would run out before you got the money to buymore. Answer Date of Assessment Author Never true 11/11/2023 11:27 AM CDT [employer], System Background * Within the past 12 months, the food you bought just didn't last and you didn't have money to get more. Answer Date of Assessment Author Never true 11/11/2023 11:27 AM CDT Evelynhart, System Background * Do you feel stress - tense, restless, nervous, or anxious, or unable to sleep at night because yourmind is troubled all the time - these days? Answer Date of Assessment Author Only a little 11/11/2023 11:27 AM CDT [employer], System Background * Q1: How often do you have a drink containing alcohol? Answer Date of Assessment Author Never 11/11/2023 11:27 AM CDT [employer], System Background * Q2: How many drinks containing alcohol do you have on a typical day when you are drinking? Answer Date of Assessment Author Patient does not drink 11/11/2023 11:27 AM CDT Paty gunter, System Background * Q3: How often do you have six or more drinks on one occasion? Answer Date of Assessment Author Never 11/11/2023 11:27 AM CDT [employer], System Background documented as of this encounter Miscellaneous Notes * Telephone Encounter - Samanta Mcrae RN - 11/10/2023 9:49 AM CDT Medication [...] Provider Dept 09/19/23 Office Visit Ninoska Borden, FOOD TRAY ASSEMBLER, ORE SMELTER [facility] [address] 09/05/23 Office Visit Ninoska Borden FOOD TRAY ASSEMBLER, ORE SMELTER [facility] 08/06/23 Office Visit Jennifer Chowdary, [facility] 07/18/23 Office Visit Ga Liang MD [facility] [place] Showing recent visits within past 365 days and meeting all other requirements Future Appointments Date Type Provider Dept 11/13/23 Appointment Ga Liang MD [facility] 12/04/23 Appointment Ga Liang MD [facility] Showing future appointments within next 90 days and meeting all other requirements documented in this encounter Plan of Treatment Upcoming Encounters Date Type Department Care Team (Late st Contact Info) Description 09/05/2025 8:00 AM SYSTEM CONTROLLER Office Visit [facility] - [facility] Medicine - [place] [address] [place] [address] Onelia Lagunas, DO [address] [address] 09/08/2025 3:00 PM SYSTEM CONTROLLER Office Visit [facility] - Endocrinology - [place] #2 [place] [address] Onelia Lagunas, DO [address] [address] Henry Bernabe MD #[address] [phone] 09/28/2025 8:30 AM SYSTEM CONTROLLER Office Visit [facility] - [facility] - [place] #2 [place] [phone] Shamar Rosales MD [address] [phone] 12/12/2025 9:30 AM CDT Office Visit [facility] - Neurology - [place] #2 [place] [address] Jones Christy MD #[address] [place] [phone] documented as of this encounter Visit Diagnoses Diagnosis Constipation, unspecified constipation type documented in this encounter Additional Health Concerns Infection Onset Date Last Indicated Resolved Time COVID - 19 04/30/2024 04/30/2024 04/30/2024 11:2 5 AM CDT documented as of this encounter Care Teams Technical Assistant Relationship Specialty Start Date End Date Ga Liang MD #1 [place] [address] PCP - General Family Medicine 07/18/23 03/08/24 Onelia aLgunas DO 2 [facility] [address] [place] [address] PCP - General Family Medicine 03/09/24 Logan Acuna MD #2 [facility] [address] [place] [address] Consulting Physician Colon and Rectal Surgery 10/15/23 Mars Marti, FOOD TRAY ASSEMBLER, ORE SMELTER #[address] [place] [address] Nurse Practitioner Advanced Practice Nurse 02/10/24 Jones Christy MD #2 [place] [address] Consulting Physician Neurology 04/30/24 Eliezer Ndiaye MD #[address] [address] Consulting Physician Clinical Cardiac Electrophysiology 09/17/24 03/23/25 Shamar Rosales MD [address] [address] Consulting Physician Cardiovascular Disease - Cardiology 03/24/25 documented as of this encounter
--- OUTSIDE RECORDS SUMMARY | 2025-07-01 16:06 | XMS_ITS | Encounter Summary ---
Author Organization [facility] Address [address] [place] [address] Phone Care Team Providers Care Skills Auditor Name Role Phone Ga Liang MD Primary Care Provider [phone] Logan Acuna MD Unavailable Mars Marti APRN, CNP Unavailable [phone] Onelia Lagunas DO Primary Care Provider [phone] Jones Christy MD Unavailable [phone] Eliezer Ndiaye MD Unavailable Shamar Rosales MD Unavailable Reason for Visit * Reason Comments Medication Refill Encounter Details Date Type Department Care Team (Late st Contact Info) Description 11/09/2023 Refill [facility] - Family Medicine [facility] #2 [place] [address] Ga Liang MD #[address] [place] [address] Medication Refill Social History Tobacco Use Types Packs/Day Years Used Date Smoking Tobacco: Never Smokeless Tobacco: Never Alcohol Use Standard Drinks/Week Comments No 0 (1 standard drink = 0.6 oz pur e alcohol) [facility] Utilities Answer Date Recorded In the past 12 months has [employer], gas, oil, or water company threatened to [...] medical care, and heating? Patient declined 11/11/2023 [facility] of Occupat ional [facility] - Occupational Stress Questionnaire Answer [...] place to sleep or slept in a intermediate (including now)? No 11/11/2023 Sexually Active Control Partners Comments Yes Male Comments No Sex and Gender Information Value Date Recorded Sex Assigned at Female 08/07/2023 10:22 AM SUPPLIER DIVERSITY DIRECTOR Legal Sex Female 12:40 AM CDT Gender Identity Female 08/07/2023 10:22 AM SUPPLIER DIVERSITY DIRECTOR Sexual Orientation Straight 08/07/2023 10 :22 AM SUPPLIER DIVERSITY DIRECTOR documented as of this encounter Functional Status * In the past 12 months has the electric, gas, oil, or water company threatened to shut off services in your home? Answer Date of Assessment Author No 11/11/2023 11:27 AM CDT [email or web address], System Background * In the last 12 months, was there a time when you were not able to pay the mortgage or rent on time? Answer Date of Assessment Author No 11/11/2023 11:27 AM CDT [employer], System Background * AUDIT-C Score Answer Date of Assessment Author 0 11/11/2023 11:27 AM CDT [email or web address], System Background * How hard is it for you to pay for the very basics like food, housing, medical care, and heating? Answer Date of Assessment Author Patient declined 11/11/2023 11:27 AM CDT [employer] , System Background * In the past 12 months, has lack of transportation kept you from medical appointments or from getting medications? Answer Date of Assessment Author No 11/11/2023 11:27 AM CDT [email or web address], System Background * In the past 12 [...] In the past 12 months has the [email or web address], [employer]), oil, or water [employer] threatened to shut off services in your [...] Author Patient declined 11/11/2023 11:27 AM CDT Evelynhart , System Background * In the past [...] 11:27 AM CDT [employer]elyn[employer], System Background * Within the past 12 [...] Assessment Author Never 11/11/2023 11:27 AM CDT [employer], System Background * Q2: How many drinks containing alcohol do you have on a typical day when you are drinking? Answer Date of Assessment Author Patient does not drink 11/11/2023 11:27 AM CDT Quemulus jani, System Background * Q3: How often do you have six or more drinks on one occasion? Answer Date of Assessment Author Never 11/11/2023 11:27 AM CDT [employer], System Background documented as of this encounter [...] Dept 09/19/23 Office Visit Ninoska Borden APRN, [facility] [place] 09/05/23 Office Visit Ninoska Borden APRN, [facility] [place] 08/06/23 Office Visit Jennifer Chowdary, [facility] [place] 07/18/23 Office Visit Ga Liang MD [facility] Showing recent visits within past 365 days and meeting all other requirements Future Appointments Date Type Provider Dept 11/13/23 Appointment Ga Liang MD [facility] 12/04/23 Appointment Ga Liang MD [facility] Showing future appointments within next 90 days and meeting all other requirements ergocalciferol (VITAMIN D) 87594 UNIT Capsule [Pharmacy Med Name: Vitamin D (Ergocalciferol) 1.25 MG (44891 UT) Oral Capsule] 4 Capsule 3 Sig: Take 1 capsule by mouth once a week Vitamin Supplements (Adult) Protocol Passed - 11/09/2023 2:40 PM Passed - Visit with relevant provider in past 12 months or upcoming 90 days Recent Visits Date Type Provider Dept 09/19/23 Office Visit Ninoska Borden APRN, CNP [facility] 09/05/23 Office Visit Ninoska Borden APRN, MELISSA [facility] 08/06/23 Office Visit Jennifer Chowdary, [facility] 07/18/23 Office Visit Ga Liang MD [facility] Showing recent visits within past 365 days and meeting all other requirements Future Appointments Date Type Provider Dept 11/13/23 Appointment Ga Liang MD [facility] 12/04/23 Appointment Ga Liang MD [facility] Showing future appointments within next 90 days and meeting all other requirements Passed - Vitamin D dose not greater than 1.25mg documented in this encounter Plan of Treatment Upcoming Encounters Date Type Department Care Team (Late st Contact Info) Description 09/05/2025 8:00 AM SUPPLIER DIVERSITY DIRECTOR [facility] Visit [facility] - [facility] Medicine - [place] #2 [facility] [address] Onelia Lagunas, DO 2 [facility] [address] [place] [address] 09/08/2025 3:00 PM SUPPLIER DIVERSITY DIRECTOR Office Visit [facility] - Endocrinology - [place] #2 [facility] [place] [address] Onelia Lagunas, DO [address] [address] Henry Bernabe MD #[address] [phone] 09/28/2025 8:30 AM SUPPLIER DIVERSITY DIRECTOR [facility] [place] #2 [place] [address] Shamar Rosales MD [address] [address] 12/12/2025 9:30 AM CDT Office Visit [facility] - [facility]rology - [place] #2 [place] [address] Jones Christy MD #2 [place] [address] documented as of this encounter Visit Diagnoses Diagnosis Vitamin D deficiency Unspecified vitamin D deficiency documented in this encounter Additional Health Concerns Infection Onset Date Last Indicated Resolved Time COVID - 19 04/30/2024 04/30/2024 04/30/2024 11:2 5 AM CDT documented as of this encounter Care Teams Skills Auditor Relationship Specialty Start Date End Date Ga Liang MD #1 [place] [address] PCP - General Family Medicine 07/18/23 03/08/24 Onelia Lagunas DO [address] [address] PCP - General Family Medicine 03/09/24 Logan Acuna MD #[address] [address] Consulting Physician Colon and Rectal Surgery 10/15/23 Mars Marti, SHOE REPAIR COBBLER, SECURITY OPERATIONS MANAGER #2 [place] [address] Nurse Practitioner Advanced Practice Nurse 02/10/24 Jones Christy MD #2 [place] [phone] Consulting Physician Neurology 04/30/24 Eliezer Ndiaye MD #[address] [address] Consulting Physician Clinical Cardiac Electrophysiology 09/17/24 03/23/25 Shamar Rosales MD [address] [address] Consulting Physician Cardiovascular Disease - Cardiology 03/24/25 documented as of this encounter
--- OUTSIDE RECORDS SUMMARY | 2025-07-01 16:06 | XMS_ITS | Encounter Summary ---
Author Organization [facility] Address [address] [place] [address] Phone Care Team Providers Care Development Coordinator Name Role Phone Ga Liang MD Primary Care Provider Logan Acuna MD Unavailable Mars Marti APRN, CNP Unavailable [phone] Onelia Lagunas DO Primary Care Provider [phone] Jones Christy MD Unavailable [phone] Eliezer Ndiaye MD Unavailable Shamar Rosales MD Unavailable Reason for Visit * Reason Comments Medication Refill Encounter Details Date Type Department Care Team (Late st Contact Info) Description 10/07/2023 [facility]ill [facility] [address] [place] [address] Ga Liang MD [address]1 [place] [address] Medication Refill Social History Tobacco Use Types Packs/Day Years Used Date Smoking Tobacco: Never Smokeless Tobacco: Never Alcohol Use Standard Drinks/Week Comments No 0 (1 standard drink = 0.6 oz pur e alcohol) Sexually Active Control Partners Comments Yes Male Comments No Sex and Gender Information Value Date Recorded Sex Assigned at Female 08/07/2023 10:22 AM POWER PLANT ASSISTANT Legal Sex Female 12:40 AM CDT Gender Identity Female 08/07/2023 10:22 AM POWER PLANT ASSISTANT Sexual Orientation Straight 08/07/2023 10 :22 AM POWER PLANT ASSISTANT documented as of this encounter Miscellaneous Notes * Telephone Encounter - Mily Quiros RN - 10/07/2023 4:52 PM CST Earliest fill date 10/18/23 R PLANT ASSISTANT * Telephone Encounter - Mily Quiros RN - 10/07/2023 4:51 PM CST Images from the original note were not included. olpidem Tartrate Dispensed Days Supply Quantity Provider Pharmacy ZOLPIDEM 10MG TAB 09/18/2023 30 30 Each Ga Liang MD [facility] 4695 ... ZOLPIDEM 10MG TAB 08/21/2023 30 30 Each Ga Liang MD [facility] 4695 ... ZOLPIDEM 10MG TAB 07/18/2023 30 30 Each Ga Liang MD [facility] 4695 ... R PLANT ASSISTANT documented in this encounter Plan of Treatment Upcoming Encounters Date Type Department Care Team (Late st Contact Info) Description 09/05/2025 8:00 AM POWER PLANT ASSISTANT Office Visit [facility] - [facility] Medicine [facility] [address] [place] [address] Onelia Lagunas, DO [address] [address] 09/08/2025 3:00 PM POWER PLANT ASSISTANT Office Visit [facility] - Endocrinology - [place] [address] [place] [address] Onelia Lagunas, DO 2 [facility] [address] [place] [address] Henry Bernabe MD #[address] [phone] 09/28/2025 8:30 AM POWER PLANT ASSISTANT Office Visit [facility] - Cardiology - [place] [address] [place] [address] Shamar Rosales MD [address] [id number] 12/12/2025 9:30 AM CDT Office Visit [facility] Neurology [facility] [address] [place] [address] Jones Christy MD #2 [place] [phone] documented as of this encounter Visit Diagnoses Diagnosis Insomnia, unspecified type documented in this encounter Additional Health Concerns Infection Onset Date Last Indicated Resolved Time COVID - 19 04/30/2024 04/30/2024 04/30/2024 11:2 5 AM CDT documented as of this encounter Care Teams Development Coordinator Relationship Specialty Start Date End Date Ga Liang MD [address] [place] [address] PCP - General Family Medicine 07/18/23 03/08/24 Onelia Lagunas DO [address] [address] PCP - General Family Medicine 03/09/24 Logan Acuna MD #[address] [address] Consulting Physician Colon and Rectal Surgery 10/15/23 Mars Marti APRN, CORPORATE EXECUTIVE [address] [place] [address] Nurse Practitioner Advanced Practice Nurse 02/10/24 Jones Christy MD #2 [facility] [place] [address] Consulting Physician Neurology 04/30/24 Eliezer Ndiaye MD #[address] [address] [address] Consulting Physician Clinical Cardiac Electrophysiology 09/17/24 03/23/25 Shamar Rosales MD 2 [facility] [address] [address] [address] Consulting Physician Cardiovascular Disease - Cardiology 03/24/25 documented as of this encounter
--- OUTSIDE RECORDS SUMMARY | 2025-07-01 16:06 | XMS_ITS | Encounter Summary ---
Author Organization [facility] Address [address] [place] [address] Care Team Providers Care Deputy Bailiff Name Role Phone Delroy Aragon MD Primary Care Provider [phone] Encounter Details Date Type Department Care Team (Late st Contact Info) Description 12/24/2005 Outpatient [facility] Internal Medicine [address] [phone] Delroy Aragon MD [address] [place] [phone] Social History Tobacco Use Types Packs/Day Years Used Date Smoking Tobacco: Never Assessed Comments Unknown Sex and Gender Information Value Date Recorded Sex Assigned at Not on file Legal Sex Female 5:10 AM CAP MAKER Gender Identity Not on file Sexual [...] on filedocumented in this encounter Care Teams Deputy Bailiff Relationship Specialty Start Date End Date Delroy Aragon MD [address] [place] [phone] PCP - General 03/14/05 documented as of this encounter
--- OUTSIDE RECORDS SUMMARY | 2025-07-01 16:06 | XMS_ITS | Encounter Summary ---
Author Organization [facility] Address [address] [place] [address] Phone Care Team Providers Care Petroleum Refining Equipment Operator Name Role Phone Logan Acuna MD Unavailable Mars Marti APRN, SPA MANAGER/ESTHETICIAN Unavailable [phone] Onelia Lagunas DO Primary Care Provider [phone] Jones Christy MD Unavailable [phone] Eliezer Ndiaye MD Unavailable Shamar Rosales MD Unavailable Reason for Visit * Reason Comments Medication Refill Encounter Details Date Type Department Care Team (Late st Contact Info) Description 06/05/2024 Refill [facility] - Family [facility] [address] [place] [address] Jennifer Chowdary, [facility] [address] [place] [address] Medication Refill Social History Tobacco Use Types Packs/Day Years Used Date Smoking Tobacco: Never Smokeless Tobacco: Never Alcohol Use Standard Drinks/Week Comments No 0 (1 standard drink = 0.6 oz pur e alcohol) [facility] Utilities Answer Date Recorded In the past 12 months has [employer] electric, gas, oil, or water company threatened [...] often do you attend chur ch or faith services? More than 4 times per year 02/14/2024 Do you belong to any clubs o r organizations such as mormonism groups, unions, fraternal or athletic groups, or [...] Total Score - Questions 1-9 0 03/2024 [facility] - [...] place to sleep or slept in a snf (including now)? No 12/02/2023 Housing Stability Vital [...] any time in the past 12 m [facility], were you homeless or living in a snf (including now)? No 02/14/2024 Sexually Active Control Partners Comments Yes Male Comments No Sex and Gender Information Value Date Recorded Sex Assigned at Female 08/07/2023 10:22 AM PHARMACOLOGY TEACHER Legal Sex Female 12:40 AM CDT Gender Identity Female 08/07/2023 10:22 AM PHARMACOLOGY TEACHER Sexual Orientation Straight 08/07/2023 10 :22 AM PHARMACOLOGY TEACHER documented as of this encounter Miscellaneous Notes [...] st Contact Info) Description 09/05/2025 8:00 AM PHARMACOLOGY TEACHER Office Visit [facility] Family Medicine - [place] [address]2 [place] [address] Onelia Lagunas, DO 2 [facility] [address] [place] [address] 09/08/2025 3:00 PM PHARMACOLOGY TEACHER [facility] [place] [address]2 [place] [phone] Onelia Lagunas, DO 2 [facility] [place] [address] [place] [address] Henry Bernabe MD #[address] [place] [phone] 09/28/2025 8:30 AM PHARMACOLOGY TEACHER [facility] [place] [address]2 [place] [phone] Shamar Rosales MD [address] [address] 12/12/2025 9:30 AM CDT Office Visit [facility] - Neurology - [place] [address]2 [place] [phone] Jones Christy MD #2 [place] [address] documented as of this encounter Visit Diagnoses Diagnosis Hypertension, unspecified type documented in this encounter Additional Health Concerns Assessment Noted Time PHQ-9 Depression Total Score: 0 02/16/20 24 9:00 AM CDT documented as of this encounter Care Teams Petroleum Refining Equipment Operator Relationship Specialty Start Date End Date BeboOnelia calderón DO 2 [facility] [address] [place] [address] PCP - General Family Medicine 03/09/24 Logan Acuna MD [address] [address] Consulting Physician Colon and Rectal Surgery 10/15/23 Mars Marti APRN, SPA MANAGER/ESTHETICIAN [address] [place] [address] Nurse Practitioner Advanced Practice Nurse 02/10/24 Jones Christy MD [address] [place] [address] Consulting Physician Neurology 04/30/24 Eliezer Ndiaye MD #[address] [place] [address] [address] Consulting Physician Clinical Cardiac Electrophysiology 09/17/24 03/23/25 Shamar Rosales MD 2 [address] [address] Consulting Physician Cardiovascular Disease - Cardiology 03/24/25 documented as of this encounter
--- OUTSIDE RECORDS SUMMARY | 2025-07-01 16:06 | XMS_ITS | Clinical Summary ---
Author Organization [facility] Address [address] [place] [address] Care Team Providers Care Gas Desulfurizer Name Role Phone Vern Wilkinson MD Unavailable [phone] Brenda Anand MD Unavailable Onelia Lagunas DO Primary Care Provider [phone] Allergies No known active allergies Medications albuterol [...] for anxiety 30 tablet 07/16/20 24 Active Active Problems Problem Noted Date Diagnosed Date Epistaxis 05/18/2025 Assessment & Plan (05/18/2025 9:52 AM CDT): Nasal saline spray (Simply saline, Little Remedies, [place], [place]) 2 second sprays or 2 squeezes into [...] Nasal saline spray (Simply saline, [employer] Remedies, [place], [place]) 2 second sprays or 2 squeezes into [...] Description 05/18/2025 9:15 AM CDT Office Visit [facility] - [address] [place] [address] Cindy Ann, Epistaxis (Primary Dx); Referred otalgia of left [...] Hx Other Medical Gall bladder; C omments: [facility] 04/07/2014 - Hx Other Medical Knee repair; Co mments: [facility] 04/07/2014 - PONV (postoperative nausea and vomiting) [...] drink = 0.6 oz pur e alcohol) [facility] Utilities Answer Date Recorded In the past 12 months has [employer] electric, gas, oil, or water [employer] threatened to shut off services in your [...] week 07/12/2024 How often do you attend chur ch or holiness services? 1 to 4 times per year 07/12/2024 Do you belong to any clubs o r organizations such as religion groups, unions, fraternal or athletic groups, or [...] any time in the past 12 m [facility], were you homeless or living in a fdc (including now)? No 07/12/2024 Personal Safety Answer Date Recorded Have you ever been in or are you currently in a harmful physical or emotional relationship or is someone making you feel afraid or unsafe? Denies 07/12/2024 Comments No Sex and Gender Information Value Date Recorded Sex Assigned at Not on file Legal Sex Female 3:00 AM MORTGAGE LOAN FUNDER Gender Identity Not on file Sexual Orientation Not on file Obstetrics History Para Term AB IAB SAB Ectopic Multiple Livin g Live Births 3 3 3 Date Outcome GA Total Labor Labor/2nd/3rd Weight Sex Type Anes PTL Barbara A1 A5 Name Clin Term Term Term Last Filed Vital Signs Vital Sign Reading Time Taken Comments Blood Pressure 119/79 01/12/2025 9:03 AM CDT Pulse 92 01/12/2025 9:03 AM CDT Temperature 36.6 C (97.9 F) 07/16/2024 9:22 AM MORTGAGE LOAN FUNDER Respiratory Rate 18 07/16/2024 9:22 AM MORTGAGE LOAN FUNDER Oxygen Saturation 98% 01/12/2025 9:03 AM CDT [...] this topic Medical Devices Implanted Type Area Grating Machine Operator Device Identifier Shelf Expiration Date Model / Serial / Lot Integra Lifesciences Jeanmarie Duragen Plus 3x1in Patch Resorbable Suturable Cranial Dura Graft Dp-1013 - [id number] Implanted:Qty: 1 on 06/18/2024 by Vern Wilkinson MD at [facility] N/A: Spine Lumbar Integra Lifesciences Jeanmarie 01/08/2027 [id number] / / [id number] Orthofix Spinal Implants Cage Spinal Lumbar 0 Degree Plif Forza 1b00u20sd Titanium 38-1sp - [id number] Implanted:Qty: 1 on 06/18/2024 by Vern Wilkinson MD at [facility] N/A: Spine Lumbar Orthofix Spinal Implants [id number] 03/22/2026 [id number] / / [id number] Surgalign Spine Technologies Screw Spinal Pedicle Cannulated Streamline Titanium -Setscrew - [id number] Implanted:Qty: 8 on 06/18/2024 by Vern Wilkinson MD at [facility] N/A: Spine Lumbar SURGALIGN SPINE TECHNOLOGIES 01-SETSCR EW / / Surgalign Spine Technologies Screw Spinal Pedicle Polyaxial Self Tapping Full Thread Solid Streamline 6.5x50mm Titanium -65-50 - [id number] Implanted:Qty: 2 on 06/18/2024 by Vern Wilkinson MD at [facility] N/A: Spine Lumbar SURGALIGN SPINE TECHNOLOGIES 65- 50 / / Surgalign Spine Technologies Dayo Spinal Thoracolumbar Prebent Quantum 5.0j325rh Titanium 81-52-Ig-110 - [id number] Implanted:Qty: 1 on 06/18/2024 by Vern Wilkinson MD at [facility] N/A: Spine Lumbar SURGALIGN SPINE TECHNOLOGIES -AL- 110 / / Surgalign Spine Technologies Dayo Spinal Thoracolumbar Prebent Quantum 5.7m196ov Titanium 73-04-Ry-100 - [id number] Implanted:Qty: 1 on 06/18/2024 by Vern Wilkinson MD at [facility] N/A: Spine Lumbar SURGALIGN SPINE TECHNOLOGIES -AL- 100 / / Biocomposites Stimulan Rapid Cure Kit Paste Transmitter Supervisor 5cc 12.5cc Bone Void 620-005 - [id number] Implanted:Qty: 1 on 06/18/2024 by eVrn Wilkinson MD at [facility] N/A: Spine Lumbar Biocomposites [id number] 03/10/2026 620-005 / / [id number] Integra Reval.comciServiceMax Jeanmarie Duragen Plus 3x1in Patch Resorbable Suturable Cranial Dura Graft Dp-1013 - [id number] Implanted:Qty: 1 on 06/28/2024 by Robert Ervin MD at [facility] Integra Reval.comciServiceMax Jeanmarie 12/08/2026 [id number] / / [id number] Procedures Procedure Name Priority Date/Time Associated Diagnosis Comments AL REMOVAL IMPACTED CERUMEN INSTRUMENTATION UNILAT Routine 05/18/2025 9:15 AM CDT Impacted cerumen of left ear SCREENING MAMMOGRAM BILATERAL W DARNELL Schedule Routine, Read Routine (OP Routine) 01/26/2022 12:56 PM CDT Screening mammogram, encounter for from Last 3 Months or Most Recently Relevant to Health Maintenance Results * AL REMOVAL IMPACTED CERUMEN INSTRUMENTATION UNILAT (05/18/2025 9:15 [...] Most Recently Relevant to Health Maintenance Insurance [facility] Advance Directives For more information, please contact: [phone] Documents on File Type Date Recorded Patient Clother In Expl anation ADVANCE DIRECTIVE 07/19/2024 12:49 PM GISELL R OF MANAGER TRUCK-MEDICAL ADVANCE DIRECTIVE 07/15/2024 2:04 PM POWER OF MANAGER TRUCK-MEDICAL * LIMITED - No CPR (Latest Code [...] 2:29 PM 06/28/2024 6:02 PM Care Teams Gas Desulfurizer Relationship Specialty Start Date End Date Onelia Lagunas DO [address] [address] PCP - General Family Medicine 05/18/25 Vern Wilkinson MD Consulting Physician Neurosurgery 07/03/24 [place] [address] [place] [address] Consulting Physician Infectious Diseases 07/16/24
--- OUTSIDE RECORDS SUMMARY | 2025-07-01 16:06 | XMS_ITS | Encounter Summary ---
Author Organization [facility] Address [address] [place] [address] Care Team Providers Care High School History Teacher Name Role Phone Delroy Aragon MD Primary Care Provider [phone] Encounter Details Date Type Department Care Team (Latest Contact Info) Description 03/14/2005 Outpatient Historical [facility] Delroy Aragon MD [address] [facility] [address] [place] [address] CHOLELITHIASIS NOS (Primary Dx) Social History Tobacco Use Types Packs/Day Years Used Date Smoking Tobacco: Never Assessed Comments Unknown Sex and Gender Information Value Date Recorded Sex Assigned at Not on file Legal Sex Female 5:10 AM BULK LOADER Gender Identity Not on file Sexual Orientation Not on file documented as of this encounter Plan of Treatment Not on file documented as of this encounter Visit Diagnoses Diagnosis Calculus of gallbladder without mention of cholecystitis or obstruction- Primary documented in this encounter Care Teams High School History Teacher Relationship Specialty Start Date End Date Dleroy Aragon MD [address] [facility] [address] [place] [address] PCP - General 03/14/05 documented as of this encounter
--- OUTSIDE RECORDS SUMMARY | 2025-07-01 16:06 | XMS_ITS | Encounter Summary ---
Author Organization [facility] Address [address] [place] [address] Care Team Providers Care Glove Turner Name Role Phone Delroy Aragon MD Primary Care Provider [phone] Encounter Details Date Type Department Care Team (Late st Contact Info) Description 09/15/2007 Outpatient [facility] Internal Medicine [address] [address] Delroy Aragon MD [address] [place] [phone] Social History Tobacco Use Types Packs/Day Years Used Date Smoking Tobacco: Never Assessed Comments Unknown Sex and Gender Information Value Date Recorded Sex Assigned at Not on file Legal Sex Female 5:10 AM SANDWICH WRAPPER Gender Identity Not on file Sexual Orientation Not on file documented as of this encounter Plan of Treatment Not on file documented as of this encounter Visit Diagnoses Not on filedocumented in this encounter Care Teams Glove Turner Relationship Specialty Start Date End Date Delroy Aragon MD [address] [place] [address] [address] [place] [address] PCP - General 03/14/05 documented as of this encounter
--- OUTSIDE RECORDS SUMMARY | 2025-07-01 16:06 | XMS_ITS | Encounter Summary ---
Author Organization [facility] Address [address] [place] [address] Phone Care Team Providers Care Animal Sitter Name Role Phone Ga Liang MD Primary Care Provider [phone] Logan Acuna MD Unavailable Mars Marti APRN, PROSTHETIC LAB TECHNICIAN Unavailable Onelia Lagunas DO Primary Care Provider [phone] Jones Christy MD Unavailable [phone] Eliezer Ndiaye MD Unavailable Shamar Rosales MD Unavailable Reason for Visit * Reason Comments Medication Refill Encounter Details Date Type Department Care Team (Late st Contact Info) Description 10/12/2023 Refill [facility] #[address] [place] [address] Ninoska Borden, MATERIAL COORDINATOR, PROSTHETIC LAB TECHNICIAN [address] [place] [address] Medication Refill Social History Tobacco Use Types Packs/Day Years Used Date Smoking Tobacco: Never Smokeless Tobacco: Never Alcohol Use Standard Drinks/Week Comments No 0 (1 standard drink = 0.6 oz pur e alcohol) Sexually Active Control Partners Comments Yes Male Comments No Sex and Gender Information Value Date Recorded Sex Assigned at Female 08/07/2023 10:22 AM EXAMINATION SUPERVISOR Legal Sex Female 12:40 AM CDT Gender Identity Female 08/07/2023 10:22 AM EXAMINATION SUPERVISOR Sexual Orientation Straight 08/07/2023 10 :22 AM EXAMINATION SUPERVISOR documented as of this encounter Miscellaneous [...] Provider Dept 09/19/23 Office Visit Ninoska Borden MATERIAL COORDINATOR, PROSTHETIC LAB TECHNICIAN [facility] [place] 09/05/23 Office Visit Ninoska Borden MATERIAL COORDINATOR, PROSTHETIC LAB TECHNICIAN [facility] [place] 08/06/23 Office Visit Jennifer Chowdary, [facility] [place] 07/18/23 Office Visit Ga [facility] MD [facility] Show[facility] recent visits within past 182 days and meeting all other requirements Future Appointments Date Type Provider Dept 11/13/23 Appointment Ga Liang MD [facility] 12/04/23 Appointment Ga Liang MD [facility] [place] Showing future appointments within next 90 [...] Provider Dept 09/19/23 Office Visit Ninoska Borden, MATERIAL COORDINATOR, PROSTHETIC LAB TECHNICIAN [facility] [place] 09/05/23 Office Visit Ninoska Borden, MATERIAL COORDINATOR, PROSTHETIC LAB TECHNICIAN [facility] [place] 08/06/23 Office Visit Epi Jennifer Dubon, ROSE [facility] [place] 07/18/23 Office Visit Ga Liang MD [facility] [place] Showing recent visits within past 365 days and meeting all other requirements Future Appointments Date Type Provider Dept 11/13/23 Appointment Ga Liang MD [facility] 12/04/23 Appointment Ga Liang MD [facility] [place] Showing future appointments within next 90 days and meeting all other requirements INATION SUPERVISOR documented in this encounter Plan of Treatment Upcoming Encounters Date Type Department Care Team (Late st Contact Info) Description 09/05/2025 8:00 AM EXAMINATION SUPERVISOR [facility] [place] #[address] [facility] [address] Onelia Lagunas, DO [address] [address] 09/08/2025 3:00 PM EXAMINATION SUPERVISOR [facility] [place] [address]2 [place] [address] Onelia Lagunas, DO [address] [address] Henry Bernabe MD #[address] [place] [address] 09/28/2025 8:30 AM EXAMINATION SUPERVISOR [facility] [place] #2 [place] [address] Shamra Rosales MD 2 [facility] [address] [place] [address] 12/12/2025 9:30 AM CDT [facility] #2 [place] [phone] Jones Christy MD #2 [place] [address] documented as of this encounter Visit Diagnoses Diagnosis Cystitis Cystitis, unspecified Hot flashes Symptomatic menopausal or female climacteric states documented in this encounter Additional Health Concerns Infection Onset Date Last Indicated Resolved Time COVID - 19 04/30/2024 04/30/2024 04/30/2024 11:2 5 AM CDT documented as of this encounter Care Teams Animal Sitter Relationship Specialty Start Date End Date Ga Liang MD #1 [place] [address] PCP - General Family Medicine 07/18/23 03/08/24 Onelia Lagunas DO [address] [facility] [address] [place] [address] PCP - General Family Medicine 03/09/24 Logan Acuna MD [facility] [address] Consulting Physician Colon and Rectal Surgery 10/15/23 Mars Marti APRN, PROSTHETIC LAB TECHNICIAN #2 [place] [address] Nurse Practitioner Advanced Practice Nurse 02/10/24 Jones Christy MD #2 [place] [address] Consulting Physician Neurology 04/30/24 Eliezer Ndiaye MD #2 [facility] [address] [address] Consulting Physician Clinical Cardiac Electrophysiology 09/17/24 03/23/25 Shamar Rosales MD [address] [facility] [place] [address] [address] Consulting Physician Cardiovascular Disease - Cardiology 03/24/25 documented as of this encounter
--- OUTSIDE RECORDS SUMMARY | 2025-07-01 16:06 | XMS_ITS | Encounter Summary ---
Author Organization [facility] Address [address] [place] [address] Care Team Providers Care Cloth Spreader Name Role Phone Delroy Aragon MD Primary Care Provider [phone] Encounter Details Date Type Department Care Team (Late st Contact Info) Description 06/18/2004 Outpatient [facility] Internal Medicine [address] [phone] Delroy Aragon MD [address] [place] [phone] Social History Tobacco Use Types Packs/Day Years Used Date Smoking Tobacco: Never Assessed Comments Unknown Sex and Gender Information Value Date Recorded Sex Assigned at Not on file Legal Sex Female 5:10 AM STENOTYPE OPERATOR Gender Identity Not on file Sexual Orientation Not on file documented as of this encounter Last Filed Vital Signs Vital Sign Reading Time Taken Comments Blood Pressure 140/80 06/18/2004 4:15 PM STENOTYPE OPERATOR Pulse - - Temperature - - Respiratory Rate - - Oxygen Saturation - - Inhaled Oxygen Concentration - - Weight - - Height - - Body Mass Index - - documented in this encounter Plan of Treatment Not on file documented as of this encounter Visit Diagnoses Not on filedocumented in this encounter Care Teams Cloth Spreader Relationship Specialty Start Date End Date Delroy Aragon MD [address] [place] [phone] PCP - General 03/14/05 documented as of this encounter
--- OUTSIDE RECORDS SUMMARY | 2025-07-01 16:06 | XMS_ITS | Encounter Summary ---
Author Organization [facility] Address [address] [place] [address] Care Team Providers Care Animal Assistant Name Role Phone Delroy Aragon MD Primary Care Provider [phone] Encounter Details Date Type Department Care Team (Late st Contact Info) Description 09/15/2007 Outpatient [facility] Internal Medicine [address] [phone] Delroy Aragon MD [address] [place] [phone] Social History Tobacco Use Types Packs/Day Years Used Date Smoking Tobacco: Never Assessed Comments Unknown Sex and Gender Information Value Date Recorded Sex Assigned at Not on file Legal Sex Female 5:10 AM OPTOMETRY ASSISTANT Gender Identity Not on file Sexual Orientation Not on file documented as of this encounter Plan of Treatment Not on file documented as of this encounter Visit Diagnoses Not on filedocumented in this encounter Care Teams Animal Assistant Relationship Specialty Start Date End Date Delroy Aragon MD [address] [place] [address] [address] [place] [address] PCP - General 03/14/05 documented as of this encounter
--- OUTSIDE RECORDS SUMMARY | 2025-07-01 16:06 | XMS_ITS | Encounter Summary ---
Author Organization [facility] Address [address] [place] [phone] Phone Care Team Providers Care Competitive Shopper Name Role Phone Logan Acuna MD Unavailable Mars Marti APRN, MELISSA Unavailable [phone] Onelia Lagunas DO Primary Care Provider [phone] Jones Christy MD Unavailable [phone] Eliezer Ndiaye MD Unavailable Shamar Rosales MD Unavailable Encounter Details Date Type Department Care Team (Latest Contact Info) Description 08/03/2024 Lab Requisition [facility] Laboratory Services [address] [place] [phone] Brenda Mccann MD Severe sepsis with septic shock (CODE) (HCC); Sepsis due to methicillin susceptible Staphylococcus aureus (HCC) Social History Tobacco Use Types Packs/Day Years Used Date Smoking Tobacco: Never Smokeless Tobacco: Never Alcohol Use Standard Drinks/Week Comments No 0 (1 standard drink = 0.6 oz pur e alcohol) [facility] Utilities Answer Date Recorded In the past [...] How often do you attend chur or advent services? More than 4 times per year 02/14/2024 Do you belong to any clubs o r organizations such as sabianism groups, unions, fraternal or athletic groups, or [...] Score - Questions 1-9 0 07/12 [facility] - Occupational [...] place to sleep or slept in a longterm (including now)? No 12/02/2023 Housing Stability Vital [...] time in the past 12 m [facility], were you homeless or living in a longterm (including now)? No 02/14/2024 Sexually Active Control Partners Comments Yes Male Comments No Sex and Gender Information Value Date Recorded Sex Assigned at Female 08/07/2023 10:22 AM CLEAN UP HELPER BANQUET Legal Sex Female 12:40 AM CDT Gender Identity Female 08/07/2023 10:22 AM CLEAN UP HELPER BANQUET Sexual Orientation Straight 08/07/2023 10 :22 AM CLEAN UP HELPER BANQUET documented as of this encounter Functional Status * BP Answer Date of Assessment Author 134/84 08/06/2024 11:35 AM CLEAN UP HELPER BANQUET Tosin Watson RN * Temp Answer Date of Assessment Author 97.8 08/06/2024 11:35 AM CLEAN UP HELPER BANQUET Tosin Watson RN * Pulse Answer Date of Assessment Author 58 08/06/2024 11:35 AM Tosin Sanford RN * Resp Answer Date of Assessment Author 18 08/06/2024 11:35 AM Tosin Sanford RN * SpO2 Answer Date of Assessment Author 97 08/06/2024 11:35 AM Tosin Sanford RN documented as of this encounter Mental Status * BP Answer Entry Date Author 134/84 08/06/2024 11:35 AM CLEAN UP HELPER BANQUET Tosin Watson RN * Temp Answer Entry Date Author 97.8 08/06/2024 11:35 AM CLEAN UP HELPER BANQUET Tosin Watson RN * Pulse Answer Entry Date Author 58 08/06/2024 11:35 AM Tosin Sanford RN * SpO2 Answer Entry Date Author 97 08/06/2024 11:35 AM Tosin Sanford RN documented in this encounter Plan of Treatment Upcoming Encounters Date Type Department Care Team (Late st Contact Info) Description 09/05/2025 8:00 AM CLEAN UP HELPER BANQUET Office Visit [facility] Family Medicine - [place] [address]2 [facility] [place] [address] Onelia Lagunas, DO 2 [facility] [address] [place] [address] 09/08/2025 3:00 PM CLEAN UP HELPER BANQUET Office Visit [facility] - Endocrinology - [place] #2 [facility] [place] [address] Onelia Lagunas, DO 2 [facility] [address] [place] [address] Henry Bernabe MD #[address] [place] [address] 09/28/2025 8:30 AM CLEAN UP HELPER BANQUET Office Visit [facility] - Cardiology - [place] #2 [facility] [place] [address] Shamar Rosales MD [address] [address] 12/12/2025 9:30 AM CDT Office Visit [facility] - Neurology - [place] #2 [facility] [address] Jones Christy MD #2 [place] [address] documented as of this encounter Procedures Procedure Name Priority Date/Time Associated Diagnosis Comments CBC WITH AUTO DIFFERENTIAL Routine 08/03/2024 10:00 AM CLEAN UP HELPER BANQUET Severe sepsis with septic shock (CODE) (HCC) Sepsis due to methicillin susceptible Staphylococcus aureus (HCC) CMP (COMPREHENSIVE METABOLIC PANEL) Routine 08/03/2024 10:00 AM CLEAN UP HELPER BANQUET Severe sepsis with septic shock (CODE) (HCC) Sepsis due to methicillin susceptible Staphylococcus aureus (HCC) COMPLETE BLOOD COUNT (CBC) WITH DIFF Routine 08/03/2024 10:00 AM CLEAN UP HELPER BANQUET Severe sepsis with septic shock (CODE) (HCC) Sepsis due to methicillin susceptible Staphylococcus aureus (HCC) C-REACTIVE PROTEIN (CRP) QUANT Routine 08/03/2024 10:00 AM CLEAN UP HELPER BANQUET Severe sepsis with septic shock (CODE) (HCC) Sepsis due to methicillin susceptible Staphylococcus aureus (HCC) documented in this encounter Results * (ABNORMAL) CBC WITH AUTO DIFFERENTIAL (08/03/2024 10:00 AM CLEAN UP HELPER BANQUET) WBC 4.21 4.00 - 12.00 10(3)/mcL 08/03/2024 10:52 AM CLEAN UP HELPER BANQUET [facility] RBC 3.30(L) 3.80 - 5.30 10(6)/mcL 08/03/2024 10:52 AM CLEAN UP HELPER BANQUET [facility] HEMOGLOBIN (HGB) 10.0(L) 12.0 - 15.8 g/dL 08/03/2024 10:52 AM CLEAN UP HELPER BANQUET [facility] HEMATOCRIT (HCT) 31.5(L) 36.0 - 47.0 % 08/03/2024 10:52 AM CLEAN UP HELPER BANQUET [facility] MCV 95.5 82.0 - 96.0 fL 08/03/2024 10:52 AM CLEAN UP HELPER BANQUET [facility] MCH 30.3 26.0 - 34.0 pg 08/03/2024 10:52 AM [facility] MCHC 31.7 31.0 - 36.0 g/dL 08/03/2024 10:52 AM [facility] PLATELET COUNT 261 140 - 440 10(3)/[facility] 08/03/2024 10:52 AM [facility] RDW 13.0 11.8 - 15.5 % 08/03/2024 10:52 AM [facility] MPV 10.4 9.7 - 12.4 fL 08/03/2024 10:52 AM [facility] NEUTROPHILS 46.3(L) 47.0 - 73.0 % 08/03/2024 10:52 AM [facility] LYMPHOCYTES 38.7 18.0 - 42.0 % 08/03/2024 10:52 AM [facility] MONOCYTES 11.9 4.0 - 12.0 % 08/03/2024 10:52 AM [facility] EOSINOPHILS 2.4 0.0 - 5.0 % 08/03/2024 10:52 AM [facility] BASOPHILS 0.7 0.0 - 1.0 % 08/03/2024 10:52 AM [facility] ABSOLUTE NEUTROPHILS 1.95 1.60 - 7.70 10(3)/[facility] 08/03/2024 10:52 AM [facility] ABSOLUTE LYMPHOCYTES 1.63 1.30 - 3.20 10(3)/[facility] 08/03/2024 10:52 AM [facility] ABSOLUTE MONOCYTES 0.50 0.20 - 1.00 10(3)/[facility] 08/03/2024 10:52 AM [facility] ABSOLUTE EOSINOPHIL 0.10 0.00 - 0.40 10(3)/[facility] 08/03/2024 10:52 AM [facility] ABSOLUTE BASOPHILS 0.03 0.00 - 0.10 10(3)/[facility] 08/03/2024 10:52 AM [facility] NRBC PER 100 WBC 0 08/03/20 10:52 AM [facility] Blood No Phlebotomy Charged / Unknown 08/03/2024 10:00 AM CLEAN UP HELPER BANQUET 08/03/2024 10:49 AM CLEAN UP HELPER BANQUET us Brenda Anand MD HEMATOLOGY ORDERABL ES Final Result [facility] #1 [place] [address] * (ABNORMAL) CMP (COMPREHENSIVE METABOLIC PANEL) (08/03/2024 10:00 AM CLEAN UP HELPER BANQUET) SODIUM 141 136 - 145 mmol/L 08/03/2024 11:10 AM [facility] POTASSIUM 4.0 3.5 - 5.1 mmol/L 08/03/2024 11:10 AM [facility] CHLORIDE 106 98 - 107 mmol/L 08/03/2024 11:10 AM [facility] CO2, VENOUS 27 22 - 30 mmol/L 08/03/2024 11:10 AM [facility] ANION GAP 12.0 <18.0 mmol/L 08/03/2024 11:10 AM [facility] GLUCOSE 99 70 - 99 mg/dL 08/03/2024 11:10 AM [facility] BUN 23(H) 10 - 20 mg/dL 08/03/2024 11:10 AM [facility] CREATININE, BLOOD 0.69 0.60 - 1.00 mg/dL 08/03/2024 11:10 AM [facility] BUN/CREATININE RATIO 33(H) 12 - 20 ratio 08/03/2024 11:10 AM [facility] TOTAL PROTEIN 6.1(L) 6.3 - 8.2 g/dL 08/03/2024 11:10 AM [facility] ALBUMIN 3.3(L) 3.5 - 5.0 g/dL 08/03/2024 11:10 AM [facility] A/G RATIO 1.2 1.0 - 2.2 08/03/2024 11:10 AM CLEAN UP HELPER BANQUET [facility] CALCIUM 9.3 8.7 - 10.5 mg/dL 08/03/2024 11:10 AM CLEAN UP HELPER BANQUET [facility] T BILI 0.2 0.2 - 1.2 mg/dL 08/03/2024 11:10 AM [facility] SGOT (AST) 14 5 - 34 U/L 08/03/2024 11:10 AM CLEAN UP HELPER BANQUET [facility] SGPT (ALT) <5 0 - 55 U/L 08/03/2024 11:10 AM [facility] ALKALINE PHOSPHATASE 90 40 - 150 U/L 08/03/2024 11:10 AM [facility] GFR, ESTIMATED >60 >=60 08/03/2024 11:10 AM [facility] Comment: Creatinine Clearance is the preferred criteria for selecting drug dose adjustments in renally impaired patients. The GFR is provided as additional pertinent clinical information. GFR is reported in mL/min/1.73 sq m. Calculation based on the Chronic Kidney Disease Epidemiology Collaboration (CKD- EPI) equation refit without adjustment for race. GFR, EST. >60 >=60 024 11:10 AM [facility] GFR, EST. NONAFRICAN >60 >=60 08/03/2024 11:10 AM [facility] Blood No Phlebotomy Charged / Unknown 08/03/2024 10:00 AM CLEAN UP HELPER BANQUET 08/03/2024 10:49 AM CLEAN UP HELPER BANQUET us Brenda Anand MD CHEMISTRY ORDERABLE S Final Result [facility] #[address] [place] [address] * (ABNORMAL) C-REACTIVE PROTEIN (CRP) QUANT (08/03/2024 10:00 AM CLEAN UP HELPER BANQUET) C-REACTIVE PROTEIN 0.95(H) <0.50 mg/dL 08/03/2024 11:10 AM CLEAN UP HELPER BANQUET [facility] Blood No Phlebotomy Charged / Unknown 08/03/2024 10:00 AM CLEAN UP HELPER BANQUET 08/03/2024 10:49 AM CLEAN UP HELPER BANQUET Brenda Anand MD CHEMISTRY ORDERABLE S Final Result [facility] [address] [place] [address] documented in this encounter Visit Diagnoses Diagnosis Severe sepsis with septic shock (CODE) Sepsis due to methicillin susceptible Staphylococcus aureus Methicillin susceptible staphylococcus aureus septicemia documented in this encounter Additional Health Concerns Assessment Noted Time PHQ-9 Depression Total Score: 0 07/30/20 9:30 AM CLEAN UP HELPER BANQUET documented as of this encounter Care Teams Competitive Shopper Relationship Specialty Start Date End Date Onelia Lagunas DO [address] [address] PCP - General Family Medicine 03/09/24 Logan Acuna MD #[address] [address] Consulting Physician Colon and Rectal Surgery 10/15/23 Mars Marti, SUPERVISOR SHUTTLE PREPARATION, DISH MACHINE OPERATOR #2 [place] [address] Nurse Practitioner Advanced Practice Nurse 02/10/24 Jones Christy MD #2 [place] [phone] Consulting Physician Neurology 04/30/24 Eliezer Ndiaye MD #[address] [address] Consulting Physician Clinical Cardiac Electrophysiology 09/17/24 03/23/25 Shamar Rosales MD 2 [facility] [address] [address] Consulting Physician Cardiovascular Disease - Cardiology 03/24/25 documented as of this encounter
--- OUTSIDE RECORDS SUMMARY | 2025-07-01 16:06 | XMS_ITS | Encounter Summary ---
Author Organization [facility] Address [address] [place] [phone] Phone Care Team Providers Care Loan Administrator Name Role Phone Logan Acuna MD Unavailable Mars Marti APRN, MELISSA Unavailable [phone] Onelia Lagunas DO Primary Care Provider [phone] Jones Christy MD Unavailable [phone] Eliezer Ndiaye MD Unavailable Shamar Rosales MD Unavailable Encounter Details Date Type Department Care Team (Latest Contact Info) Description 08/10/2024 Lab Requisition [facility] Laboratory Services [address] [place] [phone] Brenda Mccann MD Severe sepsis with septic shock (CODE) (HCC); Sepsis due to methicillin susceptible Staphylococcus aureus (HCC) Social History Tobacco Use Types Packs/Day Years Used Date Smoking Tobacco: Never Smokeless Tobacco: Never Alcohol Use Standard Drinks/Week Comments No 0 (1 standard drink = 0.6 oz pur e alcohol) [facility] Utilities Answer Date Recorded In the [...] How often do you attend chur or anglican services? More than 4 times per year 02/14/2024 Do you belong to any clubs o r organizations such as christianity groups, unions, fraternal or athletic groups, or [...] Total Score - Questions 1-9 0 07/12 [facility] - Occupational [...] living in a alf (including now)? No 02/14/2024 Sexually Active Control Partners Comments Yes Male Comments No Sex and Gender Information Value Date Recorded Sex Assigned at Female 08/07/2023 10:22 AM LOAN ASSISTANT Legal Sex Female 12:40 AM CDT Gender Identity Female 08/07/2023 10:22 AM LOAN ASSISTANT Sexual Orientation Straight 08/07/2023 10 :22 AM LOAN ASSISTANT documented as of this encounter Functional Status * BP Answer Date of Assessment Author 138/82 08/13/2024 9:40 AM LOAN ASSISTANT Dalia Boo RN * Temp Answer Date of Assessment Author 99.1 08/13/2024 9:40 AM Dalia Ridley RN * Pulse Answer Date of Assessment Author 68 08/13/2024 9:40 AM Dalia Ridley RN * Resp Answer Date of Assessment Author 18 08/13/2024 9:40 AM Dalia Ridley RN * SpO2 Answer Date of Assessment Author 100 08/13/2024 9:40 AM Dalia Ridley RN documented as of this encounter Mental Status * BP Answer Entry Date Author 138/82 08/13/2024 9:40 AM Dalia Ridley RN * Temp Answer Entry Date Author 99.1 08/13/2024 9:40 AM Dalia Ridley RN * Pulse Answer Entry Date Author 68 08/13/2024 9:40 AM Dalia Ridley RN * SpO2 Answer Entry Date Author 100 08/13/2024 9:40 AM Dalia Ridley RN documented in this encounter Plan of Treatment Upcoming Encounters Date Type Department Care Team (Late st Contact Info) Description 09/05/2025 8:00 AM LOAN ASSISTANT Office Visit [facility] Family Medicine [facility] [place] [address] [place] [address] Onelia Lagunas, DO [address] [address] 09/08/2025 3:00 PM LOAN ASSISTANT Office Visit [facility] Endocrinology - [place] [address]2 [place] [address] Onelia Lagunas, DO [address] [address] Henry Bernabe MD #[address] [address] 09/28/2025 8:30 AM LOAN ASSISTANT Office Visit [facility] Cardiology [facility] [place] [address] [place] [address] Shamar Rosales MD [address] [address] 12/12/2025 9:30 AM CDT Office Visit [facility] Neurology [facility] [place] [address] [place] [address] Jones Christy MD [address] [place] [phone] documented as of this encounter Procedures Procedure Name Priority Date/Time Associated Diagnosis Comments CBC WITH AUTO DIFFERENTIAL Routine 08/10/2024 10:45 AM LOAN ASSISTANT Severe sepsis with septic shock (CODE) (HCC) Sepsis due to methicillin susceptible Staphylococcus aureus (HCC) COMPLETE BLOOD COUNT (CBC) WITH DIFF Routine 08/10/2024 10:45 AM LOAN ASSISTANT Severe sepsis with septic shock (CODE) (HCC) Sepsis due to methicillin susceptible Staphylococcus aureus (HCC) C-REACTIVE PROTEIN (CRP) HIGH SENSITIVE Routine 08/10/2024 10:45 AM LOAN ASSISTANT Severe sepsis with septic shock (CODE) (HCC) Sepsis due to methicillin susceptible Staphylococcus aureus (HCC) documented in this encounter Results * (ABNORMAL) C-REACTIVE PROTEIN (CRP) HIGH SENSITIVE (08/10/2024 10:45 AM LOAN ASSISTANT) Pathologist [facility] CRP ULTRAQUANT 6.40(H) <5.00 mg/L 08/10/2024 10:19 PM LOAN ASSISTANT [facility] Blood No Phlebotomy Charged / Unknown 08/10/2024 10:45 AM LOAN ASSISTANT 08/10/2024 11:46 AM LOAN ASSISTANT us Brenda Anand MD CHEMISTRY ORDERABLE S Final Result [facility] [address] [place] [address], * (ABNORMAL) CBC WITH AUTO DIFFERENTIAL (08/10/2024 10:45 AM LOAN ASSISTANT) Pathologist [facility] WBC 4.83 4.00 - 12.00 10(3)/mcL 08/10/2024 11:49 AM LOAN ASSISTANT [facility] RBC 3.63(L) 3.80 - 5.30 10(6)/[facility] 08/10/2024 11:49 AM [facility] HEMOGLOBIN (HGB) 11.0(L) 12.0 - 15.8 g/dL 08/10/2024 11:49 AM [facility] HEMATOCRIT (HCT) 34.4(L) 36.0 - 47.0 % 08/10/2024 11:49 AM [facility] MCV 94.8 82.0 - 96.0 fL 08/10/2024 11:49 AM [facility] MCH 30.3 26.0 - 34.0 pg 08/10/2024 11:49 AM [facility] MCHC 32.0 31.0 - 36.0 g/dL 08/10/2024 11:49 AM [facility] PLATELET COUNT 213 140 - 440 10(3)/[facility] 08/10/2024 11:49 AM [facility] RDW 13.2 11.8 - 15.5 % 08/10/2024 11:49 AM [facility] MPV 10.5 9.7 - 12.4 fL 08/10/2024 11:49 AM [facility] NEUTROPHILS 55.9 47.0 - 73.0 % 08/10/2024 11:49 AM [facility] LYMPHOCYTES 29.6 18.0 - 42.0 % 08/10/2024 11:49 AM [facility] MONOCYTES 11.0 4.0 - 12.0 % 08/10/2024 11:49 AM [facility] EOSINOPHILS 2.7 0.0 - 5.0 % 08/10/2024 11:49 AM [facility] BASOPHILS 0.8 0.0 - 1.0 % 08/10/2024 11:49 AM [facility] ABSOLUTE NEUTROPHILS 2.70 1.60 - 7.70 10(3)/mcL 08/10/2024 11:49 AM [facility] ABSOLUTE LYMPHOCYTES 1.43 1.30 - 3.20 10(3)/[facility] 08/10/2024 11:49 AM LOAN ASSISTANT [facility] ABSOLUTE MONOCYTES 0.53 0.20 - 1.00 10(3)/[facility] 08/10/2024 11:49 AM LOAN ASSISTANT [facility] ABSOLUTE EOSINOPHIL 0.13 0.00 - 0.40 10(3)/[facility] 08/10/2024 11:49 AM LOAN ASSISTANT [facility] ABSOLUTE BASOPHILS 0.04 0.00 - 0.10 10(3)/[facility] 08/10/2024 11:49 AM LOAN ASSISTANT [facility] NRBC PER 100 WBC 0 08/10/20 11:49 AM LOAN ASSISTANT [facility] Blood No Phlebotomy Charged / Unknown 08/10/2024 10:45 AM LOAN ASSISTANT 08/10/2024 11:46 AM LOAN ASSISTANT Brenda Anand MD HEMATOLOGY ORDERABL ES Final Result [facility] [place] [address] documented in this encounter Visit Diagnoses Diagnosis Severe sepsis with septic shock (CODE) Sepsis due to methicillin susceptible Staphylococcus aureus Methicillin susceptible staphylococcus aureus septicemia documented in this encounter Additional Health Concerns Assessment Noted Time PHQ-9 Depression Total Score: 0 07/30/20 9:30 AM LOAN ASSISTANT documented as of this encounter Care Teams Loan Administrator Relationship Specialty Start Date End Date Onelia Lagunas DO 2 [facility] [address] [place] [address] PCP - General Family Medicine 03/09/24 Logan Acuna MD #2 [facility] [address] [place] [address] Consulting Physician Colon and Rectal Surgery 10/15/23 Mars Marti, DISPATCHER ELECTRIC POWER, QUANTITATIVE ANALYST MARKETING [address] [place] [address] Nurse Practitioner Advanced Practice Nurse 02/10/24 Jones Christy MD #2 [place] [address] Consulting Physician Neurology 04/30/24 Eliezer Ndiaye MD #[address] [address] Consulting Physician Clinical Cardiac Electrophysiology 09/17/24 03/23/25 Shamar Rosales MD [address] [address] Consulting Physician Cardiovascular Disease - Cardiology 03/24/25 documented as of this encounter
--- OUTSIDE RECORDS SUMMARY | 2025-07-01 16:06 | XMS_ITS | Encounter Summary ---
Author Organization [facility] Address [address] [place] [address] Care Team Providers Care Slubber Hand Name Role Phone Delroy Aragon MD Primary Care Provider [phone] Encounter Details Date Type Department Care Team (Late st Contact Info) Description 01/30/2005 Outpatient [facility] Internal Medicine [address] [phone] Delroy Aragon MD [address] [place] [phone] Social History Tobacco Use Types Packs/Day Years Used Date Smoking Tobacco: Never Assessed Comments Unknown Sex and Gender Information Value Date Recorded Sex Assigned at Not on file Legal Sex Female 5:10 AM RESERVOIR ENGINEER Gender Identity Not on file Sexual Orientation [...] on filedocumented in this encounter Care Teams Slubber Hand Relationship Specialty Start Date End Date Delroy Aragon MD [address] [place] [phone] PCP - General 03/14/05 documented as of this encounter
--- OUTSIDE RECORDS SUMMARY | 2025-07-01 16:06 | XMS_ITS | Encounter Summary ---
Author Organization [facility] Address [address] [place] [address] Care Team Providers Care Metal Box Maker Name Role Phone Delroy Aragon MD Primary Care Provider [phone] Encounter Details Date Type Department Care Team (Late st Contact Info) Description 09/15/2007 Outpatient [facility] Internal Medicine [address] [address] Delroy Aragon MD [address] [place] [phone] Social History Tobacco Use Types Packs/Day Years Used Date Smoking Tobacco: Never Assessed Comments Unknown Sex and Gender Information Value Date Recorded Sex Assigned at Not on file Legal Sex Female 5:10 AM SINGLE ENDING MACHINE OPERATOR Gender Identity Not on file Sexual Orientation Not on file documented as of this encounter Plan of Treatment Not on file documented as of this encounter Visit Diagnoses Not on filedocumented in this encounter Care Teams Metal Box Maker Relationship Specialty Start Date End Date Delroy Aragon MD [address] [place] [address] [address] [place] [address] PCP - General 03/14/05 documented as of this encounter
--- OUTSIDE RECORDS SUMMARY | 2025-07-01 16:06 | XMS_ITS | Encounter Summary ---
Author Organization [facility] Address [address] [place] [address] Phone Care Team Providers Care Retail Customer Service Specialist Name Role Phone Ga Liang MD Primary Care Provider [phone] Logan Acuna MD Unavailable Mars Marti APRN, BOOTMAKER HAND Unavailable [phone] Onelia Lagunas DO Primary Care Provider [phone] Jones Christy MD Unavailable [phone] Eliezer Ndiaye MD Unavailable Shamar Rosales MD Unavailable Reason for Visit * Reason Comments Medication Refill Encounter Details Date Type Department Care Team (Late st Contact Info) Description 12/06/2023 Refill [facility] - [facility] #2 [place] [phone] Ninoska Borden, ATMOSPHERIC PHYSICS PROFESSOR, BOOTMAKER HAND #2 [place] [address] Medication Refill Social History Tobacco Use Types Packs/Day Years Used Date Smoking Tobacco: Never Smokeless Tobacco: Never Alcohol Use Standard Drinks/Week Comments No 0 (1 standard drink = 0.6 oz pur e alcohol) [facility] Utilities Answer Date Recorded In the past 12 months has [employer], gas, oil, or water [employer] threatened to shut off services in your home? No 12/02/2023 Social Connection and Isolation Panel Answer Date Recorded In a typical week, how many times do you talk on the phone with family, friends, or neighbors? Twice a week 12/02/2023 How often do you get togethe r with friends or relatives? Once a week 12/02/2023 How often do you attend chur ch or confucianism services? More than 4 times per year 12/02/2023 Do you belong to any clubs o r organizations such as muslim groups, unions, fraternal or athletic groups, or [...] and heating? Not very hard 12/02/2023 [facility] of Occupat ional [facility] - Occupational Stress Questionnaire Answer Date [...] place to sleep or slept in a long-term (including now)? No 12/02/2023 Sexually Active Control Partners Comments Yes Male Comments No Sex and Gender Information Value Date Recorded Sex Assigned at Female 08/07/2023 10:22 AM TUBING DRIER Legal Sex Female 12:40 AM CDT Gender Identity Female 08/07/2023 10:22 AM TUBING DRIER Sexual Orientation Straight 08/07/2023 10 :22 AM TUBING DRIER documented as of this encounter Miscellaneous Notes [...] Osefraín Posada 09/19/23 Office Visit Ninoska Borden, ATMOSPHERIC PHYSICS PROFESSOR, [facility] 09/05/23 Office Visit Ninoska Borden, ATMOSPHERIC PHYSICS PROFESSOR, BOOTMAKER HAND [facility] 08/06/23 Office Visit Jennifer Chowdary, [facility] 07/18/23 Office Visit Ga Liang MD [facility] Showing recent visits within past 365 [...] st Contact Info) Description 09/05/2025 8:00 AM TUBING DRIER Office Visit [facility] Medical [facility] - Family Medicine - [place] #2 [facility] [address] Onelia Lagunas, DO [address] [address] 09/08/2025 3:00 PM TUBING DRIER Office Visit [facility] Medical [facility] - Endocrinology - [place] #2 [place] [address] Onelia Lagunas, DO [address] [address] Henry Bernabe MD #[address] [place] [address] 09/28/2025 8:30 AM TUBING DRIER Office Visit [facility] - Cardiology - [place] #2 [place] [address] Shamar Rosales MD [address] [address] 12/12/2025 9:30 AM CDT Office Visit [facility] - Neurology [facility] #2 [place] [address] Jones Christy MD #2 [place] [address] documented as of this encounter Visit Diagnoses Diagnosis Constipation, unspecified constipation type documented in this encounter Additional Health Concerns Infection Onset Date Last Indicated Resolved Time COVID - 19 04/30/2024 04/30/2024 04/30/2024 11:2 5 AM CDT documented as of this encounter Care Teams Retail Customer Service Specialist Relationship Specialty Start Date End Date Ga Liang MD #1 [place] [address] PCP - General Family Medicine 07/18/23 03/08/24 Onelia Lagunas DO [address] [address] PCP - General Family Medicine 03/09/24 Logan Acuna MD #[address] [address] Consulting Physician Colon and Rectal Surgery 10/15/23 Mars Marti APRN, BOOTMAKER HAND #2 [place] [address] Nurse Practitioner Advanced Practice Nurse 02/10/24 Jones Christy MD #2 [place] [address] Consulting Physician Neurology 04/30/24 Eliezer Ndiaye MD #[address] [address] Consulting Physician Clinical Cardiac Electrophysiology 09/17/24 03/23/25 Shamar Rosales MD 2 [facility], [address] [address] Consulting Physician Cardiovascular Disease - Cardiology 03/24/25 documented as of this encounter
--- OUTSIDE RECORDS SUMMARY | 2025-07-01 16:06 | XMS_ITS | Encounter Summary ---
Author Organization [facility] Address [address] [place] [address] Care Team Providers Care Key Ringer Name Role Phone Juan Diego Miramontes MD Primary Care Provider [phone] Encounter Details Date Type Department Care Team (Late st Contact Info) Description 09/15/2007 Orders Only [facility] Internal Medicine [address] [address] Juan Diego Miramontes MD [address] [place] [address] Social History Tobacco Use Types Packs/Day Years Used Date Smoking Tobacco: Never Assessed Comments Unknown Sex and Gender Information Value Date Recorded Sex Assigned at Not on file 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 MAY WE LEAVE MESSAGE AT THAT NUMBER: YES, LEAVE MESSAGE. PLEASE SCHEDULE THE APPOINTMENT AT THE FOLLOWING LOCATION: TEST SCHEDULE OTHER [facility] [phone]. TEST PRIORITY: 2 - 7 DAYS. SPECIAL SCHEDULING INSTRUCTIONS: needs prep ORDERING PHYSICIAN: JUAN DIEGO MIRAMONTES MD OFFICE PHARMACY SERVICES REPRESENTATIVE & PHONE: Ela Sommer L ORDER PRINTED BY: SEP 21, 2007 Sandeep Almeida L 08:39 a FOR SCHEDULING USE ONLY: FIRST ATTEMPT Date:SEP 21, 2007 Sandeep Almeida L 09:10 a SEP 21, 2007 Sandeep Almeida L 09:10 a [facility] [phone]. APPOINTMENT DATE : 09/23/2007 ( 9AM) The appointment was scheduled by Sandeep Almeida L at [phone] *.[facility] Follow up completed. * Juan Diego Miramontes MD - 12/23/2007 10:39 AM CDT CENTRAL TEST SCHEDULING DATE: SEP 15, 2007 Note created by: Ela Sommer L 10:28 a Patient Name : KARI LEÓN Address: [address] [place] [address] D.O.B: 1965 SSN: [id number] Parent/Guardian if applicable: Patient Insurance: ID#: Group#: [...] fu with rheum LAB ORDERS: Order number: [id number] Test Ordered: CBC W/ DIFFERENTIAL 3150 Order number: [id number] Test Ordered: COMPREHENSIVE METABOLIC PANEL & GFR 1112 Order number: [id number] Test Ordered: LIPID PANEL 1078 Order number: [id number] Test Ordered: TSH 1720 Order number: [id number] Test Ordered: VITAMIN B12 LEVEL 1719 796.2-BLOOD PRESSURE ELEVATED W/O DX OF HTN enc diet ex home monitor reassess 354.0-CARPAL TUNNEL SYNDROME LAB ORDERS: Albino Order number: [id number] Test Ordered: NCV/EMG UPPER EXTREMITY RIGHT Order number: [id number] Test Ordered: NCV/EMG UPPER EXTREMITY LEFT 461.9-SINUSITIS [...] on filedocumented in this encounter Care Teams Key Ringer Relationship Specialty Start Date End Date Juan Diego Miramontes MD [address] [place] [phone] PCP - General 03/14/05 documented as of this encounter
--- OUTSIDE RECORDS SUMMARY | 2025-07-01 16:06 | XMS_ITS | Encounter Summary ---
Author Organization [facility] Address [address] [place] [address] Care Team Providers Care High School Music Instructor Name Role Phone Delroy Aragon MD Primary Care Provider [phone] Encounter Details Date Type Department Care Team (Late st Contact Info) Description 03/30/2004 Outpatient [facility] Internal Medicine [address] [address] Delroy Aragon MD [address] [place] [phone] Social History Tobacco Use Types Packs/Day Years Used Date Smoking Tobacco: Never Assessed Comments Unknown Sex and Gender Information Value Date Recorded Sex Assigned at Not on file 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
--- OUTSIDE RECORDS SUMMARY | 2025-07-01 16:06 | XMS_ITS | Encounter Summary ---
Author Organization [facility] Address 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
--- OUTSIDE RECORDS SUMMARY | 2025-07-01 16:06 | XMS_ITS | Encounter Summary ---
Author Organization [facility] Address [address] [place] [address] Care Team Providers Care Helper Coordinator Name Role Phone Delroy Aragon MD Primary Care Provider [phone] Encounter Details Date Type Department Care Team (Late st Contact Info) Description 11/29/2003 Outpatient [facility] Internal Medicine [address] [phone] Delroy Aragon MD [address] [place] [address] Social History Tobacco Use Types Packs/Day Years Used Date Smoking Tobacco: Never Assessed Comments Unknown Sex and Gender Information Value Date Recorded Sex Assigned at Not on file Legal Sex Female 5:10 AM ACUTE CARE PHYSICAL THERAPIST Gender Identity Not on file Sexual Orientation [...] on filedocumented in this encounter Care Teams Helper Coordinator Relationship Specialty Start Date End Date Delroy Aragon MD [address] [place] [phone] PCP - General 03/14/05 documented as of this encounter
--- OUTSIDE RECORDS SUMMARY | 2025-07-01 16:06 | XMS_ITS | Encounter Summary ---
Author Organization [facility] Address [address] [place] [address] Phone Care Team Providers Care Career Orientation Teacher Name Role Phone Logan Acuna MD Unavailable Mars Marti APRN, RN PLASTIC SURGERY Unavailable [phone] Onelia Lagunas DO Primary Care Provider [phone] Jones Christy MD Unavailable [phone] Shamar Rosales MD Unavailable Reason for Referral * Radiology Services (Routine) - Authorized Specialty Diagnoses / Procedures Referred By Nancy aguirre Referred To Contact Radiology Diagnoses Mass of left breast, unspecified quadrant Procedures TIANNA DIAG LEFT UNILATERAL DIGITAL W CAD W Onelia Byrne DO [address] [address] Phone: tel: fax: Referral ID Status Reason Start Date Expiration Date V isits Requested Visits Authorized [id number] Authorized 05/02/2025 1 1 Encounter Details Date Type Department Care Team (Latest Contact Info) Description 05/02/2025 Transcribe Orders [facility] Mammography [address] [place] [phone] Onelia Lagunas DO [address] [place] [address] Mass of left breast, unspecified quadrant (Primary Dx) Social History Tobacco Use Types Packs/Day Years Used Date Smoking Tobacco: Never Smokeless Tobacco: Never Alcohol Use Standard Drinks/Week Comments No 0 (1 standard drink = 0.6 oz pur e alcohol) [facility] Utilities Answer Date Recorded In the past 12 months has e [employer], gas, oil, or water [employer] threatened to shut off services in your home? No 09/14/2024 Social Connection and Isolation Panel Answer Date Recorded In a typical week, how many times do you talk on the phone with family, friends, or neighbors? Twice a week 09/14/2024 How often do you get togethe r with friends or relatives? Once a week 09/14/2024 How often do you attend chur ch or quaker services? More than 4 times per year 09/14/2024 Do you belong to any clubs o r organizations such as hoahaoism groups, unions, fraternal or athletic groups, or [...] Total Score - Questions 1-9 0 04/12 [facility] of Occupat ional Health - Occupational Stress [...] in a long-term (including now)? No 12/02/2023 Housing Stability Vital [...] any time in the past 12 m [facility], were you homeless or living in a long-term (including now)? No 09/14/2024 Sexually Active Control Partners Comments Yes Post-menopausal, Surgical Male Comments No Sex and Gender Information Value Date Recorded Sex Assigned at Female 08/07/2023 10:22 AM DISTILLATION OPERATOR HELPER Legal Sex Female 12:40 AM CDT Gender Identity Female 08/07/2023 10:22 AM DISTILLATION OPERATOR HELPER Sexual Orientation Straight 08/07/2023 10 :22 AM DISTILLATION OPERATOR HELPER documented as of this encounter Functional Status * BP Answer Date of Assessment Author 140/86 05/02/2025 8:59 AM CDT Joshua, Ta bitha R., RETAIL SPECIALIST * Temp Answer Date of Assessment Author 97.4 05/02/2025 8:59 AM CDT Joshua, Ta bitha R., RETAIL SPECIALIST * Pulse Answer Date of Assessment Author 80 05/02/2025 8:59 AM CDT Joshua, Ta bitha R., RETAIL SPECIALIST * Resp Answer Date of Assessment Author 16 05/02/2025 8:59 AM CDT Joshua, Ta bitha R., RETAIL SPECIALIST * SpO2 Answer Date of Assessment Author 100 05/02/2025 8:59 AM CDT Joshua, Ta bitha R., RETAIL SPECIALIST * Initial Score Answer Date of Assessment Author 0 05/02/2025 8:56 AM CDT Joshua, Ta bitha R., RETAIL SPECIALIST * Question Answer Date of Assessment Author Little interest or pleasure in doing things Not at all 05/02/2025 8:56 AM CDT Joshua, Soumya R. , RETAIL SPECIALIST Feeling down, depressed, or hopeless Not at all 05/02/2025 8:56 AM CDT Joshua, Soumya R. , RETAIL SPECIALIST * Initial Score Answer Date of Assessment Author 0 05/02/2025 8:56 AM CDT Joshua, Ta bitha R., RETAIL SPECIALIST * Question Answer Date of Assessment Author Little interest or pleasure in doing things Not at all 05/02/2025 8:56 AM CDT Joshua, Soumya R. , RETAIL SPECIALIST Feeling down, depressed, or hopeless Not at all 05/02/2025 8:56 AM CDT Joshua, Soumya R. , RETAIL SPECIALIST * Over the past 2 weeks, how often have you been bothered by any of the following problems? Question Answer Date of Assessment Author Patient Health Questionnaire -2 Score 0 05/02/2025 8:56 AM CDT Joshua, Soumya R. , RETAIL SPECIALIST documented as of this encounter Mental Status * BP Answer Entry Date Author 140/86 05/02/2025 8:59 AM CDT Joshua, Ta bitha R., RETAIL SPECIALIST * Temp Answer Entry Date Author 97.4 05/02/2025 8:59 AM CDT Joshua, Ta bitha R., RETAIL SPECIALIST * Pulse Answer Entry Date Author 80 05/02/2025 8:59 AM CDT Joshua, Ta bitha R., RETAIL SPECIALIST * SpO2 Answer Entry Date Author 100 05/02/2025 8:59 AM CDT Joshua, Ta bitha R., RETAIL SPECIALIST * Initial Score Answer Entry Date Author 0 05/02/2025 8:56 AM CDT Joshua, Ta bitha R., RETAIL SPECIALIST * Question Answer Entry Date Author Little interest or pleasure in doing things Not at all 05/02/2025 8:56 AM CDT Joshua Soumya R. , RETAIL SPECIALIST Feeling down, depressed, or hopeless Not at all 05/02/2025 8:56 AM CDT Joshua Soumya R. , RETAIL SPECIALIST documented in this encounter Plan of Treatment Upcoming Encounters Date Type Department Care Team (Late st Contact Info) Description 09/05/2025 8:00 AM DISTILLATION OPERATOR HELPER Office Visit [facility] Family Medicine [facility] #2 [place] [address] Onelia Lagunas, DO 2 [facility] [address] [place] [address] 09/08/2025 3:00 PM DISTILLATION OPERATOR HELPER Office Visit [facility] - Endocrinology - [place] #2 [place] [address] Onelia Lagunas, DO 2 [facility] [address] [place] [address] Henry Bernabe MD #[address] [place] [address] 09/28/2025 8:30 AM DISTILLATION OPERATOR HELPER Office Visit [facility] Cardiology [facility] #2 [place] [address] Shamar Rosales MD [address] [address] 12/12/2025 9:30 AM CDT Office Visit [facility] - Neurology - [place] #2 [place] [address] Jones Christy MD #2 [place] [address] Scheduled Orders Name Type Priority Associated Diagnoses [...] documented as of this encounter Care Teams Career Orientation Teacher Relationship Specialty Start Date End Date Onelia Lagunas DO [address] [address] PCP - General Family Medicine 03/09/24 Logan Acuna MD #[address] [address] Consulting Physician Colon and Rectal Surgery 10/15/23 Mars Marti, LOOP SEWER, RN PLASTIC SURGERY #2 [place] [address] Nurse Practitioner Advanced Practice Nurse 02/10/24 Jones Christy MD #2 [place] [phone] Consulting Physician Neurology 04/30/24 Shamar Rosales MD [address] [place] [address] Consulting Physician Cardiovascular Disease - Cardiology 03/24/25 documented as of this encounter
--- OUTSIDE RECORDS SUMMARY | 2025-07-01 16:06 | XMS_ITS | Encounter Summary ---
Author Organization [facility] Address [address] [place] [address] Phone Care Team Providers Care Distiller Name Role Phone Logan Acuna MD Unavailable Mars Marti APRN, MELISSA Unavailable [phone] Onelia Lagunas DO Primary Care Provider [phone] Jones Christy MD Unavailable [phone] Shamar Rosales MD Unavailable Encounter Details Date Type Department Care Team (Latest Contact Info) Description 06/23/2025 Results Follow-Up [facility] Group - Gastroenterology [facility] #2 [place] [address] Blaise Dill MD [address] [address] Pathology Surgical Social History Tobacco Use Types Packs/Day Years Used Date Smoking Tobacco: Never Smokeless Tobacco: Never Alcohol Use Standard Drinks/Week Comments No 0 (1 standard drink = 0.6 oz pur e alcohol) [facility] Utilities Answer Date Recorded In [...] often do you attend chur ch or orthodox services? More than 4 times per year 09/14/2024 Do you belong to any clubs o r organizations such as worship groups, unions, fraternal or athletic groups, or [...] Total Score - Questions 1-9 0 04/12 [facility] of Occupat ional Health - Occupational [...] place to sleep or slept in a custodial (including now)? No 12/02/2023 Housing Stability Vital [...] any time in the past 12 m [facility], were you homeless or living in a custodial (including now)? No 09/14/2024 Sexually Active Control Partners Comments Yes Post-menopausal, Surgical Male Comments No Sex and Gender Information Value Date Recorded Sex Assigned at Female 08/07/2023 10:22 AM AIRPORT CLERK Legal Sex Female 12:40 AM CDT Gender Identity Female 08/07/2023 10:22 AM AIRPORT CLERK Sexual Orientation Straight 08/07/2023 10 :22 AM AIRPORT CLERK documented as of this encounter Plan of Treatment Upcoming Encounters Date Type Department Care Team (Late st Contact Info) Description 09/05/2025 8:00 AM AIRPORT CLERK [facility] - Family Medicine - [place] #2 [place] [address] Onelia Lagunas, DO 2 [facility] [address] [place] [address] 09/08/2025 3:00 PM AIRPORT CLERK Office Visit [facility] - Endocrinology - [place] #2 [place] [address] Onelia Lagunas DO 2 [facility] [place] [address] [address] Henry Bernabe MD #[address] [address] 09/28/2025 8:30 AM AIRPORT CLERK Office Visit [facility] Medical [facility] - Cardiology [facility] #2 [place] [phone] Shamar Rosales MD [address] [address] 12/12/2025 9:30 AM CDT [facility] [place] #2 [place] [phone] Jones Christy MD #2 [place] [address] documented as of this encounter Visit Diagnoses Not on filedocumented in this encounter Additional Health Concerns Assessment Noted Time PHQ-9 Depression Total Score: 0 05/02/20 25 8:56 AM CDT documented as of this encounter Care Teams Distiller Relationship Specialty Start Date End Date Onelia Lagunas DO 2 [facility] [place] [address] [address] PCP - General Family Medicine 03/09/24 Logan Acuna MD #2 [facility] [address] Consulting Physician Colon and Rectal Surgery 10/15/23 Mars Marti, DIRECTOR RADIO, FACIAL OPERATOR #2 [place] [address] Nurse Practitioner Advanced Practice Nurse 02/10/24 Jones Christy MD #2 [place] [address] Consulting Physician Neurology 04/30/24 Shamar Rosales MD [address] [address] Consulting Physician Cardiovascular Disease - Cardiology 03/24/25 documented as of this encounter
--- OUTSIDE RECORDS SUMMARY | 2025-07-01 16:06 | XMS_ITS | Encounter Summary ---
Author Organization [facility] Address [address] [place] [address] Care Team Providers Care Commercial Specialist Name Role Phone Delroy Aragon MD Primary Care Provider [phone] Encounter Details Date Type Department Care Team (Late st Contact Info) Description 03/31/2006 Outpatient [facility] Internal Medicine [address] [phone] Delroy Aragon MD [address] [place] [phone] Social History Tobacco Use Types Packs/Day Years Used Date Smoking Tobacco: Never Assessed Comments Unknown Sex and Gender Information Value Date Recorded Sex Assigned at Not on file Legal Sex Female 5:10 AM [employer] 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
--- OUTSIDE RECORDS SUMMARY | 2025-07-01 16:06 | XMS_ITS | Clinical Summary ---
Author Organization [facility] Address [address] [place] [address] Phone Care Team Providers Care Hat Designer Name Role Phone Logan Acuna MD Unavailable Mars Marti APRN, CNP Unavailable [phone] Onelia Lagunas DO Primary Care Provider [phone] Jones Christy MD Unavailable [phone] Shamar Rosales MD Unavailable Allergies Active Allergy Reactions Criticality Noted Date Comments Levofloxacin Rash 11/05/2007 Lorazepam Hallucinations 04/19/2025 Medications naloxone HCl (Narcan) 4 MG/0.1ML Liquid 1 [place] by Nasal route as needed for Opioid Reversal. Administer in one nostril for symptoms of overdose (severe sleepiness, breathing problems, not responsive). Call 911. May repeat 1 spray in alternate nostril in 2-3 minutes if needed. 2 Each 5 Active butalbital-acet aminophen-caffe ine (FIORICET, ESGIC) 50-325-40 MG TabletIndicatio ns:Concussion without loss of consciousness, initial encounter Take 1 Tablet by mouth every 4 hours as needed for Headaches. 10 Tablet 5 Active NIFEdipine (PROCARDIA-XL) 30 MG TABLET SR 24 HR Take 1 Tablet by mouth daily. 90 Tablet 3 5 Active Additional Information Patient not taking.Reported on 06/09/2025 losartan potassium-hydro chlorothiazide (HYZAAR) 100-25 MG TabletIndicatio ns:Hypertension , unspecified type Take 1 Tablet by mouth daily. 30 Tablet 5 5 Active baclofen (LIORESAL) 20 MG Tablet Take 1 Tablet by mouth 3 times daily. 90 Tablet 5 Active eszopiclone (LUNESTA) 3 MG TabletIndicatio ns:Insomnia, unspecified type Take 1 Tablet by mouth nightly as needed for Sleep. 30 Tablet 5 Active ondansetron (ZOFRAN) 8 MG Tablet Take 1 Tablet by mouth every 8 hours as needed for Nausea - 1st line for up to 24 doses. 24 Tablet 5 Active albuterol 108 (90 Base) MCG/ACT Aerosol Solution take 1-2 Puffs by inhalation every 4 hours as needed for Wheezing or Cough. 9 g 5 Active amitriptyline (ELAVIL) 50 MG TabletIndicatio ns:Concussion without loss of consciousness, initial encounter,Dizzi ness,Blurred vision,Polyneur opathy Take 1 Tablet by mouth nightly. 90 Tablet 3 5 Active albuterol 108 (90 Base) MCG/ACT Aerosol Solution take 1-2 Puffs by inhalation every 4 hours as needed for Wheezing or Cough. 9 g 4 025 Discontin ued(Reord er) ondansetron (ZOFRAN) 8 MG Tablet Take 1 Tablet by mouth every 8 hours as needed for Nausea - 1st line for up to 24 doses. 24 Tablet 5 025 Discontin ued(Reord er) baclofen (LIORESAL) 20 MG Tablet Take 1 Tablet by mouth 3 times daily. 90 Tablet 5 025 Discontin ued(Reord er) eszopiclone (LUNESTA) 3 MG TabletIndicatio ns:Insomnia, unspecified type Take 1 Tablet by mouth nightly as needed for Sleep. 30 Tablet 5 025 Discontin ued(Reord er) amitriptyline (ELAVIL) 25 MG Tablet Take 2 Tablets by mouth nightly. 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 Essential hypertension, benign 10/19/2007 1 09/18/2022 Hyperlipidemia 10/19/2007 07/18/2023 Carpal tunnel syndrome 09/15/2007 Rheumatoid arthritis 09/15/2007 07/18/2023 Osteoarthrosis 11/29/2003 07/18/2023 Hypertension Encounters Date Type Department Care Team Description 06/23/2025 Results Follow-Up [facility] Gastroenterology [facility] [address] [place] [address] Blaise Dill MD Pathology Surgical 06/20/2025 Refill [facility] Family Medicine [facility] [address] [place] [address] Onelia Lagunas, Medication Refill 06/13/2025 10:45 AM ENROLLMENT MANAGEMENT VICE PRESIDENT Office Visit [facility] Neurology [facility] [address] [place] [address] Onelia Lagunas, Jones Rivera MD Concussion without loss of consciousness, initial encounter (Primary Dx); Dizziness; Blurred vision; Polyneuropathy Discharge Disposition: Discharged to home or Selfcare 06/11/2025 Travel 06/10/2025 10:43 AM CDT Anesthesia Event [facility] Periop [address] [place] [address] Cristhian Wilkerson, FAGOTER, CANDLEMAKING LABORER 06/10/2025 10:00 AM CDT - 06/10/2025 10:30 AM CDT Surgery [facility] Periop [address] [place] [address] Blaise Dill MD EGD - ANTRAL BIOPSY (BIOPSY FORCEPS), FUNDIC GLAND POLYPECTOMY (BIOPSY FORCEPS) 06/10/2025 9:15 AM CDT Ancillary Procedure [facility] Main 1 [place] [address] Blaise Dill MD 06/10/2025 9:09 AM CDT - 06/10/2025 11:49 AM CDT Hospital [facility] Preop/Pacu II 1 [place] [address] Blaise Dill MD Emesis, persistent Discharge Disposition: Discharged to home or Selfcare 06/10/2025 [facility] [place] [address] Onelia Lagunas, DO Medication Refill 06/09/2025 9:30 AM CDT Office Visit [facility] Gastroenterology [facility] [address] [place] [address] Blaise Dill MD Emesis, persistent (Primary Dx) Discharge Disposition: Discharged to home or Selfcare 06/09/2025 MyChart [facility] [address] [place] [address] Onelia Lagunas, DO Medication Renewal Reviewed 06/09/2025 MyChart [facility] [address] [place] [address] Radha Lema, FAGOTER, SUPERVISOR INCISING Medication Renewal Reviewed 06/09/2025 MyChart [facility] [address] [place] [address] Onelia Lagunas, Medication Renewal Declined 06/09/2025 MyChart [facility] [address] [place] [address] Onelia Lagunas, Medication Renewal Declined 06/09/2025 MyChart [facility] [address] [place] [address] Onelia Lagunas, Medication Renewal Reviewed 06/09/2025 MyChart [facility] [address] [place] [address] Onelia Lagunas DO Medication Renewal Reviewed 06/09/2025 MyChart [facility] [address] [place] [address] Onelia Lagunas DO Medication Renewal Declined 06/09/2025 Travel 06/07/2025 Travel 06/02/2025 Results Follow-[facility] [address] [place] [address] Eloisa Beaulieu APRN, CNP LIPID PANEL 06/02/2025 Results Follow-Up [facility] [address] [place] [address] Eloisa Beaulieu APRN, MELISSA MRI LEFT SHOULDER WO CONTRAST 05/31/2025 8:00 AM CDT - 05/31/2025 11:59 PM CDT Hospital Encounter [facility] MRI 1 [place] [address] Eloisa Beaulieu APRN, MELISSA Discharge Disposition: Discharged to home or Selfcare 05/30/2025 8:40 AM CDT Office Visit [facility] [address] [place] [address] Eloisa Beaulieu APRN, MELISSA Spinal stenosis of lumbar region with neurogenic claudication (Primary Dx); Hyperlipidemia, unspecified hyperlipidemia type; Rheumatoid arthritis, involving unspecified site, unspecified whether rheumatoid factor present Discharge Disposition: Discharged to home or Selfcare 05/29/2025 Mobile Encounter [facility] [address] [place] [address] Onelia Lagunas DO 05/29/2025 Travel 05/28/2025 Travel 05/26/2025 9:15 AM CDT Physical Therapy [facility] [address] [place] [address] Guanakito Echeverria, Lexus Lemon, PT Discharge Disposition: Discharged to home or Selfcare 05/26/2025 8:30 AM CDT Occupational Therapy [facility] at [facility] [address], [address] [place] [address] Oehl, November N, FAGOTER, SUPERVISOR INCISING [place] Portillo, OT Discharge Disposition: Discharged to home or Selfcare 05/25/2025 Travel 05/24/2025 11:15 AM CDT Occupational Therapy [facility] [address] [facility], [address] [place] [address] Oehl, November N, FAGOTER, MELISSA Portillo, [place], OT Discharge Disposition: Discharged to home or Selfcare 05/24/2025 9:30 AM CDT Physical Therapy [facility] [address], [address] [place] [address] Guanakito Echeverria, Lexus Lemon, PT Left shoulder pain, unspecified chronicity (Primary Dx); Chronic bilateral low back pain with right-sided sciatica Discharge Disposition: Discharged to home or Selfcare 05/24/2025 Travel 05/22/2025 Travel 05/20/2025 12:26 PM CDT - 05/20/2025 11:59 PM CDT Hospital Encounter [facility] Ultrasound 1 [place] [address] Onelia Lagunas, DO Discharge Disposition: Discharged to home or Selfcare 05/20/2025 8:45 AM CDT Occupational Therapy [facility] [address], [address] [place] [address] Oehl, November N, FAGOTER, SUPERVISOR INCISING [place] Portillo, OT Discharge Disposition: Discharged to home or Selfcare 05/20/2025 Results Follow-Up [facility] - [facility] [place] [address] [facility] [place] [address] Eloisa Beaulieu APRN, SUPERVISOR INCISING US LEFT DUPLEX UPPER EXTREMITY VEINS, US ANKLE/BRACHIAL INDICES 05/19/2025 9:15 AM CDT Physical Therapy [facility] [address] [place] [address] Guanakito Echeverria, Lexus Lemon, PT Left shoulder pain, unspecified chronicity (Primary Dx); Chronic bilateral low back pain with right-sided sciatica Discharge Disposition: Discharged to home or Selfcare 05/18/2025 12:41 PM CDT - 05/18/2025 11:59 PM CDT Hospital Encounter [facility] Ultrasound 1 [place] [address] Onelia Lagunas, DO Discharge Disposition: Discharged to home or Selfcare 05/18/2025 Travel 05/17/2025 1:00 PM CDT Occupational Therapy [facility] [address] [place] [address] Radha Lema APRN, SUPERVISOR INCISING Bandar, [place], OT Discharge Disposition: Discharged to home or Selfcare 05/17/2025 9:30 AM CDT Physical Therapy [facility] [address] [place] [address] Guanakito Echeverria, Lexus Lemon, PT Left shoulder pain, unspecified chronicity (Primary Dx); Chronic bilateral low back pain with right-sided sciatica Discharge Disposition: Discharged to home or Selfcare 05/17/2025 Travel 05/16/2025 Travel 05/15/2025 Travel 05/13/2025 9:30 AM CDT Physical Therapy [facility] [address], [address] [place] [address] Guanakito Echeverria, Lexus Lemon, PT Left shoulder pain, unspecified chronicity (Primary Dx); Chronic bilateral low back pain with right-sided sciatica Discharge Disposition: Discharged to home or Selfcare 05/12/2025 9:15 AM CDT Physical Therapy [facility] [address] [place] [address] Guanakito Echeverria, Lexus Lemon, PT Left shoulder pain, unspecified chronicity (Primary Dx); Chronic bilateral low back pain with right-sided sciatica Discharge Disposition: Discharged to home or Selfcare 05/12/2025 8:30 AM CDT Occupational Therapy [facility] [address], [address] [place] [address] Radha Lema N, FAGOTER, SUPERVISOR INCISING Band[place], [place], OT Discharge Disposition: Discharged to home or Selfcare 05/12/2025 Travel 05/10/2025 10:30 AM CDT Speech Therapy [facility] [address], [address] [place] [address] Jones Christy, Alivia Sharma, [facility]-CLINICAL DOCUMENTATION MANAGER Cognitive change (Primary Dx); Cognitive decline Discharge Disposition: Discharged to home or Selfcare 05/10/2025 9:30 AM CDT Physical Therapy [facility] [address] [place] [address] Guanakito Echeverria, Lexus Lemon, PT Left shoulder pain, unspecified chronicity (Primary Dx); Chronic bilateral low back pain with right-sided sciatica Discharge Disposition: Discharged to home or Selfcare 05/10/2025 Travel 05/09/2025 Travel 05/06/2025 8:45 AM CDT Physical Therapy [facility] [address] [place] [address] Guanakito Echeverria, Lexus Lemon M, PT Left shoulder pain, unspecified chronicity (Primary Dx); Chronic bilateral low back pain with right-sided sciatica Discharge Disposition: Discharged to home or Selfcare 05/05/2025 9:15 AM CDT Physical Therapy [facility] [address] [place] [address] Guanakito Echeverria, Lexus Lemon, PT Left shoulder pain, unspecified chronicity (Primary Dx) Discharge Disposition: Discharged to home or Selfcare 05/05/2025 Travel 05/03/2025 10:30 AM CDT Speech Therapy [facility] [address], [address] [place] [address] Jones Christy MD Brim, Ashley E, [facility]-CLINICAL DOCUMENTATION MANAGER Cognitive change (Primary Dx); Cognitive decline Discharge Disposition: Discharged to home or Selfcare 05/03/2025 9:30 AM CDT Physical Therapy [facility] [address] [place] [address] Guanakito Echeverria, Lexus Lemon, PT Left shoulder pain, unspecified chronicity (Primary Dx) Discharge Disposition: Discharged to home or Selfcare 05/03/2025 Travel 05/02/2025 8:40 AM CDT Office Visit [facility] [address] [place] [address] Onelia Lagunas, DO Mass of upper inner quadrant of left breast (Primary Dx); Insomnia, unspecified type; Spinal stenosis of lumbar region with neurogenic claudication; Arm paresthesia, left; Nausea and vomiting, unspecified vomiting type; Adrenal insufficiency (HCC) Discharge Disposition: Discharged to home or Selfcare 05/02/2025 MyChart [facility] [address]2 [facility] [address] Onelia Lagunas, DO Medication Renewal Reviewed 05/02/2025 Documentation Only [facility] Mammography [address] [facility] [place] [address] [address] Onelia Lagunas, DO 05/02/2025 Transcribe Orders [facility] [address] [facility] [place] [address] [address] Onelia Lagunas, DO Mass of left breast, unspecified quadrant (Primary Dx) 05/02/2025 Travel 04/30/2025 Travel 04/28/2025 10:45 AM CDT Occupational Therapy [facility] at [address] [place] [address] Pita, Radha N, FAGOTER, SUPERVISOR INCISING Bandar, [place], OT Discharge Disposition: Discharged to home or Selfcare 04/28/2025 9:15 AM CDT Physical Therapy [facility] at [facility] [address], [address] [place] [address] Guanakito Echeverria, Lexus Lemon, PT Left shoulder pain, unspecified chronicity (Primary Dx); Chronic bilateral low back pain with right-sided sciatica Discharge Disposition: Discharged to home or Selfcare 04/28/2025 Travel 04/26/2025 9:30 AM CDT Physical Therapy [facility] [address], [address] [place] [address] Guanakito Echeverria MD Middleton, Trisha M, PT Left shoulder pain, unspecified chronicity (Primary Dx); Chronic bilateral low back pain with right-sided sciatica Discharge Disposition: Discharged to home or Selfcare 04/26/2025 Travel 04/21/2025 9:15 AM CDT Physical Therapy [facility] [address], [address] [place] [address] Guanakito Echeverria, Lexus Lemon M, PT Left shoulder pain, unspecified chronicity (Primary Dx) Discharge Disposition: Discharged to home or Selfcare 04/19/2025 2:30 PM CDT Physical Therapy [facility] [address] [place] [address] Guanakito Echeverria, Lexus Lemon M, PT Left shoulder pain, unspecified chronicity (Primary Dx) Discharge Disposition: Discharged to home or Selfcare 04/19/2025 Travel 04/18/2025 Travel 04/15/2025 MyChart [facility] [address] [place] [address] Onelia Lagunas, Medication Renewal Reviewed 04/15/2025 MyChart [facility] [address] [place] [address] Onelia Lagunas, Medication Renewal Reviewed 04/15/2025 Results Follow-Up [facility] [address] [place] [address] Radha Lema, FAGOTER, SUPERVISOR INCISING US ABDOMEN LIMITED, LEVEL 1 - SINGLE ORGAN OR SOFT TISSUE 04/14/2025 11:15 AM CDT Speech Therapy [facility] [place] [address], [address] [place] [address] Vern Wilkinson MD Brim, Ashley E, [facility]-CLINICAL DOCUMENTATION MANAGER Cognitive change (Primary Dx); Cognitive decline Discharge Disposition: Discharged to home or Selfcare 04/14/2025 9:15 AM CDT Physical Therapy [facility] [address], [address] [place] [address] Guanakito Echeverria, MD Calvillo, Lexus M, PT Left shoulder pain, unspecified chronicity (Primary Dx); Chronic bilateral low back pain with right-sided sciatica Discharge Disposition: Discharged to home or Selfcare 04/14/2025 6:54 AM CDT - 04/14/2025 11:59 PM CDT Hospital Encounter [facility] Ultrasound 1 [place] [address] Pita, Radha N, FAGOTER, SUPERVISOR INCISING Discharge Disposition: Discharged to home or Selfcare 04/13/2025 Travel 04/13/2025 Plan of Care Documentation [facility] [address], [address] [place] [address] 04/12/2025 3:15 PM CDT Occupational Therapy [facility] [address], [address] [place] [address] Vern Wilkinson MD Embick, Alyssa, OT Concussion without loss of consciousness, initial encounter Discharge Disposition: Discharged to home or Selfcare 04/12/2025 2:30 PM CDT Physical Therapy [facility] [address], [address] [place] [address] Guanakito Echeverria MD Middleton, Lexus M, PT Left shoulder pain, unspecified chronicity (Primary Dx) Discharge Disposition: Discharged to home or Selfcare 04/10/2025 Travel from Last 3 Months Immunizations Immunization Administration Dates Next Due Influenza Vaccine 05/29/2019, 8,06/19/2017,2015,06/13/2016,06/30/2015,06/29/2015,1 09/05/2013,04/11/2013 Influenza, Seasonal, Injecta ble, Undefined 06/23/2017,06/20/2014 MMR Vaccine 03/25/2003 Novel [id number], Injectable 07/06/2016 Pneumococcal Vaccine - 13 Valent 12/04/2014 Pneumococcal Vaccine Adult - 23 Valent 09/23/2019,04/08/2014 TDAP Vaccine 11/19/2022,07/14/2012 Tuberculin Skin Test; Purifi ed Protein Derivative Solutiol 08/15/2005 Family History Medical History Relation Name Comments Heart Attack Brother 1 Syed Alcohol Abuse Brother 2 Felipe Zacarias jr Sudden Cardiac Brother 2 Felipe Zacarias jr Alcohol Abuse Father Nestor Cancer Father Nestor [...] 0.6 oz pur e alcohol) [facility] Utilities Answer Date Recorded In the past 12 months has [facility] [employer], gas, oil, or water [employer] threatened to shut off services in your home? No 09/14/2024 Social Connection and Isolation Panel Answer Date Recorded In a typical week, how many times do you talk on the phone with family, friends, or neighbors? Twice a week 09/14/2024 How often do you get togethe r with friends or relatives? Once a week 09/14/2024 How often do you attend chur ch or hinduism services? More than 4 times per year 09/14/2024 Do you belong to any clubs o r organizations such as protestant groups, unions, fraternal or athletic groups, or [...] Total Score - Questions 1-9 0 04/12 [facility] [place] of Occupat ional Health - Occupational Stress [...] time in the past 12 m [facility], were you homeless or living in a care home (including now)? No 09/14/2024 Sexually Active Control Partners Comments Yes Post-menopausal, Surgical Male Comments No Sex and Gender Information Value Date Recorded Sex Assigned at Female 08/07/2023 10:22 AM ENROLLMENT MANAGEMENT VICE PRESIDENT Legal Sex Female 12:40 AM CDT Gender Identity Female 08/07/2023 10:22 AM ENROLLMENT MANAGEMENT VICE PRESIDENT Sexual Orientation Straight 08/07/2023 10 :22 AM ENROLLMENT MANAGEMENT VICE PRESIDENT Last Filed Vital Signs Vital Sign Reading Time Taken Comments Blood Pressure 122/72 06/13/2025 10:14 AM ENROLLMENT MANAGEMENT VICE PRESIDENT Pulse 77 06/13/2025 10:14 AM ENROLLMENT MANAGEMENT VICE PRESIDENT Temperature 36.8 C (98.2 F) 06/13/2025 10:14 AM ENROLLMENT MANAGEMENT VICE PRESIDENT Respiratory Rate 16 06/13/2025 10:1 4 AM ENROLLMENT MANAGEMENT VICE PRESIDENT Oxygen Saturation 97% 06/13/2025 10: 14 AM ENROLLMENT MANAGEMENT VICE PRESIDENT Inhaled Oxygen Concentration - - Weight 81.1 kg (178 lb 12.8 oz) 025 10:14 AM ENROLLMENT MANAGEMENT VICE PRESIDENT Height 170.2 cm (5' 7) 06/13/2025 10:1 4 AM ENROLLMENT MANAGEMENT VICE PRESIDENT Body Mass Index 28 06/13/2025 10:14 AM ENROLLMENT MANAGEMENT VICE PRESIDENT Plan of Treatment Upcoming Encounters Date Type Department Care Team (Late st Contact Info) Description 09/05/2025 8:00 AM ENROLLMENT MANAGEMENT VICE PRESIDENT [facility] Visit [facility] [address] [place] [address] Onelia Lagunas, DO [address] [facility], [facility]. [address] [place] [address] 09/08/2025 3:00 PM ENROLLMENT MANAGEMENT VICE PRESIDENT Office Visit [facility] Endocrinology - [place] [address] [place] [address] Onelia Lagunas, DO 2 [facility]. [address] [place] [address] Henry Bernabe MD #2 [facility] [address] [place] [address] 09/28/2025 8:30 AM ENROLLMENT MANAGEMENT VICE PRESIDENT Office Visit [facility] - Cardiology - [place] [address] [place] [address] Shamar Rosales MD [address] [address] 12/12/2025 9:30 AM CDT Office Visit [facility] - Neurology - [place] [address] [place] [address] Jones Christy MD #[address] [place] [address] Health Maintenance Due Date Last Done Comments Cologuard 01/13/2009 Respiratory Syncytial Virus (RSV) Immunization (Adult) (1 - Risk 50-74 years 1-dose series) 01/13/2014 Immunochemical Fecal Occult Blood 05/13/2017 05/13/2016 Mammogram 12/16/2025 12/16/2024, 0508/2023, 01/28/2022, Additional history exists Td Immunization Every 10 Years (Adults With 1 Tdap) 11/19/2032 11/19/2022, 07/14/2012 Colonoscopy 12/04/2033 12/05/2023, 11/10, 12/05/2023 Colorectal Cancer Screening 12/04/2033 Influenza Immunization Discontinued 9, 06/04/2018, 06/23/2017, Additional history exists Pneumococcal Immunization (50+ years) Completed 09/23/2019, 12/04/2014, 04/08/2014 Pneumococcal Immunization Combined Discontinued 09/23/2019, 12/04/2014, 04/08/2014 [...] Immunization Discontinued Medical Devices Implanted Type Area Shell Trim Tool Setter Device Identifier Shelf Expiration Date Model / Serial / Lot System Fix 19.1mm 4.75mm Speedbridge Swivelock Biocomposite Geronimo Preload Strl - [id number] Implanted:Qty: 1 on 02/02/2025 by Guanakito Echeverria MD at [facility] IMPLANT Left: Shoulder [employer] 08/10/2028 [id number] S-4 / [id number] S-4 / [id number] Procedures Procedure Name Priority Date/Time Associated Diagnosis Comments PATHOLOGY SURGICAL Routine 06/10/2025 10:52 AM CDT AR EGD FLEXIBLE TRANSNASAL D X W/COLLJ SPEC BR/WA 06/10/2025 10:41 AM CDT EGD - ANTRAL BIOPSY (BIOPSY FORCEPS), FUNDIC GLAND POLYPECTOMY (BIOPSY FORCEPS) Special Needs Hx A Fib - Dx emesis AR ESOPHAGOGASTRODUODENOSCOP Y TRANSORAL DIAGNOSTIC 06/10/2025 10:41 AM CDT EGD - ANTRAL BIOPSY (BIOPSY FORCEPS), FUNDIC GLAND POLYPECTOMY (BIOPSY FORCEPS) Special Needs Hx A Fib - Dx emesis GI LAB IMAGING - EGD Routine 06/10/2025 9:14 AM CDT MRI LEFT SHOULDER WO CONTRAST Routine 8:40 AM CDT Arm paresthesia, left Abnormal ultrasound LIPID PANEL Routine 05/31/2025 7:46 AM CDT Hyperlipidemia, unspecified hyperlipidemia type ORTHOPEDIC SURGERY CONSULT 05/23 12:00 AM CDT US ANKLE/BRACHIAL INDICES Routine 2024 1:28 PM CDT Spinal stenosis of lumbar region with neurogenic claudication Arm paresthesia, left US LEFT DUPLEX UPPER EXTREMI TY VEINS Routine 05/18/2025 2:19 PM CDT Arm paresthesia, left US ABDOMEN LIMITED, LEVEL 1 - SINGLE ORGAN Routine 04/14/2025 7:13 AM CDT Epigastric mass TIANNA SCREENING BILATERAL DIGITAL W CAD W JAKUB Routine 12/16/2024 2:43 PM CDT Encounter for screening mammogram for breast cancer GI IMAGING - COLONOSCOPY Routine 024 10:02 AM CDT HEPATITIS C ANTIBODY Routine 11/13/2023 10:44 AM CDT Need for hepatitis C screening test from Last 3 Months or Most Recently Relevant to Health Maintenance Results * Pathology Surgical (06/10/2025 10:52 AM CDT) Case Report Surgical Pathology Report Case: [id number] Authorizing Provider: Blaise Dill MD Collected: 06/10/2025 10:52 AM Ordering Location: [facility] Received: 06/10/2025 12:01 PM [facility] Gi Lab Main Pathologist: Rose Mary Willson MD PhD Specimens: A) - Stomach, ANTRAL BIOPSY B) - Stomach, FUNDIC GLAND BIOPSY 06/13/2025 9:09 AM ENROLLMENT MANAGEMENT VICE PRESIDENT [facility] FINAL DIAGNOSIS A. Antral biopsy: - Gastric mucosa with focal mild chronic inflammation - Negative for acute inflammation or H. pylori by H&E stain B. Fundic gland biopsy: - Gastric mucosa with focal mild chronic inflammation - Negative for acute inflammation or H. pylori by H&E stain 06/13/2025 9:09 AM [facility] at 0909 ENROLLMENT MANAGEMENT VICE PRESIDENT Pre-Operative Diagnosis EMESIS 06/13/2025 9:09 AM [facility] Gross Description A. ANTRAL BIOPSY Received in formalin labeled with the patient identifiers and antral biopsy are 2 dubose-pink pieces of tissue measuring 0.3-0.5 cm in greatest dimension. The specimen is entirely submitted in cassette A1. B. FUNDIC GLAND BIOPSY Received in formalin labeled with the patient identifiers and fundic gland biopsy is 1 dubose-pink piece of tissue measuring 0.4 cm in greatest dimension. The specimen is entirely submitted in cassette B1. Total time of formalin fixation: 58 hours and 49 minutes. 06/13/2025 9:09 AM [facility] Microscopic Description Microscopic examination was performed which supports the final diagnosis. All control tissues stained appropriately. 06/13/2025 9:09 AM [facility] Tissue STOMACH STRUCTURE / Unknown 06/10/2025 10:52 AM CDT 06/10/2025 12:01 PM CDT Tissue specimen (specimen) STOMACH STRUCTURE / Unknown 06/10/2025 10:53 AM CDT 06/10/2025 12:01 PM CDT us Blaise Dill MD PATHOLOGY/CYTOLOGY ORDERAB LES Final Result [facility] [address] [place] [address] * GI LAB IMAGING - EGD (06/10/2025 9:14 AM CDT) us Blaise Dill MD IMG DIAGNOSTIC ORDERABLES Final Result * MRI LEFT SHOULDER WO CONTRAST (05/31/2025 [...] is no glenohumeral osteoarthritis with areas of kgo-vbgsixuitlfx-xccqcfkks cartilage loss at the central glenoid, and [...] postsurgical or distalclavicular osteolysis. Eloisa Beaulieu APRN, SUPERVISOR INCISING [facility] MR ORDERABLES Fin al Result * (ABNORMAL) LIPID PANEL (05/31/2025 7:46 AM CDT) CHOLESTEROL 218(H) <200 mg/dL 05/31/2025 8:47 AM CDT [facility] TRIGLYCERIDES 75 <150 mg/dL 05/31/2025 8:47 AM CDT [facility] HDL CHOLESTEROL 52 >40 mg/dL 8:47 AM CDT [facility] LDL 151(H) <130 mg/dL 05/31/2025 8:47 AM CDT [facility] VLDL 15 10 - 50 mg/dL 05/31/2025 8:47 AM CDT [facility] CHOL/HDL RATIO 4.2 0.0 - 4.4 05/31/2025 8:47 AM CDT [facility] NON-HDL CHOLESTEROL 166(H) <130 mg/dL 05/31/2025 8:47 AM CDT [facility] IS THE PATIENT REQUIRED TO BE FASTING? No 05/31/2025 8:47 AM CDT [facility] Blood Venipuncture / Unknown 05/31/2025 7:46 AM CDT 05/31/2025 7:54 AM CDT Narrative [facility] - 05/31/2025 8:47 AM CDT NCEP [...] target levels for LDL cholesterol. Eloisa Beaulieu APRN, MELISSA CHEMISTRY ORDERABLES Final Result Performing Organization Address [facility] Co de Phone Number [facility] [address] [place] [address] * ORTHOPEDIC SURGERY CONSULT (05/23/2025 12:00 AM CDT) 05/23/2025 us Provider Scan GENERIC SCAN ORDERS CONSULT Mendy l Result Performing Organization Address [facility] Co de Phone Number SCAN * US ANKLE/BRACHIAL INDICES (05/20/2025 1:28 PM CDT) Anatomical Region Laterality Modality vascular N/A Ultrasound Narrative 05/29/2025 7:29 PM CDT Vascular Lower Arterial Plethysmography Procedure Patient name MAU Callahan Maryjane 1965 Indications for Study:Claudication and Numbness and [...] Female Race Height 160.01 lbs. Weight BMI Lens Grinder Apprentice Shira Haney Interpreting Nacho Referring Physician Jaqueline Physician Ordering Physician Procedure Note Jaqueline Griffith MD - 05/29/2025 Vascular Lower Arterial Plethysmography Procedure Patient name MAU PIERCE London Wesley 1965 Indications for Study:Claudication [...] Female Race Height 160.01 lbs. Weight BMI Lens Grinder Apprentice Shira Medina Hung Balderasra Referring Physician Jaqueline Physician Ordering Physician us Onelia Lagunas DO IM US ORDERABLES [...] for further evaluation. us Onelia Lagunas DO IMG US ORDERABLES Final Resul [...] CDT DICTATING PHYSICIAN: Mila Mcrae M.D. - [facility] US ABDOMEN LIMITED, LEVEL 1 [...] No mass or hernia identified. Procedure Note Mial Mcrae MD - 04/14/2025 DICTATING PHYSICIAN: Mila Mcrae M.D. - [facility] US ABDOMEN LIMITED, LEVEL 1 [...] or hernia is identified. us Radha N Oehl FAGOTER, SUPERVISOR INCISING IMG US ORDERABLES Final R esult * TIANNA SCREENING BILATERAL DIGITAL W CAD [...] is made to exams dated: 01/26/2022, 10/11/2020 [facility], and 12/10/2023 [facility]. BREAST TISSUE:There are scattered areas of fibroglandular [...] next screening exam. Electronically signed by: Alfonzo timmons/penrad:12/17/2024 12:51:32 Energy Conservation Technician(s): RT Tomasa(R)(M), [facility] letter sent: Normal Exam Reading location: [place] [...] is made to exams dated: 01/26/2022, 10/11/2020 [facility], and 12/10/2023 [facility]. BREAST TISSUE:There are scattered areas of fibroglandular [...] next screening exam. Electronically signed by: Alfonzo timmons/penrad:12/17/2024 12:51:32 Energy Conservation Technician(s): Brunilda Whalen, RT(R)(M), [facility]: Normal Exam Reading location: [facility] Mammogram BI-RADS: Category 1: Negative us Onelia Bradford Bebo DO IMG MAMMO ORDERABLES Final Re sult * GI IMAGING - COLONOSCOPY (12/05/2023 10:02 AM CDT) us Logan Acuna MD IMG DIAGNOSTIC ORDERABLES Final Result * HEPATITIS C ANTIBODY (11/13/2023 10:44 AM CDT) hepatitis C antibody 0.09 <1 S/CO 11/14/2023 12:26 AM CDT [facility] Comment: Signal/Cutoff ratio < 0.79 is Nondetected Signal/Cutoff ratio 0.80-0.99 is Grayzone Signal/Cutoff ratio > 0.99 is Detected Supplemental assays are recommended if signal/cutoff ratio is >/=1.00. Signal/cutoff ratio result >/= 5.00 is 97% predictive of positivity for recombinant immunoblot assay (RIBA) and will be reported to the [place] Department of Public [facility] as required. Blood Venipuncture / Unknown 11/13/2023 10:44 AM CDT 11/13/2023 11:13 AM CDT us Ga Liang MD CHEMISTRY ORDERABLES Final Resul t [facility] [address] [place] [address], from Last 3 Months or Most Recently Relevant to Health Maintenance Insurance MEDICAID [facility] PLAN Advance Directives Documents on File Type Date Recorded Patient Supervisor Special Services Expl anation Power of School Age Lead Teacher for Health Care 07/14/2024 10:12 AM * Full Code (Latest Code Status on File) Date Activated Date Inactivated Comments 07/28/2024 11:31 AM * Full Code Date Activated Date Inactivated Comments 07/28/2024 9:57 AM 07/28/2024 11:31 AM Care Teams Hat Designer Relationship Specialty Start Date End Date Onelia Lagunas DO [address] [address] PCP - General Family Medicine 03/09/24 Logan Acuna MD #[address] [address] Consulting Physician Colon and Rectal Surgery 10/15/23 Mars Marti, FAGOTER, SUPERVISOR INCISING [address] [place] [address] Nurse Practitioner Advanced Practice Nurse 02/10/24 Jones Christy MD [address] [place] [address] Consulting Physician Neurology 04/30/24 Shamar Rosales MD [address] [address] Consulting Physician Cardiovascular Disease - Cardiology 03/24/25
--- OUTSIDE RECORDS SUMMARY | 2025-07-01 16:06 | XMS_ITS | Encounter Summary ---
Author Organization [facility] Address [address] [place] [address] Phone Care Team Providers Care Solderer Barrel Ribs Name Role Phone Ga Liang MD Primary Care Provider [phone] Logan Acuna MD Unavailable Mars Marti APRN, CNP Unavailable [phone] Onelia Lagunas DO Primary Care Provider [phone] Jones Christy MD Unavailable [phone] Eliezer Ndiaye MD Unavailable Shamar Rosales MD Unavailable Reason for Visit * Reason Comments Medication Refill Encounter Details Date Type Department Care Team (Late st Contact Info) Description 01/12/2024 [facility]ill [facility] - [facility] [address] [place] [address] Ga Liang MD [address] [place] [address] Medication Refill Social History Tobacco Use Types Packs/Day Years Used Date Smoking Tobacco: Never Smokeless Tobacco: Never Alcohol Use Standard Drinks/Week Comments No 0 (1 standard drink = 0.6 oz pur e alcohol) [facility] Utilities Answer Date Recorded In the past 12 months has [employer], gas, oil, or water company threatened to [...] often do you attend chur ch or pentecostal services? More than 4 times per year 12/02/2023 Do you belong to any clubs o r organizations such as oriental orthodox groups, unions, fraternal or athletic groups, or [...] care, and heating? Not very hard 12/02/2023 [facility] of Occupat ional Health - Occupational Stress [...] Sex Assigned at Female 08/07/2023 10:22 AM PARKS WORKER Legal Sex Female 12:40 AM CDT Gender Identity Female 08/07/2023 10:22 AM PARKS WORKER Sexual Orientation Straight 08/07/2023 10 :22 AM PARKS WORKER documented as of this encounter Miscellaneous Notes [...] st Contact Info) Description 09/05/2025 8:00 AM PARKS WORKER Office Visit [facility] - Family Medicine - [place] [address] [place] [address] Onelia Lagunas, DO [address] [place] [address] 09/08/2025 3:00 PM PARKS WORKER Office Visit [facility] - Endocrinology - [place] [address] [place] [phone] Onelia Lagunas DO 2 [facility] [address] [place] [address] Henry Bernabe MD #[address] [phone] 09/28/2025 8:30 AM PARKS WORKER [facility] [place] [address] [place] [phone] Shamar Rosales MD [address] [address] 12/12/2025 9:30 AM CDT Office Visit [facility] - Neurology - [place] [address] [place] [phone] Jones Christy MD [address] [place] [address] documented as of this encounter Visit Diagnoses Diagnosis Insomnia, unspecified type documented in this encounter Additional Health Concerns Infection Onset Date Last Indicated Resolved Time COVID - 19 04/30/2024 04/30/2024 04/30/2024 11:2 5 AM CDT documented as of this encounter Care Teams Solderer Barrel Ribs Relationship Specialty Start Date End Date Ga Liang MD [address] [place] [address] PCP - General Family Medicine 07/18/23 03/08/24 Onelia Lagunas DO [address] [facility] [address] [address] PCP - General Family Medicine 03/09/24 Logan Acuna MD #2 [facility] [address] [place] [address] Consulting Physician Colon and Rectal Surgery 10/15/23 Mars Marti HEAD OF HOUSEKEEPING, CADD DRAFTER [address] [facility] [place] [address] Nurse Practitioner Advanced Practice Nurse 02/10/24 Jones Christy MD [address] [facility] [place] [address] Consulting Physician Neurology 04/30/24 Eliezer Ndiaye MD [address] [facility] [address] Consulting Physician Clinical Cardiac Electrophysiology 09/17/24 03/23/25 Shamar Rosales MD 2 [facility] [address] [address] Consulting Physician Cardiovascular Disease - Cardiology 03/24/25 documented as of this encounter
--- OUTSIDE RECORDS SUMMARY | 2025-07-01 16:06 | XMS_ITS | Encounter Summary ---
Author Organization [facility] Address [address] [place] [address] Care Team Providers Care Reaming Machine Operator Name Role Phone Delroy Aragon MD Primary Care Provider [phone] Encounter Details Date Type Department Care Team (Late st Contact Info) Description 12/24/2005 Orders Only [facility] Internal Medicine [address] [address] Delroy Aragon MD [address] [place] [address] Social History Tobacco Use Types Packs/Day Years Used Date Smoking Tobacco: Never Assessed Comments Unknown Sex and Gender Information Value Date Recorded Sex Assigned at Not on file Legal Sex Female 5:10 AM PSYCHIATRIC CLINICIAN Gender Identity Not on file Sexual Orientation Not on file documented as of this encounter Progress Notes * Delroy Aragon MD - 05/20/2008 4:34 AM CDT BLOOD PRESSURE: 120/70 Right Arm Sitting NURSE NAME: Saloni MariaLondon CHIEF COMPLAINT c/o diarrhea HISTORY: diarrhea since [...] on filedocumented in this encounter Care Teams Reaming Machine Operator Relationship Specialty Start Date End Date Delroy Aragon MD [address] [place] [address] PCP - General 03/14/05 documented as of this encounter
--- OUTSIDE RECORDS SUMMARY | 2025-07-01 16:06 | XMS_ITS | Encounter Summary ---
Author Organization [facility] Address [address] [place] [address] Phone Care Team Providers Care Websphere Developer Name Role Phone Ga Liang MD Primary Care Provider [phone] Logan Acuna MD Unavailable Mars Marti APRN, CNP Unavailable [phone] Onelia Lagunas DO Primary Care Provider [phone] Jones Christy MD Unavailable [phone] Eliezer Ndiaye MD Unavailable Shamar Rosales MD Unavailable Reason for Visit * Reason Comments Medication Refill Encounter Details Date Type Department Care Team (Late st Contact Info) Description 03/05/2024 Refill [facility] - Family Medicine [facility] [address] [place] [address] Ga Liang MD [address] [place] [address] Medication Refill Social History Tobacco Use Types Packs/Day Years Used Date Smoking Tobacco: Never Smokeless Tobacco: Never Alcohol Use Standard Drinks/Week Comments No 0 (1 standard drink = 0.6 oz pur e alcohol) [facility] Utilities Answer Date Recorded In the past 12 months has [employer], gas, oil, or water company threatened to [...] often do you attend chur ch or mormon services? More than 4 times per year 02/14/2024 Do you belong to any clubs o r organizations such as amish groups, unions, fraternal or athletic groups, or [...] Score - Questions 1-9 0 07/0 03/2024 [facility] - Occupational Stress Questionnaire Answer [...] any time in the past 12 m [facility], were you homeless or living in a care home (including now)? No 02/14/2024 Sexually Active Control Partners Comments Yes Male Comments No Sex and Gender Information Value Date Recorded Sex Assigned at Female 08/07/2023 10:22 AM RELIGIOUS HEALER Legal Sex Female 12:40 AM CDT Gender Identity Female 08/07/2023 10:22 AM RELIGIOUS HEALER Sexual Orientation Straight 08/07/2023 10 :22 AM RELIGIOUS HEALER documented as of this encounter Miscellaneous Notes * Telephone Encounter - Mily Quirso RN - 03/05/2024 2:26 PM CDT Images from the original note were not included. PARoxetine HCl Dispensed Days Supply Quantity Provider Pharmacy PAROXETINE 10MG TAB 02/26/2024 90 90 Each Ga Liang MD [facility] 4695 ... PAROXETINE 10MG TAB 12/02/2023 90 90 Each Ga Liang MD [facility] 95 ... documented in this encounter Plan of Treatment Upcoming Encounters Date Type Department Care Team (Late st Contact Info) Description 09/05/2025 8:00 AM RELIGIOUS HEALER [facility] [place] [address] [place] [address] Onelia Lagunas, DO 2 [facility] [address] [place] [address] 09/08/2025 3:00 PM RELIGIOUS HEALER Office Visit [facility] - Endocrinology - [place] [address] [place] [phone] Onelia Lagunas, DO 2 [facility] [address] [place] [address] Henry Bernabe MD #[address] [place] [phone] 09/28/2025 8:30 AM RELIGIOUS HEALER Office Visit [facility] - Cardiology - [place] [address] [place] [phone] Shamar Rosales MD [address] [address] 12/12/2025 9:30 AM CDT Office Visit [facility] - Neurology - [place] [address] [place] [phone] Jones Christy MD [address] [place] [phone] documented as of this encounter Visit Diagnoses Diagnosis Hot flashes Symptomatic menopausal or female climacteric states documented in this encounter Additional Health Concerns Infection Onset Date Last Indicated Resolved Time COVID - 19 04/30/2024 04/30/2024 04/30/2024 11:2 5 AM CDT Assessment Noted Time PHQ-9 Depression Total Score: 0 02/16/20 9:00 AM CDT documented as of this encounter Care Teams Websphere Developer Relationship Specialty Start Date End Date Ga Liang MD [address] [place] [address] PCP - General Family Medicine 07/18/23 03/08/24 Onelia Lagunas DO [address] [address] PCP - General Family Medicine 03/09/24 Logan Acuna MD #[address] [address] Consulting Physician Colon and Rectal Surgery 10/15/23 Mars Marti, FLARER, LAYDOWN MACHINE OPERATOR [address] [place] [address] Nurse Practitioner Advanced Practice Nurse 02/10/24 Jones Christy MD [address] [place] [phone] Consulting Physician Neurology 04/30/24 Eliezer Ndiaye MD #[address] [address] Consulting Physician Clinical Cardiac Electrophysiology 09/17/24 03/23/25 Shamar Rosales MD [address] [address] Consulting Physician Cardiovascular Disease - Cardiology 03/24/25 documented as of this encounter
--- OUTSIDE RECORDS SUMMARY | 2025-07-01 16:06 | XMS_ITS | Encounter Summary ---
Author Organization [facility] Address [address] [place] [address] Phone Care Team Providers Care Carpenter/Labor Name Role Phone Logan Acuna MD Unavailable Mars Marti APRN, MELISSA Unavailable [phone] Onelia Lagunas DO Primary Care Provider [phone] Jones Christy MD Unavailable [phone] Eliezer Ndiaye MD Unavailable Shamar Rosales MD Unavailable Encounter Details Date Type Department Care Team (Latest Contact Info) Description 08/17/2024 Lab Requisition [facility] [address] [place] [phone] Brenda Mccann MD Severe sepsis with septic shock (CODE) (HCC); Sepsis due to methicillin susceptible Staphylococcus aureus (HCC) Social History Tobacco Use Types Packs/Day Years Used Date Smoking Tobacco: Never Smokeless Tobacco: Never Alcohol Use Standard Drinks/Week Comments No 0 (1 standard drink = 0.6 oz pur e alcohol) [facility] Utilities Answer Date Recorded In the [...] How often do you attend chur or hinduism services? More than 4 times per year 02/14/2024 Do you belong to any clubs o r organizations such as gnosticism groups, unions, fraternal or athletic groups, or [...] Total Score - Questions 1-9 0 07/12 [facility] - Occupational [...] a senior living (including now)? No 12/02/2023 Housing Stability Vital [...] any time in the past [facility], were you homeless or living in a senior living (including now)? No 02/14/2024 Sexually Active Control Partners Comments Yes Male Comments No Sex and Gender Information Value Date Recorded Sex Assigned at Female 08/07/2023 10:22 AM TURKEY CLEANER Legal Sex Female 12:40 AM CDT Gender Identity Female 08/07/2023 10:22 AM TURKEY CLEANER Sexual Orientation Straight 08/07/2023 10 :22 AM TURKEY CLEANER documented as of this encounter Functional Status * BP Answer Date of Assessment Author 118/64 08/17/2024 10:56 AM Dalia Perry RN * Temp Answer Date of Assessment Author 98.2 08/17/2024 10:56 AM Dalia Perry RN * Pulse Answer Date of Assessment Author 68 08/17/2024 10:56 AM Dalia Perry RN * Resp Answer Date of Assessment Author 18 08/17/2024 10:56 AM Dalia Perry RN * SpO2 Answer Date of Assessment Author 100 08/17/2024 10:56 AM Dalia Perry RN documented as of this encounter Mental Status * BP Answer Entry Date Author 118/64 08/17/2024 10:56 AM Dalia Perry RN * Temp Answer Entry Date Author 98.2 08/17/2024 10:56 AM Dalia Perry RN * Pulse Answer Entry Date Author 68 08/17/2024 10:56 AM Dalia Perry RN * SpO2 Answer Entry Date Author 100 08/17/2024 10:56 AM Dalia Perry RN documented in this encounter Plan of Treatment Upcoming Encounters Date Type Department Care Team (Late st Contact Info) Description 09/05/2025 8:00 AM TURKEY CLEANER Office Visit [facility] Family Medicine [facility] #2 [place] [address] Onelia Lagunas, DO [address] [address] 09/08/2025 3:00 PM TURKEY CLEANER Office Visit [facility] Endocrinology - [place] [address] [place] [address] Onelia Lagunas, DO [address] [address] Henry Bernabe MD #[address] [address] 09/28/2025 8:30 AM TURKEY CLEANER Office Visit [facility] Cardiology [facility] #2 [place] [address] Shamar Rosales MD [address] [address] 12/12/2025 9:30 AM CDT Office Visit [facility] [address] [place] [address] Jones Christy MD #[address] [place] [address] documented as of this encounter Procedures Procedure Name Priority Date/Time Associated Diagnosis Comments CBC WITH AUTO DIFFERENTIAL Routine 08/17/2024 11:00 AM TURKEY CLEANER Severe sepsis with septic shock (CODE) (HCC) Sepsis due to methicillin susceptible Staphylococcus aureus (HCC) CMP (COMPREHENSIVE METABOLIC PANEL) Routine 08/17/2024 11:00 AM TURKEY CLEANER Severe sepsis with septic shock (CODE) (HCC) Sepsis due to methicillin susceptible Staphylococcus aureus (HCC) COMPLETE BLOOD COUNT (CBC) WITH DIFF Routine 08/17/2024 11:00 AM TURKEY CLEANER Severe sepsis with septic shock (CODE) (HCC) Sepsis due to methicillin susceptible Staphylococcus aureus (HCC) C-REACTIVE PROTEIN (CRP) QUANT Routine 08/17/2024 11:00 AM TURKEY CLEANER Severe sepsis with septic shock (CODE) (HCC) Sepsis due to methicillin susceptible Staphylococcus aureus (HCC) documented in this encounter Results * (ABNORMAL) CBC WITH AUTO DIFFERENTIAL (08/17/2024 11:00 AM TURKEY CLEANER) WBC 4.68 4.00 - 12.00 10(3)/mcL 08/17/2024 11:55 AM TURKEY CLEANER [facility] RBC 3.76(L) 3.80 - 5.30 10(6)/mcL 08/17/2024 11:55 AM TURKEY CLEANER [facility] HEMOGLOBIN (HGB) 11.3(L) 12.0 - 15.8 g/dL 08/17/2024 11:55 AM TURKEY CLEANER [facility] HEMATOCRIT (HCT) 35.5(L) 36.0 - 47.0 % 08/17/2024 11:55 AM TURKEY CLEANER [facility] MCV 94.4 82.0 - 96.0 fL 08/17/2024 11:55 AM [facility] MCH 30.1 26.0 - 34.0 pg 08/17/2024 11:55 AM [facility] MCHC 31.8 31.0 - 36.0 g/dL 08/17/2024 11:55 AM [facility] PLATELET COUNT 260 140 - 440 10(3)/[facility] 08/17/2024 11:55 AM [facility] RDW 13.2 11.8 - 15.5 % 08/17/2024 11:55 AM [facility] MPV 10.4 9.7 - 12.4 fL 08/17/2024 11:55 AM [facility] NEUTROPHILS 49.3 47.0 - 73.0 % 08/17/2024 11:55 AM [facility] LYMPHOCYTES 38.0 18.0 - 42.0 % 08/17/2024 11:55 AM [facility] MONOCYTES 8.8 4.0 - 12.0 % 08/17/2024 11:55 AM [facility] EOSINOPHILS 3.0 0.0 - 5.0 % 08/17/2024 11:55 AM [facility] BASOPHILS 0.9 0.0 - 1.0 % 08/17/2024 11:55 AM [facility] ABSOLUTE NEUTROPHILS 2.31 1.60 - 7.70 10(3)/mcL 08/17/2024 11:55 AM [facility] ABSOLUTE LYMPHOCYTES 1.78 1.30 - 3.20 10(3)/mcL 08/17/2024 11:55 AM [facility] ABSOLUTE MONOCYTES 0.41 0.20 - 1.00 10(3)/mcL 08/17/2024 11:55 AM [facility] ABSOLUTE EOSINOPHIL 0.14 0.00 - 0.40 10(3)/mcL 08/17/2024 11:55 AM [facility] ABSOLUTE BASOPHILS 0.04 0.00 - 0.10 10(3)/[facility] 08/17/2024 11:55 AM TURKEY CLEANER [facility] NRBC PER 100 WBC 0 08/17/19 11:55 AM TURKEY CLEANER [facility] Blood Venipuncture / Unknown 08/17/2024 11:00 AM TURKEY CLEANER 08/17/2024 11:43 AM TURKEY CLEANER us Brenda Anand MD HEMATOLOGY ORDERABL ES Final Result [facility] #[address] [place] [address] * (ABNORMAL) C-REACTIVE PROTEIN (CRP) QUANT (08/17/2024 11:00 AM TURKEY CLEANER) C-REACTIVE PROTEIN 0.57(H) <0.50 mg/dL 08/17/2024 12:15 PM TURKEY CLEANER [facility] Blood Venipuncture / Unknown 08/17/2024 11:00 AM TURKEY CLEANER 08/17/2024 11:43 AM TURKEY CLEANER us Brenda Anand MD CHEMISTRY ORDERABLE S Final Result [facility] [address] [place] [address] * (ABNORMAL) CMP (COMPREHENSIVE METABOLIC PANEL) (08/17/2024 11:00 AM TURKEY CLEANER) SODIUM 137 136 - 145 mmol/L 08/17/2024 12:15 PM TURKEY CLEANER [facility] POTASSIUM 4.2 3.5 - 5.1 mmol/L 08/17/2024 12:15 PM TURKEY CLEANER [facility] CHLORIDE 104 98 - 107 mmol/L 08/17/2024 12:15 PM TURKEY CLEANER [facility] CO2, VENOUS 25 22 - 30 mmol/L 08/17/2024 12:15 PM TURKEY CLEANER [facility] ANION GAP 12.2 <18.0 mmol/L 08/17/2024 12:15 PM [facility] GLUCOSE 84 70 - 99 mg/dL 08/17/2024 12:15 PM [facility] BUN 20 10 - 20 mg/dL 08/17/2024 12:15 PM [facility] CREATININE, BLOOD 0.71 0.60 - 1.00 mg/dL 08/17/2024 12:15 PM [facility] BUN/CREATININE RATIO 28(H) 12 - 20 ratio 08/17/2024 12:15 PM [facility] TOTAL PROTEIN 6.8 6.3 - 8.2 g/dL 08/17/2024 12:15 PM [facility] ALBUMIN 3.9 3.5 - 5.0 g/dL 08/17/2024 12:15 PM [facility] A/G RATIO 1.3 1.0 - 2.2 08/17/2024 12:15 PM [facility] CALCIUM 9.3 8.7 - 10.5 mg/dL 08/17/2024 12:15 PM [facility] T BILI 0.3 0.2 - 1.2 mg/dL 08/17/2024 12:15 PM [facility] SGOT (AST) 16 5 - 34 U/L 08/17/2024 12:15 PM [facility] SGPT (ALT) <5 0 - 55 U/L 08/17/2024 12:15 PM [facility] ALKALINE PHOSPHATASE 78 40 - 150 U/L 08/17/2024 12:15 PM [facility] GFR, ESTIMATED >60 >=60 08/17/2024 12:15 PM [facility] Comment: Creatinine Clearance is the preferred criteria for selecting drug dose adjustments in renally impaired patients. The GFR is provided as additional pertinent clinical information. GFR is reported in mL/min/1.73 sq m. Calculation based on the Chronic Kidney Disease Epidemiology Collaboration (CKD- EPI) equation refit without adjustment for race. GFR, EST. >60 >=60 025 12:15 PM TURKEY CLEANER [facility] GFR, EST. NONAFRICAN >60 >=60 08/17/2024 12:15 PM TURKEY CLEANER [facility] Blood Venipuncture / Unknown 08/17/2024 11:00 AM TURKEY CLEANER 08/17/2024 11:43 AM TURKEY CLEANER us Brenda Anand MD CHEMISTRY ORDERABLE S Final Result [facility] [address] [place] [address] documented in this encounter Visit Diagnoses Diagnosis Severe sepsis with septic shock (CODE) Sepsis due to methicillin susceptible Staphylococcus aureus Methicillin susceptible staphylococcus aureus septicemia documented in this encounter Additional Health Concerns Assessment Noted Time PHQ-9 Depression Total Score: 0 07/30/20 9:30 AM TURKEY CLEANER documented as of this encounter Care Teams Carpenter/Labor Relationship Specialty Start Date End Date Onelia Lagunas DO 2 [facility] [address] [place] [address] PCP - General Family Medicine 03/09/24 Logan Acuna MD #[address] [address] Consulting Physician Colon and Rectal Surgery 10/15/23 Mars Marti, FIRE PROTECTION ENGINEER, REFRIGERATION SERVICE INSPECTOR [address] [place] [address] Nurse Practitioner Advanced Practice Nurse 02/10/24 Jones Christy MD #2 [place] [phone] Consulting Physician Neurology 04/30/24 Eliezer Ndiaye MD #[address] [facility] [facility] [address] [place] [address] Consulting Physician Clinical Cardiac Electrophysiology 09/17/24 03/23/25 Shamar Rosales MD [address] [facility] [facility], [address] [address] Consulting Physician Cardiovascular Disease - Cardiology 03/24/25 documented as of this encounter
--- OUTSIDE RECORDS SUMMARY | 2025-07-01 16:06 | XMS_ITS | Encounter Summary ---
Author Organization [facility] Address [address] [place] [address] Phone Care Team Providers Care Grape Picker Name Role Phone Ga Liang MD Primary Care Provider [phone] Logan Acuna MD Unavailable Mars Marti APRN, CNP Unavailable [phone] Onelia Lagunas DO Primary Care Provider [phone] Jones Christy MD Unavailable [phone] Eliezer Ndiaye MD Unavailable Shamar Rosales MD Unavailable Reason for Visit * Reason Comments Medication Refill Encounter Details Date Type Department Care Team (Late st Contact Info) Description 12/09/2023 [facility]ill [facility] - Family Medicine [facility] [address] [place] [address] Ga Liang MD [address] [place] [address] Medication Refill Social History Tobacco Use Types Packs/Day Years Used Date Smoking Tobacco: Never Smokeless Tobacco: Never Alcohol Use Standard Drinks/Week Comments No 0 (1 standard drink = 0.6 oz pur e alcohol) [facility] Utilities Answer Date Recorded In the past 12 months has [employer], gas, oil, or water company threatened to [...] often do you attend chur ch or gnosticist services? More than 4 times per year 12/02/2023 Do you belong to any clubs o r organizations such as advent groups, unions, fraternal or athletic groups, or [...] care, and heating? Not very hard 12/02/2023 [facility] Occupat ional Health - Occupational [...] Sex Assigned at Female 08/07/2023 10:22 AM DIVER ASSISTANT Legal Sex Female 12:40 AM CDT Gender Identity Female 08/07/2023 10:22 AM DIVER ASSISTANT Sexual Orientation Straight 08/07/2023 10 :22 AM DIVER ASSISTANT documented as of this encounter Plan of Treatment Upcoming Encounters Date Type Department Care Team (Late st Contact Info) Description 09/05/2025 8:00 AM DIVER ASSISTANT Office Visit [facility] - Family Medicine [facility] [address] [place] [address] Onelia Lagunas, DO 2 [facility] [place] [address] [address] 09/08/2025 3:00 PM DIVER ASSISTANT Office Visit [facility] - Endocrinology [facility] [address] [place] [address] Onelia Lagunas, DO 2 [facility] [place] [facility] [address] [place] [address] Henry Bernabe MD #[address] [phone] 09/28/2025 8:30 AM DIVER ASSISTANT Office Visit [facility] - Cardiology - [place] #[address] [place] [phone] Shamar Rosales MD [address] [id number] 12/12/2025 9:30 AM CDT Office Visit [facility] - Neurology - [place] [address] [place] [address] Jones Christy MD #2 [place] [address] documented as of this encounter Visit Diagnoses Diagnosis Vaginal irritation Unspecified noninflammatory disorder of vagina Urinary hesitancy documented in this encounter Additional Health Concerns Infection Onset Date Last Indicated Resolved Time COVID - 19 04/30/2024 04/30/2024 04/30/2024 11:2 5 AM CDT documented as of this encounter Care Teams Grape Picker Relationship Specialty Start Date End Date Ga Liang MD #1 [place] [address] PCP - General Family Medicine 07/18/23 03/08/24 Onelia Lagunas DO [address] [address] PCP - General Family Medicine 03/09/24 Logan Acuna MD #2 [facility] [address] [place] [address] Consulting Physician Colon and Rectal Surgery 10/15/23 Mars Marti, POULTRY HUSBANDRY WORKER, TEAM LEAD [address] [place] [address] Nurse Practitioner Advanced Practice Nurse 02/10/24 Jones Christy MD #2 [place] [address] Consulting Physician Neurology 04/30/24 Eliezer Ndiaye MD #[address] [address] Consulting Physician Clinical Cardiac Electrophysiology 09/17/24 03/23/25 Shamar Rosales MD [address] [address] Consulting Physician Cardiovascular Disease - Cardiology 03/24/25 documented as of this encounter
--- OUTSIDE RECORDS SUMMARY | 2025-07-01 16:06 | XMS_ITS | Encounter Summary ---
Author Organization [facility] Address [address] [place] [address] Care Team Providers Care Outpatient Physical Therapist Name Role Phone Delroy Aragon MD Primary Care Provider [phone] Encounter Details Date Type Department Care Team (Late st Contact Info) Description 05/10/2004 Outpatient [facility] Internal Medicine [address] [phone] Delroy Aragon MD [address] [place] [phone] Social History Tobacco Use Types Packs/Day Years Used Date Smoking Tobacco: Never Assessed Comments Unknown Sex and Gender Information Value Date Recorded Sex Assigned at Not on file Legal Sex Female 5:10 AM TRASH COLLECTOR Gender Identity Not on file Sexual Orientation [...] on filedocumented in this encounter Care Teams Outpatient Physical Therapist Relationship Specialty Start Date End Date Delroy Aragon MD [address] [place] [phone] PCP - General 03/14/05 documented as of this encounter
--- OUTSIDE RECORDS SUMMARY | 2025-07-01 16:06 | XMS_ITS | Encounter Summary ---
Author Organization [facility] Address [address] [place] [address] Phone Care Team Providers Care Thoracic Medicine Physician Name Role Phone Ga Liang MD Primary Care Provider [phone] Logan Acuna MD Unavailable Mars Marti APRN, PIZZA BAKER Unavailable [phone] Onelia Lagunas DO Primary Care Provider [phone] Jones Christy MD Unavailable [phone] Eliezer Ndiaye MD Unavailable Shamar Rosales MD Unavailable Reason for Visit * Reason Comments Medication Refill Encounter Details Date Type Department Care Team (Late st Contact Info) Description 01/29/2024 Refill [facility] - Family Medicine [facility] #2 [place] [address] Jennifer Chowdary PAC [address] [place] [address] Medication Refill Social History Tobacco Use Types Packs/Day Years Used Date Smoking Tobacco: Never Smokeless Tobacco: Never Alcohol Use Standard Drinks/Week Comments No 0 (1 standard drink = 0.6 oz pur e alcohol) [facility] Utilities Answer Date Recorded In the past 12 months has [employer], gas, oil, or water [employer] threatened to shut off services in your home? No 12/02/2023 Social Connection and Isolation Panel Answer Date Recorded In a typical week, how many times do you talk on the phone with family, friends, or neighbors? Twice a week 12/02/2023 How often do you get togethe r with friends or relatives? Once a week 12/02/2023 How often do you attend chur ch or voodoo services? More than 4 times per year 12/02/2023 Do you belong to any clubs o r organizations such as jainism groups, unions, fraternal or athletic groups, or [...] care, and heating? Not very hard 12/02/2023 [facility] Occupat ional [facility] - Occupational Stress Questionnaire Answer Date [...] Sex Assigned at Female 08/07/2023 10:22 AM C WEB DEVELOPER Legal Sex Female 12:40 AM CDT Gender Identity Female 08/07/2023 10:22 AM C WEB DEVELOPER Sexual Orientation Straight 08/07/2023 10 :22 AM C WEB DEVELOPER documented as of this encounter Functional Status * Question Answer Date of Assessment Author Best Eye Response 4-->(E4) spontaneous 4 12:32 PM CDT Ada Cruz, LAURA Best Verbal Response 5-->(V5) oriented 4 12:32 PM CDT Ada Cruz RN Best Motor Response 6-->(M6) obeys commands 01/10 12:32 PM CDT Ada Cruz, LAURA Santosh Coma Scale Score 15 02/01/2024 12:32 PM CDT Ada Cruz, LAURA * Question Answer Date of Assessment Author Pain Description constant 02/01/2024 12:3 3 PM CDT Ada Cruz, messaging architect Interventions quiet environment facilitated;relaxation techniques promoted 02/01/2024 1:22 PM CDT Kelle Rivas Fall Risk Question Answer Date of Assessment Author History of Falling, Immediat e or Within 3 Months 25 02/01/2024 12:32 PM Ada Rivas RN Secondary Diagnosis 0 02/01/2024 12:32 PM C Ada Hopper, acid adjuster Aid 0 02/01/2024 12:32 PM RKISTIT Ada Alan RN Intravenous Therapy/Heparin Lock 0 02/01/20 24 12:32 PM Ada Rivas RN Gait/Transferring 0 02/01/2024 12:32 PM Ada Rivas, RN Mental Status 0 02/01/2024 12:32 PM CDT Ada Boston RN [place] Fall Risk Score 25 02/01/2024 12:32 PM Ada Rivas, RN * Safety Factors Answer Date of Assessment Author bed in low position;call light in reach 02/01/20 24 12:32 PM Ada Rivas, LAURA * Question Answer Date of Assessment Author BP 142/72 02/01/2024 1:22 PM Kelle Arthur Temp 97.8 02/01/2024 12:32 PM KRISTIT Ada Salas RN Pulse 74 02/01/2024 1:22 PM Kelle Arthur Resp 18 02/01/2024 1:22 PM Kelle Arthur SpO2 100 02/01/2024 1:22 PM Kelle Arthur Heart Rate (Monitor) 74 02/01/2024 1:22 PM Kelle Daugherty documented as of this encounter Mental Status * Question Answer Entry Date Author Best Eye Response 4-->(E4) spontaneous 4 12:32 PM Ada Rivas, LAURA Best Verbal Response 5-->(V5) oriented 4 12:32 PM Ada Rivas, LAURA Best Motor Response 6-->(M6) obeys commands 01/10 12:32 PM Ada Rivas, LAURA [place] Coma Scale Score 15 02/01/2024 12:32 PM Ada Rivas, RN * Question Answer Entry Date Author Pain Description constant 02/01/2024 12:3 3 PM Ada Rivas, messaging architect Interventions quiet environment facilitated;relaxation techniques promoted 02/01/2024 1:22 PM CDT Kelle Rivas * Safety Factors Answer Entry Date Author bed in low position;call light in reach 02/01/20 12:32 PM CDT Ada Cruz RN * Question Answer Entry Date Author BP 142/72 02/01/2024 1:22 PM CDT Kelle Osborn Temp 97.8 02/01/2024 12:32 PM CDT Ada Salas RN Pulse 74 02/01/2024 1:22 PM CDT Kelle Osborn SpO2 100 02/01/2024 1:22 PM CDT Kelle Osborn documented in this encounter Plan of Treatment Upcoming Encounters Date Type Department Care Team (Late st Contact Info) Description 09/05/2025 8:00 AM C WEB DEVELOPER Office Visit [facility] Family Medicine [facility] [address] [place] [address] Onelia Lagunas, DO [address] [address] 09/08/2025 3:00 PM C WEB DEVELOPER Office Visit [facility] Endocrinology - [place] #[address] [place] [address] Onelia Lagunas, DO 2 [facility] [address] [place] [address] Henry Bernabe MD #[address] [address] 09/28/2025 8:30 AM C WEB DEVELOPER Office Visit [facility] Cardiology [facility] #[address] [place] [address] Shamar Rosales MD [address] [address] 12/12/2025 9:30 AM CDT Office Visit [facility] - Neurology [facility] #2 [place] [phone] Jones Christy MD #[address] [place] [address] documented as of this encounter Visit Diagnoses Not on filedocumented in this encounter Additional Health Concerns Infection Onset Date Last Indicated Resolved Time COVID - 19 04/30/2024 04/30/2024 04/30/2024 11:2 5 AM CDT documented as of this encounter Care Teams Thoracic Medicine Physician Relationship Specialty Start Date End Date Ga Liang MD #[address] [place] [address] PCP - General Family Medicine 07/18/23 03/08/24 Onelia Lagunas DO [address] [address] PCP - General Family Medicine 03/09/24 Logan Acuna MD #[address] [address] Consulting Physician Colon and Rectal Surgery 10/15/23 Mars Marti, DIVISION PLANT ENGINEER, PIZZA BAKER #[address] [place] [address] Nurse Practitioner Advanced Practice Nurse 02/10/24 Jones Christy MD #[address] [place] [phone] Consulting Physician Neurology 04/30/24 Eliezer Ndiaye MD #2 [facility] [address] [place] [address] Consulting Physician Clinical Cardiac Electrophysiology 09/17/24 03/23/25 [address] MD [address] [facility], [address] [address] Consulting Physician Cardiovascular Disease - Cardiology 03/24/25 documented as of this encounter
--- OUTSIDE RECORDS SUMMARY | 2025-07-01 16:06 | XMS_ITS | Clinical Summary ---
Author Organization [facility] Address [address] [place] [address] Care Team Providers Care Railroad Carman Name Role Phone Delroy Aragon MD Primary Care Provider [phone] Allergies Active Allergy Reactions Criticality Noted Date [...] (Mounjaro) 2.5 mg/0.5 mL Pen Injector Lot: [id number] Ex: 05/14/23 Qty: 1 BOX 0.5 mL [...] Morbid obesity with BMI of 40.0-44.9, adult 04/2015 Vitamin D deficiency 08/01/2014 Organic parasomnia [...] Encounters Date Type Department Care Team Description 06/28/2025 External Device Data ST[facility] ABSTRACTION Provider, Abstract 06/08/2025 External Device Data [facility] ABSTRACTION Provider, Abstract 06/08/2025 External Device Data [facility] ABSTRACTION Provider, Abstract 04/19/2025 External Device Data [facility] ABSTRACTION Provider, Abstract from Last 3 Months Immunizations Immunization Administration Dates Next Due (ADACEL/BOOSTRIX)(10 YR UP) TDAP VACCINE, 0.5ML, IM 11/19/2022,07/14/2012 (PFIZER)(12 YR UP) COVID-19 VACCINE - EMERGENCY USE AUTHORIZATION, MRNA, [id number]) 30 MCG/0.3 ML IM SUSP 03/01/2021,02/08/2021 (PNEUMOVAX [...] on file Legal Sex Female 5:10 AM GUNNER'S MATE Gender Identity Not on file Sexual Orientation Not on file Last Filed Vital Signs Vital Sign Reading Time Taken Comments Blood Pressure 134/70 09/07/2024 3:41 PM GUNNER'S MATE Pulse 73 09/07/2024 3:41 PM GUNNER'S MATE Temperature 35.8 C (96.4 F) 09/17/2023 2:40 PM GUNNER'S MATE Respiratory Rate 18 11/19/2022 10:16 AM CDT Oxygen Saturation 96% 09/07/2024 3:41 PM GUNNER'S MATE Inhaled Oxygen Concentration - - Weight 94.8 kg (209 lb) 09/07/2024 3:41 PM GUNNER'S MATE Height 167.6 cm (5' 6) 09/07/2024 3:41 PM GUNNER'S MATE Body Mass Index 33.73 09/07/2024 3:41 PM GUNNER'S MATE Plan of Treatment Health Maintenance Due Date [...] CANCER SCREENING 11/12/2024 PAP SMEAR 11/12/2024 11/13/2023, 0404/2018, 11/17/2017 BREAST CANCER SCREENING 12/09/2024 12/10/19 24, 12/10/2023, 01/28/2022, Additional history exists INFLUENZA VACCINE (#1) 2025 9, 06/04/2018, 06/23/2017, Additional history exists COVID-19 Vaccine ( - 2024-2 6 season) 2025 03/01/2021, 02/08/2021 [...] A1C 5.7(H) <5.7 % of total Hgb [facility] Comment: For someone without known diabetes, [...] children. ESTIMATED AVERAGE GLUCOSE (MG/DL) 117 mg/dL [facility] ESTIMATED AVERAGE GLUCOSE (MMOL/L) 6.5 mmol/L [facility] Comment: FASTING:YES FASTING: YES Test Performed at: [facility] [address] [place] [address] Oscar Thi Vo Blood 11/15/2022 10:3 5 AM CDT 11/15/2022 10:36 AM CDT us Delroy Aragon MD CHEMISTRY ORDERABLES Final Re sult [facility] [phone] [place] [address] [address] [address] * MAMMO SCREEN BILAT W OR WO CAD (01/28/2022) Anatomical Region Laterality Modality Breast Bilateral Mammography us Delroy Aragon MD MAMMO ORDERABLES Final Result * CERV/VAG CYTOPATH, THIN PREP BURRER MACHINE (11/17/2017 7:57 AM CDT) CLINICAL INFORMATION SEE [...] has been evaluated with computer assisted technology. LIQUOR MAKER: SEE COMMENT 2017 7:03 PM CDT [facility] Comment: AMW, CT(ASCP) CT screening location: [place] [address] [place] [address] EXPLANATORY NOTE SEE COMMENT 018 7:03 PM [...] CDT Performing Organization Information: Site ID: [facility]: [facility] Address: [address] [address] Director: Oscar Casillas MD Nahomi Garcia MD PATHOLOGY/CYTOLOGY CELY ESPINOSA Final Result Performing Organization Address City/[facility]/ZIP Co de Phone Number [facility] * HPV W/REFLEX GENOTYPES 16, 18/45 (11/17/2017 7:57 AM CDT) HPV HIGH RISK DNA DETECTION NOT DETECTED 11/22/2017 7:03 PM CDT [facility] Comment: Tested for High Risk types 16, 18, 31, 33, 35, 39, 45, 51, 52, 56, 58, 59, 68. REFERENCE RANGE: HPV DNA HIGH RISK: NOT DETECTED Methodology: Chilltime Hybrid Capture II The analytical performance characteristics of this assay have been determined by [facility]. The modifications have not been cleared or approved by the FDA. This assay has been validated pursuant to the CLIA regulations and is used for clinical purposes. Genital SPECIMEN FROM VAGINA / Unknown Collection / Unknown 11/17/2017 7:57 AM CDT 11/17/2017 1:02 PM CDT Narrative [facility] - 11/22/2017 7:03 PM CDT Performing Organization Information: Site ID: [id number] Name: [facility] Address: [address] [place] [id number] Director: Jeff Meredith MD Nahomi Garcia MD PATHOLOGY/CYTOLOGY CELY ESPINOSA Final Result [facility] * POC OCCULT BLOOD 1 CARD (05/13/2016 11:00 AM CDT) OCCULT BLOOD 1 CARD POC Negative Negative [facility] INTERNAL MEDIC[facility] INTERNAL KIT QC Pass Pass [facility]IC[facility] CARD LOT NUMBER POC [id number] [facility] INTER[facility] CARD EXPIRATION DATE POC 03/10/2018 [facility] INTERNAL [facility]IC[facility] DEVELOPER LOT NUMBER POC [id number] [facility] INTER[facility]IC[facility] DEVELOPER EXPIRATION DATE POC 03/10/2018 [facility] INTER[facility]IC[facility] Stool specimen (specimen) STOOL SPECIMEN / Unknown 05/13/2016 11:00 AM CDT Treva Conrad UTILITY AGENT POINT OF CARE TESTING Final Res ult [facility] [id number] [address] [place] [phone] from Last 3 Months or Most Recently Relevant to Health Maintenance Advance Directives For more information, please contact: [phone] * Full Code (Latest Code Status on File) Date Activated Date Inactivated Comments 12/23/2017 6:42 AM 12/23/2017 10:12 AM * Full Code Date Activated Date Inactivated Comments 05/16/2016 7:31 AM 05/16/2016 4:25 PM Care Teams Railroad Carman Relationship Specialty Start Date End Date Delroy Aragon MD [address] [place] [address] PCP - General 03/14/05
--- OUTSIDE RECORDS SUMMARY | 2025-07-01 16:06 | XMS_ITS | Encounter Summary ---
Author Organization [facility] Address [address] [place] [address] Phone Care Team Providers Care Diesel Crane Operator Name Role Phone Ga Liang MD Primary Care Provider [phone] Logan Acuna MD Unavailable Mars Marti APRN, SOUND ENGINEER AUDIO CONTROL Unavailable [phone] Onelia Lagunas DO Primary Care Provider [phone] Jones Christy MD Unavailable [phone] Eliezer Ndiaye MD Unavailable Shamar Rosales MD Unavailable Reason for Visit * Reason Comments Medication Refill Encounter Details Date Type Department Care Team (Late st Contact Info) Description 10/12/2023 Refill [facility] [address] [place] [address] Jennifer Chowdary PAC [address] [place] [address] Medication Refill Social History Tobacco Use Types Packs/Day Years Used Date Smoking Tobacco: Never Smokeless Tobacco: Never Alcohol Use Standard Drinks/Week Comments No 0 (1 standard drink = 0.6 oz pur e alcohol) Sexually Active Control Partners Comments Yes Male Comments No Sex and Gender Information Value Date Recorded Sex Assigned at Female 08/07/2023 10:22 AM GATE SUPERVISOR Legal Sex Female 12:40 AM CDT Gender Identity Female 08/07/2023 10:22 AM GATE SUPERVISOR Sexual Orientation Straight 08/07/2023 10 :22 AM GATE SUPERVISOR documented as of this encounter Miscellaneous [...] Dept 09/19/23 Office Visit Ninoska Borden APRN, SOUND ENGINEER AUDIO CONTROL [facility] [place] 09/05/23 Office Visit Ninoska Borden APRN, SOUND ENGINEER AUDIO CONTROL [facility] [place] 08/06/23 Office Visit Jennifer Chowdary, [facility] [place] 07/18/23 Office Visit Ga Liang MD [facility] [place] Showing recent visits within past 365 days and meeting all other requirements Future Appointments Date Type Provider Dept 11/13/23 Appointment Ga Liang MD [facility] 12/04/23 [facility]ointment [facility] Showing future appointments within next 90 days and meeting all other requirements SUPERVISOR documented in this encounter Plan of Treatment Upcoming Encounters Date Type Department Care Team (Late st Contact Info) Description 09/05/2025 8:00 AM GATE SUPERVISOR Office Visit [facility] Medicine - [place] [address] [place] [address] Onelia Lagunas, DO [address], [address] [place] [address] 09/08/2025 3:00 PM GATE SUPERVISOR [facility] [place] [address] [place] [phone] Onelia Lagunas, DO 2 [facility] [place] [address] [address] Henry Bernabe MD [address] [phone] 09/28/2025 8:30 AM GATE SUPERVISOR [facility] [place] [address] [place] [address] Shamar Rosales MD [address] [address] 12/12/2025 9:30 AM CDT Office Visit [facility] - [facility]rology - [place] [address] [place] [phone] Jones Christy MD [address] [place] [address] documented as of this encounter Visit Diagnoses Not on filedocumented in this encounter Additional Health Concerns Infection Onset Date Last Indicated Resolved Time COVID - 19 04/30/2024 04/30/2024 04/30/2024 11:2 5 AM CDT documented as of this encounter Care Teams Diesel Crane Operator Relationship Specialty Start Date End Date Ga Liang MD [address] [place] [address] PCP - General Family Medicine 07/18/23 03/08/24 Onelia Lagunas DO [address] [facility] [address] [place] [address] PCP - General Family Medicine 03/09/24 Logan Acuna MD #[address] [facility] [address] [place] [address] Consulting Physician Colon and Rectal Surgery 10/15/23 Mars Marti, DISTRIBUTION LEAD, SOUND ENGINEER AUDIO CONTROL [address] [place] [address] Nurse Practitioner Advanced Practice Nurse 02/10/24 Jones Christy MD [address] [phone] Consulting Physician Neurology 04/30/24 Eliezer Ndiaye MD [address] [address] Consulting Physician Clinical Cardiac Electrophysiology 09/17/24 03/23/25 Shamar Rosales MD [address] [address] Consulting Physician Cardiovascular Disease - Cardiology 03/24/25 documented as of this encounter
--- OUTSIDE RECORDS SUMMARY | 2025-07-01 16:06 | XMS_ITS | Encounter Summary ---
Author Organization [facility] Address [address] [place] [address] Phone Care Team Providers Care Algebra Teacher Name Role Phone Logan Acuna MD Unavailable Mars Marti APRN, MELISSA Unavailable [phone] Onelia Lagunas DO Primary Care Provider [phone] Jones Christy MD Unavailable [phone] Eliezer Ndiaye MD Unavailable Shamar Rosales MD Unavailable Encounter Details Date Type Department Care Team (Latest Contact Info) Description 07/19/2024 Lab Requisition [facility] [address] [place] [address] Brenda Mccann MD Provider, Unknown UNKNOWN Severe sepsis with septic shock (CODE) (HCC); Sepsis due to methicillin susceptible Staphylococcus aureus (HCC) Social History Tobacco Use Types Packs/Day Years Used Date Smoking Tobacco: Never Smokeless Tobacco: Never Alcohol Use Standard Drinks/Week Comments No 0 (1 standard drink = 0.6 oz pur e alcohol) [facility] Utilities Answer Date Recorded In the [...] Total Score - Questions 1-9 0 03/2024 [facility] of Occupat ional Health - Occupational Stress [...] any time in the past 12 [facility], were you homeless or living in a care home (including now)? No 02/14/2024 Sexually Active Control Partners Comments Yes Male Comments No Sex and Gender Information Value Date Recorded Sex Assigned at Female 08/07/2023 10:22 AM DIRECTOR VOLUNTEER SERVICES Legal Sex Female 12:40 AM CDT Gender Identity Female 08/07/2023 10:22 AM DIRECTOR VOLUNTEER SERVICES Sexual Orientation Straight 08/07/2023 10 :22 AM DIRECTOR VOLUNTEER SERVICES documented as of this encounter Functional Status documented as of this encounter Mental Status * Question Answer Entry Date Author BP 109/67 07/19/2024 12:34 PM DIRECTOR VOLUNTEER SERVICES Mery Porras RN Temp 98 07/19/2024 12:34 PM DIRECTOR VOLUNTEER SERVICES Mery Porras RN Pulse 63 07/19/2024 12:34 PM DIRECTOR VOLUNTEER SERVICES Mery Porras RN SpO2 65 07/19/2024 12:34 PM DIRECTOR VOLUNTEER SERVICES Mery Porras RN documented in this encounter Plan of Treatment Upcoming Encounters Date Type Department Care Team (Late st Contact Info) Description 09/05/2025 8:00 AM DIRECTOR VOLUNTEER SERVICES Office Visit [facility] - Family Medicine [facility] [address]2 [place] [address] Onelia Lagunas, DO 2 [facility] [place] [facility] [address] [place] [address] 09/08/2025 3:00 PM DIRECTOR VOLUNTEER SERVICES Office Visit [facility] - Endocrinology - [place] [address] [place] [address] Onelia Lagunas, DO 2 [facility] [place] [facility] [address] [place] [address] Henry Bernabe MD [address] [place] [address] 09/28/2025 8:30 AM DIRECTOR VOLUNTEER SERVICES Office Visit [facility] - Cardiology - [place] [address] [place] [address] Shamar Rosales MD [address] [address] 12/12/2025 9:30 AM CDT [facility] [place] [address] [place] [address] Jones Christy MD [address] [place] [address] documented as of this encounter Procedures Procedure Name Priority Date/Time Associated Diagnosis Comments CBC WITH AUTO DIFFERENTIAL Routine 07/19/2024 12:00 PM DIRECTOR VOLUNTEER SERVICES Severe sepsis with septic shock (CODE) (HCC) Sepsis due to methicillin susceptible Staphylococcus aureus (HCC) CMP (COMPREHENSIVE METABOLIC PANEL) Routine 07/19/2024 12:00 PM DIRECTOR VOLUNTEER SERVICES Severe sepsis with septic shock (CODE) (HCC) Sepsis due to methicillin susceptible Staphylococcus aureus (HCC) COMPLETE BLOOD COUNT (CBC) WITH DIFF Routine 07/19/2024 12:00 PM DIRECTOR VOLUNTEER SERVICES Severe sepsis with septic shock (CODE) (HCC) Sepsis due to methicillin susceptible Staphylococcus aureus (HCC) C-REACTIVE PROTEIN (CRP) QUANT Routine 07/19/2024 12:00 PM DIRECTOR VOLUNTEER SERVICES Severe sepsis with septic shock (CODE) (HCC) Sepsis due to methicillin susceptible Staphylococcus aureus (HCC) documented in this encounter Results * (ABNORMAL) CBC WITH AUTO DIFFERENTIAL (07/19/2024 12:00 PM DIRECTOR VOLUNTEER SERVICES) WBC 6.07 4.00 - 12.00 10(3)/mcL 07/19/2024 1:30 PM [facility] RBC 3.19(L) 3.80 - 5.30 10(6)/mcL 07/19/2024 1:30 PM [facility] HEMOGLOBIN (HGB) 10.0(L) 12.0 - 15.8 g/dL 07/19/2024 1:30 PM [facility] HEMATOCRIT (HCT) 31.1(L) 36.0 - 47.0 % 07/19/2024 1:30 PM [facility] MCV 97.5(H) 82.0 - 96.0 fL 07/19/2024 1:30 PM [facility] MCH 31.3 26.0 - 34.0 pg 07/19/2024 1:30 PM [facility] MCHC 32.2 31.0 - 36.0 g/dL 07/19/2024 1:30 PM [facility] PLATELET COUNT 349 140 - 440 10(3)/mcL 07/19/2024 1:30 PM [facility] RDW 13.0 11.8 - 15.5 % 07/19/2024 1:30 PM [facility] MPV 10.3 9.7 - 12.4 fL 07/19/2024 1:30 PM DIRECTOR VOLUNTEER SERVICES [facility] NEUTROPHILS 64.1 47.0 - 73.0 % 07/19/2024 1:30 PM DIRECTOR VOLUNTEER SERVICES [facility] LYMPHOCYTES 23.7 18.0 - 42.0 % 07/19/2024 1:30 PM DIRECTOR VOLUNTEER SERVICES [facility] MONOCYTES 8.2 4.0 - 12.0 % 07/19/2024 1:30 PM DIRECTOR VOLUNTEER SERVICES [facility] EOSINOPHILS 3.5 0.0 - 5.0 % 07/19/2024 1:30 PM DIRECTOR VOLUNTEER SERVICES [facility] BASOPHILS 0.5 0.0 - 1.0 % 07/19/2024 1:30 PM DIRECTOR VOLUNTEER SERVICES [facility] ABSOLUTE NEUTROPHILS 3.89 1.60 - 7.70 10(3)/[facility] 07/19/2024 1:30 PM [facility] ABSOLUTE LYMPHOCYTES 1.44 1.30 - 3.20 10(3)/[facility] 07/19/2024 1:30 PM [facility] ABSOLUTE MONOCYTES 0.50 0.20 - 1.00 10(3)/[facility] 07/19/2024 1:30 PM DIRECTOR VOLUNTEER SERVICES [facility] ABSOLUTE EOSINOPHIL 0.21 0.00 - 0.40 10(3)/[facility] 07/19/2024 1:30 PM [facility] ABSOLUTE BASOPHILS 0.03 0.00 - 0.10 10(3)/[facility] 07/19/2024 1:30 PM [facility] NRBC PER 100 WBC 0 07/19/20 1:30 PM [facility] Blood No Phlebotomy Charged / Unknown 07/19/2024 12:00 PM DIRECTOR VOLUNTEER SERVICES 07/19/2024 1:20 PM DIRECTOR VOLUNTEER SERVICES us Unknown Provider HEMATOLOGY ORDERABLES Final Res ult [facility] [address] [place] [address] * (ABNORMAL) C-REACTIVE PROTEIN (CRP) QUANT (07/19/2024 12:00 PM DIRECTOR VOLUNTEER SERVICES) Pathologist [facility] C-REACTIVE PROTEIN 2.84(H) <0.50 mg/dL 07/19/2024 1:54 PM DIRECTOR VOLUNTEER SERVICES [facility] Blood No Phlebotomy Charged / Unknown 07/19/2024 12:00 PM DIRECTOR VOLUNTEER SERVICES 07/19/2024 1:20 PM DIRECTOR VOLUNTEER SERVICES us Unknown Provider CHEMISTRY ORDERABLES Final Resu lt [facility] [address] [place] [address] * (ABNORMAL) CMP (COMPREHENSIVE METABOLIC PANEL) (07/19/2024 12:00 PM DIRECTOR VOLUNTEER SERVICES) Pathologist [facility] SODIUM 141 136 - 145 mmol/L 07/19/2024 1:54 PM [facility] POTASSIUM 3.8 3.5 - 5.1 mmol/L 07/19/2024 1:54 PM [facility] CHLORIDE 107 98 - 107 mmol/L 07/19/2024 1:54 PM [facility] CO2, VENOUS 28 22 - 30 mmol/L 07/19/2024 1:54 PM [facility] ANION GAP 9.8 <18.0 mmol/L 07/19/2024 1:54 PM [facility] GLUCOSE 108(H) 70 - 99 mg/dL 07/19/2024 1:54 PM [facility] BUN 15 10 - 20 mg/dL 07/19/2024 1:54 PM [facility] CREATININE, BLOOD 0.76 0.60 - 1.00 mg/dL 07/19/2024 1:54 PM [facility] BUN/CREATININE RATIO 20 12 - 20 ratio 07/19/2024 1:54 PM [facility] TOTAL PROTEIN 6.0(L) 6.3 - 8.2 g/dL 07/19/2024 1:54 PM [facility] ALBUMIN 3.1(L) 3.5 - 5.0 g/dL 07/19/2024 1:54 PM DIRECTOR VOLUNTEER SERVICES [facility] A/G RATIO 1.1 1.0 - 2.2 07/19/2024 1:54 PM DIRECTOR VOLUNTEER SERVICES [facility] CALCIUM 9.0 8.7 - 10.5 mg/dL 07/19/2024 1:54 PM DIRECTOR VOLUNTEER SERVICES [facility] T BILI 0.2 0.2 - 1.2 mg/dL 07/19/2024 1:54 PM DIRECTOR VOLUNTEER SERVICES [facility] SGOT (AST) 20 5 - 34 U/L 07/19/2024 1:54 PM DIRECTOR VOLUNTEER SERVICES [facility] SGPT (ALT) 8 0 - 55 U/L 07/19/2024 1:54 PM DIRECTOR VOLUNTEER SERVICES [facility] ALKALINE PHOSPHATASE 299(H) 40 - 150 U/L 07/19/2024 1:54 PM DIRECTOR VOLUNTEER SERVICES [facility] GFR, ESTIMATED >60 >=60 07/19/2024 1:54 PM DIRECTOR VOLUNTEER SERVICES [facility] Comment: Creatinine Clearance is the preferred criteria for selecting drug dose adjustments in renally impaired patients. The GFR is provided as additional pertinent clinical information. GFR is reported in mL/min/1.73 sq m. Calculation based on the Chronic Kidney Disease Epidemiology Collaboration (CKD- EPI) equation refit without adjustment for race. GFR, EST. >60 >=60 024 1:54 PM DIRECTOR VOLUNTEER SERVICES [facility] GFR, EST. NONAFRICAN >60 >=60 07/19/2024 1:54 PM DIRECTOR VOLUNTEER SERVICES [facility] Blood No Phlebotomy Charged / Unknown 07/19/2024 12:00 PM DIRECTOR VOLUNTEER SERVICES 07/19/2024 1:20 PM DIRECTOR VOLUNTEER SERVICES us Unknown Provider CHEMISTRY ORDERABLES Final Resu lt [facility] [address] [place] [address] documented in this encounter Visit Diagnoses Diagnosis Severe sepsis with septic shock (CODE) Sepsis due to methicillin susceptible Staphylococcus aureus Methicillin susceptible staphylococcus aureus septicemia documented in this encounter Additional Health Concerns Assessment Noted Time PHQ-9 Depression Total Score: 0 02/16/20 9:00 AM CDT documented as of this encounter Care Teams Algebra Teacher Relationship Specialty Start Date End Date Timo Lagunasa DO Suzette [address] [facility] [address] [place] [address] PCP - General Family Medicine 03/09/24 Logan Acuna MD [address] [address] Consulting Physician Colon and Rectal Surgery 10/15/23 Mars Marti APRN, CNP [address] [place] [address] Nurse Practitioner Advanced Practice Nurse 02/10/24 Jones Christy MD [address] [place] [phone] Consulting Physician Neurology 04/30/24 Eliezer Ndiaye MD #[address] [address] Consulting Physician Clinical Cardiac Electrophysiology 09/17/24 03/23/25 Shamar Rosales MD [address] [address] Consulting Physician Cardiovascular Disease - Cardiology 03/24/25 documented as of this encounter
--- OUTSIDE RECORDS SUMMARY | 2025-07-01 16:06 | XMS_ITS | Encounter Summary ---
Author Organization [facility] Address [address] [place] [address] Care Team Providers Care Director Sales Name Role Phone Delroy Aragon MD Primary Care Provider [phone] Encounter Details Date Type Department Care Team (Late st Contact Info) Description 12/10/2004 Outpatient [facility] Internal Medicine [address] [address] Delroy Aragon MD [address] [place] [address] Social History Tobacco Use Types Packs/Day Years Used Date Smoking Tobacco: Never Assessed Comments Unknown Sex and Gender Information Value Date Recorded Sex Assigned at Not on file Legal Sex Female 5:10 AM CREATIVE ARTS THERAPIST Gender Identity Not on file Sexual [...] filedocumented in this encounter Care Teams Director Sales Relationship Specialty Start Date End Date Delroy Aragon MD [address] [place] [address] PCP - General 03/14/05 documented as of this encounter
--- OUTSIDE RECORDS SUMMARY | 2025-07-01 16:06 | XMS_ITS | Encounter Summary ---
Author Organization [facility] Address [address] [place] [address] Phone Care Team Providers Care Temporary Administrative Assistant Name Role Phone Ga Liang MD Primary Care Provider Logan Acuna MD Unavailable Mars Marti APRN, CNP Unavailable [phone] Onelia Lagunas DO Primary Care Provider [phone] Jones Christy MD Unavailable [phone] Eliezer Ndiaye MD Unavailable Shamar Rosales MD Unavailable Reason for Visit * Reason Comments Medication Refill Encounter Details Date Type Department Care Team (Late st Contact Info) Description 10/06/2023 Refill [facility] [address] [place] [address] Ga Liang MD [address] [place] [address] Medication Refill Social History Tobacco Use Types Packs/Day Years Used Date Smoking Tobacco: Never Smokeless Tobacco: Never Alcohol Use Standard Drinks/Week Comments No 0 (1 standard drink = 0.6 oz pur e alcohol) Sexually Active Control Partners Comments Yes Male Comments No Sex and Gender Information Value Date Recorded Sex Assigned at Female 08/07/2023 10:22 AM WELDER METAL FAB Legal Sex Female 12:40 AM CDT Gender Identity Female 08/07/2023 10:22 AM WELDER METAL FAB Sexual Orientation Straight 08/07/2023 10 :22 AM WELDER METAL FAB documented as of this encounter Miscellaneous Notes * Telephone Encounter - Mily Quiros RN - 10/07/2023 9:02 AM CST Medication(s) refilled and [facility] Medication Refill Standing Order for Pediatricand [...] Dept 09/19/23 Office Visit Ninoska Borden APRN, SERVICE CAR OPERATOR [facility] [place] 09/05/23 Office Visit Ninoska Borden APRN, SERVICE CAR OPERATOR [facility]/06[facility]23 Office Visit Jennifer Chowdary, ROSE [facility]23 Office Visit Ga Liang MD [facility] [place] Showing recent visits within past 365 days and meeting all other requirements Future Appointments Date Type Provider Dept 11/13/23 Appointment Ga Liang MD [facility] 12/04/23 Appointment Ga Liang MD [facility] [place] Showing future appointments within next 90 days and meeting all other requirements ER METAL FAB documented in this encounter Plan of Treatment Upcoming Encounters Date Type Department Care Team (Late st Contact Info) Description 09/05/2025 8:00 AM WELDER METAL FAB Office Visit [facility] - Family Medicine - [place] [address] [place] [phone] Onelia Lagunas, DO 2 [facility] [address] [place] [address] 09/08/2025 3:00 PM WELDER METAL FAB Office Visit [facility] - Endocrinology - [place] [address] [place] [address] Onelia Lagunas, DO 2 [facility] [address] [place] [address] Henry Bernabe MD #[address] [address] 09/28/2025 8:30 AM WELDER METAL FAB [facility] [place] [address] [place] [address] Shamar Rosales MD [address] [address] 12/12/2025 9:30 AM CDT Office Visit [facility] - Neurology - [place] [address] [place] [address] Jones Christy MD [address] [place] [address] documented as of this encounter Visit Diagnoses Not on filedocumented in this encounter Additional Health Concerns Infection Onset Date Last Indicated Resolved Time COVID - 19 04/30/2024 04/30/2024 04/30/2024 11:2 5 AM CDT documented as of this encounter Care Teams Temporary Administrative Assistant Relationship Specialty Start Date End Date Ga Liang MD [address] [place] [address] PCP - General Family Medicine 12/8/23 7/29/24 Onelia Lagunas DO 2 [facility] [place] [address] [address] PCP - General Family Medicine 03/09/24 Logan Acuna MD #[address] [address] Consulting Physician Colon and Rectal Surgery 10/15/23 Mars Marti APRN, SERVICE CAR OPERATOR [address] [place] [address] Nurse Practitioner Advanced Practice Nurse 02/10/24 Jones Christy MD [address] [place] [phone] Consulting Physician Neurology 04/30/24 Eliezer Ndiaye MD [address] [address] Consulting Physician Clinical Cardiac Electrophysiology 09/17/24 03/23/25 Shamar Rosales MD 2 [facility] [address] [address] Consulting Physician Cardiovascular Disease - Cardiology 03/24/25 documented as of this encounter
--- OUTSIDE RECORDS SUMMARY | 2025-07-01 16:07 | XMS_ITS | Encounter Summary ---
Author Organization [facility] Address [address] [place] [address] Care Team Providers Care Sales Representative Aircraft Name Role Phone Delroy Aragon MD Primary Care Provider [phone] Encounter Details Date Type Department Care Team (Late st Contact Info) Description 11/02/2007 Outpatient [facility] Internal Medicine [address] [address] Delroy Aragon MD [address] [place] [phone] Social History Tobacco Use Types Packs/Day Years Used Date Smoking Tobacco: Never Assessed Comments Unknown Sex and Gender Information Value Date Recorded Sex Assigned at Not on file Legal Sex Female 5:10 AM PRODUCTION OR PLANT ENGINEER Gender Identity Not on file Sexual Orientation Not on file documented as of this encounter Plan of Treatment Not on file documented as of this encounter Visit Diagnoses Not on filedocumented in this encounter Care Teams Sales Representative Aircraft Relationship Specialty Start Date End Date Delroy Aragon MD [address] [place] [address] [address] [place] [address] PCP - General 03/14/05 documented as of this encounter
--- OUTSIDE RECORDS SUMMARY | 2025-07-01 16:07 | XMS_ITS | Encounter Summary ---
Author Organization [facility] Address [address] [place] [address] Care Team Providers Care Director Packaging Name Role Phone Delroy Aragon MD Primary Care Provider [phone] Encounter Details Date Type Department Care Team (Late st Contact Info) Description 10/19/2007 Outpatient [facility] Internal Medicine [address] [address] Delroy Aragon MD [address] [place] [address] Social History Tobacco Use Types Packs/Day Years Used Date Smoking Tobacco: Never Assessed Comments Unknown Sex and Gender Information Value Date Recorded Sex Assigned at Not on file Legal Sex Female 5:10 AM REPAIR MECHANIC Gender Identity Not on file Sexual [...] filedocumented in this encounter Care Teams Director Packaging Relationship Specialty Start Date End Date Delroy Aragon MD [address] [place] [address] PCP - General 03/14/05 documented as of this encounter
--- OUTSIDE RECORDS SUMMARY | 2025-07-01 16:07 | XMS_ITS | Encounter Summary ---
Author Organization [facility] Address [address] [place] [address] Phone Care Team Providers Care Drain Tile Press Operator Name Role Phone Logan Acuna MD Unavailable Mars Marti APRN, WATCH ASSEMBLER Unavailable [phone] Onelia Lagunas DO Primary Care Provider [phone] Jones Christy MD Unavailable [phone] Shamar Rosales MD Unavailable Encounter Details Date Type Department Care Team (Late st Contact Info) Description 06/02/2025 Results Follow-Up [facility] - Family Medicine [facility] [address] [place] [phone] Eloisa Beaulieu, SHANK CARRIER, WATCH ASSEMBLER [address] [place] [address] LIPID PANEL Social History Tobacco Use Types Packs/Day Years Used Date Smoking Tobacco: Never Smokeless Tobacco: Never Alcohol Use Standard Drinks/Week Comments No 0 (1 standard drink = 0.6 oz pur e alcohol) [facility] Utilities Answer Date Recorded In [...] 09/14/2024 How often do you attend chur or congregation services? More than 4 times per year 09/14/2024 Do you belong to any clubs o r organizations such as congregation groups, unions, fraternal or athletic groups, or [...] Total Score - Questions 1-9 0 04/12 [facility] - Occupational [...] place to sleep or slept in a mcc (including now)? No 12/02/2023 Housing Stability Vital [...] time in the past 12 m [facility], were you homeless or living in a mcc (including now)? No 09/14/2024 Sexually Active Control Partners Comments Yes Post-menopausal, Surgical Male Comments No Sex and Gender Information Value Date Recorded Sex Assigned at Female 08/07/2023 10:22 AM VEGETABLES COOK Legal Sex Female 12:40 AM CDT Gender Identity Female 08/07/2023 10:22 AM VEGETABLES COOK Sexual Orientation Straight 08/07/2023 10 :22 AM VEGETABLES COOK documented as of this encounter Plan of Treatment Upcoming Encounters Date Type Department Care Team (Late st Contact Info) Description 09/05/2025 8:00 AM VEGETABLES COOK [facility] Visit [facility] - [place] [address] [place] [address] Oneila Lagunas, DO 2 [address] [place] [address] 09/08/2025 3:00 PM VEGETABLES COOK Office Visit [facility] - Endocrinology - [place] [address] [place] [phone] Onelia Lagunas DO [address] [address] Henry Bernabe MD #[address] [phone] 09/28/2025 8:30 AM VEGETABLES COOK Office Visit [facility] Cardiology [facility] [address] [place] [phone] Shamar Rosales MD [address] [address] 12/12/2025 9:30 AM CDT Office Visit [facility] - Neurology - [place] [address] [place] [phone] Jones Christy MD [address] [place] [phone] documented as of this encounter Visit Diagnoses Not on filedocumented in this encounter Additional Health Concerns Assessment Noted Time PHQ-9 Depression Total Score: 0 05/02/20 25 8:56 AM CDT documented as of this encounter Care Teams Drain Tile Press Operator Relationship Specialty Start Date End Date Onelia Lagunas DO 2 [facility] [place] [address] [address] PCP - General Family Medicine 03/09/24 Logan Acuna MD #[address] [address] Consulting Physician Colon and Rectal Surgery 10/15/23 Mars Marti, SHANK CARRIER, WATCH ASSEMBLER [address] [place] [address] Nurse Practitioner Advanced Practice Nurse 02/10/24 Jones Christy MD [address] [place] [address] Consulting Physician Neurology 04/30/24 Shamar Rosales MD [address] [address] Consulting Physician Cardiovascular Disease - Cardiology 03/24/25 documented as of this encounter
--- OUTSIDE RECORDS SUMMARY | 2025-07-01 16:07 | XMS_ITS | Encounter Summary ---
Author Organization [facility] Address [address] [place] [address] Care Team Providers Care Drawer Liner Name Role Phone Delroy Aragon MD Primary Care Provider [phone] Encounter Details Date Type Department Care Team (Late st Contact Info) Description 11/02/2007 Outpatient [facility] Internal Medicine [address] [address] Delroy Aragon MD [address] [place] [phone] Social History Tobacco Use Types Packs/Day Years Used Date Smoking Tobacco: Never Assessed Comments Unknown Sex and Gender Information Value Date Recorded Sex Assigned at Not on file Legal Sex Female 5:10 AM GALLEY HAND Gender Identity Not on file Sexual Orientation Not on file documented as of this encounter Plan of Treatment Not on file documented as of this encounter Visit Diagnoses Not on filedocumented in this encounter Care Teams Drawer Liner Relationship Specialty Start Date End Date Delroy Aragon MD [address] [place] [address] [address] [place] [address] PCP - General 03/14/05 documented as of this encounter
--- OUTSIDE RECORDS SUMMARY | 2025-07-01 16:07 | XMS_ITS | Encounter Summary ---
Author Organization [facility] Address [address] [place] [address] Care Team Providers Care Bandage Wrapping Machine Operator Name Role Phone Delroy Aragon MD Primary Care Provider [phone] Encounter Details Date Type Department Care Team (Late st Contact Info) Description 10/19/2007 Orders Only [facility] Internal Medicine [address] [address] Delroy Aragon MD [address] [place] [phone] Social History Tobacco Use Types Packs/Day Years Used Date Smoking Tobacco: Never Assessed Comments Unknown Sex and Gender Information Value Date Recorded Sex Assigned at Not on file Legal Sex Female 5:10 AM LABEL PRINTER Gender Identity Not on file Sexual Orientation [...] 10/19/2007. LAB ORDERS: 3 mo Order number: [id number] Test Ordered: COMPREHENSIVE METABOLIC PANEL & GFR 1112 Order number: [id number] Test Ordered: LIPID PANEL 1078 RETURN VISIT : Patient instructed to return in 3 months. Electronically Signed by: Delroy Aragon MD on Friday, October 19, 2007 documented in this encounter Plan of Treatment Not on file documented as of this encounter Visit Diagnoses Not on filedocumented in this encounter Care Teams Bandage Wrapping Machine Operator Relationship Specialty Start Date End Date Delroy Aragon MD [address] [place] [address] PCP - General 03/14/05 documented as of this encounter
== END 2025-07-01 16:02 | disposition home or self-care (01) ==
PROVIDERS: PCP Physician Assistant; Visit Provider Neurological Surgery
DX: Z98.1 Arthrodesis status (principal)
CPT/HCPCS: 72131